=== PATIENT | male | born 1945 | race Caucasian/White ===

== ENCOUNTER 2016-10-08 13:00 | Inpatient (IN) | payer MEDICARE ==
[2016-10-08 13:01] VITALS: PULSE 68
--- NOTE | 2016-10-08 13:50 | ED PDOC ---
Arrival/HPI - General Chief Complaint: Weakness/Neurological Deficit Time Seen by Provider: 10/08/16 13:01 Historian: Patient, Spouse EM Caveat: Altered Mental Status - History of Present Illness Narrative History of Present Illness (Text): 10/08/16 13:23 A 71 year old male, whose past medical history includes stroke, diabetes, atrial fibrillation, on Coumadin and keppra was brought into the emergency department via EMS for Altered Mental Status. His reports when she came out of the bathroom this morning, her was lethargic and barely responsive though his eyes were partly open. She notes she couldn't hear his breathing. Per EMS, the patient was awake and alert upon their arrival but was hypotensive with a BP about 73/34. Per , his mental status is back to its baseline at this time. The patient denies any headache, vision changes, chest pain, fever, nausea, vomiting, abdominal pain, or any other complaints at this time. PMD: Dr. Castle Time/Duration: 4-6 hours Symptom Onset: Sudden Symptom Course: Unchanged Activities at Onset: Rest, Light Context: Home Past Medical History - Provider Review Nursing Documentation Reviewed: Yes - Infectious Disease Hx of Infectious Diseases: None - Tetanus Immunization Tetanus Immunization: Unknown - Cardiac Hx Cardiac Disorders: Yes (Afib) Hx Congestive Heart Failure: Yes Hx Hypertension: Yes - Pulmonary Hx Respiratory Disorders: Yes Hx Pneumonia: Yes Hx Respiratory Aspiration: Yes - Neurological Hx Neurological Disorder: Yes HX Cerebrovascular Accident: Yes (12/06/10, right sided weakness) - HEENT Hx HEENT Disorder: Yes (EYE INFECTION) Other/Comment: pt takes eye drops but does not know what they are for - Renal Hx Renal Disorder: Yes Other/Comment: incontinent of urine - Endocrine/Metabolic Hx Endocrine Disorders: Yes Hx Diabetes Mellitus Type 1: Yes Hx Diabetes Mellitus Type 2: No - Hematological/Oncological Hx Blood Disorders: No Hx Blood Transfusions: (not aware) Hx Blood Transfusion Reaction: (not aware) - Integumentary Hx Dermatological Disorder: No - Musculoskeletal/Rheumatological Hx Musculoskeletal Disorders: Yes Hx Falls: Yes - Gastrointestinal Hx Gastrointestinal Disorders: Yes (dysphagia, eats puree diet) HX Swallowing Problems: Yes - Genitourinary/Gynecological Hx Genitourinary Disorders: Yes Hx Incontinence: Yes Hx Prostate Problems: Yes (enlarged, bph) - Psychiatric Hx Psychophysiologic Disorder: No Hx Depression: No Hx Emotional Abuse: No Hx Physical Abuse: No Hx Substance Use: No - Surgical History Hx Amputation: Yes (rt great toe) Other/Comment: "brain surgery" - Anesthesia Hx Anesthesia: No Hx Anesthesia Reactions: No Hx Malignant Hyperthermia: No - Suicidal Assessment Feels Threatened In Home Enviroment: No Family/Social History - Physician Review Nursing Documentation Reviewed: Yes Family/Social History: No Known Family HX, Unknown Family HX Smoking Status: Former Smoker Hx Alcohol Use: No (FORMER) Hx Substance Use: No Hx Substance Use Treatment: No Allergies/Home Meds Allergies/Adverse Reactions: Allergies clopidogrel Allergy (Verified 10/08/16 13:02) RASH Home Medications: Home Meds Medication Instructions Recorded Confirmed Aspirin [Aspir 81] 81 mg PO DAILY 07/03/11 10/08/16 Tamsulosin [Flomax] 0.4 mg PO DAILY 07/03/11 10/08/16 Levetiracetam [Keppra] 500 mg PO BID 04/15/16 10/08/16 Metoprolol Tartrate [Lopressor] 12.5 mg PO BID 04/15/16 10/08/16 Pravastatin Sodium [Pravachol] 40 mg PO DAILY 04/15/16 10/08/16 QUEtiapine [Seroquel] 25 mg PO TID 10/08/16 10/08/16 Review of Systems - Physician Review All systems were reviewed & negative as marked: Yes - Review of Systems Systems not reviewed;Unavailable: Altered Mental Status (A&O x2 Place and Person , not to time (limits ROS)) Constitutional: absent: Fevers Eyes: absent: Vision Changes Cardiovascular: absent: Chest Pain Gastrointestinal: absent: Abdominal Pain Neurological: absent: Headache Physical Exam - Physical Exam Physical Exam Limitations: Altered Mental Status (A&Ox2 (Place and person, NOT time)) Vital Signs Reviewed: Yes Vital Signs Temp Pulse Resp BP Pulse Ox 10/08/16 15:39 95 H 18 166/69 H 96 10/08/16 13:21 78 16 128/65 97 10/08/16 13:19 96.7 F L Temperature: Hypothermic (96.7 rectal temp) Blood Pressure: Normal Pulse: Regular Respiratory Rate: Normal Appearance: Positive for: Non-Toxic Pain Distress: None Mental Status: Positive for: other (A&Ox2) - Systems Exam Head: Present: Other (Old scab on midparietal region of scalp that appears to be oozing out a small amount of blood.) Pupils: Present: PERRL Extroacular Muscles: Present: EOMI Mouth: Present: Moist Mucous Membranes Pharnyx: Present: Normal. No: ERYTHEMA Neck: Present: Normal Range of Motion Respiratory/Chest: Present: Other (Diminished breath at the bases). No: Respiratory Distress, Accessory Muscle Use Cardiovascular: Present: Normal S1, S2, Irregular Rhythm, Other Abdomen: Present: Normal Bowel Sounds. No: Tenderness, Distention, Peritoneal Signs Upper Extremity: Present: Normal Inspection. No: Cyanosis, Edema Lower Extremity: Present: Normal Inspection. No: Edema Neurological: Present: GCS=15, CN II-XII Intact, Other (dense right hemiparesis present at baseline ) Skin: Present: Warm, Dry, Normal Color. No: Rashes Psychiatric: Present: Alert, Other (A&O x2 ). No: Oriented x 3, Normal Concentration Medical Decision Making ED Course and Treatment: 10/08/16 14:01 Impression: A 71 year old male brought in via EMS for AMS. Differential Diagnosis included but are not limited to: seizure vs. TIA vs. neurocardiogenic syncope vs. infection Plan: -- Head CT -- EKG -- Chest X-ray -- Labs -- Urinalysis -- IV fluids, cefTRIAXone -- Reassess and disposition Prior Visits: The patient was last seen in the emergency department on 04/15/16 for pneumonia and dehydrated. The patient was admitted to the hospital. Progress Notes: EKG: Ordered, reviewed, and independently interpreted the EKG. Rate : 91 BPM Rhythm : Atrial fibrillation with RBBB, QRS is 128. Interpretation : No new ST/T changes. Comparison : No previous EKG for comparison from 04/15/16. Lactic acid 2.2, however patient meets 1/4 SIRS criteria, therefore not a code sepsis patient. Patient with noted history. Labs are showing a UTI; he will need IV antibiotics and placement on tele given the possible syncopal vs seizure episode at home. Case discussed with Dr. Castle and Dr. Fuchs, who is covering him. Chest X-Ray: Volunteer Services Manager : Boone Michaels MD Report Date : 10/08/2016 14:16:05 HISTORY:Sepsis Patient COMPARISON:04/18/2016. FINDINGS: LUNGS:Residual or recurrent consolidative changes right lower lobe. PLEURA:No significant pleural effusion identified, no pneumothorax apparent. CARDIOVASCULAR: No radiographic findings to suggest acute or significant cardiovascular disease. OSSEOUS STRUCTURES:No significant abnormalities. VISUALIZED UPPER ABDOMEN:Normal. OTHER FINDINGS:None. IMPRESSION:Right lower lobe infiltrate. 10/08/16 15:22 The patient had a 20 second seizure in the emergency department, which resolved. Patient was given 1mg of Ativan and 500 mg Keppra. 10/08/16 16:[address] negative. Patient's CXR shows a pneumonia - will add azithro to the abx coverage. - Lab Interpretations Lab Results: 10/08/16 13:41 10/08/16 14:13 Lab Results 10/08/16 14:13: Sodium 137, Chloride 103, Potassium 4.5, Carbon Dioxide 24, Anion Gap 15, BUN 19, Creatinine 0.7, Est GFR ( Amer) > 60, Est GFR (Non- Af Amer) > 60, Random Glucose 126 H, Calcium 8.8, Phosphorus 3.3, Magnesium 1.9 , Total Bilirubin 0.7, AST 19, ALT 24, Alkaline Phosphatase 74, Lactate Dehydrogenase 340, Total Creatine Kinase 75, Troponin I 0.02 D, Total Protein 6.3, Albumin 3.5, Globulin 2.9, Albumin/Globulin Ratio 1.2, Lipase 64 10/08/16 13:50: Urine Color Yellow, Urine Appearance Cloudy, Urine pH 7.0, Ur Specific [place] 1.020, Urine Protein 100 H, Urine Glucose (UA) Negative, Urine Ketones Negative, Urine Blood Moderate H, Urine Nitrate Positive H, Urine Bilirubin Negative, Urine Urobilinogen 2.0 H, Ur Leukocyte Esterase Large H, Urine RBC 0 - 2, Urine WBC Tntc, Urine Bacteria Large 10/08/16 13:41: pO2 49, VBG pH 7.28 L, VBG pCO2 56.0, VBG HCO3 26.3, VBG Total CO2 28.0, VBG O2 Sat (Calc) 85.5 H, VBG Base Excess -1.4 L, VBG Potassium 4.3, Sodium 137.0, Chloride 104.0, Glucose 134 H, Lactate 2.2 H, FiO2 21.0, Venous Blood Potassium 4.3 10/08/16 13:41: PT 25.5 H, INR 2.36 H, APTT 37.6 H 10/08/16 13:41: WBC 5.0 D, RBC 5.00, Hgb 15.2, Hct 44.3, MCV 88.6, MCH 30.4, MCHC 34.3, RDW 13.9, Plt Count 132, MPV 9.5, Gran % 57.2, Lymph % (Auto) 22.9, [place] % (Auto) 11.5 H, Eos % (Auto) 7.6 H, Baso % (Auto) 0.8, Gran # 2.88, Lymph # 1.2, [place] # 0.6, Eos # 0.4, Baso # 0.04, ESR 11 I have reviewed the lab results: Yes - RAD Interpretation Radiology Orders: 10/08/16 13:32 CHEST PORTABLE [RAD] Stat 10/08/16 13:33 Brain [HEAD W/O CONTRAST] [CT] Stat - Medication Orders Current Medication Orders: Azithromycin (Zithromax 500mg In Ns) 500 mg in 250 mls @ 167 mls/hr IVPB STAT STA PRN Reason: Protocol Stop: 10/08/16 16:32 Last Admin: 10/08/16 15:33 Dose: 167 mls/hr Discontinued Medications Ceftriaxone Sodium (Rocephin 1 Gram Ivpb) 1 gm in 100 mls @ 200 mls/hr IV ONCE STA PRN Reason: Protocol Stop: 10/08/16 14:31 Last Admin: 10/08/16 14:15 Dose: 200 mls/hr Sodium Chloride (Sodium Chloride 0.9%) 1,000 mls @ 999 mls/hr IV .Q1H1M STA Stop: 10/08/16 15:03 Last Admin: 10/08/16 14:16 Dose: 999 mls/hr Levetiracetam (Keppra 500mg Ivpb) 500 mg in 100 mls @ 400 mls/hr IVPB STAT STA Stop: 10/08/16 15:40 Last Admin: 10/08/16 15:33 Dose: 400 mls/hr Lorazepam (Ativan) 1 mg IVP ONCE STA PRN Reason: Protocol Stop: 10/08/16 15:27 Last Admin: 10/08/16 15:31 Dose: 1 mg - PA / DEPLOYMENT SPECIALIST / Resident Statement MD/DO has reviewed & agrees with the documentation as recorded. - Scribe Statement The provider has reviewed the documentation as recorded by the Scribe Provider Attestation: Mendy Mari Provider Scribe Attestation: All medical record entries made by the Scribe were at my direction and personally dictated by me. I have reviewed the chart and agree that the record accurately reflects my personal performance of the history, physical exam, medical decision making, and the department course for this patient. I have also personally directed, reviewed, and agree with the discharge instructions and disposition. Disposition/Present on Arrival - Present on Arrival Any Indicators Present on Arrival: No History of DVT/PE: No History of Uncontrolled Diabetes: No Urinary Catheter: No History of Decub. Ulcer: No History Surgical Site Infection Following: None - Disposition Have Diagnosis and Disposition been Completed?: Yes Diagnosis: Pneumonia, Altered mental status, Urinary tract infection, Seizure, Syncope Disposition: HOSPITALIZED Disposition Time: 14:35 Patient Plan: Admission, Telemetry Condition: FAIR
[2016-10-08 13:52] LABS: BASO # 0.04 K/mm3 (0.0-2.0); BASO % 0.8 % (0.0-3.0); EOS # 0.4 (0.0-0.7); EOS % 7.6 % (1.5-5.0); GRAN # 2.88 (1.4-6.5); GRAN % 57.2 % (50.0-68.0); HEMOGLOBIN 15.2 g/dL (14.0-18.0); LYMPH # 1.2 (1.2-3.4); LYMPH % 22.9 % (22.0-35.0); MEAN CELL VOLUME 88.6 fl (80.0-105.0); MEAN CORPUSCULAR HEMOGLOBIN 30.4 pg (25.0-35.0); MEAN CORPUSCULAR HGB CONC 34.3 g/dl (31.0-37.0); MEAN PLATELET VOLUME 9.5 fl (7.0-11.0); MONO # 0.6 (0.1-0.6); MONO % 11.5 % (1.0-6.0); PLATELET COUNT 132 10^3/uL (120.0-450.0); RED CELL DISTRIBUTION WIDTH 13.9 % (11.5-14.5)
[2016-10-08 13:53] LABS: VENOUS BLOOD GAS BASE EXCESS -1.4 mmol/L (0.0-2.0); VENOUS BLOOD GAS PO2 49 mm/Hg (30-55); VENOUS BLOOD PH 7.28 (7.32-7.43)
[2016-10-08 13:59] LABS: URINE BILIRUBIN NEGATIVE (NEGATIVE); URINE BLOOD MODERATE (NEGATIVE); URINE GLUCOSE (UA) NEGATIVE (NEGATIVE); URINE LEUKOCYTE ESTERASE LARGE Leu/uL (NEGATIVE); URINE NITRATE POSITIVE (NEGATIVE); URINE PROTEIN 100 mg/dL (<30 mg/dL)
[2016-10-08 13:59] LABS: INR 2.36 (0.93-1.08); PARTIAL THROMBOPLASTIN TIME 37.6 Seconds (23.7-30.8); PROTHROMBIN TIME 25.5 Seconds (9.9-11.8)
[2016-10-08 14:02] LABS: URINE APPEARANCE CLOUDY (CLEAR); URINE COLOR YELLOW (YELLOW)
[2016-10-08] MEDS ORDERED: cefTRIAXone 1 gm 1 GM/100 ML BAG IV STA (14:02)
[2016-10-08] MEDS ORDERED: Sodium Chloride 0.9% 1,000 ML IV STA (14:03)
--- NOTE | 2016-10-08 14:17 | RAD ---
HISTORY: Sepsis Patient COMPARISON: 04/18/2016. FINDINGS: LUNGS: Residual or recurrent consolidative changes right lower lobe. PLEURA: No significant pleural effusion identified, no pneumothorax apparent. CARDIOVASCULAR: No radiographic findings to suggest acute or significant cardiovascular disease. OSSEOUS STRUCTURES: No significant abnormalities. VISUALIZED UPPER ABDOMEN: Normal. OTHER FINDINGS: None. IMPRESSION: Right lower lobe infiltrate.
[2016-10-08 14:25] LABS: URINE BACTERIA LARGE (NEG); URINE RBC 0 - 2 /hpf (0-2); URINE WBC TNTC /hpf (0-6)
[2016-10-08 14:31] LABS: ALB/GLOB RATIO 1.2 (1.1-1.8); ALBUMIN 3.5 g/dL (3.0-4.8); ALT/SGPT 24 U/L (7-56); AST/SGOT 19 U/L (15-59); BLOOD UREA NITROGEN 19 mg/dL (7-21); CALCIUM 8.8 mg/dL (8.4-10.5); GFR AFRICAN-AMERICAN > 60; GFR NON-AFRICAN AMERICAN > 60; LIPASE 64 U/L (23-300); MAGNESIUM 1.9 mg/dL (1.7-2.2)
[2016-10-08 14:42] LABS: TROPONIN I 0.02 ng/mL
[2016-10-08] MEDS ORDERED: Azithromycin 500MG/NS 250ml 500 MG/250 ML BAG IVPB STA (15:03)
--- NOTE | 2016-10-08 15:21 | CT ---
PROCEDURE: CT HEAD WITHOUT CONTRAST. HISTORY: Altered mental status. COMPARISON: 03/20/2013. TECHNIQUE: Axial computed tomography images were obtained through the head/brain without intravenous contrast. Radiation dose: Total exam DLP = 726.63 mGy-cm. This CT exam was performed using one or more of the following dose reduction techniques: Automated exposure control, adjustment of the mA and/or kV according to patient size, and/or use of iterative reconstruction technique. FINDINGS: HEMORRHAGE: No intracranial hemorrhage. BRAIN: No mass effect or edema. Evidence of old infarct left parietal frontal region. Similar findings identified on the prior examination VENTRICLES: Unremarkable. No hydrocephalus. CALVARIUM: Unremarkable. PARANASAL SINUSES: Unremarkable as visualized. No significant inflammatory changes. MASTOID AIR CELLS: Unremarkable as visualized. No inflammatory changes. OTHER FINDINGS: None. IMPRESSION: No acute intracranial abnormalities. No significant findings to account for the clinical presentation. No significant interval change compared to the prior examination(s).
[2016-10-08] MEDS ORDERED: levETIRAcetam 500mg IVPB 500 MG/100 ML BAG IVPB STA (15:26)
[2016-10-08 18:04] VITALS: BMI 33.4
[2016-10-08] MEDS ORDERED: Pneumococcal 23-Valent Vaccine IM ONE (18:05)
--- NOTE | 2016-10-08 18:45 | CARD ---
APPROVED REPORT EKG Measurement Heart [id number] <Conclusion> Atrial fibrillation Right bundle branch block Abnormal ECG
[2016-10-08 18:51] LABS: VENOUS BLOOD GAS BASE EXCESS -0.5 mmol/L (0.0-2.0); VENOUS BLOOD GAS PO2 41 mm/Hg (30-55); VENOUS BLOOD PH 7.38 (7.32-7.43)
--- NOTE | 2016-10-09 09:17 | CP.PCM.CON ---
History of Present Illness - History of Present Illness History of Present Illness: consult dictated # [id number] Past Patient History - Infectious Disease Hx of Infectious Diseases: None - Tetanus Immunizations Tetanus Immunization: Unknown - Past Medical History & Family History Past Medical History?: Yes - Past Social History Smoking Status: Former Smoker - CARDIAC Hx Cardiac Disorders: Yes (Afib) Hx Cardia Arrhythmia: Yes Hx Congestive Heart Failure: Yes Hx Hypercholesterolemia: Yes Hx Hypertension: Yes Hx Peripheral Edema: Yes (ble +1) Hx Peripheral Vascular Disease: Yes Other/Comment: dvt right leg ivc filter - PULMONARY Hx Respiratory Disorders: Yes Hx Pneumonia: Yes Hx Respiratory Aspiration: Yes - NEUROLOGICAL Hx Neurological Disorder: Yes (aphasia) HX Cerebrovascular Accident: Yes (12/06/10, right sided paralysis) Hx Seizures: Yes Other/Comment: right leg flaccid and contracted and right arm flaccid, garbled speech - HEENT Hx HEENT Problems: Yes (EYE INFECTION) Other/Comment: pt takes eye drops but does not know what they are for - RENAL Hx Chronic Kidney Disease: Yes Other/Comment: incontinent of urine - ENDOCRINE/METABOLIC Hx Endocrine Disorders: Yes Hx Diabetes Mellitus Type 1: Yes Hx Diabetes Mellitus Type 2: No - HEMATOLOGICAL/ONCOLOGICAL Hx Blood Disorders: No - INTEGUMENTARY Hx Dermatological Problems: Yes Other/Comment: non healing scalp wound dry red scab top of skull, 2 small dry round brown 0.5cm round growths to left knee, multiple red abrasions to right knee, dry flakey skin ble legs and feet, dry thick long nails to toes and hands , r great toe amputated, dry skin patches to left hand some redness, multiple healed scars to buttocks from open wounds, red raised rash to r and left neck - MUSCULOSKELETAL/RHEUMATOLOGICAL Hx Musculoskeletal Disorders: Yes (bedridden, weakness) Hx Falls: Yes (past) Other/Comment: right leg flaccid and contracted, right arm flaccid, pt leans head to right - GASTROINTESTINAL Hx Gastrointestinal Disorders: Yes (dysphagia, eats puree diet) HX Swallowing Problems: Yes - GENITOURINARY/GYNECOLOGICAL Hx Genitourinary Disorders: Yes Hx Incontinence: Yes (urine and stool) Hx Prostate Problems: Yes (enlarged, bph) - PSYCHIATRIC Hx Psychophysiologic Disorder: No Hx Depression: No Hx Emotional Abuse: No Hx Physical Abuse: No - SURGICAL HISTORY Hx Amputation: Yes (rt great toe) Other/Comment: "brain surgery", hematoma evacuation to releive pressure and bleeding, subarachnoid hemorrhage - ANESTHESIA Hx Anesthesia: No Hx Anesthesia Reactions: No Hx Malignant Hyperthermia: No Meds Allergies/Adverse Reactions: Allergies Allergy/AdvReac Type Severity Reaction Status Date / Time clopidogrel Allergy RASH Verified 10/08/16 13:02 - Medications Medications: Current Medications Aspirin (Ecotrin) 81 mg PO DAILY [facility] Ceftriaxone Sodium (Rocephin 1 Gram Ivpb) 1 gm in 100 mls @ 100 mls/hr IVPB DAILY RUKHSANA PRN Reason: Protocol Levetiracetam (Keppra) 500 mg PO BID RUKHSANA Metoprolol Tartrate (Lopressor) 12.5 mg PO BID RUKHSANA Tamsulosin HCl (Flomax) 0.4 mg PO DAILY RUKHSANA Warfarin Sodium (Coumadin) 5 mg PO HS RUKHSANA PRN Reason: Protocol Last Admin: 10/08/16 21:27 Dose: 5 mg Results - Vital Signs Recent Vital Signs: Last Vital Signs Temp 98.7 F 10/09/16 05:33 Pulse 98 H 10/09/16 05:33 Resp 20 10/09/16 05:33 BP 156/75 H 10/09/16 05:33 Pulse Ox 95 10/09/16 05:33 - Labs Result Diagrams: 10/08/16 13:41 10/08/16 14:13 Labs: Laboratory Results - last 24 hr 10/08/16 18:35 pO2 41 VBG pH 7.38 VBG pCO2 42.0 VBG HCO3 24.8 VBG Total CO2 26.1 VBG O2 Sat (Calc) 82.0 H VBG Base Excess -0.5 L VBG Potassium 4.5 Sodium 136.0 Chloride 105.0 Glucose 143 H Lactate 1.6 FiO2 21.0 Venous Blood Potassium 4.5
[2016-10-09] MEDS ORDERED: Vancomycin 1gm in NS 250ml 1 GM/250 ML BAG IVPB STA (09:28)
[2016-10-09] MEDS: Cefepime 1gm in NS 100ml 1 GM/100 ML BAG IVPB SCH ×3 (09:54→21:51)
[2016-10-09] MEDS ORDERED: cefTRIAXone 1 gm 1 GM/100 ML BAG IVPB SCH (10:00)
--- NOTE | 2016-10-09 11:31 | CT ---
PROCEDURE: CT Chest without contrast HISTORY: rule out pneumonia COMPARISON: 10/08/2016 chest x-ray. TECHNIQUE: Contiguous axial images were obtained through the chest without intravenous contrast enhancement. Sagittal and coronal reconstructions were performed. Maximum intensity projection (MIP) reconstructed images in the following planes: Axial projection only Radiation dose (DLP): 919.81 mGy-cm. This CT exam was performed using one or more of the following dose reduction techniques: Automated exposure control, adjustment of the mA and/or kV according to patient size, and/or use of iterative reconstruction technique. FINDINGS: LUNGS: Compressive atelectasis right lower lobe associated with small right pleural effusion. Questionable small nodule adjacent to the fissure left upper lobe. This measures 6 x 7 mm. Please refer to axial series 4/ image 27. Sagittal series 602 image 107 MEDIASTINUM: Unremarkable thoracic aorta. No aneurysm. Cardiomegaly. No evidence of acute, significant cardiovascular disease. Main pulmonary artery unremarkable. No vascular congestion. No lymphadenopathy. PLEURA: Small right pleural effusion, trace left pleural effusion. Below BONES: No fracture. No destructive lesion. UPPER ABDOMEN: Grossly unremarkable. OTHER FINDINGS: None. IMPRESSION: 1. Small right pleural effusion, associated compressive atelectasis. Trace left pleural effusion without evidence of consolidation. 2. Small nodule/ infiltrate apex left lung. Follow-up to resolution advised.
--- NOTE | 2016-10-09 15:35 | CON ---
NEUROLOGY CONSULTATION DATE: 10/09/2016 REASON FOR CONSULTATION: Confusion. HISTORY OF PRESENT ILLNESS: The patient is a 71-year-old male who has been asked for evaluation of altered mental status. The patient yesterday, apparently at home, came out of the bathroom and was noted to be lethargic and barely responsive with eyes partly open. As per EMS, patient was awake and alert and was hypertensive, however, he was back to his baseline when EMS arrived. The patient denied having any headache or dizziness. Denies having any chest pain. REVIEW OF SYSTEMS: Denies any headache, dizziness, chest pain, shortness of breath, abdominal pain, constipation, diarrhea, dysuria, cough, sputum production, positive for right sided weakness. PAST MEDICAL HISTORY: Includes cerebrovascular accident with residual right sided weakness, diabetes mellitus, and atrial fibrillation. MEDICATIONS: His medications included Coumadin, Flomax, Seroquel, Pravachol, Lopressor, Keppra 500 mg b.i.d., aspirin, and albuterol. ALLERGIES: CLOPIDOGREL. SOCIAL HISTORY: He denies current smoking. He used to smoke in the past. Denies use of any alcohol or illicit drugs. FAMILY HISTORY: Reviewed and noncontributory to the case. PHYSICAL EXAMINATION: GENERAL: The patient is an elderly male lying on the bed in no acute distress. VITAL SIGNS: Blood pressure is 156/75, heart rate is 98 per minute, breathing at a rate of 16 per minute, temperature is 98.7 degrees Fahrenheit. HEENT: Head is normocephalic and atraumatic. NECK: Supple. There are no carotid bruits. LUNGS: Clear. CARDIOPULMONARY: S1 and S2, audible. No murmurs. ABDOMEN: Soft and nontender with bowel sounds present. NEUROLOGIC: Mental Status: The patient is awake and alert. He knows he is in the hospital. He follows simple commands. Naming is good. Cranial Nerve Examination: Pupils 3 mm bilaterally reactive to light. Visual murguia are full to threat. Extraocular movements are intact. There is mild decrease in the nasal area floor on the right side. Tongue is midline. Motor Examination: Tone is increased on the right side. Power on the left side is 4/5, power on the right side in the upper extremities is 1/5, in the lower extremities 0 -1/5. Reflexes: Hyperreflexic on the right side. Plantars upgoing on the right side. Gait is un-testable because of the right sided weakness. Sensory Examination: There is slight decreased sensation to soft touch on the right. Other then that, it is intact to soft touch and pinprick. LABORATORY DATA: Reviewed. Shows WBC of 5.0, hemoglobin 15.2, hematocrit of 44.3, and platelets of 132. His INR is 2.3. Sodium is 137, potassium 4.5, chloride of 103, carbon dioxide content 24, BUN of 19, creatinine of 0.7, and glucose of 126. He had CT scan of the head done, which shows no acute intracranial abnormalities. No significant findings. It did show old left middle cerebral artery distribution infract. IMPRESSION: 1. Status post altered mental possibly secondary to seizure with underlying pneumonia as seen on chest x-ray, which may have lowered seizure threshold. 2. History of old cerebrovascular accident with right hemiparesis. 3. Atrial fibrillation. RECOMMENDATION: 1. Patient to have an electroencephalogram. 2. Patient to be continued on current dose of Keppra that is 500 mg twice day. 3. Patient to be continued on IV antibiotics. 4. Patient to be continued on warfarin. His INR is in therapeutic range. 5. Please continue other treatment and supportive care. Thank you for the opportunity to participate in the care of this patient. Charlotte Waller MD
--- NOTE | 2016-10-09 15:48 | CP.PCM.CON ---
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 In the ED, he was noted to have a hypotensive episode which ws fluid responsive. In the ED, urinalysis was done which showed pyuria. Infectious Diseases consult is requested to further evaluate and manage. There was no note of loss of consciousness, no vomiting, no convulsions, no diarrhea. Review of Systems - Review of Systems Systems not reviewed;Unavailable: Dementia Past Patient History - Infectious Disease Hx of Infectious Diseases: None - Tetanus Immunizations Tetanus Immunization: Unknown - Past Medical History & Family History Past Medical History?: Yes - Past Social History Smoking Status: Former Smoker - CARDIAC Hx Cardiac Disorders: Yes (Afib) Hx Cardia Arrhythmia: Yes Hx Congestive Heart Failure: Yes Hx Hypercholesterolemia: Yes Hx Hypertension: Yes Hx Peripheral Edema: Yes (ble +1) Hx Peripheral Vascular Disease: Yes Other/Comment: dvt right leg ivc filter - PULMONARY Hx Respiratory Disorders: Yes Hx Pneumonia: Yes Hx Respiratory Aspiration: Yes - NEUROLOGICAL Hx Neurological Disorder: Yes (aphasia) HX Cerebrovascular Accident: Yes (12/06/10, right sided paralysis) Hx Seizures: Yes Other/Comment: right leg flaccid and contracted and right arm flaccid, garbled speech - HEENT Hx HEENT Problems: Yes (EYE INFECTION) Other/Comment: pt takes eye drops but does not know what they are for - RENAL Hx Chronic Kidney Disease: Yes Other/Comment: incontinent of urine - ENDOCRINE/METABOLIC Hx Endocrine Disorders: Yes Hx Diabetes Mellitus Type 1: Yes Hx Diabetes Mellitus Type 2: No - HEMATOLOGICAL/ONCOLOGICAL Hx Blood Disorders: No - INTEGUMENTARY Hx Dermatological Problems: Yes Other/Comment: non healing scalp wound dry red scab top of skull, 2 small dry round brown 0.5cm round growths to left knee, multiple red abrasions to right knee, dry flakey skin ble legs and feet, dry thick long nails to toes and hands , r great toe amputated, dry skin patches to left hand some redness, multiple healed scars to buttocks from open wounds, red raised rash to r and left neck - MUSCULOSKELETAL/RHEUMATOLOGICAL Hx Musculoskeletal Disorders: Yes (bedridden, weakness) Hx Falls: Yes (past) Other/Comment: right leg flaccid and contracted, right arm flaccid, pt leans head to right - GASTROINTESTINAL Hx Gastrointestinal Disorders: Yes (dysphagia, eats puree diet) HX Swallowing Problems: Yes - GENITOURINARY/GYNECOLOGICAL Hx Genitourinary Disorders: Yes Hx Incontinence: Yes (urine and stool) Hx Prostate Problems: Yes (enlarged, bph) - PSYCHIATRIC Hx Psychophysiologic Disorder: No Hx Depression: No Hx Emotional Abuse: No Hx Physical Abuse: No - SURGICAL HISTORY Hx Amputation: Yes (rt great toe) Other/Comment: "brain surgery", hematoma evacuation to releive pressure and bleeding, subarachnoid hemorrhage - ANESTHESIA Hx Anesthesia: No Hx Anesthesia Reactions: No Hx Malignant Hyperthermia: No Meds Allergies/Adverse Reactions: Allergies Allergy/AdvReac Type Severity Reaction Status Date / Time clopidogrel Allergy RASH Verified 10/08/16 13:02 - Medications Medications: Current Medications Aspirin (Ecotrin) 81 mg PO DAILY [facility] Ceftriaxone Sodium (Rocephin 1 Gram Ivpb) 1 gm in 100 mls @ 100 mls/hr IVPB DAILY [facility] PRN Reason: Protocol Levetiracetam (Keppra) 500 mg PO BID [facility] Metoprolol Tartrate (Lopressor) 12.5 mg PO BID [facility] Tamsulosin HCl (Flomax) 0.4 mg PO DAILY [facility] Warfarin Sodium (Coumadin) 5 mg PO HS [facility] PRN Reason: Protocol Physical Exam - Constitutional Appears: Non-toxic, No Acute Distress - Head Exam Head Exam: NORMAL INSPECTION - ENT Exam ENT Exam: Mucous Membranes Moist - Neck Exam Neck exam: Negative for: Meningismus - Respiratory Exam Respiratory Exam: Decreased Breath Sounds - Cardiovascular Exam Cardiovascular Exam: +S1, +S2 - GI/Abdominal Exam GI & Abdominal Exam: Soft. absent: Tenderness Results - Vital Signs Recent Vital Signs: Last Vital Signs Temp 96.7 F L 10/08/16 17:28 Pulse 102 H 10/08/16 18:00 Resp 16 10/08/16 17:28 BP 128/65 10/08/16 17:28 Pulse Ox 96 10/08/16 17:06 - Labs Result Diagrams: 10/08/16 13:41 10/08/16 14:13 Labs: Laboratory Results - last 24 hr 10/08/16 18:35 pO2 41 VBG pH 7.38 VBG pCO2 42.0 VBG HCO3 24.8 VBG Total CO2 26.1 VBG O2 Sat (Calc) 82.0 H VBG Base Excess -0.5 L VBG Potassium 4.5 Sodium 136.0 Chloride 105.0 Glucose 143 H Lactate 1.6 FiO2 21.0 Venous Blood Potassium 4.5 Assessment & Plan - Assessment and Plan (Free Text) Plan: Assessment Consider sepsis due to urinary tract infection with gram negative bacilli history of Left lower lobe healthcare-associated pneumonia history of Community-acquired pneumonia Atrial fibrillation Cerebrovascular accident with hemiparesis and aphasia history of 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
--- NOTE | 2016-10-10 00:41 | CON ---
PULMONARY CONSULTATION DATE: 10/09/2016 HISTORY OF PRESENT ILLNESS: Mr. Cerna has a longstanding history of cardiac disease and pulmonary disease. He has had multiple infections in the past. He has had cardiac arrhythmias. He has had atrial fibrillation and SVT. He has peripheral vascular disease as well with congestive heart failure. He came to the emergency room with complaints of shortness of breath and chills. The patient is unable to give full history at this point. My history is gleamed from the review of the chart. I had discussions with the patient's nurse. PAST MEDICAL HISTORY: The patient's past history includes a significant seizure disorder and CVA in the past, and TIAs. He has had multiple infectious processes including the lung, eyes, chest, legs, scalp wounds. The patient also has had musculoskeletal disorder with paralysis and contractures. He also has dysphagia and swallowing problems, incontinence, BPH. No additional history is obtained right now. I will need to consult to Dr. Fuchs who is covering for Dr. Castle in order to get further history. We will attempt to look for old charts to see which all history is missing. HOME MEDICATIONS: Not present on the chart. The patient has been given ceftriaxone for the infection for the pneumonia. ALLERGIES: HE IS ALLERGIC TO DYE, PIDOGREL WHERE HE GETS A RASH. FAMILY HISTORY: Unknown. SOCIAL HISTORY: No smoking REVIEW OF SYSTEMS: Cannot be obtained from this patient at this time. We will attempt to make all reasonable contacts with the family and obtain old charts in order to get further information. All other systems negative. PHYSICAL EXAMINATION: GENERAL: The patient is sitting in bed in no acute respiratory distress. VITAL SIGNS: Shows that he is afebrile with a heart rate of 80, respiratory rate of 18, blood pressure 150/60, and oxygen sat 96% on room air. HEENT: Normocephalic atraumatic. Eyes: PERRLA, EOMs appear to be normal. NECK: Supple. There is no jugular venous distention. No lymphadenopathy. No bruit. CHEST: Rapid ventricular response, irregular, consistent with atrial fibrillation. Soft systolic ejection murmur at the lower left sternal border. Good air movement. Rales and rhonchi are noted. There is no wheezing appreciated. ABDOMEN: Soft. Bowel sounds are normoactive without mass, guarding, rebound, or organomegaly. EXTREMITIES: Reveal no clubbing, cyanosis. There is trace edema. There is no Homans sign. NEUROLOGIC: Multiple defects noted. We did not know the appropriate baseline, so I cannot tobacco cutter this at this time. Deep tendon reflexes appear to be hyperreactive with Babinski's downgoing. LYMPH: Lymph nodes are not palpable in the supraclavicular notch nor in the cervicolingual axillary areas. No additional history obtained at this point, but we will discuss with the other physicians caring for this patient. LABORATORY DATA: Show venous blood gas with a pH of 7.38, sodium 135, chloride 105, glucose 143, white count 5000, hemoglobin 15, hematocrit 44, potassium 4.5, BUN 19, creatinine 9.7. Chest x-ray, right lower lobe pneumonia, infiltrate, hyperinflation noted. EKG, sinus tachycardiac, ST-T wave changes. No old tracings with which to compare. CLINICAL IMPRESSION: 1. Right lower lobe pneumonia. 2. Baseline emphysema. 3. Cerebrovascular accident/transient ischemic attack/contracture/old neurologic deficits. 4. Scalp infection. 5. Coronary artery disease with congestive heart failure. 6. PTH. 7. Hypertension. 8. Hypercholesterolemia. 9. Atrial fibrillation. 10. Altered mental status. 11. Urinary tract infection. 12. Seizures. 13. Syncope. PLAN: Continue to workup according to all the other specialist involved regarding the pulmonary. The patient will be continued to antibiotics. We would give a inhaled bronchodilator and corticosteroids. We will hold off an anticholinergic at this time due to the arrhythmias. We will see if in the future the patient can tolerate LAMA like Spiriva or Incruse perhaps a low dose Spiriva would be best, but it is not yet available at [facility]. We will discuss with the primary medical doctor and decide on the need for further treatment. Thank you for the opportunity. Tony Aranda MD MTDD
[2016-10-10] MEDS: Cefepime 1gm in NS 100ml 1 GM/100 ML BAG IVPB SCH ×3 (06:07→21:41)
--- NOTE | 2016-10-10 09:34 | HP ---
DATE: 10/09/2016 CHIEF COMPLAINT AND HISTORY OF PRESENT ILLNESS: This is a 71-year-old male who was coming into the hospital after the patient's called me saying that he has had altered mental status and was short of breath. The patient came into the ER for further management. He does have a history of CVA and is home bound. The patient was coming out of the bathroom and was noted by his to be lethargic and having difficulty in opening his eyes. He was brought into the emergency room for further evaluation. He has no complaints of any chest pain or shortness of breath. No headaches. He was found to be hypotensive on arrival to the emergency room. He was given IV fluids. The patient's had stated that in the emergency room, the patient's mental status is back to baseline. He has difficulty with ambulating because of his residual weakness. He denies any fevers. No chest pain. No headache or dizziness. ALLERGIES: PLAVIX. HOME MEDICATIONS: Aspirin, Flomax, Keppra, Lopressor, Pravachol and Seroquel. PAST MEDICAL HISTORY: 1. CVA with residual right-sided weakness. 2. Diabetes type 2. 3. Atrial fibrillation, on anticoagulation. 4. Hypertension. 5. History of subdural hematoma. 6. Seizures, on medications. SOCIAL HISTORY: He did drinks previously. He is not a smoker, but did smoke in the past. He denies drug use. FAMILY HISTORY: Noncontributory. PHYSICAL EXAMINATION: VITAL SIGNS: Temperature is 97.1, pulse of 98, blood pressure 145/86 and respirations 18. Height is 5 feet and 8 inches and weight is 164 pounds. BMI is 24.9. GENERAL: The patient lying in bed, uncomfortable, and in no acute distress. HEENT: Atraumatic and normocephalic. Anicteric sclerae. Moist mucosa. Clarks conjunctivae. No oral lesions. NECK: No JVD, anterior and posterior adenopathy, thyromegaly, or bruits. CARDIOVASCULAR: S1 and S2 regular. No murmur, rubs, or gallop. LUNGS: Clear to auscultation bilaterally. No wheezes, rales, or rhonchi. ABDOMEN: Bowel sounds are positive. Soft, nontender and nondistended. No hepatosplenomegaly. No rebound and no guarding EXTREMITIES: No cyanosis, clubbing, or edema. NEUROLOGIC: No facial asymmetry. Tongue is midline. Right side is 2/5 power in the right arm and right leg. Hyperreflexia in the right knees. PSYCHIATRIC: She is awake, alert and oriented x3. No anxiety or depression. She has normal affect. GENITOURINARY: No CVA tenderness. VASCULAR: 2+ pulses in the carotid pulses and pedal pulses. SKIN: No erythema or nodules. SPINE: Shows normal curvature. EXTREMITIES: No Cyanosis and clubbing, no edema. LABORATORY DATA: White count of 5.0, hemoglobin 15.2 and platelet count 132. INR is 2.36. TSH is 7.28. Anion gap is 15. Sodium is 137, potassium is 4.5, troponin is 0.02. Urine showed blood is moderate and nitrites are positive. CT of the head shows no acute intracranial findings. Chest x-ray shows right lower lobe infiltrate. CT of the chest done is small right pleural effusion associated with compressive atelectasis with small nodule/infiltrate in the apex of the left lung. ASSESSMENT: 1. Delirium possibly secondary to urinary tract infection. 2. Left upper lobe 6 x 7 mm nodule. 3. Right-sided weakness secondary to cerebrovascular accident. 4. Seizures. 5. Right lung infiltrate. 6. *------*. 7. Diabetes type 2. 8. Atrial fibrillation, on anticoagulation. PLAN: The patient was admitted to the hospital. He is currently comfortable. He is alert and awake, need to rule out seizures could be related to urinary tract infection according to UA. He is going to continue his Coumadin. He is going to continue Flomax for his BPH. He is on Keppra. I will continue his Keppra for seizure. He is on metoprolol. He is going to be placed on cefepime for antibiotics. An EEG has been ordered by Dr. Waller, the Neurologist that I consulted. He is on a dysphagia diet. We will get ID evaluation as well and I have also asked Dr. Moore to evaluate the patient because he was short of breath and he also has a left lung nodule. Tyler Fuchs MD
[2016-10-10] MEDS: levETIRAcetam 500 mg/5ml UD cups PO SCH ×2 (09:43→18:38)
--- NOTE | 2016-10-10 10:11 | PN ---
DATE: 10/10/2016 SUBJECTIVE: The patient has no complaints of any chest pain. No shortness of breath. PHYSICAL EXAMINATION: VITAL SIGNS: Temperature is 98.6, pulse of 121, blood pressure 125/70 and respiration is 19. GENERAL: The patient is lying in bed, flat, comfortable. HEENT: No oral lesion. Anicteric sclerae. Moist mucosa. NECK: No JVD, adenopathy, or thyromegaly. CARDIOVASCULAR: S1 and S2, regular. No murmurs, rubs, or gallops. LUNGS: Clear to auscultation bilaterally. No wheeze, rales, or rhonchi. ABDOMEN: Bowel sounds are positive, soft, nontender and nondistended. EXTREMITIES: No cyanosis, clubbing or edema. NEUROLOGIC: Right arm 1/5 power, right leg 1/5 power. ASSESSMENT: 1. Delirium secondary to urinary tract infection. 2. Urinary tract infection secondary to Pseudomonas. 3. Right leg weakness 4. Seizures. 5. Right lung infiltrate. 6. Right upper lobe 6 x 7 mm nodule. 7. Diabetes type 2. 8. Atrial fibrillation, on anticoagulation. 9. Benign prostatic hypertrophy. PLAN: The patient is currently comfortable. He is on Coumadin, this will be continued. The patient's Flomax was for his BPH. The patient is on Keppra for his seizures. He is on cefepime for antibiotics, being followed by Infectious Disease. The patient will have an EEG, that is pending. I will discontinue the patient's telemetry monitoring. Tyler Fuchs MD
--- NOTE | 2016-10-10 12:12 | PN ---
PULMONARY PROGRESS NOTE DATE: 10/10/2016 HISTORY: The patient remains the same. No significant changes are noted. The patient appears to be awake and alert at times, sleepy at the rest. Nurses did not reported any significant change to me. Being followed by Dr. Martin as discussed earlier. We have not been able to get in touch with his family to get additional information as of now. PHYSICAL EXAMINATION: GENERAL: The patient is no acute respiratory distress, comfortable. VITAL SIGNS: Stable, afebrile, blood pressure 130/70, respiratory rate 18, heart rate 80, oxygen sat 96% on room air. HEENT: Normocephalic. NECK: Supple. No JVD. No lymphadenopathy. CHEST: Atrial fibrillation with rapid ventricular response consistent with EF. Soft systolic ejection murmur to lower left sternal border. LUNGS: Better breath sounds today. Good air movement. No rales or wheezes. ABDOMEN: Soft. Bowel sounds are normoactive without mass, guarding, rebound or organomegaly. EXTREMITIES: Reveal no clubbing, cyanosis or edema. The edema has subsided since yesterday. NEUROLOGIC: No focal defects. Lymphadenopathy is not noted. Neurologic is unchanged. DIAGNOSTIC DATA: We are awaiting this morning his x-ray to look for the evaluation of the present pneumonia. CLINICAL IMPRESSION: 1. Right lower lobe pneumonia. 2. Baseline chronic obstructive pulmonary disease characterized by emphysema. 3. Cerebrovascular accident/transient ischemic attack/contractures. 4. Scalp infection. 5. Coronary artery disease. 6. Atrial fibrillation. PLAN: Continue vigorous supportive care. Close followup. The patient's status is essentially unchanged. LAMA added yesterday. It has not caused any further deterioration and arrhythmia, but we are still concerned about the rapid atrial fibrillation. We will discuss with cardiology and see if additional methods can be used. Close followup is necessary. Tony Aranda MD
--- NOTE | 2016-10-10 13:33 | CP.PCM.CON ---
History of Present Illness - History of Present Illness History of Present Illness: 71 year old male with PMH of Community-acquired pneumonia, MRSA, Atrial fibrillation, Coronary artery disease, Cerebrovascular accident with renae- paresis and difficulty in speech, history of Deep venous thrombosis with inferior vena cava filter placement. Pt seen by podiatry concerning elongated discolored nails. Pt is confuded on visit, and is a poor historian. Past Patient History - Infectious Disease Hx of Infectious Diseases: None - Tetanus Immunizations Tetanus Immunization: Unknown - Past Medical History & Family History Past Medical History?: Yes - Past Social History Smoking Status: Former Smoker - CARDIAC Hx Cardiac Disorders: Yes (Afib) Hx Cardia Arrhythmia: Yes Hx Congestive Heart Failure: Yes Hx Hypercholesterolemia: Yes Hx Hypertension: Yes Hx Peripheral Edema: Yes (ble +1) Hx Peripheral Vascular Disease: Yes Other/Comment: dvt right leg ivc filter - PULMONARY Hx Respiratory Disorders: Yes Hx Pneumonia: Yes Hx Respiratory Aspiration: Yes - NEUROLOGICAL Hx Neurological Disorder: Yes (aphasia) HX Cerebrovascular Accident: Yes (12/06/10, right sided paralysis) Hx Seizures: Yes Other/Comment: right leg flaccid and contracted and right arm flaccid, garbled speech - HEENT Hx HEENT Problems: Yes (EYE INFECTION) Other/Comment: pt takes eye drops but does not know what they are for - RENAL Hx Chronic Kidney Disease: Yes Other/Comment: incontinent of urine - ENDOCRINE/METABOLIC Hx Endocrine Disorders: Yes Hx Diabetes Mellitus Type 1: Yes Hx Diabetes Mellitus Type 2: No - HEMATOLOGICAL/ONCOLOGICAL Hx Blood Disorders: No - INTEGUMENTARY Hx Dermatological Problems: Yes Other/Comment: non healing scalp wound dry red scab top of skull, 2 small dry round brown 0.5cm round growths to left knee, multiple red abrasions to right knee, dry flakey skin ble legs and feet, dry thick long nails to toes and hands , r great toe amputated, dry skin patches to left hand some redness, multiple healed scars to buttocks from open wounds, red raised rash to r and left neck - MUSCULOSKELETAL/RHEUMATOLOGICAL Hx Musculoskeletal Disorders: Yes (bedridden, weakness) Hx Falls: Yes (past) Other/Comment: right leg flaccid and contracted, right arm flaccid, pt leans head to right - GASTROINTESTINAL Hx Gastrointestinal Disorders: Yes (dysphagia, eats puree diet) HX Swallowing Problems: Yes - GENITOURINARY/GYNECOLOGICAL Hx Genitourinary Disorders: Yes Hx Incontinence: Yes (urine and stool) Hx Prostate Problems: Yes (enlarged, bph) - PSYCHIATRIC Hx Psychophysiologic Disorder: No Hx Depression: No Hx Emotional Abuse: No Hx Physical Abuse: No - SURGICAL HISTORY Hx Amputation: Yes (rt great toe) Other/Comment: "brain surgery", hematoma evacuation to releive pressure and bleeding, subarachnoid hemorrhage - ANESTHESIA Hx Anesthesia: No Hx Anesthesia Reactions: No Hx Malignant Hyperthermia: No Meds Allergies/Adverse Reactions: Allergies Allergy/AdvReac Type Severity Reaction Status Date / Time clopidogrel Allergy RASH Verified 10/08/16 13:02 - Medications Medications: Current Medications Aspirin (Aspirin Chewable) 81 mg PO DAILY [facility] Betamethasone/Clotrimazole (Lotrisone) 1 gm TOP BID [facility] Cefepime HCl (Maxipime 1gm) 1 gm in 100 mls @ 100 mls/hr IVPB Q8 [facility] PRN Reason: Protocol Last Admin: 10/10/16 06:07 Dose: 100 mls/hr Levetiracetam (Keppra) 500 mg PO BID [facility] Last Admin: 10/10/16 09:43 Dose: 500 mg Metoprolol Tartrate (Lopressor) 12.5 mg PO BID [facility] Last Admin: 10/10/16 09:27 Dose: 12.5 mg Tamsulosin HCl (Flomax) 0.4 mg PO DAILY [facility] Last Admin: 10/10/16 09:27 Dose: 0.4 mg Warfarin Sodium (Coumadin) 5 mg PO HS [facility] PRN Reason: Protocol Last Admin: 10/09/16 21:52 Dose: 5 mg Physical Exam - Constitutional Appears: Non-toxic, No Acute Distress - Extremities Exam Additional comments: Lower extremity focused. VASC: PT pedal pulses graded 1/4 bilaterally. DP pulses non palpable. +1 pitting edema bilaterally. Temperature runs warm to cool proximal to distal within normal limits. NEURO: Non assessable due to pts altered mental status. Left side shows mild hyperrefleia, Absnet clonus bilaterally. DERM:Annular dyshytrotic patches of skin along dorsal pedal skin, [place] skin fissuring and non-streaking erythema noted bilaterally. No interdigital macerations noted bilaterally. Yellowed, brittle, elongated, toenails x 9 with subungual debris. MUSK: Prior right hallux amputation noted. Rigid non-reducible flexor contracture of right knee. Severe pedal and lower leg muscle atrophy and significant decrease of muscle tone bilaterally. [place] of motion to right lower extremity is 1/5, 3/5 to left lower extremity. . - Neurological Exam Neurological exam: Alert, Altered Results - Vital Signs Recent Vital Signs: Last Vital Signs Temp 97.7 F 10/10/16 12:00 Pulse 72 10/10/16 12:00 Resp 18 10/10/16 12:00 BP 109/54 L 10/10/16 12:00 Pulse Ox 97 10/10/16 06:00 - Labs Result Diagrams: 10/08/16 13:41 10/08/16 14:13 Labs: Laboratory Results - last 24 hr 10/09/16 07:42 Procalcitonin < 0.05 L Assessment & Plan - Assessment and Plan (Free Text) Assessment: 71 year old male with bilateral onychomycosis and tinea pedis. Plan: Pt seen and evaluated with Dr. Holland. Chart, labs, and vitals reviewed. Performed aseptic onychoreduction of all 9 toenail pates using nail nipper to hygienic length absent sharp edges, without incident. Prescribed lotrisone for application to bilateral feet and legs. Pt to undergo physical therapy for address deconditioned mobility. Please re-consult as needed. - Date & Time Date: 10/10/16 Time: 13:20
--- NOTE | 2016-10-10 16:00 | CP.PCM.PN ---
Subjective - Date & Time of Evaluation Date of Evaluation: 10/10/16 Time of Evaluation: 10:40 - Subjective Subjective: Comfortable in bed, not in distress, afebrile. Objective - Vital Signs/Intake and Output Vital Signs (last 24 hours): Temp Pulse Resp BP Pulse Ox 98.6 F 85 19 126/64 97 10/10/16 06:00 10/10/16 06:00 10/10/16 06:00 10/10/16 06:00 10/10/16 06:00 Intake and Output: 10/10/16 10/10/16 06:59 18:59 Intake Total 120 Balance 120 - Medications Medications: Current Medications Aspirin (Ecotrin) 81 mg PO DAILY [facility] Last Admin: 10/09/16 09:55 Dose: 81 mg Cefepime HCl (Maxipime 1gm) 1 gm in 100 mls @ 100 mls/hr IVPB Q8 [facility] PRN Reason: Protocol Last Admin: 10/10/16 06:07 Dose: 100 mls/hr Levetiracetam (Keppra) 500 mg PO BID [facility] Last Admin: 10/09/16 18:11 Dose: 500 mg Metoprolol Tartrate (Lopressor) 12.5 mg PO BID [facility] Last Admin: 10/09/16 18:11 Dose: 12.5 mg Tamsulosin HCl (Flomax) 0.4 mg PO DAILY [facility] Last Admin: 10/09/16 09:55 Dose: 0.4 mg Warfarin Sodium (Coumadin) 5 mg PO HS [facility] PRN Reason: Protocol Last Admin: 10/09/16 21:52 Dose: 5 mg - Labs Labs: PT 25.5 Seconds (9.9-11.8) H 10/08/16 13:41 INR 2.36 (0.93-1.08) H 10/08/16 13:41 APTT 37.6 Seconds (23.7-30.8) H 10/08/16 13:41 - Constitutional Appears: Non-toxic, No Acute Distress - Head Exam Head Exam: NORMAL INSPECTION - ENT Exam ENT Exam: Mucous Membranes Moist - Neck Exam Neck Exam: absent: Meningismus - Respiratory Exam Respiratory Exam: Decreased Breath Sounds - Cardiovascular Exam Cardiovascular Exam: +S1, +S2 - GI/Abdominal Exam GI & Abdominal Exam: Soft. absent: Tenderness Assessment and Plan - Assessment and Plan (Free Text) Plan: Assessment Consider sepsis due to urinary tract infection with gram negative bacilli history of Left lower lobe healthcare-associated pneumonia history of Community-acquired pneumonia Atrial fibrillation Cerebrovascular accident with hemiparesis and aphasia history of skin/soft tissue infection of the scalp with MRSA HTN Coronary artery disease S/P PEG tube placement Deep venous thrombosis S/P Inferior vena cava filter placement Plan follow up identification and sensitivities of the gram negative bacilli in the urine;follow up PSA level continue Cefepime day 2 will continue to monitor clinically
[2016-10-10] MEDS: Clotrimazole/Betamethasone Cream(15 gm) TOP SCH (18:38)
--- NOTE | 2016-10-10 19:53 | PN ---
SUBJECTIVE: The patient is still lying on the bed in acute distress. Denies having any headache or dizziness. PHYSICAL EXAMINATION VITAL SIGNS: His blood pressure is 109/54, heart rate is 72 per minute, breathing at the rate of 16 per minute, temperature is 97.7 degrees Fahrenheit. HEENT: Head is normocephalic, atraumatic. NECK: Supple. There are no carotid bruits. LUNGS: Clear. CARDIOVASCULAR: S1 and S2 audible. No murmur. ABDOMEN: Soft and nontender with bowel sounds present. NEUROLOGIC: Mental Status: The patient is awake, alert. He knows he is in the hospital. He follows simple commands. Cranial Nerve Examination: Pupils 3 mm, bilaterally reactive to light. Visual murguia are full. Extraocular movements are intact. There is mild decrease in the nasolabial fold on the right side. Tongue is midline. Motor Examination: Tone is increased on the right side. There is right-sided hemiparesis with power of 1/5 and power on the left side is 4/5. Hyperreflexia on the right side. Plantars upgoing on the right side. IMPRESSION: 1. Status post altered mental status, questionable, secondary to seizure or secondary to underlying pneumonia. 2. History of seizure disorder. 3. History of old cerebrovascular accident with residual right hemiparesis. 4. Atrial fibrillation. RECOMMENDATION: 1. The patient had an electroencephalogram done, which is normal and did not reveal any epileptogenic activity. 2. At the moment, the patient to be continued on Keppra 500 mg twice a day. If he has any recurrent seizure, the dose needs to be increased to 750 mg twice a day. 3. The patient to be continued on IV antibiotics for his underlying pneumonia. 4. The patient also to be continued on Coumadin for his underlying atrial fibrillation with INR to be kept between 2 to 3. 5. Please continue supportive care and the treatment. 6. No further neurological recommendations. Please call neurology on an as needed basis. Thank you for the opportunity to participate in the care of this patient. Charlotte Waller MD
[2016-10-11] MEDS: Cefepime 1gm in NS 100ml 1 GM/100 ML BAG IVPB SCH (05:34)
[2016-10-11 07:10] VITALS: BP 148/97; PULSE 68; RESP 18; TEMP 98.8; O2SAT 95
--- NOTE | 2016-10-11 07:27 | DS ---
HISTORY OF PRESENT ILLNESS: This is a 71-year-old male who has come into the hospital because of changes in his mental status. The patient was found to have urinary tract infection. He had been started on antibiotics. He has pseudomonas infection. The patient has no complaints of any chest pain or shortness of breath. He was seen by the neurology. The patient has no headaches or dizziness. No nausea. He is waiting for an EEG to be done. The patient had an EEG done which was normal. The neurologist has advised to take intravenous from Keppra 500 mg twice a day to 750 mg. He has cleared the patient for discharge. PHYSICAL EXAMINATION: VITAL SIGNS: Temperature is 98.7, pulse is 76, blood pressure 154/86, respirations 20, and O2 saturation 97%. GENERAL: The patient is lying in bed, flat, comfortable. HEENT: No oral lesion. Anicteric sclerae. Moist mucosa. NECK: No JVD, adenopathy, or thyromegaly. CARDIOVASCULAR: S1 and S2, regular. No murmurs, rubs, or gallops. LUNGS: Clear to auscultation bilaterally. No wheeze, rales, or rhonchi. ABDOMEN: Bowel sounds are positive, soft, nontender and nondistended. EXTREMITIES: No cyanosis, clubbing or edema. ASSESSMENT: 1. Urinary tract infection secondary to Pseudomonas. 2. Delirium secondary to urinary tract infection. 3. Seizure disorder. 4. History of cerebrovascular accident with right-sided weakness. 5. Right upper lobe lung nodule 6 x 7 mm. 6. Diabetes type 2. 7. Atrial fibrillation, on Coumadin. 8. Benign prostatic hypertrophy. PLAN: The patient is currently comfortable. He is getting IV antibiotics. He is being followed Dr. Schumacher. His urine culture show that he has a Pseudomonas aeruginosa infection which is sensitive to ciprofloxacin. The patient will be discharged home to follow up as an outpatient. He is going to continue his Flomax for BPH and Coumadin, this will be continued The patient is on a dysphagia diet. Condition is stable. Activities increased as tolerated. Tyler Fuchs MD
[2016-10-11] MEDS: Clotrimazole/Betamethasone Cream(15 gm) TOP SCH (09:23)
[2016-10-11] MEDS: levETIRAcetam 500 mg/5ml UD cups PO SCH (09:25)
--- NOTE | 2016-10-11 11:18 | CP.PCM.PN ---
Subjective - Date & Time of Evaluation Date of Evaluation: 10/11/16 Time of Evaluation: 10:35 - Subjective Subjective: Comfortable, no abdominal pain, not in distress. Objective - Vital Signs/Intake and Output Vital Signs (last 24 hours): Temp Pulse Resp BP Pulse Ox 98.8 F 68 18 148/97 H 95 10/11/16 06:00 10/11/16 06:00 10/11/16 06:00 10/11/16 06:00 10/11/16 06:00 Intake and Output: 10/11/16 10/11/16 06:59 18:59 Intake Total 300 Balance 300 - Medications Medications: Current Medications Aspirin (Aspirin Chewable) 81 mg PO DAILY [facility] Betamethasone/Clotrimazole (Lotrisone) 0 gm TOP BID [facility] Last Admin: 10/10/16 18:38 Dose: 1 applic Cefepime HCl (Maxipime 1gm) 1 gm in 100 mls @ 100 mls/hr IVPB Q8 [facility] PRN Reason: Protocol Last Admin: 10/11/16 05:34 Dose: 100 mls/hr Levetiracetam (Keppra) 500 mg PO BID [facility] Last Admin: 10/10/16 18:38 Dose: 500 mg Metoprolol Tartrate (Lopressor) 12.5 mg PO BID [facility] Last Admin: 10/10/16 18:37 Dose: 12.5 mg Tamsulosin HCl (Flomax) 0.4 mg PO DAILY [facility] Last Admin: 10/10/16 09:27 Dose: 0.4 mg Warfarin Sodium (Coumadin) 5 mg PO HS [facility] PRN Reason: Protocol Last Admin: 10/10/16 21:41 Dose: 5 mg - Labs Labs: PT 25.5 Seconds (9.9-11.8) H 10/08/16 13:41 INR 2.36 (0.93-1.08) H 10/08/16 13:41 APTT 37.6 Seconds (23.7-30.8) H 10/08/16 13:41 - Constitutional Appears: Non-toxic, No Acute Distress - Head Exam Head Exam: NORMAL INSPECTION - ENT Exam ENT Exam: Mucous Membranes Moist - Neck Exam Neck Exam: absent: Lymphadenopathy, Meningismus - Respiratory Exam Respiratory Exam: Decreased Breath Sounds - Cardiovascular Exam Cardiovascular Exam: +S1, +S2 - GI/Abdominal Exam GI & Abdominal Exam: Soft. absent: Tenderness Assessment and Plan - Assessment and Plan (Free Text) Plan: Assessment Consider sepsis due to urinary tract infection with Pseudomonas, clinically improving history of Left lower lobe healthcare-associated pneumonia history of Community-acquired pneumonia Atrial fibrillation Cerebrovascular accident with hemiparesis and aphasia history of skin/soft tissue infection of the scalp with MRSA HTN Coronary artery disease S/P PEG tube placement Deep venous thrombosis S/P Inferior vena cava filter placement Plan PSA level is only 0.9 continue Cefepime day 3 (complete 7 days of therapy) - will get EKG today to see if the QTc is prolonged will continue to monitor clinically
--- NOTE | 2016-10-11 14:31 | EEG ---
DATE: 10/10/2016 INTRODUCTION: This is a digitally recorded EEG monitoring using standard EEG montages. BACKGROUND RHYTHM: The EEG shows a background activity of 8 Hz of activity in parietooccipital region. EEG activity is bilaterally symmetrical. There is attenuation of the background activity on eye opening. Significant amount of myogenic artifact noticed in this EEG recording. ABNORMAL POTENTIALS: No spike, sharp waves or focal slowing was seen. Photic stimulation and hyperventilation. Photic stimulation did not reveal any abnormality. Hyperventilation was not performed. IMPRESSION: Normal EEG. No epileptiform activity seen in this EEG recording. Charlotte Waller MD
--- NOTE | 2016-10-11 16:05 | PN ---
DATE: 10/11/2016 LOCATION: Room 262, Bed 1. SUBJECTIVE: Mr. Cerna is being discharged today. I had a long talk with Dr. Fuchs. His general pulmonary status remains stable and he will discharge him today on his regular pulmonary medications as well as antibiotics that he will be taking until resolution of his bronchopneumonia. We have discussed the nodule seen on chest x-ray, which will need further evaluation as an outpatient. PHYSICAL EXAMINATION: GENERAL: The patient is stable, in no acute distress. VITAL SIGNS: Stable. Blood pressure 130/70, respiratory rate 16, oxygen sat 96% on room air, heart rate 82%, afebrile. HEENT: Normocephalic, atraumatic. Eyes: PERRLA, EOMs full.. Conjunctivae pink. NECK: Supple. NO JVD. No lymphadenopathy. No additional abnormalities. No bruit. No congestive heart failure. CHEST: Atrial fibrillation with a moderate ventricular response. Systolic ejection murmur to lower left sternal border. No murmur or rub. There are no gallops noted. ABDOMEN: Soft. Bowel sounds normoactive. NEUROLOGIC: No memory loss SKIN: Dry; intact I have just had nothing to do except for reevaluation of the pulmonary nodule. CLINICAL IMPRESSION: 1. Right lower lobe pneumonia. 2. Baseline chronic obstructive pulmonary disease. 3. Pulmonary nodule. 4. Cerebrovascular accident. 5. Atrial fibrillation. 6. Coronary artery disease. 7. Scalp infection. PLAN: The patient will be discharged on home medication to include inhaled corticosteroids. He will need a chest x-ray to show resolution of the pulmonary infiltrate. He will also need a CAT scan to look at the development of any changes in the solitary pulmonary nodule. It is essential that he sees me in two to three weeks. I do not wish for him get lost to follow up. I have discussed the importance of followup with the patient as well. The nurses have given the patient a piece of paper with my name and phone number on it. We will attempt to call him as well to make sure that the followup is obtained. Close followup from both pulmonary, pneumonic, and nodular abnormalities. These are all essential. We will follow closely. Tony Aranda MD [facility] # [id number] MTDD
--- NOTE | 2016-10-11 21:41 | CARD ---
APPROVED REPORT EKG Measurement Heart [id number] <Conclusion> Atrial fibrillation Right bundle branch block Abnormal ECG
--- NOTE | 2016-10-13 11:09 | PQF SEPSIS ---
10/13/16 Dr. Fuchs, ID consult and notes of 10/10 and 10/11 state "consider sepsis due to UTI." Was sepsis ruled out, ruled in, undetermined? If sepsis was ruled in, was this present on admission? Thank you. No sepsis. Clarification of your documentation is requested to better reflect the severity of illness and intensity of treatment of your patient. Indicators present [] Temp < 96.8 or > 100.4 [] WBC count > 12,000/mm3 or <000/mm3 or 10% immature neutrophils [] Heart Rate > 90 [] Respiratory Rate > 20 [] Fever or hypothermia [] Chills [] Positive blood cultures [] Hypotension [] Metabolic acidosis (Elevated lactate level, anion gap or reduced blood pH) [] Acute confusion /Altered Mental Status [] Shock [] Other: [] Location in the medical record that reflects the above clinical findings: [] Treatment Provided: [] PHYSICIAN'S RESPONSE Based on your medical judgment of the clinical indicators outlined above, are you treating this patient for a known or suspected: [] Sepsis / Septicemia Please specify organism if known [] [] SIRS (Systemic Inflammatory Response Syndrome) [] Severe Sepsis (Sepsis with Associated Organ Dysfunction) [] Fever of Unknown Origin [] Other, please indicate: [] [] If Unable to Determine, please check the box, sign and date. Present On Admission (POA) Indicator: [] Present at the time of admission [] Not present at the time of admission [] Clinically Undetermined In responding to this query, please exercise your independent professional judgment. The fact that a question is asked does not imply that any particular answer is desired or expected. Thank you for your clarification on this documentation. If you have any questions please call:[ ] * Thank you, [ ] paper testing supervisor KAITLIN
== END 2016-10-11 14:26 | disposition home or self-care (01) | DRG 689 ==
LOC: ED 13:00 → ERH 14:49 → 2RNO 16:23 → 3RNO 10-10 21:19
PROVIDERS: ADMIT Internal Medicine Nephrology; ATTEND Internal Medicine Nephrology
DX: N39.0 Urinary tract infection, site not specified (principal); J18.9 Pneumonia, unspecified organism; I13.0 Hypertensive heart and chronic kidney disease with heart failure and stage 1 through stage 4 chronic kidney disease, or unspecified chronic kidney disease; F05 Delirium due to known physiological condition; E10.22 Type 1 diabetes mellitus with diabetic chronic kidney disease; I50.9 Heart failure, unspecified; J44.0 Chronic obstructive pulmonary disease with (acute) lower respiratory infection; R13.10 Dysphagia, unspecified; I69.351 Hemiplegia and hemiparesis following cerebral infarction affecting right dominant side; R47.01 Aphasia; J98.11 Atelectasis; G40.909 Epilepsy, unspecified, not intractable, without status epilepticus; B35.1 Tinea unguium; N18.9 Chronic kidney disease, unspecified; I73.9 Peripheral vascular disease, unspecified; B96.5 Pseudomonas (aeruginosa) (mallei) (pseudomallei) as the cause of diseases classified elsewhere; E78.00 Pure hypercholesterolemia, unspecified; F01.50 Vascular dementia, unspecified severity, without behavioral disturbance, psychotic disturbance, mood disturbance, and anxiety; I25.10 Atherosclerotic heart disease of native coronary artery without angina pectoris; I48.91 Unspecified atrial fibrillation; N40.0 Benign prostatic hyperplasia without lower urinary tract symptoms; Z79.01 Long term (current) use of anticoagulants; Z79.82 Long term (current) use of aspirin; Z79.899 Other long term (current) drug therapy; Z86.718 Personal history of other venous thrombosis and embolism; Z87.01 Personal history of pneumonia (recurrent); Z87.891 Personal history of nicotine dependence; B35.3 Tinea pedis; R32 Unspecified urinary incontinence; Z88.8 Allergy status to other drugs, medicaments and biological substances; R40.2412 Glasgow coma scale score 13-15, at arrival to emergency department; E86.0 Dehydration; I45.10 Unspecified right bundle-branch block; R91.1 Solitary pulmonary nodule; D49.89 Neoplasm of unspecified behavior of other specified sites; S80.211A Abrasion, right knee, initial encounter; Z74.01 Bed confinement status; R15.9 Full incontinence of feces; Z91.048 Other nonmedicinal substance allergy status; Z86.14 Personal history of Methicillin resistant Staphylococcus aureus infection; M62.48 Contracture of muscle, other site

== ENCOUNTER 2017-08-24 18:48 | Inpatient (IN) | payer MEDICARE ==
--- NOTE | 2017-08-24 19:02 | ED PDOC ---
Arrival/HPI <Guillermo Alexandra P - Last Filed: 08/24/17 21:27> - General Historian: Patient - History of Present Illness Time/Duration: Other (see hpi) Context: Home <Aury Hurtado - Last Filed: 08/30/17 16:48> - General Chief Complaint: GI Problem Time Seen by Provider: 08/24/17 18:51 - History of Present Illness Narrative History of Present Illness (Text): 08/24/17 19:02 A 71 year old male, whose past medical history includes stroke, diabetes, atrial fibrillation, on Coumadin and Keppra was brought into the emergency department via EMS for evaluation of vomiting and fever since early today. Granddaughter is at bedside, she stated patient vomited his breakfast around 5pm today. Patient was found to have a fever at the same time. Granddaughter stated patient has sad similar symptoms after pneumonia in the past. Patient denies sob, cp, dizziness, urinary symptoms, rectal bleeding, trauma, or recent travel. (Aury Hurtado) Past Medical History - Provider Review Nursing Documentation Reviewed: Yes - Infectious Disease Hx of Infectious Diseases: None - Tetanus Immunization Tetanus Immunization: Unknown - Cardiac Hx Cardiac Disorders: Yes (Afib) Hx Cardiac Arrhythmia: Yes Hx Congestive Heart Failure: Yes Hx Hypertension: Yes Hx Peripheral Edema: Yes (ble +1) Hx Peripheral Vascular Disease: Yes Other/Comment: dvt right leg ivc filter - Pulmonary Hx Respiratory Disorders: Yes Hx Pneumonia: Yes Hx Respiratory Aspiration: Yes - Neurological Hx Neurological Disorder: Yes (aphasia) HX Cerebrovascular Accident: Yes (12/06/10, right sided paralysis) Hx Seizures: Yes Other/Comment: right leg flaccid and contracted and right arm flaccid, garbled speech - HEENT Hx HEENT Disorder: Yes (EYE INFECTION) Other/Comment: pt takes eye drops but does not know what they are for - Renal Hx Renal Disorder: Yes Other/Comment: incontinent of urine - Endocrine/Metabolic Hx Endocrine Disorders: Yes Hx Diabetes Mellitus Type 1: Yes - Hematological/Oncological Hx Blood Disorders: No - Integumentary Hx Dermatological Disorder: Yes Other/Comment: non healing scalp wound dry red scab top of skull, 2 small dry round brown 0.5cm round growths to left knee, multiple red abrasions to right knee, dry flakey skin ble legs and feet, dry thick long nails to toes and hands , r great toe amputated, dry skin patches to left hand some redness, multiple healed scars to buttocks from open wounds, red raised rash to r and left neck - Musculoskeletal/Rheumatological Hx Musculoskeletal Disorders: Yes (bedridden, weakness) Hx Falls: Yes (past) Other/Comment: right leg flaccid and contracted, right arm flaccid, pt leans head to right - Gastrointestinal Hx Gastrointestinal Disorders: Yes (dysphagia, eats puree diet) HX Swallowing Problems: Yes - Genitourinary/Gynecological Hx Genitourinary Disorders: Yes Hx Incontinence: Yes (urine and stool) Hx Prostate Problems: Yes (enlarged, bph) - Psychiatric Hx Psychophysiologic Disorder: No Hx Substance Use: No - Surgical History Hx Amputation: Yes (rt great toe) Other/Comment: "brain surgery", hematoma evacuation to releive pressure and bleeding, subarachnoid hemorrhage - Anesthesia Hx Anesthesia: No Hx Anesthesia Reactions: No Hx Malignant Hyperthermia: No - Suicidal Assessment Feels Threatened In Home Enviroment: No <Aury Hurtado P - Last Filed: 08/30/17 16:48> Family/Social History - Physician Review Nursing Documentation Reviewed: Yes Family/Social History: Other (noncontributory) Smoking Status: Former Smoker Hx Alcohol Use: No (FORMER) Hx Substance Use: No Hx Substance Use Treatment: No <Aury Hurtado P - Last Filed: 08/30/17 16:48> Allergies/Home Meds <Guillermo Alexandra P - Last Filed: 08/24/17 21:27> <Aury Hurtado P - Last Filed: 08/30/17 16:48> Allergies/Adverse Reactions: Allergies clopidogrel Allergy (Verified 08/24/17 18:55) RASH Home Medications: Home Meds Medication Instructions Recorded Confirmed Aspirin [Aspir 81] 81 mg PO DAILY 07/03/11 10/08/16 Tamsulosin [Flomax] 0.4 mg PO DAILY 07/03/11 10/08/16 Metoprolol Tartrate [Lopressor] 12.5 mg PO BID 04/15/16 10/08/16 Pravastatin Sodium [Pravachol] 40 mg PO DAILY 04/15/16 10/08/16 QUEtiapine [Seroquel] 25 mg PO TID 10/08/16 10/08/16 Review of Systems - Review of Systems Systems not reviewed;Unavailable: Other (information taken from [facility]) Constitutional: Fevers. absent: Fatigue, Weight Change Eyes: Normal ENT: Normal Respiratory: Cough. absent: SOB, Sputum, Wheezing Cardiovascular: Normal Gastrointestinal: Nausea, Vomiting. absent: Abdominal Pain, Diarrhea, Food Intolerance Genitourinary Male: Normal Musculoskeletal: Normal Skin: Normal Neurological: Normal. absent: Headache Endocrine: Normal Hemo/Lymphatic: Normal Psychiatric: Normal <Aury Hurtado P - Last Filed: 08/30/17 16:48> Physical Exam Temperature: Febrile Blood Pressure: Hypotensive Pulse: Tachycardic Respiratory Rate: Normal Appearance: Positive for: Well-Appearing, Non-Toxic, Comfortable, Ill-Appearing Pain Distress: None - Systems Exam Head: Present: Atraumatic, Normocephalic Pupils: Present: PERRL Extroacular Muscles: Present: EOMI Conjunctiva: Present: Normal Mouth: Present: Moist Mucous Membranes Neck: Present: Normal Range of Motion Respiratory/Chest: Present: Clear to Auscultation, Good Air Exchange. No: Respiratory Distress, Accessory Muscle Use, Wheezes, Retracting, Rhonchi Cardiovascular: Present: Regular Rate and Rhythm, Normal S1, S2. No: Murmurs Abdomen: No: Tenderness, Distention, Peritoneal Signs, Rebound, Guarding Back: Present: Normal Inspection Upper Extremity: Present: Normal Inspection, Normal ROM. No: Cyanosis, Edema Lower Extremity: Present: Normal Inspection, Normal ROM. No: Edema Neurological: Present: GCS=15, CN II-XII Intact Skin: Present: Warm, Dry, Normal Color. No: Rashes Psychiatric: Present: Alert <Aury Hurtado P - Last Filed: 08/30/17 16:48> Vital Signs Temp Pulse Resp BP Pulse Ox 08/24/17 22:30 115 H 18 98/58 L 96 08/24/17 20:43 105 H 18 89/54 L 98 08/24/17 20:08 119 H 20 138/48 L 97 08/24/17 19:37 100.4 F H 08/24/17 19:06 100.4 F H 137 H 18 87/40 L 95 Medical Decision Making - EKG Interpretation Interpreted by ED Physician: Yes Type: 12 lead EKG <Guillermo Alexandra Last Filed: 08/24/17 21:27> Re-evaluation Time: 21:00 Reassessment Condition: Re-examined, Improving,but remains with symptoms - Lab Interpretations I have reviewed the lab results: Yes Interpretation: Abnormal lab values <Aury Hurtado - Last Filed: 08/30/17 16:48> ED Course and Treatment: 08/24/17 21:30 EKG shows rapid afib with RVR at [address] changes in lead v4 ,v5, and v6. 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 Interpretation is rapid afib at 137bpm with intraventricular delay and possible ischemic changes. Interpreted by me. (Guillermo Alexandra) Dr. Alexandra examined patient, and he agreed with plan for admission. Dr. Alexandra spoke with Dr. Cates, and agreed with plan for admission. (Aury Hurtado) - Lab Interpretations Microbiology Results: Microbiology Results 08/24/17 20:00 Blood Blood Culture - Final NO GROWTH AFTER 5 DAYS 08/24/17 20:00 Blood Gram Stain - Final TEST NOT PERFORMED 08/24/17 19:30 Blood Blood Culture - Final NO GROWTH AFTER 5 DAYS 08/24/17 19:30 Blood Gram Stain - Final TEST NOT PERFORMED 08/24/17 20:20 Urine,Catheterized Urine Culture - Final No Growth (<1,000 CFU/ML) Lab Results: 08/24/17 19:30 08/24/17 19:30 Lab Results 08/24/17 20:20: Urine Color Yellow, Urine Appearance Clear, Urine pH 6.5, Ur Specific [place] 1.020, Urine Protein 100 H, Urine Glucose (UA) Negative, Urine Ketones Negative, Urine Blood Trace-lysed H, Urine Nitrate Negative, Urine Bilirubin Negative, Urine Urobilinogen 2.0 H, Ur Leukocyte Esterase Negative, Urine RBC 2 - 5, Urine WBC 0 - 2, Ur Epithelial Cells None, Urine Bacteria Few 08/24/17 19:30: Sodium 135, Chloride 99, Potassium 4.8, Carbon Dioxide 25, Anion Gap 17, BUN 23 H, Creatinine 0.6 L, Est GFR ( Amer) > 60, Est GFR ( Non-Af Amer) > 60, Random Glucose 99, Calcium 8.8, Phosphorus 3.0, Magnesium 1.8 , Total Bilirubin 1.0, AST 29, ALT 36, Alkaline Phosphatase 92, Lactate Dehydrogenase 481, Total Creatine Kinase 113, Troponin I 0.02, NT-Pro-B Natriuret Pep 3510 H, Total Protein 7.2, Albumin 3.9, Globulin 3.2, Albumin/ Globulin Ratio 1.2 08/24/17 19:30: pO2 64 H, VBG pH 7.33, VBG pCO2 50.0, VBG HCO3 26.4, VBG Total CO2 27.9, VBG O2 Sat (Calc) 94.8 H, VBG Base Excess -0.2 L, VBG Potassium 5.0, Sodium 132.0, Chloride 98.0, Glucose 99, Lactate 2.0, FiO2 21.0, Venous Blood Potassium 5.0 08/24/17 19:30: PT 30.2 H, INR 2.60 H, APTT 41.7 H 08/24/17 19:30: Procalcitonin < 0.05 L 08/24/17 19:30: WBC 8.1 D, RBC 5.44, Hgb 16.8, Hct 47.6, MCV 87.5, MCH 30.9, MCHC 35.3, RDW 13.8, Plt Count 142, MPV 10.1, Gran % 83.9 H, Lymph % (Auto) 6.2 L, [place] % (Auto) 8.1 H, Eos % (Auto) 1.6, Baso % (Auto) 0.2, Gran # 6.82 H, Lymph # (Auto) 0.5 L, [place] # (Auto) 0.7 H, Eos # (Auto) 0.1, Baso # (Auto) 0.02 - RAD Interpretation Radiology Orders: 08/24/17 19:02 CHEST PORTABLE [RAD] Stat 08/24/17 19:19 ABDOMEN PORTABLE 1 VIEW [RAD] Stat 08/24/17 19:46 CHEST,ABDOMEN, PELVIS W/O CONT [CT] Stat - Medication Orders Current Medication Orders: Acetaminophen (Tylenol 650mg/20.3ml Solution Ud) 650 mg PO Q6H PRN PRN Reason: temp or mod pain 4-7 Last Admin: 08/26/17 21:48 Dose: 650 mg MAR Pain/Vitals Document 08/26/17 21:48 B.P (Rec: 08/26/17 21:48 B.P [id number]) Pain Reassessment Is This A Pain ReAssessment? No Presence of Pain Presence of Pain Yes Pain Scale Used Pain Scale Used Numeric Location Intensity 6 Re-Assess: PAT Pain/Vitals Document 08/26/17 22:48 B.P (Rec: 08/27/17 00:18 B.P [id number]) Pain Reassessment Is This A Pain ReAssessment? Yes Sleep Is patient sleeping during reassessment? Yes Albuterol/Ipratropium (Duoneb 3 Mg/0.5 Mg (3 Ml) Ud) 3 ml IH [id number] [facility] Last Admin: 08/30/17 13:54 Dose: 3 ml Aspirin (Ecotrin) 81 mg PO DAILY [facility] Last Admin: 08/30/17 11:11 Dose: 81 mg Atorvastatin Calcium (Lipitor) 10 mg PO 2000 [facility] Last Admin: 08/29/17 20:54 Dose: 10 mg Digoxin (Lanoxin) 0.25 mg PO 1400 [facility] Last Admin: 08/30/17 12:58 Dose: 0.25 mg [facility] Apical Pulse Rate Document 08/30/17 12:58 VS (Rec: 08/30/17 12:59 VS [id number]) Apical Pulse Rate Apical Pulse Rate (60-90 beats/min) 66 Doxycycline Hyclate (Doryx) 100 mg PO Q12 [facility] PRN Reason: Protocol Stop: 09/03/17 10:51 Last Admin: 08/30/17 11:11 Dose: 100 mg Cefepime HCl (Maxipime 1gm) 1 gm in 100 mls @ 100 mls/hr IVPB Q8 [facility] PRN Reason: Protocol Stop: 09/03/17 10:48 Last Admin: 08/30/17 13:01 Dose: 100 mls/hr eMAR Start Stop Document 08/30/17 13:01 VS (Rec: 08/30/17 13:01 VS [id number]) Intravenous Solution Start Date 08/30/17 Start Time 13:01 End Date 08/30/17 End time 14:01 Total Infusion Time 60 Insulin Detemir (Levemir) 12 unit SC Q12H [facility] Insulin Human Lispro (Humalog Low) 0 units SC ACHS [facility] PRN Reason: Protocol Last Admin: 08/30/17 16:14 Dose: Not Given Non-Admin Reason: Blood Sugar Parameter MAR Blood Glucose Document 08/30/17 16:14 VS (Rec: 08/30/17 16:14 VS [id number]) Blood Glucose Finger Stick Blood Glucose (70-120) 232 Levetiracetam (Keppra) 750 mg PO BID [facility] Last Admin: 08/30/17 11:11 Dose: 750 mg Methylprednisolone (Solu-Medrol) 20 mg IVP Q12 [facility] Last Admin: 08/30/17 11:10 Dose: 20 mg IVP Administration Document 08/30/17 11:10 VS (Rec: 08/30/17 11:10 VS [place] [id number]) Charges for Administration # of IVP Administrations 1 Metoprolol Tartrate (Lopressor) 100 mg PO BRKDIN [facility] Last Admin: 08/30/17 11:11 Dose: 100 mg MAR Pulse and Blood Pressure Document 08/30/17 11:11 VS (Rec: 08/30/17 11:12 VS [place] [id number]) Pulse Pulse Rate (60-90) 90 Blood Pressure Blood Pressure (100/60-150/90) 136/70 Ondansetron HCl (Zofran Inj) 4 mg IVP Q6H PRN PRN Reason: Nausea/Vomiting Pantoprazole Sodium (Protonix Ec Tab) 40 mg PO DAILY [facility] Last Admin: 08/30/17 11:11 Dose: 40 mg Polyethylene Glycol (Miralax) 17 gm PO DAILY [facility] Last Admin: 08/30/17 11:14 Dose: 17 gm Quetiapine Fumarate (Seroquel) 25 mg PO TID [facility] PRN Reason: Protocol Last Admin: 08/30/17 15:12 Dose: 25 mg Behavioural Document 08/30/17 15:12 VS (Rec: 08/30/17 16:13 VS [id number]) Maintenance Maintenance Dose Yes Tamsulosin HCl (Flomax) 0.4 mg PO 2000 [facility] Last Admin: 08/29/17 20:53 Dose: 0.4 mg Warfarin Sodium (Coumadin) 5 mg PO 1800 ONE PRN Reason: Protocol Stop: 08/30/17 18:01 Discontinued Medications Acetaminophen (Tylenol 325 Mg Supp) 975 mg LA ONCE PRN PRN Reason: Fever >100.4 F Stop: 08/24/17 23:59 Last Admin: 08/24/17 19:37 Dose: 975 mg MAR Pain/Vitals Document 08/24/17 19:37 EQ (Rec: 08/24/17 19:37 EQ [facility] [place] Pain Reassessment Is This A Pain ReAssessment? No Sleep Is patient sleeping during reassessment? No Presence of Pain Presence of Pain Yes Vitals Temperature (97.6 F-99.6 F) 100.4 F Temperature Source Rectal Bisacodyl (Dulcolax) 10 mg RC ONCE ONE Stop: 08/24/17 23:37 Last Admin: 08/24/17 23:45 Dose: 10 mg Digoxin (Lanoxin) 0.5 mg IV ONCE ONE Stop: 08/26/17 09:40 Last Admin: 08/26/17 09:51 Dose: 0.5 mg eMAR Start Stop Document 08/26/17 09:51 JFG (Rec: 08/26/17 09:51 JFG [id number]) Intravenous Solution Start Date 08/26/17 Start Time 09:51 End Date 08/26/17 [facility] Apical Pulse Rate Document 08/26/17 09:51 JFG (Rec: 08/26/17 09:51 JFG [id number]) Apical Pulse Rate Apical Pulse Rate (60-90 beats/min) 125 Sodium Chloride (Sodium Chloride 0.9%) 1,000 mls @ 999 mls/hr IV .Q1H1M STA Stop: 08/24/17 20:07 Last Admin: 08/24/17 19:38 Dose: 999 mls/hr eMAR Start Stop Document 08/24/17 19:38 EQ (Rec: 08/24/17 19:38 EQ [facility] [place]) Intravenous Solution Start Date 08/24/17 Start Time 19:38 Sodium Chloride (Sodium Chloride 0.9%) 1,000 mls @ 999 mls/hr IV .Q1H1M STA Stop: 08/24/17 20:20 Last Admin: 08/24/17 19:38 Dose: 999 mls/hr eMAR Start Stop Document 08/24/17 19:38 EQ (Rec: 08/24/17 19:38 EQ [facility] [place]) Intravenous Solution Start Date 08/24/17 Start Time 19:38 Piperacillin Sod/Tazobactam Sod (Zosyn 4.5 Gm In Ns 100ml) 4.5 gm in 100 mls @ 200 mls/hr IVPB STAT STA PRN Reason: Protocol Stop: 08/24/17 20:17 Last Admin: 08/24/17 20:14 Dose: 200 mls/hr eMAR Start Stop Document 08/24/17 20:14 AD (Rec: 08/24/17 20:16 AD [id number] Intravenous Solution Start Date 08/24/17 Start Time 20:16 Sodium Chloride (Sodium Chloride 0.9%) 1,000 mls @ 999 mls/hr IV .Q1H1M STA Stop: 08/24/17 21:18 Last Admin: 08/24/17 20:41 Dose: 999 mls/hr eMAR Start Stop Document 08/24/17 20:41 EQ (Rec: 08/24/17 20:41 EQ [id number] Intravenous Solution Start Date 08/24/17 Start Time 20:41 Levofloxacin/Dextrose (Levaquin 750mg) 750 mg in 150 mls @ 100 mls/hr IVPB DAILY [facility] PRN Reason: Protocol Last Admin: 08/25/17 09:40 Dose: 100 mls/hr eMAR Start Stop Document 08/25/17 09:40 ALIPM (Rec: 08/25/17 09:41 ALIPM [id number] ) Intravenous Solution Start Date 08/25/17 Start Time 09:40 End Date 08/25/17 End time 10:40 Total Infusion Time 60 Sodium Chloride (Sodium Chloride 0.9%) 1,000 mls @ 40 mls/hr IV .Q24H [facility] Last Admin: 08/24/17 23:13 Dose: 40 mls/hr eMAR Start Stop Document 08/24/17 23:13 MHA (Rec: 08/24/17 23:13 MHA [id number]) Intravenous Solution Start Date 08/24/17 Start Time 23:13 Sodium Phosphate 15 mmole/ (Sodium Chloride) 255 mls @ 42.5 mls/hr IVPB ONCE ONE Stop: 08/28/17 21:04 Last Admin: 08/28/17 16:24 Dose: 42.5 mls/hr eMAR Start Stop Document 08/28/17 16:24 KL (Rec: 08/28/17 16:25 KL [id number]) Intravenous Solution Start Date 08/28/17 Start Time 16:25 Insulin Detemir (Levemir) 8 unit SC Q12H [facility] Last Admin: 08/30/17 11:13 Dose: 1 u MAR Blood Glucose Document 08/30/17 11:13 VS (Rec: 08/30/17 11:13 VS [id number]) Blood Glucose Finger Stick Blood Glucose (70-120) 199 Subcutaneous Administrations Document 08/30/17 11:13 VS (Rec: 08/30/17 11:13 VS [id number]) Injection Site MAR Injection Site Right Arm Charges for Administration # of Subcutaneous Administrations 1 Insulin Human Lispro (Humalog Low) 0 units SC Q6H [facility] PRN Reason: Protocol Last Admin: 08/26/17 17:38 Dose: 2 units MAR Blood Glucose Document 08/26/17 17:38 JFG (Rec: 08/26/17 17:39 [id number] Blood Glucose Finger Stick Blood Glucose (70-120) 244 Subcutaneous Administrations Document 08/26/17 17:38 JFG (Rec: 08/26/17 17:39 [id number] Injection Site MAR Injection Site Left Arm Charges for Administration # of Subcutaneous Administrations 1 Insulin Human Lispro (Humalog High) 0 units SC ACHS [facility] PRN Reason: Protocol Last Admin: 08/28/17 22:26 Dose: 4 units Metoprolol Tart[facility] ([facility]) [facility] Last Admin: 08/26/17 09:51 Dose: 12.5 mg MAR Pulse and Blood Pressure Document 08/26/17 09:51 JFG (Rec: 08/26/17 09:51 [id number] Pulse Pulse Rate (60-90) 133 Blood Pressure Blood Pressure (100/60-150/90) 123/78 Metoprolol Tartrate (Lopressor) 5 mg IVP Q6H [facility] Last Admin: 08/27/17 02:10 Dose: 5 mg IVP Administration Document 08/27/17 02:10 B.P (Rec: 08/27/17 02:11 B.P [id number]) Charges for Administration # of IVP Administrations 1 Metoprolol Tartrate (Lopressor) 50 mg PO BRKDIN [facility] Last Admin: 08/26/17 17:31 Dose: 50 mg MAR Pulse and Blood Pressure Document 08/26/17 17:31 JFG (Rec: 08/26/17 17:32 JFG [id number]) Pulse Pulse Rate (60-90) 115 Blood Pressure Blood Pressure (100/60-150/90) 143/75 Non-Formulary Medication (Pravastatin Sodium [Pravachol]) 40 mg PO DAILY [facility] Potassium Phos/Sodium Phos (Neutra-Phos) 1 pkt PO BID [facility] Last Admin: 08/27/17 17:18 Dose: 1 pkt Potassium Phos/Sodium Phos (Neutra-Phos) 1 pkt PO DAILY [facility] Last Admin: 08/29/17 18:33 Dose: 1 pkt Tamsulosin HCl (Flomax) 0.4 mg PO DAILY [facility] Warfarin Sodium (Coumadin) 5 mg PO DAILY [facility] PRN Reason: Protocol Warfarin Sodium (Coumadin) 2 mg PO 1800 STA PRN Reason: Protocol Stop: 08/26/17 19:31 Last Admin: 08/26/17 19:58 Dose: 2 mg Warfarin Sodium (Coumadin) 5 mg PO 1800 [facility] PRN Reason: Protocol Last Admin: 08/28/17 17:36 Dose: 5 mg Warfarin Sodium (Coumadin) 7.5 mg PO 1800 ONE PRN Reason: Protocol Stop: 08/29/17 18:01 Last Admin: 08/29/17 18:20 Dose: 7.5 mg Disposition/Present on Arrival <Guillermo Alexandra P - Last Filed: 08/24/17 21:27> - Present on Arrival Any Indicators Present on Arrival: No History of DVT/PE: No History of Uncontrolled Diabetes: No Urinary Catheter: No History of Decub. Ulcer: No History Surgical Site Infection Following: None - Disposition Have Diagnosis and Disposition been Completed?: Yes Disposition Time: 21:00 Patient Plan: Admission <Aury Hurtado P - Last Filed: 08/30/17 16:48> - Disposition Diagnosis: Aspiration pneumonia Disposition: HOSPITALIZED Patient Problems: Current Active Problems Problem Status Onset Pneumonia Acute Condition: STABLE
[2017-08-24] MEDS ORDERED: Sodium Chloride 0.9% 1,000 ML IV STA ×3 (19:07→20:18)
[2017-08-24] MEDS ORDERED: Piperacill/Tazo 4.5gm in NS 4.5 GM/100 ML BAG IVPB STA (19:48)
[2017-08-24 19:50] LABS: VENOUS BLOOD GAS BASE EXCESS -0.2 mmol/L (0.0-2.0); VENOUS BLOOD GAS PO2 64 mm/Hg (30-55); VENOUS BLOOD PH 7.33 (7.32-7.43)
[2017-08-24 19:51] LABS: BASO # 0.02 K/mm3 (0.0-2.0); BASO % 0.2 % (0.0-3.0); EOS # 0.1 (0.0-0.7); EOS % 1.6 % (1.5-5.0); GRAN # 6.82 (1.4-6.5); GRAN % 83.9 % (50.0-68.0); HEMOGLOBIN 16.8 g/dL (14.0-18.0); LYMPH # 0.5 (1.2-3.4); LYMPH % 6.2 % (22.0-35.0); MEAN CELL VOLUME 87.5 fl (80.0-105.0); MEAN CORPUSCULAR HEMOGLOBIN 30.9 pg (25.0-35.0); MEAN CORPUSCULAR HGB CONC 35.3 g/dl (31.0-37.0); MEAN PLATELET VOLUME 10.1 fl (7.0-11.0); MONO # 0.7 (0.1-0.6); MONO % 8.1 % (1.0-6.0); RBC 5.44 10^6/uL (3.5-6.1); RED CELL DISTRIBUTION WIDTH 13.8 % (11.5-14.5); WHITE BLOOD COUNT 8.1 10^3/ul (4.5-11.0)
[2017-08-24 19:58] LABS: ALB/GLOB RATIO 1.2 (1.1-1.8); ALBUMIN 3.9 g/dL (3.0-4.8); CALCIUM 8.8 mg/dL (8.4-10.5); GFR AFRICAN-AMERICAN > 60; GFR NON-AFRICAN AMERICAN > 60
[2017-08-24 19:59] LABS: PROTHROMBIN TIME 30.2 SECONDS (9.4-12.5)
[2017-08-24] MEDS ORDERED: Metoprolol 1 mg/ml Inj IVP STA ×2 (19:59→20:05)
[2017-08-24 20:00] LABS: INR 2.6 (0.93-1.08); PARTIAL THROMBOPLASTIN TIME 41.7 Seconds (25.1-36.5)
[2017-08-24 20:04] LABS: ALT/SGPT 36 U/L (7-56); AST/SGOT 29 U/L (17-59); BLOOD UREA NITROGEN 23 mg/dL (7-21)
[2017-08-24 20:09] LABS: B-TYPE NATRIURETIC PEPTIDE 3510 pg/mL (0-450); TROPONIN I 0.02 ng/mL
[2017-08-24] MEDS ORDERED: diltiaZEM IVPB 100mg in NS 100 ML IV PRN (20:17)
[2017-08-24 20:23] LABS: PH,URINE 6.5 (4.7-8.0); URINE BILIRUBIN NEGATIVE (NEGATIVE); URINE BLOOD TRACE-LYSED (NEGATIVE); URINE GLUCOSE (UA) NEGATIVE (NEGATIVE); URINE LEUKOCYTE ESTERASE NEGATIVE Leu/uL (NEGATIVE); URINE PROTEIN 100 mg/dL (<30 mg/dL)
[2017-08-24 20:24] LABS: URINE APPEARANCE CLEAR (CLEAR); URINE COLOR YELLOW (YELLOW)
[2017-08-24 20:29] LABS: URINE BACTERIA FEW (NEG); URINE WBC 0 - 2 /hpf (0-6)
--- NOTE | 2017-08-24 21:06 | CP.PCM.CON ---
<Layla Caro - Last Filed: 08/24/17 23:01> History of Present Illness - History of Present Illness History of Present Illness: ICU Consult note for Dr. 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 Patient's reports patient has had a chronic cough and this evening around 5pm he began to cough and had one episode of nonbloody nonbilious emesis. Patient's then took his axillary temp which was 100.1F and brought him to the ER. She reported usually patient has white mucous when he coughs and he vomited food contents from breakfast and some mucous. He has not had any changes in appetite [eats a pureed diet and Ensure three times/day] and has had no weight changes. Patient has regular BMs 3x/day which are soft and his has not noted any blood or dark stool. As per patient has not seemed tired recently and has not had any changes in mentation. Complete ROS unobtainable secondary to clinical condition. 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 Review of Systems - Review of Systems Review of Systems: patient is nonverbal Past Patient History - Infectious Disease Hx of Infectious Diseases: None - Tetanus Immunizations Tetanus Immunization: Unknown - Past Medical History & Family History Past Medical History?: Yes - Past Social History Smoking Status: Former Smoker - CARDIAC Hx Cardiac Disorders: Yes (Afib) Hx Cardia Arrhythmia: Yes Hx Congestive Heart Failure: Yes Hx Hypertension: Yes Hx Peripheral Edema: Yes (ble +1) Hx Peripheral Vascular Disease: Yes Other/Comment: dvt right leg ivc filter - PULMONARY Hx Respiratory Disorders: Yes Hx Pneumonia: Yes Hx Respiratory Aspiration: Yes - NEUROLOGICAL Hx Neurological Disorder: Yes (aphasia) HX Cerebrovascular Accident: Yes (12/06/10, right sided paralysis) Hx Seizures: Yes Other/Comment: right leg flaccid and contracted and right arm flaccid, garbled speech - HEENT Hx HEENT Problems: Yes (EYE INFECTION) Other/Comment: pt takes eye drops but does not know what they are for - RENAL Hx Chronic Kidney Disease: Yes Other/Comment: incontinent of urine - ENDOCRINE/METABOLIC Hx Endocrine Disorders: Yes Hx Diabetes Mellitus Type 1: Yes - HEMATOLOGICAL/ONCOLOGICAL Hx Blood Disorders: No - INTEGUMENTARY Hx Dermatological Problems: Yes Other/Comment: non healing scalp wound dry red scab top of skull, 2 small dry round brown 0.5cm round growths to left knee, multiple red abrasions to right knee, dry flakey skin ble legs and feet, dry thick long nails to toes and hands , r great toe amputated, dry skin patches to left hand some redness, multiple healed scars to buttocks from open wounds, red raised rash to r and left neck - MUSCULOSKELETAL/RHEUMATOLOGICAL Hx Musculoskeletal Disorders: Yes (bedridden, weakness) Hx Falls: Yes (past) Other/Comment: right leg flaccid and contracted, right arm flaccid, pt leans head to right - GASTROINTESTINAL Hx Gastrointestinal Disorders: Yes (dysphagia, eats puree diet) HX Swallowing Problems: Yes - GENITOURINARY/GYNECOLOGICAL Hx Genitourinary Disorders: Yes Hx Incontinence: Yes (urine and stool) Hx Prostate Problems: Yes (enlarged, bph) - PSYCHIATRIC Hx Psychophysiologic Disorder: No Hx Substance Use: No - SURGICAL HISTORY Hx Amputation: Yes (rt great toe) Other/Comment: "brain surgery", hematoma evacuation to releive pressure and bleeding, subarachnoid hemorrhage - ANESTHESIA Hx Anesthesia: No Hx Anesthesia Reactions: No Hx Malignant Hyperthermia: No Meds Allergies/Adverse Reactions: Allergies Allergy/AdvReac Type Severity Reaction Status Date / Time clopidogrel Allergy RASH Verified 08/24/17 18:55 - Medications Medications: Current Medications Acetaminophen (Tylenol 325 Mg Supp) 975 mg DE ONCE PRN PRN Reason: Fever >100.4 F Stop: 08/24/17 23:59 Last Admin: 08/24/17 19:37 Dose: 975 mg diltiaZEM IVPB 100mg in NS (Cardizem 100mg In Ns) 100 mls @ 2.5 mls/hr IV .Q24H PRN; Protocol; 2.5 MG/HR PRN Reason: TITRATE PER MD ORDER Sodium Chloride (Sodium Chloride 0.9%) 1,000 mls @ 999 mls/hr IV .Q1H1M STA Stop: 08/24/17 21:18 Last Admin: 08/24/17 20:41 Dose: 999 mls/hr Physical Exam - Constitutional Appears: Non-toxic, No Acute Distress, Chronically Ill - Head Exam Head Exam: ATRAUMATIC, NORMAL INSPECTION, NORMOCEPHALIC - Eye Exam Eye Exam: EOMI, Normal appearance, PERRL. absent: Conjunctival injection, Scleral icterus Pupil Exam: NORMAL ACCOMODATION - ENT Exam ENT Exam: Mucous Membranes Moist - Neck Exam Neck exam: Positive for: Normal Inspection. Negative for: Lymphadenopathy - Respiratory Exam Respiratory Exam: Clear to Auscultation Bilateral, NORMAL BREATHING PATTERN. absent: Accessory Muscle Use, Rales, Rhonchi, Wheezes, Respiratory Distress - Cardiovascular Exam Cardiovascular Exam: Tachycardia, Irregular Rhythm, +S1, +S2 - GI/Abdominal Exam GI & Abdominal Exam: Normal Bowel Sounds, Soft. absent: Firm, Guarding, Rigid, Tenderness - Rectal Exam Rectal Exam: Deferred - Extremities Exam Extremities exam: Positive for: normal inspection. Negative for: pedal edema - Neurological Exam Neurological exam: Alert - Psychiatric Exam Psychiatric exam: Normal Affect, Normal Mood - Skin Skin Exam: Dry, Intact Results - Vital Signs Recent Vital Signs: Last Vital Signs Temp 100.4 F H 08/24/17 19:37 Pulse 105 H 08/24/17 20:43 Resp 18 08/24/17 20:43 BP 89/54 L 08/24/17 20:43 Pulse Ox 98 08/24/17 20:43 - Labs Result Diagrams: 08/24/17 19:30 08/24/17 19:30 Labs: Laboratory Results - last 24 hr 08/24/17 08/24/17 08/24/17 19:30 19:30 19:30 WBC 8.1 D RBC 5.44 Hgb 16.8 Hct 47.6 MCV 87.5 MCH 30.9 MCHC 35.3 RDW 13.8 Plt Count 142 MPV 10.1 Gran % 83.9 H Lymph % (Auto) 6.2 L [place] % (Auto) 8.1 H Eos % (Auto) 1.6 Baso % (Auto) 0.2 Gran # 6.82 H Lymph # (Auto) 0.5 L [place] # (Auto) 0.7 H Eos # (Auto) 0.1 Baso # (Auto) 0.02 PT 30.2 H INR 2.60 H APTT 41.7 H pO2 64 H VBG pH 7.33 VBG pCO2 50.0 VBG HCO3 26.4 VBG Total CO2 27.9 VBG O2 Sat (Calc) 94.8 H VBG Base Excess -0.2 L VBG Potassium 5.0 Sodium 132.0 Chloride 98.0 Glucose 99 Lactate 2.0 FiO2 21.0 Potassium Carbon Dioxide Anion Gap BUN Creatinine Est GFR ( Amer) Est GFR (Non-Af Amer) Random Glucose Calcium Phosphorus Magnesium Total Bilirubin AST ALT Alkaline Phosphatase Lactate Dehydrogenase Total Creatine Kinase Troponin I NT-Pro-B Natriuret Pep Total Protein Albumin Globulin Albumin/Globulin Ratio Venous Blood Potassium 5.0 Urine Color Urine Appearance Urine pH Ur Specific [place] Urine Protein Urine Glucose (UA) Urine Ketones Urine Blood Urine Nitrate Urine Bilirubin Urine Urobilinogen Ur Leukocyte Esterase Urine RBC Urine WBC Ur Epithelial Cells Urine Bacteria 08/24/17 08/24/17 19:30 20:20 WBC RBC Hgb Hct MCV MCH MCHC RDW Plt Count MPV Gran % Lymph % (Auto) [place] % (Auto) Eos % (Auto) Baso % (Auto) Gran # Lymph # (Auto) [place] # (Auto) Eos # (Auto) Baso # (Auto) PT INR APTT pO2 VBG pH VBG pCO2 VBG HCO3 VBG Total CO2 VBG O2 Sat (Calc) VBG Base Excess VBG Potassium Sodium 135 Chloride 99 Glucose Lactate FiO2 Potassium 4.8 Carbon Dioxide 25 Anion Gap 17 BUN 23 H Creatinine 0.6 L Est GFR ( Amer) > 60 Est GFR (Non-Af Amer) > 60 Random Glucose 99 Calcium 8.8 Phosphorus 3.0 Magnesium 1.8 Total Bilirubin 1.0 AST 29 ALT 36 Alkaline Phosphatase 92 Lactate Dehydrogenase 481 Total Creatine Kinase 113 Troponin I 0.02 NT-Pro-B Natriuret Pep 3510 H Total Protein 7.2 Albumin 3.9 Globulin 3.2 Albumin/Globulin Ratio 1.2 Venous Blood Potassium Urine Color Yellow Urine Appearance Clear Urine pH 6.5 Ur Specific [place] 1.020 Urine Protein 100 H Urine Glucose (UA) Negative Urine Ketones Negative Urine Blood Trace-lysed H Urine Nitrate Negative Urine Bilirubin Negative Urine Urobilinogen 2.0 H Ur Leukocyte Esterase Negative Urine RBC 2 - 5 Urine WBC 0 - 2 Ur Epithelial Cells None Urine Bacteria Few Assessment & Plan - Assessment and Plan (Free Text) Assessment: 72yo male PMHx Afib on coumadin, HTN, DM2, CVA with R sided hemiparesis 2010, CAP, Vascular dementia, 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 ICU consulted as per request of PMD for Afib with RVR and pneumonia Neuro -patient at baseline as per family -Aspiration precautions -HoB above 30degrees -maintain normothermia Cardio -patient has hx of Afib -EKG unchanged from previous -elevated proBNP -cardizem gtt -restart home meds -f/u Echo -measure daily weight -strict Is and Os -maintain MAP > 65 -Cardio consult Resp -f/u CXR -concern of aspiration pna -Levaquin 750 ivpb qd -duoneb 3ml inh q6 -maintain spO2 > 92% -keep patient NPO until speech/swallow eval GI -Surgery and GI consulted for possible obstruction -f/u Abd x-ray -f/u CT chest/abd/pelvis -NPO excpet meds -Zofran for nausea -continue home Miralax ID -likely aspiration pna -f/u CXR read -f/u procalcitonin and lactic acid -f/u cultures -Levaquin 750mg ivpb -ID consult Renal -strict Is and Os -gentle hydration -replete electolytes as needed HemeOnc -no acute issues -patient on coumadin 5mg for Afib Endo -Accucheck -RISS low -maintain euglycemia Discussed with Dr. Henok Caro PGY2 <Micah Whiting - Last Filed: 08/25/17 06:21> Meds - Medications Medications: Current Medications Acetaminophen (Tylenol 650 Mg Supp) 650 mg RC Q4H PRN PRN Reason: Fever >100.4 F Albuterol/Ipratropium (Duoneb 3 Mg/0.5 Mg (3 Ml) Ud) 3 ml IH [id number] RUKHSANA Aspirin (Ecotrin) 81 mg PO DAILY [facility] Atorvastatin Calcium (Lipitor) 10 mg PO 2000 [facility] diltiaZEM IVPB 100mg in NS (Cardizem 100mg In Ns) 100 mls @ 2.5 mls/hr IV .Q24H PRN; Protocol; 2.5 MG/HR PRN Reason: TITRATE PER MD ORDER Levofloxacin/Dextrose (Levaquin 750mg) 750 mg in 150 mls @ 100 mls/hr IVPB DAILY RUKHSANA PRN Reason: Protocol Last Admin: 08/24/17 23:13 Dose: 100 mls/hr Sodium Chloride (Sodium Chloride 0.9%) 1,000 mls @ 40 mls/hr IV .Q24H RUKHSANA Last Admin: 08/24/17 23:13 Dose: 40 mls/hr Insulin Human Lispro (Humalog Low) 0 units SC Q6H RUKHSANA PRN Reason: Protocol Last Admin: 08/25/17 06:03 Dose: Not Given Levetiracetam (Keppra) 750 mg PO BID [facility] Metoprolol Tartrate (Lopressor) 12.5 mg PO BRKDIN [facility] Ondansetron HCl (Zofran Inj) 4 mg IVP Q6H PRN PRN Reason: Nausea/Vomiting Pantoprazole Sodium (Protonix Ec Tab) 40 mg PO DAILY [facility] Polyethylene Glycol (Miralax) 17 gm PO DAILY [facility] Quetiapine Fumarate (Seroquel) 25 mg PO TID RUKHSANA PRN Reason: Protocol Tamsulosin HCl (Flomax) 0.4 mg PO 2000 [facility] Warfarin Sodium (Coumadin) 5 mg PO 1800 RUKHSANA PRN Reason: Protocol Results - Vital Signs Recent Vital Signs: Last Vital Signs Temp 98.2 F 08/25/17 04:00 Pulse 110 H 08/25/17 06:00 Resp 25 H 08/25/17 06:00 BP 136/52 L 08/25/17 06:00 Pulse Ox 76 L 08/25/17 06:00 - Labs Result Diagrams: 08/24/17 19:30 08/24/17 19:30 Labs: Laboratory Results - last 24 hr 08/24/17 08/24/17 08/24/17 23:40 23:40 23:57 pO2 70 H VBG pH 7.39 VBG pCO2 36.0 L VBG HCO3 21.8 VBG Total CO2 22.9 VBG O2 Sat (Calc) 96.8 H VBG Base Excess -2.6 L VBG Potassium 4.3 Sodium 134.0 Chloride 105.0 Glucose 110 Lactate 1.3 FiO2 21.0 POC Glucose (mg/dL) 104 Lactic Acid 1.2 Troponin I Venous Blood Potassium 4.3 08/25/17 08/25/17 01:30 05:52 pO2 VBG pH VBG pCO2 VBG HCO3 VBG Total CO2 VBG O2 Sat (Calc) VBG Base Excess VBG Potassium Sodium Chloride Glucose Lactate FiO2 POC Glucose (mg/dL) 109 Lactic Acid Troponin I 0.03 D Venous Blood Potassium Attending/Attestation - Attestation I have personally seen and examined this patient.: Yes I have fully participated in the care of the patient.: Yes I have reviewed all pertinent clinical information: Yes Notes (Text): 08/25/17 06:20 Patient was seen when she was in bed # 20 in the ER. Agree with consultation note.
--- NOTE | 2017-08-24 21:54 | CP.PCM.CON ---
History of Present Illness - History of Present Illness History of Present Illness: General Surgery Consult Re: concern for obstruction HPI: History taken from EMR, pt is aphasic. 72M presented to ED via EMS for evaluation of one episode of non bloody, non bilious emesis and fever of 100.1 earlier today. Pt vomited his breakfast ~5pm and was found to have a fever at the time. Pt had similar symptoms due to pneumonia in the past. He has not had any changes in appetite and has regular BMs 3x/day. No blood or melenotic stool. Pt has not seemed tired and has not had changes in mentation. Last BM unknown at this time PMH: Afib, CHF, CAD, HTN, PVD, Hx CVA, seizures, Hx DVT, Aphasia, dysphagia, DM , BPH PSH: Toe amputation, evacuation of intracranial hematoma, IVC filter, PEG tube SH: HX tobacco use FH: noncontributory All: Plavix Meds: See MAR, on ASA and Warfarin Review of Systems - Review of Systems Systems not reviewed;Unavailable: Other (aphasia from prior stroke) Past Patient History - Infectious Disease Hx of Infectious Diseases: None - Tetanus Immunizations Tetanus Immunization: Unknown - Past Medical History & Family History Past Medical History?: Yes - Past Social History Smoking Status: Former Smoker - CARDIAC Hx Cardiac Disorders: Yes (Afib) Hx Cardia Arrhythmia: Yes Hx Congestive Heart Failure: Yes Hx Hypertension: Yes Hx Peripheral Edema: Yes (ble +1) Hx Peripheral Vascular Disease: Yes Other/Comment: dvt right leg ivc filter - PULMONARY Hx Respiratory Disorders: Yes Hx Pneumonia: Yes Hx Respiratory Aspiration: Yes - NEUROLOGICAL Hx Neurological Disorder: Yes (aphasia) HX Cerebrovascular Accident: Yes (12/06/10, right sided paralysis) Hx Seizures: Yes Other/Comment: right leg flaccid and contracted and right arm flaccid, garbled speech - HEENT Hx HEENT Problems: Yes (EYE INFECTION) Other/Comment: pt takes eye drops but does not know what they are for - RENAL Hx Chronic Kidney Disease: Yes Other/Comment: incontinent of urine - ENDOCRINE/METABOLIC Hx Endocrine Disorders: Yes Hx Diabetes Mellitus Type 1: Yes - HEMATOLOGICAL/ONCOLOGICAL Hx Blood Disorders: No - INTEGUMENTARY Hx Dermatological Problems: Yes Other/Comment: non healing scalp wound dry red scab top of skull, 2 small dry round brown 0.5cm round growths to left knee, multiple red abrasions to right knee, dry flakey skin ble legs and feet, dry thick long nails to toes and hands , r great toe amputated, dry skin patches to left hand some redness, multiple healed scars to buttocks from open wounds, red raised rash to r and left neck - MUSCULOSKELETAL/RHEUMATOLOGICAL Hx Musculoskeletal Disorders: Yes (bedridden, weakness) Hx Falls: Yes (past) Other/Comment: right leg flaccid and contracted, right arm flaccid, pt leans head to right - GASTROINTESTINAL Hx Gastrointestinal Disorders: Yes (dysphagia, eats puree diet) HX Swallowing Problems: Yes - GENITOURINARY/GYNECOLOGICAL Hx Genitourinary Disorders: Yes Hx Incontinence: Yes (urine and stool) Hx Prostate Problems: Yes (enlarged, bph) - PSYCHIATRIC Hx Psychophysiologic Disorder: No Hx Substance Use: No - SURGICAL HISTORY Hx Amputation: Yes (rt great toe) Other/Comment: "brain surgery", hematoma evacuation to releive pressure and bleeding, subarachnoid hemorrhage - ANESTHESIA Hx Anesthesia: No Hx Anesthesia Reactions: No Hx Malignant Hyperthermia: No Meds Allergies/Adverse Reactions: Allergies Allergy/AdvReac Type Severity Reaction Status Date / Time clopidogrel Allergy RASH Verified 08/24/17 18:55 - Medications Medications: Current Medications Acetaminophen (Tylenol 325 Mg Supp) 975 mg UT ONCE PRN PRN Reason: Fever >100.4 F Stop: 08/24/17 23:59 Last Admin: 08/24/17 19:37 Dose: 975 mg diltiaZEM IVPB 100mg in NS (Cardizem 100mg In Ns) 100 mls @ 2.5 mls/hr IV .Q24H PRN; Protocol; 2.5 MG/HR PRN Reason: TITRATE PER MD ORDER Ondansetron HCl (Zofran Inj) 4 mg IVP Q6H PRN PRN Reason: Nausea/Vomiting Pantoprazole Sodium (Protonix Ec Tab) 40 mg PO DAILY RUKHSANA Physical Exam - Constitutional Appears: Non-toxic, No Acute Distress, Chronically Ill - Head Exam Head Exam: ATRAUMATIC - Eye Exam Eye Exam: PERRL. absent: Scleral icterus - ENT Exam ENT Exam: Mucous Membranes Moist Additional comments: trachea midline - Neck Exam Neck exam: Negative for: Tenderness - Respiratory Exam Respiratory Exam: NORMAL BREATHING PATTERN. absent: Respiratory Distress Additional comments: cough - Cardiovascular Exam Cardiovascular Exam: Tachycardia, Irregular Rhythm - GI/Abdominal Exam GI & Abdominal Exam: Soft. absent: Distended, Guarding, Hernia, Mass, Rebound, Rigid, Tenderness Additional comments: old, well healed abdominal incision scars - Rectal Exam Rectal Exam: Deferred - Extremities Exam Extremities exam: Positive for: normal capillary refill. Negative for: pedal edema Additional comments: R LE contracted, RUE flacid - Back Exam Back exam: absent: CVA tenderness (L), CVA tenderness (R) - Neurological Exam Neurological exam: Alert, Motor Sensory Deficit (R sideparalysis) - Skin Skin Exam: Dry, Warm Results - Vital Signs Recent Vital Signs: Last Vital Signs Temp 100.4 F H 08/24/17 19:37 Pulse 105 H 08/24/17 20:43 Resp 18 08/24/17 20:43 BP 89/54 L 08/24/17 20:43 Pulse Ox 98 08/24/17 20:43 - Labs Result Diagrams: 08/24/17 19:30 08/24/17 19:30 - Imaging and Cardiology CT scan - abdomen Status: Image reviewed by me Abdominal x-ray Status: Image reviewed by me Assessment & Plan - Assessment and Plan (Free Text) Assessment: 72M with no signs of abdominal pain and no evidence of obstruction Plan: No surgical intervention planned at this time Dulcolax suppository Monitor for BMs Serial abd exams Sosa PGY4
[2017-08-24] MEDS ORDERED: Sodium Chloride 0.9% 1,000 ML IV SCH (23:00)
[2017-08-24] MEDS: levoFLOXacin 750 mg in D5W 750 MG/150 ML BAG IVPB SCH (23:13)
[2017-08-25 00:01] LABS: VENOUS BLOOD GAS BASE EXCESS -2.6 mmol/L (0.0-2.0); VENOUS BLOOD GAS PO2 70 mm/Hg (30-55); VENOUS BLOOD PH 7.39 (7.32-7.43)
[2017-08-25] MEDS: Insulin Lispro (humaLOG) LOW Coverage SC SCH ×4 (00:09→17:02)
[2017-08-25 00:20] VITALS: BMI 29.7
[2017-08-25] MEDS: Albuterol-Ipratrop 3 mg / 0.5 (3 ml) UD IH SCH ×4 (02:00→19:50)
[2017-08-25 06:41] LABS: BASO # 0.03 K/mm3 (0.0-2.0); BASO % 0.4 % (0.0-3.0); EOS # 0.1 (0.0-0.7); EOS % 1.5 % (1.5-5.0); GRAN # 5.92 (1.4-6.5); GRAN % 80.8 % (50.0-68.0); HEMOGLOBIN 15.1 g/dL (14.0-18.0); LYMPH # 0.7 (1.2-3.4); LYMPH % 9.4 % (22.0-35.0); MEAN CELL VOLUME 88.4 fl (80.0-105.0); MEAN CORPUSCULAR HEMOGLOBIN 30.3 pg (25.0-35.0); MEAN CORPUSCULAR HGB CONC 34.3 g/dl (31.0-37.0); MONO # 0.6 (0.1-0.6); MONO % 7.9 % (1.0-6.0); RBC 4.98 10^6/uL (3.5-6.1); WHITE BLOOD COUNT 7.3 10^3/ul (4.5-11.0)
[2017-08-25 06:58] LABS: ALT/SGPT 35 U/L (7-56); AST/SGOT 20 U/L (17-59); BLOOD UREA NITROGEN 17 mg/dL (7-21); CALCIUM 7.8 mg/dL (8.4-10.5); GFR AFRICAN-AMERICAN > 60; GFR NON-AFRICAN AMERICAN > 60
--- NOTE | 2017-08-25 07:26 | CP.PCM.CON ---
Addendum entered and electronically signed by Radha Richardson DO 08/25/17 12: 55: Spoke with speech/swallow pathologist who recommends patient to sit up when eating with puree diet with thin liquids. Ensure for supplementation which is his previous diet. Original Note: <Radha Richardson - Last Filed: 08/25/17 11:10> History of Present Illness - History of Present Illness History of Present Illness: GI Consult Note for Kelby Singh PGY2 Reason for consult: vomiting with fever This is a 72yo male with past medical history of HTN, CVA w/ residual hemiparesis, dementia, CAD, DM, DVT s/p IVC filter, a.fib on coumadin, peg tube s/p reversal who came to ED for emesis and fever. Patient is A&O x 2, but has underlying dementia. History was obtained through previous records. Patient was coughing in the evening and had one episode of emesis that was non-bloody/non- bilious. He had also white mucus at the time. His took his axillary temp and it was 100.1. Patient is on puree diet with supplemental ensure at home. His BMs are regular and soft without dark color or blood in stool. I spoke with patient this AM, ROS was limited. He denies chest pain, shortness of breath, nausea/vomiting/diarrhea, fever or chills. Past medical history: HTN, DM, CVA w/ residual hemiparesis, dementia, DVT s/p IVC filter, CAD, s/p peg tube and reversal, a.fib on coumadin Past surgical history: Peg tube w/ reversal , IVC filter, R toe amputation, crainiotomy Home meds: Reviewed as per MAR Allergies: Plavix Social history: Former smoker (quit 16yrs ago), former EtOH use (quit 20yrs ago) , no drug use. Bed bound Family history: Father- stroke Review of Systems - Review of Systems Systems not reviewed;Unavailable: Dementia All systems: reviewed and no additional remarkable complaints except Review of Systems: 12 point ROS reviewed as per HPI and is limited, but is otherwise negative Past Patient History - Infectious Disease Hx of Infectious Diseases: None - Tetanus Immunizations Tetanus Immunization: Unknown - Past Medical History & Family History Past Medical History?: Yes - Past Social History Smoking Status: Former Smoker - CARDIAC Hx Cardiac Disorders: Yes (Afib) Hx Cardia Arrhythmia: Yes Hx Congestive Heart Failure: Yes Hx Hypertension: Yes Hx Peripheral Edema: Yes (ble +1) Hx Peripheral Vascular Disease: Yes Other/Comment: dvt right leg ivc filter - PULMONARY Hx Respiratory Disorders: Yes Hx Pneumonia: Yes Hx Respiratory Aspiration: Yes - NEUROLOGICAL Hx Neurological Disorder: Yes (aphasia) HX Cerebrovascular Accident: Yes (12/06/10, right sided paralysis) Hx Seizures: Yes Other/Comment: right leg flaccid and contracted and right arm flaccid, garbled speech - HEENT Hx HEENT Problems: Yes (EYE INFECTION) Other/Comment: pt takes eye drops but does not know what they are for - RENAL Hx Chronic Kidney Disease: Yes Other/Comment: incontinent of urine - ENDOCRINE/METABOLIC Hx Endocrine Disorders: Yes Hx Diabetes Mellitus Type 1: Yes - HEMATOLOGICAL/ONCOLOGICAL Hx Blood Disorders: No - INTEGUMENTARY Hx Dermatological Problems: Yes Other/Comment: non healing scalp wound dry red scab top of skull, 2 small dry round brown 0.5cm round growths to left knee, multiple red abrasions to right knee, dry flakey skin ble legs and feet, dry thick long nails to toes and hands , r great toe amputated, dry skin patches to left hand some redness, multiple healed scars to buttocks from open wounds, red raised rash to r and left neck - MUSCULOSKELETAL/RHEUMATOLOGICAL Hx Musculoskeletal Disorders: Yes (bedridden, weakness) Hx Falls: Yes (past) Other/Comment: right leg flaccid and contracted, right arm flaccid, pt leans head to right - GASTROINTESTINAL Hx Gastrointestinal Disorders: Yes (dysphagia, eats puree diet) HX Swallowing Problems: Yes - GENITOURINARY/GYNECOLOGICAL Hx Genitourinary Disorders: Yes Hx Incontinence: Yes (urine and stool) Hx Prostate Problems: Yes (enlarged, bph) - PSYCHIATRIC Hx Psychophysiologic Disorder: No Hx Substance Use: No - SURGICAL HISTORY Hx Amputation: Yes (rt great toe) Other/Comment: "brain surgery", hematoma evacuation to releive pressure and bleeding, subarachnoid hemorrhage - ANESTHESIA Hx Anesthesia: No Hx Anesthesia Reactions: No Hx Malignant Hyperthermia: No Meds Allergies/Adverse Reactions: Allergies Allergy/AdvReac Type Severity Reaction Status Date / Time clopidogrel Allergy RASH Verified 08/24/17 18:55 - Medications Medications: Current Medications Acetaminophen (Tylenol 650 Mg Supp) 650 mg RC Q4H PRN PRN Reason: Fever >100.4 F Albuterol/Ipratropium (Duoneb 3 Mg/0.5 Mg (3 Ml) Ud) 3 ml [facility] [id number] [facility] Aspirin (Ecotrin) 81 mg PO DAILY [facility] Atorvastatin Calcium (Lipitor) 10 mg PO 2000 [facility] diltiaZEM IVPB 100mg in NS (Cardizem 100mg In Ns) 100 mls @ 2.5 mls/hr IV .Q24H PRN; Protocol; 2.5 MG/HR PRN Reason: TITRATE PER MD ORDER Levofloxacin/Dextrose (Levaquin 750mg) 750 mg in 150 mls @ 100 mls/hr IVPB DAILY [facility] PRN Reason: Protocol Last Admin: 08/24/17 23:13 Dose: 100 mls/hr Sodium Chloride (Sodium Chloride 0.9%) 1,000 mls @ 40 mls/hr IV .Q24H RUKHSANA Last Admin: 08/24/17 23:13 Dose: 40 mls/hr Insulin Human Lispro (Humalog Low) 0 units SC Q6H RUKHSANA PRN Reason: Protocol Last Admin: 08/25/17 06:03 Dose: Not Given Levetiracetam (Keppra) 750 mg PO BID [facility] Metoprolol Tartrate (Lopressor) 12.5 mg PO BRKDIN [facility] Ondansetron HCl (Zofran Inj) 4 mg IVP Q6H PRN PRN Reason: Nausea/Vomiting Pantoprazole Sodium (Protonix Ec Tab) 40 mg PO DAILY [facility] Polyethylene Glycol (Miralax) 17 gm PO DAILY [facility] Quetiapine Fumarate (Seroquel) 25 mg PO TID [facility] PRN Reason: Protocol Tamsulosin HCl (Flomax) 0.4 mg PO 2000 [facility] Warfarin Sodium (Coumadin) 5 mg PO 1800 [facility] PRN Reason: Protocol Physical Exam - Constitutional Appears: No Acute Distress - Head Exam Head Exam: ATRAUMATIC, NORMAL INSPECTION, NORMOCEPHALIC - ENT Exam ENT Exam: Mucous Membranes Dry - Respiratory Exam Respiratory Exam: Rhonchi, NORMAL BREATHING PATTERN. absent: Rales, Respiratory Distress - Cardiovascular Exam Cardiovascular Exam: Irregular Rhythm, +S1, +S2. absent: Gallop, Rubs, Systolic Murmur - GI/Abdominal Exam GI & Abdominal Exam: Normal Bowel Sounds, Soft. absent: Mass, Rebound, Rigid, Tenderness - Extremities Exam Extremities exam: Positive for: pedal edema. Negative for: calf tenderness - Neurological Exam Neurological exam: Alert - Skin Skin Exam: Dry, Warm Results - Vital Signs Recent Vital Signs: Last Vital Signs Temp 98.2 F 08/25/17 04:00 Pulse 110 H 08/25/17 06:00 Resp 25 H 08/25/17 06:00 BP 136/52 L 08/25/17 06:00 Pulse Ox 76 L 08/25/17 06:00 - Labs Result Diagrams: 08/25/17 06:10 08/25/17 06:10 Labs: Laboratory Results - last 24 hr 08/24/17 08/24/17 08/24/17 23:40 23:40 23:57 WBC RBC Hgb Hct MCV MCH MCHC RDW Plt Count MPV Gran % Lymph % (Auto) [place] % (Auto) Eos % (Auto) Baso % (Auto) Gran # Lymph # (Auto) [place] # (Auto) Eos # (Auto) Baso # (Auto) pO2 70 H VBG pH 7.39 VBG pCO2 36.0 L VBG HCO3 21.8 VBG Total CO2 22.9 VBG O2 Sat (Calc) 96.8 H VBG Base Excess -2.6 L VBG Potassium 4.3 Sodium 134.0 Chloride 105.0 Glucose 110 Lactate 1.3 FiO2 21.0 Potassium Carbon Dioxide Anion Gap BUN Creatinine Est GFR ( Amer) Est GFR (Non-Af Amer) POC Glucose (mg/dL) 104 Random Glucose Lactic Acid 1.2 Calcium Phosphorus Magnesium Total Bilirubin AST ALT Alkaline Phosphatase Troponin I Total Protein Albumin Globulin Albumin/Globulin Ratio Venous Blood Potassium 4.3 08/25/17 08/25/17 08/25/17 01:30 05:52 06:10 WBC 7.3 RBC 4.98 Hgb 15.1 Hct 44.0 MCV 88.4 MCH 30.3 MCHC 34.3 RDW 14.0 Plt Count 133 MPV 10.0 Gran % 80.8 H Lymph % (Auto) 9.4 L [place] % (Auto) 7.9 H Eos % (Auto) 1.5 Baso % (Auto) 0.4 Gran # 5.92 Lymph # (Auto) 0.7 L [place] # (Auto) 0.6 Eos # (Auto) 0.1 Baso # (Auto) 0.03 pO2 VBG pH VBG pCO2 VBG HCO3 VBG Total CO2 VBG O2 Sat (Calc) VBG Base Excess VBG Potassium Sodium Chloride Glucose Lactate FiO2 Potassium Carbon Dioxide Anion Gap BUN Creatinine Est GFR ( Amer) Est GFR (Non-Af Amer) POC Glucose (mg/dL) 109 Random Glucose Lactic Acid Calcium Phosphorus Magnesium Total Bilirubin AST ALT Alkaline Phosphatase Troponin I 0.03 D Total Protein Albumin Globulin Albumin/Globulin Ratio Venous Blood Potassium 08/25/17 06:10 WBC RBC Hgb Hct MCV MCH MCHC RDW Plt Count MPV Gran % Lymph % (Auto) [place] % (Auto) Eos % (Auto) Baso % (Auto) Gran # Lymph # (Auto) [place] # (Auto) Eos # (Auto) Baso # (Auto) pO2 VBG pH VBG pCO2 VBG HCO3 VBG Total CO2 VBG O2 Sat (Calc) VBG Base Excess VBG Potassium Sodium 138 Chloride 105 Glucose Lactate FiO2 Potassium 4.2 Carbon Dioxide 22 Anion Gap 15 BUN 17 Creatinine 0.6 L Est GFR ( Amer) > 60 Est GFR (Non-Af Amer) > 60 POC Glucose (mg/dL) Random Glucose 114 H Lactic Acid Calcium 7.8 L Phosphorus 2.6 Magnesium 1.7 Total Bilirubin 1.3 AST 20 ALT 35 Alkaline Phosphatase 72 Troponin I Total Protein 6.1 Albumin 3.0 Globulin 3.1 Albumin/Globulin Ratio 1.0 L Venous Blood Potassium Assessment & Plan - Assessment and Plan (Free Text) Assessment: This is a 72yo male with past medical history of HTN, CVA w/ residual hemiparesis, dementia, CAD, DM, DVT s/p IVC filter, a.fib on coumadin, peg tube s/p reversal who 1. Aspiration pneumonia - Hx of CVA - chronic dysphagia s/p peg and reversal 2. Afib - On Coumadin 3. HTN 4. Dementia 5. DM 6. DVT w/ IVC filter 7. CAD Plan: CT reviewed. No evidence of Ileus or esophageal abnormalities. Recommend NPO. Speech and swallow eval. Patient is on Maxipime, Doxy and Levaquin. ID and pulm are on consult. Discussed case with Dr. Castle. Case seen, discussed and reviewed with Dr. Chandler. Kelby Richardson PGY2 - Date & Time Date: 08/25/17 Time: 11:31 <Liliya Chandler V - Last Filed: 08/25/17 23:41> Meds - Medications Medications: Current Medications Acetaminophen (Tylenol 650 Mg Supp) 650 mg RC Q4H PRN PRN Reason: Fever >100.4 F Albuterol/Ipratropium (Duoneb 3 Mg/0.5 Mg (3 Ml) Ud) 3 ml [facility] [id number] [facility] Last Admin: 08/25/17 19:50 Dose: 3 ml Aspirin (Ecotrin) 81 mg PO DAILY [facility] Last Admin: 08/25/17 09:40 Dose: 81 mg Atorvastatin Calcium (Lipitor) 10 mg PO 2000 [facility] Last Admin: 08/25/17 20:21 Dose: 10 mg Doxycycline Hyclate (Doryx) 100 mg PO Q12 [facility] PRN Reason: Protocol Stop: 09/03/17 10:51 Last Admin: 08/25/17 21:48 Dose: 100 mg Levofloxacin/Dextrose (Levaquin 750mg) 750 mg in 150 mls @ 100 mls/hr IVPB DAILY [facility] PRN Reason: Protocol Last Admin: 08/25/17 09:40 Dose: 100 mls/hr Cefepime HCl (Maxipime 1gm) 1 gm in 100 mls @ 100 mls/hr IVPB Q8 [facility] PRN Reason: Protocol Stop: 09/03/17 10:48 Last Admin: 08/25/17 21:48 Dose: 100 mls/hr Insulin Human Lispro (Humalog Low) 0 units SC Q6H [facility] PRN Reason: Protocol Last Admin: 08/25/17 17:02 Dose: 1 units Levetiracetam (Keppra) 750 mg PO BID [facility] Last Admin: 08/25/17 17:03 Dose: 750 mg Methylprednisolone (Solu-Medrol) 20 mg IVP Q12 [facility] Last Admin: 08/25/17 21:48 Dose: 20 mg Metoprolol Tartrate (Lopressor) 12.5 mg PO BRKDIN [facility] Last Admin: 08/25/17 17:03 Dose: 12.5 mg Metoprolol Tartrate (Lopressor) 5 mg IVP Q6H [facility] Last Admin: 08/25/17 20:21 Dose: 5 mg Ondansetron HCl (Zofran Inj) 4 mg IVP Q6H PRN PRN Reason: Nausea/Vomiting Pantoprazole Sodium (Protonix Ec Tab) 40 mg PO DAILY [facility] Last Admin: 08/25/17 09:41 Dose: 40 mg Polyethylene Glycol (Miralax) 17 gm PO DAILY [facility] Last Admin: 08/25/17 09:41 Dose: 17 gm Quetiapine Fumarate (Seroquel) 25 mg PO TID RUKHSANA PRN Reason: Protocol Last Admin: 08/25/17 17:03 Dose: 25 mg Tamsulosin HCl (Flomax) 0.4 mg PO 1999 [facility] Last Admin: 08/25/17 20:21 Dose: 0.4 mg Warfarin Sodium (Coumadin) 5 mg PO 1800 [facility] PRN Reason: Protocol Results - Vital Signs Recent Vital Signs: Last Vital Signs Temp 98.6 F 08/25/17 12:00 Pulse 111 H 08/25/17 18:40 Resp 18 08/25/17 18:40 BP 138/85 08/25/17 17:03 Pulse Ox 97 08/25/17 18:40 - Labs Result Diagrams: 08/25/17 06:10 08/25/17 06:10 Labs: Laboratory Results - last 24 hr 08/24/17 08/24/17 08/24/17 23:40 23:40 23:57 WBC RBC Hgb Hct MCV MCH MCHC RDW Plt Count MPV Gran % Lymph % (Auto) [place] % (Auto) Eos % (Auto) Baso % (Auto) Gran # Lymph # (Auto) [place] # (Auto) Eos # (Auto) Baso # (Auto) PT INR pO2 70 H VBG pH 7.39 VBG pCO2 36.0 L VBG HCO3 21.8 VBG Total CO2 22.9 VBG O2 Sat (Calc) 96.8 H VBG Base Excess -2.6 L VBG Potassium 4.3 Sodium 134.0 Chloride 105.0 Glucose 110 Lactate 1.3 FiO2 21.0 Potassium Carbon Dioxide Anion Gap BUN Creatinine Est GFR ( Amer) Est GFR (Non-Af Amer) POC Glucose (mg/dL) 104 Random Glucose Lactic Acid 1.2 Calcium Phosphorus Magnesium Total Bilirubin AST ALT Alkaline Phosphatase Troponin I Total Protein Albumin Globulin Albumin/Globulin Ratio Venous Blood Potassium 4.3 08/25/17 08/25/17 08/25/17 01:30 05:52 06:10 WBC 7.3 RBC 4.98 Hgb 15.1 Hct 44.0 MCV 88.4 MCH 30.3 MCHC 34.3 RDW 14.0 Plt Count 133 MPV 10.0 Gran % 80.8 H Lymph % (Auto) 9.4 L [place] % (Auto) 7.9 H Eos % (Auto) 1.5 Baso % (Auto) 0.4 Gran # 5.92 Lymph # (Auto) 0.7 L [place] # (Auto) 0.6 Eos # (Auto) 0.1 Baso # (Auto) 0.03 PT INR pO2 VBG pH VBG pCO2 VBG HCO3 VBG Total CO2 VBG O2 Sat (Calc) VBG Base Excess VBG Potassium Sodium Chloride Glucose Lactate FiO2 Potassium Carbon Dioxide Anion Gap BUN Creatinine Est GFR ( Amer) Est GFR (Non-Af Amer) POC Glucose (mg/dL) 109 Random Glucose Lactic Acid Calcium Phosphorus Magnesium Total Bilirubin AST ALT Alkaline Phosphatase Troponin I 0.03 D Total Protein Albumin Globulin Albumin/Globulin Ratio Venous Blood Potassium 08/25/17 08/25/17 08/25/17 06:10 09:40 11:45 WBC RBC Hgb Hct MCV MCH MCHC RDW Plt Count MPV Gran % Lymph % (Auto) [place] % (Auto) Eos % (Auto) Baso % (Auto) Gran # Lymph # (Auto) [place] # (Auto) Eos # (Auto) Baso # (Auto) PT 32.5 H INR 2.77 H pO2 VBG pH VBG pCO2 VBG HCO3 VBG Total CO2 VBG O2 Sat (Calc) VBG Base Excess VBG Potassium Sodium 138 Chloride 105 Glucose Lactate FiO2 Potassium 4.2 Carbon Dioxide 22 Anion Gap 15 BUN 17 Creatinine 0.6 L Est GFR ( Amer) > 60 Est GFR (Non-Af Amer) > 60 POC Glucose (mg/dL) 116 H Random Glucose 114 H Lactic Acid Calcium 7.8 L Phosphorus 2.6 Magnesium 1.7 Total Bilirubin 1.3 AST 20 ALT 35 Alkaline Phosphatase 72 Troponin I Total Protein 6.1 Albumin 3.0 Globulin 3.1 Albumin/Globulin Ratio 1.0 L Venous Blood Potassium 08/25/17 16:52 WBC RBC Hgb Hct MCV MCH MCHC RDW Plt Count MPV Gran % Lymph % (Auto) [place] % (Auto) Eos % (Auto) Baso % (Auto) Gran # Lymph # (Auto) [place] # (Auto) Eos # (Auto) Baso # (Auto) PT INR pO2 VBG pH VBG pCO2 VBG HCO3 VBG Total CO2 VBG O2 Sat (Calc) VBG Base Excess VBG Potassium Sodium Chloride Glucose Lactate FiO2 Potassium Carbon Dioxide Anion Gap BUN Creatinine Est GFR ( Amer) Est GFR (Non-Af Amer) POC Glucose (mg/dL) 182 H Random Glucose Lactic Acid Calcium Phosphorus Magnesium Total Bilirubin AST ALT Alkaline Phosphatase Troponin I Total Protein Albumin Globulin Albumin/Globulin Ratio Venous Blood Potassium Attending/Attestation - Attestation Notes (Text): This is an addendum to GI consult report dictated by the Biophysics Teacher.The patient was seen and examined earlier. Medical records, lab studies, imagings were reviewed. Last 24 hours events reviewed. Agreed with the above treatment plan as outlined in Biophysics Teacher 's notes the with the addition of the following 08/25/17 23:40
[2017-08-25] MEDS: Metoprolol 1 mg/ml Inj IVP SCH ×3 (07:58→20:21)
--- NOTE | 2017-08-25 08:44 | CON ---
DATE: 08/25/2017 PULMONARY CONSULTATION REFERRING PHYSICIAN: Eva Castle MD. REASON FOR CONSULTATION: Pneumonia. HISTORY OF PRESENT ILLNESS: History is obtained via extensive discussion with the night nurse. I have also reviewed the chart at length. The patient is a chronically ill 72-year-old male, with past medical history significant for significant cerebrovascular accident with right-sided hemiparesis; atrial fibrillation(on Coumadin); hypertension; diabetes mellitus; vascular dementia; coronary artery disease; deep venous thrombosis in the past, status post inferior vena cava filter, who presents to [facility] with shortness of breath and cough following an episode of vomiting. The patient does have a history of chronic dysphagia. Apparently, after a meal at approximately 5:00 p.m., the patient started to vomit his food contents. Soon after he vomited, the patient began to experience shortness of breath and cough. He also had a low-grade fever. He was then brought to the Emergency Room for additional evaluation and treatment. As above, the patient did present with shortness of breath. He is not short of breath this morning. He does have a mild cough with no significant sputum production. There is no history of chest pain, coughing up of blood, or chest pain - made worse with deep respirations. Again, the patient did present to the hospital with fevers. No history of chills or infectious exposure. No history of night sweats, weight loss, or appetite change prior to the above events. No history of calf pains. No history of syncope or diaphoresis. No history of recent travel or trauma. REVIEW OF SYSTEMS: No acute urinary symptoms. No new neurologic or musculoskeletal complaints. Rest of the review of systems is negative. ALLERGIES: TO CLOPIDOGREL. SOCIAL HISTORY: Positive for tobacco. Negative for alcohol. FAMILY HISTORY: No inheritable diseases. HOME MEDICATIONS: Include Coumadin, Flomax, Seroquel, Pravachol, Lopressor, Keppra, aspirin, and ciprofloxacin. PHYSICAL EXAMINATION: GENERAL: The patient is not short of breath at the present time. He is not using accessory muscles for breathing. VITAL SIGNS: Temperature is 98.2, pulse on the monitor is 117, respiratory rate 18/20, blood pressure 136/52. Oxygen saturation on nasal cannula is 95%. HEENT: Normocephalic, atraumatic. No JVD. CARDIOVASCULAR: Positive S1, S2. No S3 gallop. LUNGS: Decreased breath sounds with crackles noted at the right lower lobe. Mild bilateral rhonchi (right worse than left). No wheezing. EXTREMITIES: No clubbing, cyanosis, or edema. Calves are nontender to palpation. GASTROINTESTINAL: Abdomen is soft, nontender, and nondistended. Bowel sounds are positive. SKIN: No acute rash. NEUROLOGIC: Limited at the present time. PERTINENT LABORATORY DATA: CAT scan of the chest, abdomen and pelvis was done. There is a diffuse infiltrate noted throughout the right lung. There are also small bilateral pleural effusions (right worse than left). There are also some chronic-appearing nodular opacities in the periphery of the left lung. CBC: White count 7.3K, hemoglobin 15.1, hematocrit 44, platelets of 133,000. INR 2.6. Complete metabolic profile: Glucose 114, calcium 7.8. Rest of the metabolic profile is within normal limits. EKG was done in the Emergency Room. Rapid atrial fibrillation is noted. IMPRESSION: 1. Aspiration pneumonia - right lung. 2. Status post episode of nausea and vomiting. 3. Chronic dysphagia. 4. Rapid atrial fibrillation. 5. Previous cerebrovascular accident with right hemipareses. 6. Coronary artery disease. PLAN: Again, I did discuss the case with the night nurse at length. I have also reviewed the chart at length. The patient presents to [facility] with increasing shortness of breath and cough - following an episode of emesis last night. Apparently, the patient had just finished his meal, when he started to vomit. Soon after he vomited, he did experience increasing pulmonary symptoms. As above, he also had a low grade fever. He was thus admitted for additional evaluation and treatment. I did review the CT scan of the chest. It is noted above. Acute findings include a diffuse infiltrate throughout the right lung, as well as small bilateral pleural effusions. The patient has been pancultured and started on antibiotic therapy. Infectious Disease evaluation with Dr. Lord has been ordered. On physical exam, there is mild bronchospasm noted. I will continue with the current nebulizer treatments and low-dose intravenous steroids for now. Consultations with Gastroenterology and Cardiology are also ordered. The ventricular rate is much more controlled this morning. Clinical status of the patient has certainly improved - compared to the initial presentation. However, the future status/prognosis for this chronically ill patient does remain guarded. I will discuss the above with Dr. Castle in the next few moments. Thank you very much for this pulmonary consultation. Trevor Moore MD MTDBrittney
--- NOTE | 2017-08-25 09:26 | CT ---
PROCEDURE: CT Chest, Abdomen and Pelvis without intravenous contrast HISTORY: fever, cough, nausea, vomiting COMPARISON: None. TECHNIQUE: Radiation dose: Total exam DLP = mGy-cm. This CT exam was performed using one or more of the following dose reduction techniques: Automated exposure control, adjustment of the mA and/or kV according to patient size, and/or use of iterative reconstruction technique. FINDINGS: CT CHEST WITHOUT CONTRAST: LUNGS: Patchy alveolar consolidation in the right upper lobe with minimal left upper lobe involvement moderate right pleural effusion. MEDIASTINUM: Unremarkable. Normal caliber aorta and pulmonary arterial trunk. Normal size heart. LYMPH NODES: Unremarkable. PLEURA: Unremarkable. No pneumothorax. No pleural fluid. BONES: Unremarkable. OTHER FINDINGS: None. CT ABDOMEN AND PELVIS: LIVER: Unremarkable. No gross lesion or ductal dilatation. GALLBLADDER AND BILE DUCTS: Unremarkable. PANCREAS: Unremarkable. No gross lesion or ductal dilatation. SPLEEN: Unremarkable. ADRENALS: Unremarkable. No mass. KIDNEYS AND URETERS: Unremarkable. No hydronephrosis. No solid mass. VASCULATURE: IVC filter. No aortic aneurysm. BOWEL: Unremarkable. No obstruction. No gross mural thickening. APPENDIX: Normal appendix. PERITONEUM: Unremarkable. No free fluid. No free air. LYMPH NODES: Unremarkable. No enlarged lymph nodes. BLADDER: Lewis catheter in bladder. REPRODUCTIVE: Unremarkable. BONES: No acute fracture. OTHER FINDINGS: None. IMPRESSION: Patchy alveolar consolidation in the right upper lobe with minimal left upper lobe involvement moderate right pleural effusion.
[2017-08-25] MEDS: levoFLOXacin 750 mg in D5W 750 MG/150 ML BAG IVPB SCH (09:40)
[2017-08-25] MEDS: POLYETHYLENE GLYCOL 3350 17 GM/Dose PACKET PO SCH (09:41)
[2017-08-25] MEDS: Pantoprazole 40 mg EC Tab PO SCH (09:41)
[2017-08-25] MEDS: MethylPREDNISolone 40 mg Vial IVP SCH ×2 (09:42→21:48)
--- NOTE | 2017-08-25 09:42 | CP.CCUPN ---
<Anyi Hall - Last Filed: 08/25/17 13:21> CCU Subjective - Physician Review Subjective (Free Text): 08/25/17 09:41 Pt on 2L NC. No acute complaint (+) soft BM in the morning CCU Objective - Vital Signs / Intake & Output Vital Signs (Last 4 hours): Vital Signs Temp Pulse Resp BP Pulse Ox 08/25/17 08:20 96 H 25 H 95 08/25/17 08:10 80 23 95 08/25/17 08:00 97.6 F 106 H 23 99/56 L 79 L 08/25/17 07:58 121 H 146/62 08/25/17 07:50 112 H 75 L 08/25/17 07:40 132 H 31 H 72 L 08/25/17 07:30 110 H 26 H 84 L 08/25/17 07:20 119 H 22 84 L 08/25/17 07:13 121 H 27 H 08/25/17 07:10 117 H 26 H 93 L 08/25/17 07:00 112 H 24 146/62 99 08/25/17 06:50 126 H 35 H 93 L 08/25/17 06:40 128 H 29 H 96 08/25/17 06:30 120 H 22 96 08/25/17 06:20 103 H 24 73 L 08/25/17 06:10 108 H 28 H 59 L 08/25/17 06:00 110 H 25 H 136/52 L 76 L 08/25/17 05:50 113 H 20 73 L Intake and Output (Last 8hrs): Intake & Output 08/24/17 08/25/17 08/25/17 22:59 06:59 14:59 Intake Total 470 Balance 470 Weight 184 lb 3.2 oz Intake: IV 470 Left Forearm 470 Other: Voiding Method Indwelling Catheter # Bowel Movements 1 - Physical Exam Head: Positive for: Atraumatic, Normocephalic Pupils: Positive for: PERRL Extroacular Muscles: Positive for: EOMI Conjunctiva: Positive for: Normal Mouth: Positive for: Moist Mucous Membranes Neck: Positive for: Normal Range of Motion Respiratory/Chest: Positive for: Clear to Auscultation, Good Air Exchange, Rhonchi (LLL). Negative for: Respiratory Distress, Accessory Muscle Use, Wheezes, Retracting Cardiovascular: Positive for: Regular Rate and Rhythm, Normal S1, S2. Negative for: Murmurs Abdomen: Negative for: Tenderness, Distention, Peritoneal Signs, Rebound, Guarding Back: Positive for: Normal Inspection Upper Extremity: Positive for: Normal Inspection, Normal ROM. Negative for: Cyanosis, Edema Lower Extremity: Positive for: Normal Inspection, Normal ROM. Negative for: Edema Neurological: Positive for: GCS=15, CN II-XII Intact Skin: Positive for: Warm, Dry, Normal Color. Negative for: Rashes Psychiatric: Positive for: Alert - Medications Active Medications: Active Medications Generic Name Dose Route Start Last Admin Trade Name Freq PRN Reason Stop Dose Admin Acetaminophen 650 mg 08/24/17 22:36 Tylenol 650 Mg Supp RC Q4H PRN Fever >100.4 F Albuterol/Ipratropium 3 ml 08/25/17 02:00 08/25/17 07:57 Duoneb 3 Mg/0.5 Mg (3 Ml) Ud IH 3 ml [id number] RUKHSANA Administration Aspirin 81 mg 08/25/17 10:00 Ecotrin PO DAILY [facility] Atorvastatin Calcium 10 mg 08/25/17 20:00 Lipitor PO 2000 [facility] Levofloxacin/Dextrose 750 mg in 150 mls @ 100 mls/hr 08/24/17 22:53 08/24/17 23:13 Levaquin 750mg IVPB 100 mls/hr DAILY [facility] Administration Protocol Insulin Human Lispro 0 units 08/25/17 00:00 08/25/17 06:03 Humalog Low SC Not Given Q6H [facility] Protocol Levetiracetam 750 mg 08/25/17 10:00 Keppra PO BID [facility] Methylprednisolone 20 mg 08/25/17 10:00 Solu-Medrol IVP Q12 RUKHSANA Metoprolol Tartrate 12.5 mg 08/25/17 07:30 Lopressor PO BRKDIN [facility] Metoprolol Tartrate 5 mg 08/25/17 08:00 08/25/17 07:58 Lopressor IVP 5 mg Q6H RUKHSANA Administration Ondansetron HCl 4 mg 08/24/17 21:11 Zofran Inj IVP Q6H PRN Nausea/Vomiting Pantoprazole Sodium 40 mg 08/25/17 10:00 Protonix Ec Tab PO DAILY [facility] Polyethylene Glycol 17 gm 08/25/17 10:00 Miralax PO DAILY [facility] Quetiapine Fumarate 25 mg 08/25/17 10:00 Seroquel PO TID [facility] Protocol Tamsulosin HCl 0.4 mg 08/25/17 20:00 Flomax PO 2000 [facility] Warfarin Sodium 5 mg 08/25/17 18:00 Coumadin PO 1800 [facility] Protocol - Patient Studies Lab Studies: Lab Studies 08/25/17 08/25/17 08/25/17 Range/Units 06:10 06:10 05:52 WBC 7.3 (4.5-11.0) 10^3/ul RBC 4.98 (3.5-6.1) 10^6/uL Hgb 15.1 (14.0-18.0) g/dL Hct 44.0 (42.0-52.0) % MCV 88.4 (80.0-105.0) fl MCH 30.3 (25.0-35.0) pg MCHC 34.3 (31.0-37.0) g/dl RDW 14.0 (11.5-14.5) % Plt Count 133 (120.0-450.0) 10^3/uL MPV 10.0 (7.0-11.0) fl Gran % 80.8 H (50.0-68.0) % Lymph % (Auto) 9.4 L (22.0-35.0) % [place] % (Auto) 7.9 H (1.0-6.0) % Eos % (Auto) 1.5 (1.5-5.0) % Baso % (Auto) 0.4 (0.0-3.0) % Gran # 5.92 (1.4-6.5) Lymph # (Auto) 0.7 L (1.2-3.4) [place] # (Auto) 0.6 (0.1-0.6) Eos # (Auto) 0.1 (0.0-0.7) Baso # (Auto) 0.03 (0.0-2.0) K/mm3 pO2 (30-55) mm/Hg VBG pH (7.32-7.43) VBG pCO2 (40-60) VBG HCO3 (21-28) mmol/l VBG Total CO2 (22-28) mmol.L VBG O2 Sat (Calc) (40-65) % VBG Base Excess (0.0-2.0) mmol/L VBG Potassium (3.6-5.2) mmol/L Sodium 138 (132-148) mmol/L Chloride 105 (98-107) mmol/L Glucose (75-110) mg/dl Lactate (0.7-2.1) mmol/L FiO2 % Potassium 4.2 (3.6-5.0) mmol/L Carbon Dioxide 22 (21-33) mmol/L Anion Gap 15 (10-20) BUN 17 (7-21) mg/dL Creatinine 0.6 L (0.8-1.5) mg/dl Est GFR ( Amer) > 60 Est GFR (Non-Af Amer) > 60 POC Glucose (mg/dL) 109 (65-110) mg/dL Random Glucose 114 H (70-110) mg/dL Lactic Acid (0.7-2.1) mmol/L Calcium 7.8 L (8.4-10.5) mg/dL Phosphorus 2.6 (2.5-4.5) mg/dL Magnesium 1.7 (1.7-2.2) mg/dL Total Bilirubin 1.3 (0.2-1.3) mg/dL AST 20 (17-59) U/L ALT 35 (7-56) U/L Alkaline Phosphatase 72 (38-126) U/L Troponin I ng/mL Total Protein 6.1 (5.8-8.3) g/dL Albumin 3.0 (3.0-4.8) g/dL Globulin 3.1 gm/dL Albumin/Globulin Ratio 1.0 L (1.1-1.8) Venous Blood Potassium (3.6-5.2) mmol/L 08/25/17 08/24/17 08/24/17 Range/Units 01:30 23:57 23:40 WBC (4.5-11.0) 10^3/ul RBC (3.5-6.1) 10^6/uL Hgb (14.0-18.0) g/dL Hct (42.0-52.0) % MCV (80.0-105.0) fl MCH (25.0-35.0) pg MCHC (31.0-37.0) g/dl RDW (11.5-14.5) % Plt Count (120.0-450.0) 10^3/uL MPV (7.0-11.0) fl Gran % (50.0-68.0) % Lymph % (Auto) (22.0-35.0) % [place] % (Auto) (1.0-6.0) % Eos % (Auto) (1.5-5.0) % Baso % (Auto) (0.0-3.0) % Gran # (1.4-6.5) Lymph # (Auto) (1.2-3.4) [place] # (Auto) (0.1-0.6) Eos # (Auto) (0.0-0.7) Baso # (Auto) (0.0-2.0) K/mm3 pO2 (30-55) mm/Hg VBG pH (7.32-7.43) VBG pCO2 (40-60) VBG HCO3 (21-28) mmol/l VBG Total CO2 (22-28) mmol.L VBG O2 Sat (Calc) (40-65) % VBG Base Excess (0.0-2.0) mmol/L VBG Potassium (3.6-5.2) mmol/L Sodium (132-148) mmol/L Chloride (98-107) mmol/L Glucose (75-110) mg/dl Lactate (0.7-2.1) mmol/L FiO2 % Potassium (3.6-5.0) mmol/L Carbon Dioxide (21-33) mmol/L Anion Gap (10-20) BUN (7-21) mg/dL Creatinine (0.8-1.5) mg/dl Est GFR ( Amer) Est GFR (Non-Af Amer) POC Glucose (mg/dL) 104 (65-110) mg/dL Random Glucose (70-110) mg/dL Lactic Acid 1.2 (0.7-2.1) mmol/L Calcium (8.4-10.5) mg/dL Phosphorus (2.5-4.5) mg/dL Magnesium (1.7-2.2) mg/dL Total Bilirubin (0.2-1.3) mg/dL AST (17-59) U/L ALT (7-56) U/L Alkaline Phosphatase (38-126) U/L Troponin I 0.03 D ng/mL Total Protein (5.8-8.3) g/dL Albumin (3.0-4.8) g/dL Globulin gm/dL Albumin/Globulin Ratio (1.1-1.8) Venous Blood Potassium (3.6-5.2) mmol/L 08/24/17 Range/Units 23:40 WBC (4.5-11.0) 10^3/ul RBC (3.5-6.1) 10^6/uL Hgb (14.0-18.0) g/dL Hct (42.0-52.0) % MCV (80.0-105.0) fl MCH (25.0-35.0) pg MCHC (31.0-37.0) g/dl RDW (11.5-14.5) % Plt Count (120.0-450.0) 10^3/uL MPV (7.0-11.0) fl Gran % (50.0-68.0) % Lymph % (Auto) (22.0-35.0) % [place] % (Auto) (1.0-6.0) % Eos % (Auto) (1.5-5.0) % Baso % (Auto) (0.0-3.0) % Gran # (1.4-6.5) Lymph # (Auto) (1.2-3.4) [place] # (Auto) (0.1-0.6) Eos # (Auto) (0.0-0.7) Baso # (Auto) (0.0-2.0) K/mm3 pO2 70 H (30-55) mm/Hg VBG pH 7.39 (7.32-7.43) VBG pCO2 36.0 L (40-60) VBG HCO3 21.8 (21-28) mmol/l VBG Total CO2 22.9 (22-28) mmol.L VBG O2 Sat (Calc) 96.8 H (40-65) % VBG Base Excess -2.6 L (0.0-2.0) mmol/L VBG Potassium 4.3 (3.6-5.2) mmol/L Sodium 134.0 (132-148) mmol/L Chloride 105.0 (98-107) mmol/L Glucose 110 (75-110) mg/dl Lactate 1.3 (0.7-2.1) mmol/L FiO2 21.0 % Potassium (3.6-5.0) mmol/L Carbon Dioxide (21-33) mmol/L Anion Gap (10-20) BUN (7-21) mg/dL Creatinine (0.8-1.5) mg/dl Est GFR ( Amer) Est GFR (Non-Af Amer) POC Glucose (mg/dL) (65-110) mg/dL Random Glucose (70-110) mg/dL Lactic Acid (0.7-2.1) mmol/L Calcium (8.4-10.5) mg/dL Phosphorus (2.5-4.5) mg/dL Magnesium (1.7-2.2) mg/dL Total Bilirubin (0.2-1.3) mg/dL AST (17-59) U/L ALT (7-56) U/L Alkaline Phosphatase (38-126) U/L Troponin I ng/mL Total Protein (5.8-8.3) g/dL Albumin (3.0-4.8) g/dL Globulin gm/dL Albumin/Globulin Ratio (1.1-1.8) Venous Blood Potassium 4.3 (3.6-5.2) mmol/L Laboratory Results - last 24 hr 08/24/17 08/24/17 08/24/17 23:40 23:40 23:57 WBC RBC Hgb Hct MCV MCH MCHC RDW Plt Count MPV Gran % Lymph % (Auto) [place] % (Auto) Eos % (Auto) Baso % (Auto) Gran # Lymph # (Auto) [place] # (Auto) Eos # (Auto) Baso # (Auto) pO2 70 H VBG pH 7.39 VBG pCO2 36.0 L VBG HCO3 21.8 VBG Total CO2 22.9 VBG O2 Sat (Calc) 96.8 H VBG Base Excess -2.6 L VBG Potassium 4.3 Sodium 134.0 Chloride 105.0 Glucose 110 Lactate 1.3 FiO2 21.0 Potassium Carbon Dioxide Anion Gap BUN Creatinine Est GFR ( Amer) Est GFR (Non-Af Amer) POC Glucose (mg/dL) 104 Random Glucose Lactic Acid 1.2 Calcium Phosphorus Magnesium Total Bilirubin AST ALT Alkaline Phosphatase Troponin I Total Protein Albumin Globulin Albumin/Globulin Ratio Venous Blood Potassium 4.3 08/25/17 08/25/17 08/25/17 01:30 05:52 06:10 WBC 7.3 RBC 4.98 Hgb 15.1 Hct 44.0 MCV 88.4 MCH 30.3 MCHC 34.3 RDW 14.0 Plt Count 133 MPV 10.0 Gran % 80.8 H Lymph % (Auto) 9.4 L [place] % (Auto) 7.9 H Eos % (Auto) 1.5 Baso % (Auto) 0.4 Gran # 5.92 Lymph # (Auto) 0.7 L [place] # (Auto) 0.6 Eos # (Auto) 0.1 Baso # (Auto) 0.03 pO2 VBG pH VBG pCO2 VBG HCO3 VBG Total CO2 VBG O2 Sat (Calc) VBG Base Excess VBG Potassium Sodium Chloride Glucose Lactate FiO2 Potassium Carbon Dioxide Anion Gap BUN Creatinine Est GFR ( Amer) Est GFR (Non-Af Amer) POC Glucose (mg/dL) 109 Random Glucose Lactic Acid Calcium Phosphorus Magnesium Total Bilirubin AST ALT Alkaline Phosphatase Troponin I 0.03 D Total Protein Albumin Globulin Albumin/Globulin Ratio Venous Blood Potassium 08/25/17 06:10 WBC RBC Hgb Hct MCV MCH MCHC RDW Plt Count MPV Gran % Lymph % (Auto) [place] % (Auto) Eos % (Auto) Baso % (Auto) Gran # Lymph # (Auto) [place] # (Auto) Eos # (Auto) Baso # (Auto) pO2 VBG pH VBG pCO2 VBG HCO3 VBG Total CO2 VBG O2 Sat (Calc) VBG Base Excess VBG Potassium Sodium 138 Chloride 105 Glucose Lactate FiO2 Potassium 4.2 Carbon Dioxide 22 Anion Gap 15 BUN 17 Creatinine 0.6 L Est GFR ( Amer) > 60 Est GFR (Non-Af Amer) > 60 POC Glucose (mg/dL) Random Glucose 114 H Lactic Acid Calcium 7.8 L Phosphorus 2.6 Magnesium 1.7 Total Bilirubin 1.3 AST 20 ALT 35 Alkaline Phosphatase 72 Troponin I Total Protein 6.1 Albumin 3.0 Globulin 3.1 Albumin/Globulin Ratio 1.0 L Venous Blood Potassium Fingerstick Blood Sugar Results: 109 Critical Care Progress Note - Nutrition Nutrition: Nutrition Category Date Time Status NPO Diet [DIET] Diets 08/24/17 Breakfast Ordered Assessment/Plan - Assessment and Plan (Free Text) Plan: Mr Myles Cerna, 72 M PMHx Afib on coumadin, CAD/HTN, DVT s/p IVC, DM2, CVA with R sided hemiparesis 2010, Vascular dementia, 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 Chest/Abd/Pel CT shows Patchy alveolar consolidation right upper lobe with minimal left upper lobe involvement with (+) Small right effusion. No acute abnormality evident in the abdomen or pelvis. ICU consulted as per request of PMD for Afib with RVR and pneumonia and hypotension 80s responsive to 2.5L NS. Now afebril (Tmax 100.4), HR 90s. BP 100s, on Levaquine, solumedrol 20q12, No elevated lactate. U/O 700 in past 12 hours. Severe Sepsis due to pneumonia, fluid resucitated, likely due to aspiration pneumonia R/O community acquired pneumonia Chronic dysphagia s/p N/V, Hx PEG, Hx stroke, Hx seizure A fib with RVR Hx CVA R hemiparesis Hx CAD Neuro -patient at baseline as per family -Aspiration/seizure precautions -HoB above 30degrees -maintain normothermia -Keppra 750 bid -seroquel TID Resp -Levaquin 750, Cefepime, doxycycline -solumedrol 20q12 -duoneb 3ml inh q6 -maintain spO2 > 92% on 2L now -keep patient NPO until speech/swallow eval Cardio -patient has hx of Afib, on warfarin 5 INR = 2.77 (hold warfarin tonight) -EKG unchanged from previous; trops 0.02 --> 0.03 -elevated proBNP 3510 -OFF cardizem gtt -Echo pending read -measure daily weight -strict Is and Os -maintain MAP > 65 -ASA, lipitor 10, lopressor 12.5 BID (lopressor PRN) GI Pending PEG consult -Surgery and GI consulted for possible obstruction -f/u Abd x-ray -CT chest/abd/pelvis: Has no acute findings -puree/thin liquid -Zofran for nausea -continue home Miralax ID -f/u procalcitonin -f/u cultures -ID consult Renal -strict Is and Os -No IVF -replete electolytes as needed HemeOnc -no acute issues -patient on coumadin 5mg for Afib Endo -Accucheck -RISS low -maintain euglycemia Dispo: transfer to tele. endorsed to primary s/r/d/w Dr. Stringer <Jordon Stringer - Last Filed: 08/25/17 15:33> CCU Objective - Vital Signs / Intake & Output Vital Signs (Last 4 hours): Vital Signs Temp Pulse Resp BP Pulse Ox 08/25/17 14:00 94 H 08/25/17 13:34 110 H 153/94 H 08/25/17 12:00 98.6 F 104 H 22 95 Intake and Output (Last 8hrs): Intake & Output 08/25/17 08/25/17 08/25/17 06:59 14:59 22:59 Intake Total 470 570 Output Total 200 Balance 470 370 Weight 184 lb 3.2 oz Intake: IV 470 370 Left Forearm 470 370 Oral 200 Output: Urine 200 Urethral (Lewis) 200 Other: Voiding Method Indwelling Catheter # Bowel Movements 1 1 - Medications Active Medications: Active Medications Generic Name Dose Route Start Last Admin Trade Name Freq PRN Reason Stop Dose Admin Acetaminophen 650 mg 08/24/17 22:36 Tylenol 650 Mg Supp RC Q4H PRN Fever >100.4 F Albuterol/Ipratropium 3 ml 08/25/17 02:00 08/25/17 13:38 Duoneb 3 Mg/0.5 Mg (3 Ml) Ud IH 3 ml [id number] RUKHSANA Administration Aspirin 81 mg 08/25/17 10:00 08/25/17 09:40 Ecotrin PO 81 mg DAILY RUKHSANA Administration Atorvastatin Calcium 10 mg 08/25/17 20:00 Lipitor PO 2000 RUKHSANA Doxycycline Hyclate 100 mg 08/25/17 10:50 08/25/17 11:17 Doryx PO 09/03/17 10:51 100 mg Q12 RUKHSANA Administration Protocol Levofloxacin/Dextrose 750 mg in 150 mls @ 100 mls/hr 08/24/17 22:53 08/25/17 09:40 Levaquin 750mg IVPB 100 mls/hr DAILY RUKHSANA Administration Protocol Cefepime HCl 1 gm in 100 mls @ 100 mls/hr 08/25/17 10:47 08/25/17 13:33 Maxipime 1gm IVPB 09/03/17 10:48 Not Given Q8 [facility] Protocol Insulin Human Lispro 0 units 08/25/17 00:00 08/25/17 11:59 Humalog Low SC Not Given Q6H [facility] Protocol Levetiracetam 750 mg 08/25/17 10:00 08/25/17 09:40 Keppra PO 750 mg BID RUKHSANA Administration Methylprednisolone 20 mg 08/25/17 10:00 08/25/17 09:42 Solu-Medrol IVP 20 mg Q12 RUKHSANA Administration Metoprolol Tartrate 12.5 mg 08/25/17 07:30 08/25/17 09:41 Lopressor PO 12.5 mg BRKDIN RUKHSANA Administration Metoprolol Tartrate 5 mg 08/25/17 08:00 08/25/17 13:34 Lopressor IVP 5 mg Q6H RUKHSANA Administration Ondansetron HCl 4 mg 08/24/17 21:11 Zofran Inj IVP Q6H PRN Nausea/Vomiting Pantoprazole Sodium 40 mg 08/25/17 10:00 08/25/17 09:41 Protonix Ec Tab PO 40 mg DAILY RUKHSANA Administration Polyethylene Glycol 17 gm 08/25/17 10:00 08/25/17 09:41 Miralax PO 17 gm DAILY RUKHSAAN Administration Quetiapine Fumarate 25 mg 08/25/17 10:00 08/25/17 13:33 Seroquel PO 25 mg TID [facility] Administration Protocol Tamsulosin HCl 0.4 mg 08/25/17 20:00 Flomax PO 2000 [facility] Warfarin Sodium 5 mg 08/25/17 18:00 Coumadin PO 1800 [facility] Protocol - Patient Studies Lab Studies: Lab Studies 08/25/17 08/25/17 08/25/17 Range/Units 11:45 09:40 06:10 WBC (4.5-11.0) 10^3/ul RBC (3.5-6.1) 10^6/uL Hgb (14.0-18.0) g/dL Hct (42.0-52.0) % MCV (80.0-105.0) fl MCH (25.0-35.0) pg MCHC (31.0-37.0) g/dl RDW (11.5-14.5) % Plt Count (120.0-450.0) 10^3/uL MPV (7.0-11.0) fl Gran % (50.0-68.0) % Lymph % (Auto) (22.0-35.0) % [place] % (Auto) (1.0-6.0) % Eos % (Auto) (1.5-5.0) % Baso % (Auto) (0.0-3.0) % Gran # (1.4-6.5) Lymph # (Auto) (1.2-3.4) [place] # (Auto) (0.1-0.6) Eos # (Auto) (0.0-0.7) Baso # (Auto) (0.0-2.0) K/mm3 PT 32.5 H (9.4-12.5) SECONDS INR 2.77 H (0.93-1.08) pO2 (30-55) mm/Hg VBG pH (7.32-7.43) VBG pCO2 (40-60) VBG HCO3 (21-28) mmol/l VBG Total CO2 (22-28) mmol.L VBG O2 Sat (Calc) (40-65) % VBG Base Excess (0.0-2.0) mmol/L VBG Potassium (3.6-5.2) mmol/L Sodium 138 (132-148) mmol/L Chloride 105 (98-107) mmol/L Glucose (75-110) mg/dl Lactate (0.7-2.1) mmol/L FiO2 % Potassium 4.2 (3.6-5.0) mmol/L Carbon Dioxide 22 (21-33) mmol/L Anion Gap 15 (10-20) BUN 17 (7-21) mg/dL Creatinine 0.6 L (0.8-1.5) mg/dl Est GFR ( Amer) > 60 Est GFR (Non-Af Amer) > 60 POC Glucose (mg/dL) 116 H (65-110) mg/dL Random Glucose 114 H (70-110) mg/dL Lactic Acid (0.7-2.1) mmol/L Calcium 7.8 L (8.4-10.5) mg/dL Phosphorus 2.6 (2.5-4.5) mg/dL Magnesium 1.7 (1.7-2.2) mg/dL Total Bilirubin 1.3 (0.2-1.3) mg/dL AST 20 (17-59) U/L ALT 35 (7-56) U/L Alkaline Phosphatase 72 (38-126) U/L Troponin I ng/mL Total Protein 6.1 (5.8-8.3) g/dL Albumin 3.0 (3.0-4.8) g/dL Globulin 3.1 gm/dL Albumin/Globulin Ratio 1.0 L (1.1-1.8) Venous Blood Potassium (3.6-5.2) mmol/L 08/25/17 08/25/17 08/25/17 Range/Units 06:10 05:52 01:30 WBC 7.3 (4.5-11.0) 10^3/ul RBC 4.98 (3.5-6.1) 10^6/uL Hgb 15.1 (14.0-18.0) g/dL Hct 44.0 (42.0-52.0) % MCV 88.4 (80.0-105.0) fl MCH 30.3 (25.0-35.0) pg MCHC 34.3 (31.0-37.0) g/dl RDW 14.0 (11.5-14.5) % Plt Count 133 (120.0-450.0) 10^3/uL MPV 10.0 (7.0-11.0) fl Gran % 80.8 H (50.0-68.0) % Lymph % (Auto) 9.4 L (22.0-35.0) % [place] % (Auto) 7.9 H (1.0-6.0) % Eos % (Auto) 1.5 (1.5-5.0) % Baso % (Auto) 0.4 (0.0-3.0) % Gran # 5.92 (1.4-6.5) Lymph # (Auto) 0.7 L (1.2-3.4) [place] # (Auto) 0.6 (0.1-0.6) Eos # (Auto) 0.1 (0.0-0.7) Baso # (Auto) 0.03 (0.0-2.0) K/mm3 PT (9.4-12.5) SECONDS INR (0.93-1.08) pO2 (30-55) mm/Hg VBG pH (7.32-7.43) VBG pCO2 (40-60) VBG HCO3 (21-28) mmol/l VBG Total CO2 (22-28) mmol.L VBG O2 Sat (Calc) (40-65) % VBG Base Excess (0.0-2.0) mmol/L VBG Potassium (3.6-5.2) mmol/L Sodium (132-148) mmol/L Chloride (98-107) mmol/L Glucose (75-110) mg/dl Lactate (0.7-2.1) mmol/L FiO2 % Potassium (3.6-5.0) mmol/L Carbon Dioxide (21-33) mmol/L Anion Gap (10-20) BUN (7-21) mg/dL Creatinine (0.8-1.5) mg/dl Est GFR ( Amer) Est GFR (Non-Af Amer) POC Glucose (mg/dL) 109 (65-110) mg/dL Random Glucose (70-110) mg/dL Lactic Acid (0.7-2.1) mmol/L Calcium (8.4-10.5) mg/dL Phosphorus (2.5-4.5) mg/dL Magnesium (1.7-2.2) mg/dL Total Bilirubin (0.2-1.3) mg/dL AST (17-59) U/L ALT (7-56) U/L Alkaline Phosphatase (38-126) U/L Troponin I 0.03 D ng/mL Total Protein (5.8-8.3) g/dL Albumin (3.0-4.8) g/dL Globulin gm/dL Albumin/Globulin Ratio (1.1-1.8) Venous Blood Potassium (3.6-5.2) mmol/L 08/24/17 08/24/17 08/24/17 Range/Units 23:57 23:40 23:40 WBC (4.5-11.0) 10^3/ul RBC (3.5-6.1) 10^6/uL Hgb (14.0-18.0) g/dL Hct (42.0-52.0) % MCV (80.0-105.0) fl MCH (25.0-35.0) pg MCHC (31.0-37.0) g/dl RDW (11.5-14.5) % Plt Count (120.0-450.0) 10^3/uL MPV (7.0-11.0) fl Gran % (50.0-68.0) % Lymph % (Auto) (22.0-35.0) % [place] % (Auto) (1.0-6.0) % Eos % (Auto) (1.5-5.0) % Baso % (Auto) (0.0-3.0) % Gran # (1.4-6.5) Lymph # (Auto) (1.2-3.4) [place] # (Auto) (0.1-0.6) Eos # (Auto) (0.0-0.7) Baso # (Auto) (0.0-2.0) K/mm3 PT (9.4-12.5) SECONDS INR (0.93-1.08) pO2 70 H (30-55) mm/Hg VBG pH 7.39 (7.32-7.43) VBG pCO2 36.0 L (40-60) VBG HCO3 21.8 (21-28) mmol/l VBG Total CO2 22.9 (22-28) mmol.L VBG O2 Sat (Calc) 96.8 H (40-65) % VBG Base Excess -2.6 L (0.0-2.0) mmol/L VBG Potassium 4.3 (3.6-5.2) mmol/L Sodium 134.0 (132-148) mmol/L Chloride 105.0 (98-107) mmol/L Glucose 110 (75-110) mg/dl Lactate 1.3 (0.7-2.1) mmol/L FiO2 21.0 % Potassium (3.6-5.0) mmol/L Carbon Dioxide (21-33) mmol/L Anion Gap (10-20) BUN (7-21) mg/dL Creatinine (0.8-1.5) mg/dl Est GFR ( Am) Est GFR (Non-Af Amer) POC Glucose (mg/dL) 104 (65-110) mg/dL Random Glucose (70-110) mg/dL Lactic Acid 1.2 (0.7-2.1) mmol/L Calcium (8.4-10.5) mg/dL Phosphorus (2.5-4.5) mg/dL Magnesium (1.7-2.2) mg/dL Total Bilirubin (0.2-1.3) mg/dL AST (17-59) U/L ALT (7-56) U/L Alkaline Phosphatase (38-126) U/L Troponin I ng/mL Total Protein (5.8-8.3) g/dL Albumin (3.0-4.8) g/dL Globulin gm/dL Albumin/Globulin Ratio (1.1-1.8) Venous Blood Potassium 4.3 (3.6-5.2) mmol/L Laboratory Results - last 24 hr 08/24/17 08/24/17 08/24/17 23:40 23:40 23:57 WBC RBC Hgb Hct MCV MCH MCHC RDW Plt Count MPV Gran % Lymph % (Auto) [place] % (Auto) Eos % (Auto) Baso % (Auto) Gran # Lymph # (Auto) [place] # (Auto) Eos # (Auto) Baso # (Auto) PT INR pO2 70 H VBG pH 7.39 VBG pCO2 36.0 L VBG HCO3 21.8 VBG Total CO2 22.9 VBG O2 Sat (Calc) 96.8 H VBG Base Excess -2.6 L VBG Potassium 4.3 Sodium 134.0 Chloride 105.0 Glucose 110 Lactate 1.3 FiO2 21.0 Potassium Carbon Dioxide Anion Gap BUN Creatinine Est GFR ( Amer) Est GFR (Non-Af Amer) POC Glucose (mg/dL) 104 Random Glucose Lactic Acid 1.2 Calcium Phosphorus Magnesium Total Bilirubin AST ALT Alkaline Phosphatase Troponin I Total Protein Albumin Globulin Albumin/Globulin Ratio Venous Blood Potassium 4.3 08/25/17 08/25/17 08/25/17 01:30 05:52 06:10 WBC 7.3 RBC 4.98 Hgb 15.1 Hct 44.0 MCV 88.4 MCH 30.3 MCHC 34.3 RDW 14.0 Plt Count 133 MPV 10.0 Gran % 80.8 H Lymph % (Auto) 9.4 L [place] % (Auto) 7.9 H Eos % (Auto) 1.5 Baso % (Auto) 0.4 Gran # 5.92 Lymph # (Auto) 0.7 L [place] # (Auto) 0.6 Eos # (Auto) 0.1 Baso # (Auto) 0.03 PT INR pO2 VBG pH VBG pCO2 VBG HCO3 VBG Total CO2 VBG O2 Sat (Calc) VBG Base Excess VBG Potassium Sodium Chloride Glucose Lactate FiO2 Potassium Carbon Dioxide Anion Gap BUN Creatinine Est GFR ( Amer) Est GFR (Non-Af Amer) POC Glucose (mg/dL) 109 Random Glucose Lactic Acid Calcium Phosphorus Magnesium Total Bilirubin AST ALT Alkaline Phosphatase Troponin I 0.03 D Total Protein Albumin Globulin Albumin/Globulin Ratio Venous Blood Potassium 08/25/17 08/25/17 08/25/17 06:10 09:40 11:45 WBC RBC Hgb Hct MCV MCH MCHC RDW Plt Count MPV Gran % Lymph % (Auto) [place] % (Auto) Eos % (Auto) Baso % (Auto) Gran # Lymph # (Auto) [place] # (Auto) Eos # (Auto) Baso # (Auto) PT 32.5 H INR 2.77 H pO2 VBG pH VBG pCO2 VBG HCO3 VBG Total CO2 VBG O2 Sat (Calc) VBG Base Excess VBG Potassium Sodium 138 Chloride 105 Glucose Lactate FiO2 Potassium 4.2 Carbon Dioxide 22 Anion Gap 15 BUN 17 Creatinine 0.6 L Est GFR ( Amer) > 60 Est GFR (Non-Af Amer) > 60 POC Glucose (mg/dL) 116 H Random Glucose 114 H Lactic Acid Calcium 7.8 L Phosphorus 2.6 Magnesium 1.7 Total Bilirubin 1.3 AST 20 ALT 35 Alkaline Phosphatase 72 Troponin I Total Protein 6.1 Albumin 3.0 Globulin 3.1 Albumin/Globulin Ratio 1.0 L Venous Blood Potassium Critical Care Progress Note - Nutrition Nutrition: Nutrition Category Date Time Status Dysphagia/Modified Consistency Diet [DIET] Diets 08/25/17 Lunch Ordered Attending/Attestation - Attestation I have personally seen and examined this patient.: Yes I have fully participated in the care of the patient.: Yes I have reviewed all pertinent clinical information: Yes Notes (Text): 08/25/17 15:[address] Stringer note
[2017-08-25 09:58] LABS: INR 2.77 (0.93-1.08); PROTHROMBIN TIME 32.5 SECONDS (9.4-12.5)
--- NOTE | 2017-08-25 10:11 | RAD ---
HISTORY: Sepsis Patient COMPARISON: Comparison chest 10/08/2016 FINDINGS: LUNGS: There appears to be patchy infiltrate changes throughout the right lung. Elevation right hemidiaphragm asymmetrically more prominent laterally than medially, possibly due to eventration. Tiny right-sided effusion not excluded. PLEURA: As above no pneumothorax apparent. CARDIOVASCULAR: Normal. OSSEOUS STRUCTURES: No significant abnormalities. VISUALIZED UPPER ABDOMEN: Normal. OTHER FINDINGS: None. IMPRESSION: There appears to be patchy infiltrate changes throughout the right lung. Elevation right hemidiaphragm asymmetrically more prominent laterally than medially, possibly due to eventration. Tiny right-sided effusion not excluded.
--- NOTE | 2017-08-25 10:22 | RAD ---
HISTORY: vomitting COMPARISON: No prior. FINDINGS: BOWEL: Multiple air-filled loops of small bowel present. Additionally, there also appears to be air within the large bowel. Findings most likely BONES: There is deformity of the right femoral neck possibly representing some all posttraumatic productive changes. Degenerative osteoarthritis both hip joints. OTHER FINDINGS: Represent ileus. In situ IVC filter IMPRESSION: Findings most likely represent generalized ileus. No evidence to suggest acute mechanical bowel obstruction at this time.
[2017-08-25] MEDS: Cefepime 1gm in NS 100ml 1 GM/100 ML BAG IVPB SCH ×3 (11:18→21:48)
--- NOTE | 2017-08-25 11:18 | CON ---
DATE: 08/25/2017 LOCATION: The patient is in ICU bed 2 this morning, 128. CHIEF COMPLAINT: Fever x1 day duration. HISTORY OF PRESENT ILLNESS: This is a 72-year-old male with cerebrovascular accident, right-sided hemiparesis, atrial fibrillation, aphasic, coronary artery disease, DVT, BPH, hypertension, diabetes, vascular dementia, history of Pseudomonas and Proteus urinary tract infection, who was admitted now from home and the patient has not been hospitalized since the last year with fever, shortness of breath and cough. Found to have pneumonia. REVIEWE OF SYSTEMS: Twelve-point review of systems was performed. There is no abdominal pain, diarrhea or constipation. No chest pain . No dysuria or frequency. No rash. No new joint pain. PAST MEDICAL HISTORY: Significant for cerebrovascular accident with right hemiparesis, atrial fibrillation, hypertension, diabetes and vascular dementia, history of Pseudomonas and Proteus urinary tract infection, history of coronary artery disease, DVT and BPH. PAST SURGICAL HISTORY: Significant for IVC filter placement and also right great toe amputation. MEDICATIONS AT HOME: Reviewed with Coumadin, Seroquel, Pravachol, metoprolol. PHYSICAL EXAMINATION: GENERAL: The patient is in bed, in no acute distress. VITAL SIGNS: Temperature of 98, T-max is 100.4, respiratory rate of 21, heart rate of 95, blood pressure is 130/50, saturation is down to 93% saturation and the patient's blood pressure on admission was 87/40. HEENT: Examination of HEENT is unremarkable. NECK: Supple. LUNGS: Have decreased breath sounds. HEART: Normal S1 and S2. ABDOMEN: Soft, nontender. LABORATORY DATA: Laboratory examination revealed the patient to have a white count of 8.1, hemoglobin of 16, platelets of 142, 83% polys and coagulation is noted. Chemistries reveals a BUN of 17, creatinine of 0.6. Urinalysis is noted. Review of orders reveals blood, urine and sputum cultures have been ordered and procalcitonin has been ordered. ASSESSMENT AND PLAN: A 72-year-old with cerebrovascular accident, right-sided weakness, atrial fibrillation, coronary artery disease, deep venous thrombosis, benign prostatic hypertrophy, hypertension, diabetes, vascular dementia and Pseudomonas and Proteus urinary tract infection, was admitted with fevers, tachycardia, hypoxia, hypertension, infiltrate. #1 is severe sepsis. We will treat the patient with Maxipime and doxycycline. Pending panculture results. We will follow closely with you. Joni Lord MD
--- NOTE | 2017-08-25 18:47 | CARD ---
APPROVED REPORT EXAM: Two-dimensional and M-mode echocardiogram with Doppler and color Doppler. INDICATION ELEVATED BNP 2D DIMENSIONS Left Atrium (2D)5.2 (1.6-4.0cm)IVSd1.1 (0.7-1.1cm) LVDd4.7 (3.9-5.9cm)PWd1.2 (0.7-1.1cm) LVDs3.0 (2.5-4.0cm)FS (%) 35.0 % LVEF (%)64.2 (>50%) M-Mode DIMENSIONS Aortic Root3.80 (2.2-3.7cm)Aortic Cusp Exc.1.70 (1.5-2.0cm) Aortic Valve AoV Peak Fchkqnim228.0cm/Liz Peak GR.6mmHg Mitral Valve E/A ratio0.0 TDI E/Lateral E'0.0E/Medial E'0.0 Pulmonary Valve PV Peak Ddnizhxg45.6cm/sPV Peak Grad.2mmHg Tricuspid Valve TR Peak [id number]/sRAP [id number] Peak Gr.40mmHg [id number] LEFT VENTRICLE The left ventricle is normal size. There is normal left ventricular wall thickness. The left ventricular function is normal. The left ventricular ejection fraction is within the normal range. There is normal LV segmental wall motion. RIGHT VENTRICLE The right ventricle is normal size. There is normal right ventricular wall thickness. The right ventricular systolic function is normal. ATRIA The left atrium is moderately dilated. The right atrium is mildly dilated. AORTIC VALVE The aortic valve is not well visualized. No aortic regurgitation is present. There is no aortic valvular stenosis. MITRAL VALVE The mitral valve is moderately thickened but opens well. There is no mitral valve regurgitation noted. There is no mitral valve stenosis. TRICUSPID VALVE There is moderate pulmonary hypertension. GREAT VESSELS The aortic root is mildly enlarged. PERICARDIAL EFFUSION There is a trace loculated anterior pericardial effusion. <Conclusion> The left ventricle is normal size. There is normal left ventricular wall thickness. The left ventricular function is normal. The left ventricular ejection fraction is within the normal range. There is normal LV segmental wall motion. The left atrium is moderately dilated. There is moderate pulmonary hypertension. The aortic root is mildly enlarged.
--- NOTE | 2017-08-25 19:02 | CARD ---
APPROVED REPORT EKG Measurement Heart [id number] <Conclusion> Atrial fibrillation with rapid ventricular response Right bundle branch block Left posterior fascicular block Bifascicular block Abnormal ECG
--- NOTE | 2017-08-25 19:44 | CON ---
DATE: 08/25/2017 HISTORY OF PRESENT ILLNESS: This is a 72-year-old gentleman with history of prior stroke; aphasia; hypertension; status post PEG tube, now removed; atrial fibrillation, on Coumadin; diabetes; dementia; coronary artery disease; who presented yesterday after episode of emesis, which followed up by fever, shortness of breath and cough. Of note, the patient does have a chronic cough, but that time, it was more intense and he was bringing up some sputum of whitish/yellowish color. That was also mixed with content of the breakfast he ate. No chest pain, no diarrhea, no constipation. PAST MEDICAL HISTORY: Atrial fibrillation, on Coumadin; hypertension; diabetes; CVA with right-sided hemiparesis in 2010; vascular dementia; history of MRSA in the past; coronary artery disease; DVT, status post IVC. PAST SURGICAL HISTORY: Right toe amputation, craniotomy with nonhealing wound, IVC filter placement, PEG tube placement (now removed). ALLERGIES: PLAVIX. FAMILY HISTORY: Noncontributory. SOCIAL HISTORY: No alcohol or illicit drug abuse. Ex-smoker. He quit tobacco smoking in 2000. The patient is bed-bound. REVIEW OF SYSTEM: Review of 12-organ system other than mentioned in history of present illness is negative. PHYSICAL EXAMINATION: VITAL SIGNS: Heart rate 90, oxygenation 100% on nasal cannula, blood pressure 99/56, respiratory 20. HEENT: Head and neck atraumatic. LUNGS: Few crackles, right more than left. HEARTL Irregular rate and rhythm. S1, S2 distant. ABDOMEN: Soft, nontender, nondistended. MUSCULOSKELETAL: Trace bilateral pedal and ankle edema. NEUROLOGIC: The patient has right hemiparesis. SKIN: Moist. PSYCH: Patient is poorly communicative. LABORATORY DATA WBC 7.3, hemoglobin 15.1, platelet count 133. Sodium 138, potassium 4.2, chloride 105, carbon dioxide 22, BUN 17, creatinine 0.6, glucose 114. INR 2.6. Lactic acid 1.3. MEDICATIONS: Tylenol p.r.n., DuoNeb every 6 hours, aspirin 81 mg, Lipitor 10 mg p.o., levofloxacin, Keppra, Solu-Medrol 20 mg IV every 12 hours, metoprolol 5 mg IV every 6 hours and metoprolol 12.5 mg p.o. b.i.d., Zofran p.r.n., Protonix 40 mg p.o. daily, Seroquel, Flomax, warfarin 5 mg p.o. q1800. ASSESSMENT AND PLAN: This 72-year-old gentleman who presented to [facility] with aspiration pneumonitis/pneumonia/community-acquired pneumonia, complicated by atrial fibrillation in the setting of systemic inflammatory response syndrome (SIRS). At present time, we will proceed with antibiotics, low-dose steroids, conservative fluid and oxygen management, rate control with beta blockers (may potentially be beneficial by providing cardioprotection in the setting of cathecholamine surge caused by SIRS /sepsis)). We will get swallow evaluation, chest PT, out of bed to chair, physical therapy as tolerated. Nasotracheal suction. Bronchodilators. Gastrointestinal prophylaxis. The patient is therapeutically anticoagulated. Okay to downgrade to Telemetry. ccm time 40 min Jordon Stringer MD MTDD
[2017-08-26] MEDS: Insulin Lispro (humaLOG) LOW Coverage SC SCH ×4 (00:52→17:38)
[2017-08-26] MEDS: Albuterol-Ipratrop 3 mg / 0.5 (3 ml) UD IH SCH ×4 (02:30→20:16)
[2017-08-26] MEDS: Metoprolol 1 mg/ml Inj IVP SCH ×4 (02:45→19:58)
[2017-08-26] MEDS: Cefepime 1gm in NS 100ml 1 GM/100 ML BAG IVPB SCH ×3 (05:30→21:18)
[2017-08-26 05:50] LABS: GRAN # 3.67 (1.4-6.5); GRAN % 88.9 % (50.0-68.0); HEMOGLOBIN 15.1 g/dL (14.0-18.0); LYMPH # 0.3 (1.2-3.4); LYMPH % 8.2 % (22.0-35.0); MEAN CELL VOLUME 87.3 fl (80.0-105.0); MEAN CORPUSCULAR HEMOGLOBIN 30.3 pg (25.0-35.0); MEAN CORPUSCULAR HGB CONC 34.7 g/dl (31.0-37.0); MEAN PLATELET VOLUME 9.9 fl (7.0-11.0); MONO # 0.1 (0.1-0.6); MONO % 2.9 % (1.0-6.0); RBC 4.98 10^6/uL (3.5-6.1); RED CELL DISTRIBUTION WIDTH 13.7 % (11.5-14.5); WHITE BLOOD COUNT 4.1 10^3/ul (4.5-11.0)
[2017-08-26 06:08] LABS: ALB/GLOB RATIO 1.1 (1.1-1.8); ALBUMIN 3.3 g/dL (3.0-4.8); ALT/SGPT 25 U/L (7-56); AST/SGOT 23 U/L (17-59); BLOOD UREA NITROGEN 20 mg/dL (7-21); CALCIUM 8.5 mg/dL (8.4-10.5); GFR AFRICAN-AMERICAN > 60; GFR NON-AFRICAN AMERICAN > 60
--- NOTE | 2017-08-26 07:25 | HP ---
HISTORY OF PRESENT ILLNESS: A 72-year-old male referred to [facility]. Family reported that the patient after eating had been vomiting. She states that he did have a bowel movement prior to coming to the emergency room. There is no history of fever or chills, chest pain or shortness of breath. PAST MEDICAL HISTORY: Hemorrhagic stroke, scalp wound infection, atrial fibrillation, diabetes, arteriosclerotic heart disease, remote pneumonia history, expressive aphasia. He has a history of seizure disorder in the past as well. REVIEW OF SYSTEMS: Pertinent findings, 10-systems reviewed as in the physical. HOME MEDICATIONS: Warfarin, Flomax, Seroquel, Pravachol, metoprolol, Keppra, aspirin. ALLERGY: TO PLAVIX. PHYSICAL EXAMINATION: GENERAL: The patient was alert, appeared to be oriented to person and place and time, although he has difficulty with expressing himself. VITAL SIGNS: Showed temp of 100.4 rectally, his blood pressure was 146/60. NECK: Supple. HEART: An irregular S1 and S2 rhythm. LUNGS: Show bibasilar rhonchi with rhonchi in the upper lobes as well. ABDOMEN: Soft, scaphoid. Positive bowel sounds. No rebound appreciated. EXTREMITIES: Show no evidence of edema. There is mild contraction. LABORATORY DATA: Showed a WBC of 8.1, RBC 5.44, hemoglobin 15.8, hematocrit 47.6, platelet count 142. His PT was 30 with an INR of 2.6, PTT was 41.7. Lactate was 2. Chemistry showed a sodium of 138, potassium 4.2, chloride 105, CO2 of 22, BUN of 17, creatinine of 0.6, blood sugar was 114, calcium 7.8, phosphorus 2.6, magnesium 1.7, albumin was 3. Urinalysis showed trace blood, negative leukocyte esterase. A chest x-ray showed evidence of congestion, possible infiltrate, right upper lobe. X-ray of the abdomen showed dilated loops of bowel, possible area of stool. The electrocardiogram showed AFib with a rapid ventricular response with a right bundle-branch block, left posterior fascicular block. IMPRESSION: I was asked for the patient to be evaluated by the nut sorter. We can agree to bring the patient in to the emergency room. Consults were placed for Cardiology and Gastroenterology and Infectious Disease and Pulmonary. Clinical findings were discussed with the patient's family and the emergency room staff as well as with the nut sorter. More than 35 minutes spent reviewing the data and discussing the clinical status and treatment plan. Further treatment management pending input and diagnostic studies. CAT scan of the chest, abdomen and pelvis would be requested and await input of those findings and advanced manufacturing consultant's opinion. Panculture was requested as well. The patient was initiated on antibiotics. Eva Castle MD
--- NOTE | 2017-08-26 07:36 | PN ---
DATE: 08/26/2017(610am-700am) PULMONARY NOTE SUBJECTIVE: The patient appears comfortable this morning. He is not short of breath at rest. He is awake and alert. PHYSICAL EXAMINATION: VITAL SIGNS: Temperature is 98.6, pulse is 95, respirations 18, blood pressure 132/63. Oxygen saturation on nasal cannula is 97%. HEENT: Normocephalic, atraumatic. No JVD. CARDIOVASCULAR: Positive S1, S2. No S3 gallop. LUNGS: Decreased breath sounds with crackles noted at the right lower lobe. Much less rhonchi. No wheezing. EXTREMITIES: No clubbing, cyanosis or edema. Calves are nontender to palpation. GI: Abdomen is soft, nontender and nondistended. Bowel sounds are positive. SKIN: No acute rash. NEUROLOGIC: Limited at the present time. PERTINENT LABORATORY DATA: Chest x-ray was repeated this morning and reviewed. Official results are pending. There remains a diffuse hazy infiltrate noted in the right lung. CBC: White count 4.1K, hemoglobin 15.1, hematocrit 43.5, platelets of 135,000. IMPRESSION: 1. Aspiration pneumonia - right lung. 2. Status post episode of nausea and vomiting. 3. Chronic dysphagia. 4. Rapid atrial fibrillation - now controlled. 5. Previous cerebrovascular accident with right hemipareses. 6. Coronary artery disease. PLAN: The patient appears comfortable this morning. He is not short of breath at rest. He is awake and alert. I did discuss the case with the night nurse at length. The night nurse stated that the patient had a very good night. I did review the chest x-ray as above. The chest x-ray reveals a diffuse hazy infiltrate noted in the right lung. The findings are similar to those seen on previous CAT scanning. I will order a repeat chest x-ray for tomorrow - for comparison. On physical exam, there is certainly less bronchospasm noted. In addition, the alveolar-arterial gradient is also much less. I will continue with the current nebulizer treatments and low-dose intravenous steroids for now. I will also continue with the aspiration precautions. The patient remains on antibiotic therapy - as per Infectious Disease. Input by Dr. Lord is noted. The temperatures have now fully resolved. The clinical status of the patient appears improved - compared to his initial hospital status. His overall/future status/prognosis does remain guarded. I will discuss the above with the entire ICU team in the next few moments. I will also discuss the above with the attending physician. Trevor Moore MD MTDD
[2017-08-26] MEDS ORDERED: Digoxin 500 mcg/2ml (0.5 mg/2ml) Inj IV ONE (09:39)
--- NOTE | 2017-08-26 09:39 | RAD ---
HISTORY: follow up COMPARISON: August 25, 2017. CT thorax August 24, 2017 single-view chest FINDINGS: LUNGS: Pulmonary vascular congestion is progressive compared prior studies. PLEURA: No significant pleural effusion identified, no pneumothorax apparent. CARDIOVASCULAR: Cardiomegaly. OSSEOUS STRUCTURES: No significant abnormalities. VISUALIZED UPPER ABDOMEN: Normal. OTHER FINDINGS: None. IMPRESSION: Worsening pulmonary edema/ CHF.
[2017-08-26] MEDS: MethylPREDNISolone 40 mg Vial IVP SCH ×2 (09:50→21:18)
[2017-08-26] MEDS: POLYETHYLENE GLYCOL 3350 17 GM/Dose PACKET PO SCH (09:52)
[2017-08-26] MEDS: Pantoprazole 40 mg EC Tab PO SCH (09:52)
[2017-08-26] MEDS ORDERED: Acetaminophen 650mg/20.3ml solution UD PO PRN (10:58)
--- NOTE | 2017-08-26 12:06 | PN ---
DATE: 08/26/2017 SUBJECTIVE: The patient is in bed, was seen earlier today in CCU 129, bed 3. He is awake. He is responsive. His temperature is down. PHYSICAL EXAMINATION: VITAL SIGNS: On exam, temperature is 98, blood pressure is 130/60, respiratory rate of 18, heart rate of 111. HEENT: Examination of HEENT is unremarkable. NECK: Supple. LUNGS: Have decreased breath sounds. HEART: Normal S1, S2. ABDOMEN: Soft, nontender. LABORATORY DATA: Laboratory examination reveals a white count of 4.1, hemoglobin of 15, platelets of 135. BUN of 20, creatinine of 0.6. Urinalysis is noted. Microbiology reveals the blood cultures no growth and this morning's chest x-ray is pending. The patient's procalcitonin is less than 0.05 and urinalysis is noted. Review of orders reveals the patient to be on p.o. doxycycline and the patient is also on cefepime. We will discontinue the Levaquin. ASSESSMENT AND PLAN: A 72-year-old male with history of cerebrovascular accident, right-sided hemiparesis, atrial fibrillation aphasia, coronary artery disease, deep venous thrombosis, benign prostatic hyperplasia, hypertension, diabetes, vascular dementia, history of Pseudomonas and Proteus urinary tract infection, now is admitted with severe sepsis with community-acquired pneumonia and day #2 of doxycycline and cefepime. No need for Levaquin. We will discontinue that and with a normal procalcitonin, would complete ____ 7 days. The patient is doing clinically well. We will follow with you. Joni Lord MD
[2017-08-26] MEDS: Digoxin 250 mcg (0.25 mg) Tab PO SCH (14:18)
--- NOTE | 2017-08-26 19:18 | CON ---
DATE: 08/26/2017 REQUESTING PHYSICIAN: Eva Castle MD REASON FOR CONSULTATION: Atrial fibrillation. HISTORY OF PRESENT ILLNESS: This is a 72-year-old man known to me from prior admissions with a history of chronic atrial fibrillation and prior cerebrovascular accident. He had vomiting and fever earlier in the day. He has been admitted with suspected aspiration pneumonia. He also has atrial fibrillation with rapid ventricular response. PAST MEDICAL HISTORY: Notable for prior hemorrhagic stroke which has left him with right-sided hemiplegia. His past history is notable for coronary artery disease, hypertension, peripheral vascular disease, aphasia, dysphasia, prior toe amputation, prior evacuation of a subdural hematoma, IVC filter placement. He also reported has a history of seizure disorder in the past. CURRENT MEDICATIONS: Include doxycycline, DuoNeb inhaler, Ecotrin, Flomax, insulin coverage, Keppra, Lipitor, metoprolol 12.5 mg b.i.d., Maxipime, Protonix, Seroquel, Solu-Medrol 20 mg every 12 hours, and Zofran p.r.n. ALLERGIES: HE HAS HAD A REACTION OF PLAVIX IN THE PAST. SOCIAL HISTORY: He is a former smoker. FAMILY HISTORY: Both parents from age-related illness. REVIEW OF SYSTEMS: A 10-point review of systems is otherwise unremarkable. PHYSICAL EXAMINATION GENERAL: He is an overweight middle-aged man. VITAL SIGNS: His blood pressure is 122/78 with a pulse of 130 in atrial fibrillation, respirations are 16. He is afebrile. HEENT: Normocephalic, atraumatic. NECK: Supple. No JVD noted. CHEST: Bilateral rhonchi heard with crackles on the right base. HEART: PMI displaced laterally with a systolic murmur present in the left sternal border. Rhythm is irregularly irregular. ABDOMEN: Soft, nontender with normoactive bowel sounds. EXTREMITIES: A 1+ leg edema. NEUROLOGIC: Expressive aphasia present, right hemiplegia present as well. DIAGNOSTIC DATA: White count 4.1, hemoglobin and hematocrit 15.1 and 43.5 with platelet count of 35,000. INR is 2.77, potassium of 4.7, BUN and creatinine 20 and 0.6, glucose 252, phosphorus 2.2. Troponin 0.03. BNP 3510. Echocardiogram reveals normal LV size and systolic function. Chest x-ray reveals normal cardiac silhouette with some increased pulmonary vascular congestion. IMPRESSION: 1. Presumed aspiration pneumonia, currently on antibiotics. 2. Atrial fibrillation with rapid ventricular response. 3. Mild coronary artery disease. 4. Peripheral arterial disease status post toe amputation. 5. Status post remote cerebrovascular accident with expressive aphasia and right-sided hemiplegia. 6. Rest of the problems as noted. RECOMMENDATIONS: His oral metoprolol dose will be increased to 50 mg b.i.d. Dose of digoxin has been given for heart rate control as well. Antibiotic therapy will continue. He appears stable for transfer to telemetry at this time. We will continue to follow and make further recommendations as appropriate. Reilly Valdez MD
[2017-08-26] MEDS: Potassium & Sodium Phosphate PO SCH (19:58)
[2017-08-26] MEDS: Insulin Lispro (HUMAlog) HIGH Coverage SC SCH (22:30)
[2017-08-27] MEDS: Metoprolol 1 mg/ml Inj IVP SCH (02:10)
[2017-08-27] MEDS: Albuterol-Ipratrop 3 mg / 0.5 (3 ml) UD IH SCH ×4 (02:14→19:17)
--- NOTE | 2017-08-27 04:08 | PN ---
DATE: 08/26/2017 SUBJECTIVE: This patient was seen and evaluated earlier today. The granddaughter was at the bedside, feeding. Patient was tolerating the pureed feeding. PHYSICAL EXAMINATION: VITAL SIGNS: Temperature is 98.3, pulse 73, blood pressure is 148/86. HEENT: Atraumatic and anicteric. NECK: Supple. HEART: S1 and S2 heard. LUNGS: A few scattered rhonchi present. ABDOMEN: Soft. There was no tenderness. Previous PEG site scar noticed. LABORATORY DATA: Hemoglobin 15.1, hematocrit 43.5, WBC 4.1, and platelets 135. Chemistry: BUN 20, creatinine 0.6. LFTs are normal. IMPRESSION: This is a 72-year-old patient with history of chronic atrial fibrillation. He is status post cerebrovascular accident. Has dysphagia before PEG tube, but he was at home tolerating the pureed diet. I did have a detail discussion with the patient's granddaughter. Patient was normally able to tolerate. Patient did have some change of the position of the patient vomiting. Patient probably has aspirated at that time. Patient is now admitted with pneumonia. Patient has now had speech therapy and swallowing evaluation noticed. Presently, tolerating the pureed diet. As per the patient's granddaughter, patient did not have any significant problem for a long time with this pureed diet. Would recommend the patient only with assisted feeding at the present time with small frequent feedings over 5 to 6 times a day. Other comorbidities included atrial fibrillation, coronary artery disease, peripheral arterial disease, status post cerebrovascular accident in the past. Thank you very much for allowing us to participate in the care of the patient. We will continue to closely follow up his care and suggest further management based on the clinical course. Liliya Chandler MD
[2017-08-27] MEDS: Cefepime 1gm in NS 100ml 1 GM/100 ML BAG IVPB SCH ×3 (05:10→21:37)
[2017-08-27 05:40] LABS: GRAN # 5.35 (1.4-6.5); GRAN % 89.1 % (50.0-68.0); HEMOGLOBIN 14.9 g/dL (14.0-18.0); LYMPH # 0.3 (1.2-3.4); LYMPH % 5.2 % (22.0-35.0); MEAN CELL VOLUME 87.3 fl (80.0-105.0); MEAN CORPUSCULAR HEMOGLOBIN 30.6 pg (25.0-35.0); MEAN CORPUSCULAR HGB CONC 35.1 g/dl (31.0-37.0); MEAN PLATELET VOLUME 10.8 fl (7.0-11.0); MONO # 0.3 (0.1-0.6); MONO % 5.7 % (1.0-6.0); RBC 4.87 10^6/uL (3.5-6.1); RED CELL DISTRIBUTION WIDTH 13.8 % (11.5-14.5)
[2017-08-27 06:15] LABS: BLOOD UREA NITROGEN 30 mg/dL (7-21); GFR AFRICAN-AMERICAN > 60; GFR NON-AFRICAN AMERICAN > 60
[2017-08-27 06:16] LABS: ALBUMIN 3.1 g/dL (3.0-4.8); ALT/SGPT 34 U/L (7-56); AST/SGOT 20 U/L (17-59); CALCIUM 8.2 mg/dL (8.4-10.5)
[2017-08-27] MEDS: Insulin Lispro (HUMAlog) HIGH Coverage SC SCH ×4 (07:42→21:39)
[2017-08-27] MEDS: MethylPREDNISolone 40 mg Vial IVP SCH ×2 (09:28→21:38)
[2017-08-27] MEDS: Pantoprazole 40 mg EC Tab PO SCH (09:29)
[2017-08-27] MEDS: Potassium & Sodium Phosphate PO SCH ×2 (09:29→17:18)
[2017-08-27] MEDS: POLYETHYLENE GLYCOL 3350 17 GM/Dose PACKET PO SCH (09:29)
--- NOTE | 2017-08-27 09:38 | PN ---
DATE: 08/27/2017 SUBJECTIVE: The patient is in bed in no acute distress. The patient was seen in the CCU, room 129, bed 3. No fevers. He is comfortable. OBJECTIVE: VITAL SIGNS: On exam, temperature is 98, blood pressure is 130/60, respiratory rate of 19, heart rate of 102. HEENT: Examination is unremarkable. NECK: Supple. LUNGS: Have decreased breath sounds. HEART: Normal S1, S2. ABDOMEN: Soft, nontender. No organomegaly. No rebound or guarding. No masses. DATA: Laboratory examination reveals a white count of 6, hemoglobin of 14, platelets of 157. BUN of 30, creatinine of 0.6. Urinalysis is noted and Toxicology is noted and Microbiology reveals the blood cultures are negative. Urine cultures are negative. The nares are negative. ASSESSMENT AND PLAN: This is an 72-year-old male with a history of cerebrovascular accident, right-sided hemiparesis, atrial fibrillation, aphasia, coronary artery disease, deep venous thrombosis, benign prostatic hypertrophy, hypertension, diabetes, vascular dementia, history of Pseudomonas and Proteus urinary tract infection admitted, 1. With severe sepsis with community-acquired pneumonia with day #3 of doxycycline and cefepime. The patient did have a normal procalcitonin with complete 5 days of antibiotics. Maybe able to switch to p.o. Levaquin upon discharge, currently on cefepime and doxycycline, day #3 of 5 days, can be switched to p.o. Levaquin upon discharge. Joni Lord MD
--- NOTE | 2017-08-27 10:15 | PN ---
DATE: 08/27/2017 PULMONARY PROGRESS NOTE SUBJECTIVE: The patient is sitting in bed, smiling. He claims not to be short of breath. He is a bit tachypneic. He is awake and alert, denying respiratory complaints. PHYSICAL EXAMINATION: GENERAL: As above, sitting in bed, comfortable. VITAL SIGNS: Stable, afebrile. Respiratory rate 18, blood pressure 130/60, heart rate 80, oxygen saturation 98 on nasal cannula. HEENT: Normocephalic, atraumatic. NECK: Supple. No JVD, no bruit. CARDIOVASCULAR: Regular rhythm. S1, S2. No murmur, gallop or rub. LUNGS: Global decrease in breath sounds, worse on the right than the left. No wheezing appreciated. Minimal rhonchi persists. ABDOMEN: Soft. Bowel sounds normoactive without mass, guarding, rebound, organomegaly. EXTREMITIES: Reveal no clubbing, cyanosis or edema. There is no Homans' sign. SKIN: No rash or excoriation. NEUROLOGIC: Awake and alert. Further evaluation is difficult at this time. DATA: Chest x-ray which is completed, there is some significant infiltrate in the right lung and this appears to be slightly worse when compared to previous films. IMPRESSION: 1. Aspiration pneumonia, right-sided, possibly worse on chest x-ray. We will discuss with Infectious Disease, Dr. Moore who will follow up in the morning. 2. Mental status, stable. The patient does not appear short of breath. 3. Chronic dysphagia/aspiration. 4. Rapid atrial fibrillation, controlled on medication. 5. Status post cerebrovascular accident with right hemiparesis. 6. Coronary vascular disease. PLAN: Continue vigorous antibiotic therapy and inhalation treatments. Chest physical therapy is important, discussed with Respiratory Therapy at this time. We will need to follow his x-ray as there does not appear to be improvement, questionable on the contrary. We will review closely with old films and discuss with Radiology and Infectious Disease. The patient is clearly comfortable at this time on the antibiotics and bronchodilators. PLAN: Overall prognosis remains guarded. Continue vigorous care in the Intensive Care Unit. Close followup essential. Thank you for the opportunity to follow up with Mr. Cerna. Tony Aranda MD [facility] # [id number]
--- NOTE | 2017-08-27 10:45 | RAD ---
HISTORY: Follow-up. COMPARISON: August 26, 2017. FINDINGS: LUNGS: Greater degree of cons acuity of right lower lobe and right upper lobe infiltrate. PLEURA: Stable right pleural effusion. CARDIOVASCULAR: Cardiomegaly. OSSEOUS STRUCTURES: No significant abnormalities. VISUALIZED UPPER ABDOMEN: Normal. OTHER FINDINGS: None. IMPRESSION: Persistent infiltrates involving right lower lobe and to lesser extent right upper lobe. Small right pleural effusion noted. Findings are better seen on recent CT of the thorax.
--- NOTE | 2017-08-27 12:16 | PN ---
DATE: 08/27/2017 SUBJECTIVE: The patient is seen lying in bed in the CCU. He remains comfortable. Intermittently, his heart rate accelerates into the 150-170 range. He denies any discomfort. CURRENT MEDICATIONS: His current medications include doxycycline, DuoNeb inhaler, Ecotrin, Flomax, insulin, Keppra, digoxin 0.25 mg daily, Lipitor, metoprolol 50 mg b.i.d., Maxipime, MiraLax, Protonix, Seroquel, Solu-Medrol 20 mg every 12 hours. OBJECTIVE: GENERAL: He is an overweight middle-aged man. VITAL SIGNS: His blood pressure is 140/72 with a pulse of 80-140 in atrial fibrillation, respirations 16. He is afebrile. HEENT: No JVD. CHEST: Bilateral scattered rhonchi. HEART: PMI displaced laterally with an irregularly irregular rhythm. ABDOMEN: Soft. Bowel sounds are present. EXTREMITIES: No edema. Right hemiplegia is present. DIAGNOSTIC DATA: Potassium 5.1, BUN and creatinine are 30 and 0.6, glucose is 266. White count 6, hemoglobin and hematocrit of 14.9 and 42.5 with platelet count of 157,000. Repeat chest x-ray is pending. IMPRESSION: 1. Presumed aspiration pneumonia, remains on antibiotic therapy and afebrile. 2. Atrial fibrillation with intermittent rapid ventricular response. 3. Mild coronary artery disease. 4. Peripheral arterial disease, status post prior toe amputation. 5. 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 RECOMMENDATIONS: His metoprolol dose will be increased further to 100 mg b.i.d. as tolerated. Digoxin will be continued for now as well for rate control. Dose may need to be reduced for his age. In general, continue conservative cardiac management as planned. We will follow and make further recommendations as needed. Reilly Valdez MD MTDD
[2017-08-27] MEDS: Digoxin 250 mcg (0.25 mg) Tab PO SCH (13:30)
--- NOTE | 2017-08-28 02:36 | PN ---
DATE: 08/27/2017 SUBJECTIVE: This patient was seen and evaluated earlier today. Discussed with the ICU staff. PHYSICAL EXAMINATION: GENERAL: The patient is afebrile. Heart rate 112, blood pressure is 120/56. HEENT: Atraumatic and anicteric. NECK: Supple. HEART: S1 and S2 heard. LUNGS: Bilateral air entry present. There are few scattered rhonchi present. ABDOMEN: Soft. There was no mass palpable. No tenderness. Previous gastrostomy scar was noticed. LABORATORY DATA: Hemoglobin 14.9, hematocrit 42.5, WBC is 6, platelets 157. Chemistries showed potassium is 5.1. IMPRESSION: This 72-year-old patient with past medical history of status post cerebrovascular accident, history of dysphagia, had a percutaneous endoscopic gastrostomy tube placement in the past, has been tolerating the pureed diet at home, was admitted with pneumonia, suspected aspiration pneumonia. Patient did have swallowing evaluation done, patient passed, and patient is now having the pureed diet, tolerating well. Patient has a history of pneumonia. Other comorbidities include atrial fibrillation, coronary artery disease. Would recommend follow up of the hemoglobin. RECOMMENDATIONS: 1. Continue the antibiotics now. 2. Pureed diet with assistance. 3. Would not contemplate at the present time further GI workup. We will discuss with Dr. Castle . We will continue to closely follow up care. Continue presently the antibiotics and also a pureed diet with assistance. Thank you very much for allowing me to participate in the care of the patient. Liliya Chandler MD
[2017-08-28] MEDS: Albuterol-Ipratrop 3 mg / 0.5 (3 ml) UD IH SCH ×4 (05:04→20:03)
[2017-08-28] MEDS: Cefepime 1gm in NS 100ml 1 GM/100 ML BAG IVPB SCH ×3 (06:17→22:03)
[2017-08-28 06:23] LABS: BASO # 0.01 K/mm3 (0.0-2.0); BASO % 0.2 % (0.0-3.0); GRAN # 5.18 (1.4-6.5); GRAN % 83.4 % (50.0-68.0); HEMOGLOBIN 15.8 g/dL (14.0-18.0); LYMPH # 0.6 (1.2-3.4); MEAN CELL VOLUME 87.9 fl (80.0-105.0); MEAN CORPUSCULAR HEMOGLOBIN 30.4 pg (25.0-35.0); MEAN CORPUSCULAR HGB CONC 34.6 g/dl (31.0-37.0); MEAN PLATELET VOLUME 10.3 fl (7.0-11.0); MONO # 0.4 (0.1-0.6); MONO % 6.4 % (1.0-6.0); RBC 5.2 10^6/uL (3.5-6.1); RED CELL DISTRIBUTION WIDTH 13.9 % (11.5-14.5); WHITE BLOOD COUNT 6.2 10^3/ul (4.5-11.0)
[2017-08-28 07:04] LABS: ALB/GLOB RATIO 1.1 (1.1-1.8); ALBUMIN 3.2 g/dL (3.0-4.8); ALT/SGPT 42 U/L (7-56); AST/SGOT 24 U/L (17-59); BLOOD UREA NITROGEN 38 mg/dL (7-21); CALCIUM 8.6 mg/dL (8.4-10.5); GFR AFRICAN-AMERICAN > 60; GFR NON-AFRICAN AMERICAN > 60
--- NOTE | 2017-08-28 07:44 | PN ---
DATE: 08/28/2017 PULMONARY NOTE SUBJECTIVE: The patient appears comfortable this morning. He is not short of breath at rest. OBJECTIVE: VITAL SIGNS: Temperature is 98.2, pulse 66, respirations 19, blood pressure 129/75. Oxygen saturation on nasal cannula is 98%. HEENT: Normocephalic, atraumatic. No JVD. CARDIOVASCULAR: Positive S1, S2. No S3 gallop. LUNGS: Decreased breath sounds with crackles - right lower lobe. Minimal rhonchi. No wheezing. EXTREMITIES: No clubbing, cyanosis or edema. Calves are nontender to palpation. GI: Abdomen is soft, nontender and nondistended. Bowel sounds are positive. SKIN: No acute rash. NEUROLOGIC: Limited at the present time. IMPRESSION: 1. Aspiration pneumonia - right lung. 2. Status post episode of nausea and vomiting. 3. Chronic dysphagia. 4. Rapid atrial fibrillation - now controlled. 5. Previous cerebrovascular accident with right hemipareses. 6. Coronary artery disease. PLAN: The patient appears comfortable this morning. He is not short of breath at rest. He is awake and alert. I did discuss the case with the night nurse at length. The night nurse stated that the patient had a very good night. On physical exam, his bronchospasm is significantly less. In addition, the alveolar-arterial gradient is also significantly less. I will continue the current nebulizer treatments and low-dose intravenous steroids for now. The patient remains on antibiotic therapy - as per Infectious Disease. Input by Dr. Lord is noted. There is no leukocytosis. The temperatures have now fully resolved. There is a repeat chest x-ray ordered for this morning. I will check that when feasible. Clinical status of the patient is certainly improved - compared to the initial presentation. However, his future status/prognosis for this patient does remain guarded. I will discuss the above with Dr. Castle. Trevor Moore MD MTDBrittney
[2017-08-28 07:48] LABS: INR 1.77 (0.93-1.08); PROTHROMBIN TIME 20.6 SECONDS (9.4-12.5)
--- NOTE | 2017-08-28 08:27 | PCM.URO ---
Urology Progress Note - Objective Lab Studies: Reviewed (gu plans to follow thanks for gu consult) Lab Results Last 24 Hours: Laboratory Results - last 24 hr 08/27/17 08/27/17 08/27/17 07:08 11:40 17:02 WBC RBC Hgb Hct MCV MCH MCHC RDW Plt Count MPV Gran % Lymph % (Auto) Travis % (Auto) Eos % (Auto) Baso % (Auto) Gran # Lymph # (Auto) Travis # (Auto) Eos # (Auto) Baso # (Auto) PT INR Sodium Potassium Chloride Carbon Dioxide Anion Gap BUN Creatinine Est GFR ( Amer) Est GFR (Non-Af Amer) POC Glucose (mg/dL) 231 H 260 H 348 H Random Glucose Calcium Phosphorus Magnesium Total Bilirubin AST ALT Alkaline Phosphatase Total Protein Albumin Globulin Albumin/Globulin Ratio 08/27/17 08/28/17 08/28/17 21:36 05:10 05:10 WBC 6.2 RBC 5.20 Hgb 15.8 Hct 45.7 MCV 87.9 MCH 30.4 MCHC 34.6 RDW 13.9 Plt Count 151 MPV 10.3 Gran % 83.4 H Lymph % (Auto) 10.0 L Travis % (Auto) 6.4 H Eos % (Auto) 0.0 L Baso % (Auto) 0.2 Gran # 5.18 Lymph # (Auto) 0.6 L Travis # (Auto) 0.4 Eos # (Auto) 0.0 Baso # (Auto) 0.01 PT INR Sodium 135 Potassium 5.6 H* Chloride 100 Carbon Dioxide 25 Anion Gap 16 BUN 38 H Creatinine 0.7 L Est GFR ( Amer) > 60 Est GFR (Non-Af Amer) > 60 POC Glucose (mg/dL) 273 H Random Glucose 183 H Calcium 8.6 Phosphorus 2.2 L Magnesium 2.0 Total Bilirubin 0.7 AST 24 ALT 42 Alkaline Phosphatase 65 Total Protein 6.3 Albumin 3.2 Globulin 3.1 Albumin/Globulin Ratio 1.1 08/28/17 07:15 WBC RBC Hgb Hct MCV MCH MCHC RDW Plt Count MPV Gran % Lymph % (Auto) Travis % (Auto) Eos % (Auto) Baso % (Auto) Gran # Lymph # (Auto) Travis # (Auto) Eos # (Auto) Baso # (Auto) PT 20.6 H INR 1.77 H Sodium Potassium Chloride Carbon Dioxide Anion Gap BUN Creatinine Est GFR ( Amer) Est GFR (Non-Af Amer) POC Glucose (mg/dL) Random Glucose Calcium Phosphorus Magnesium Total Bilirubin AST ALT Alkaline Phosphatase Total Protein Albumin Globulin Albumin/Globulin Ratio Intake & Output: Intake & Output 08/27/17 08/28/17 08/28/17 18:59 06:59 18:59 Intake Total 1100 200 Output Total 360 850 Balance 740 -650 Intake: IV 120 200 Left Forearm 120 200 Oral 980 0 Output: Urine 360 850 Urethral (Lewis) 360 850 Other: # Bowel Movements 1 2 Vital Signs: Vital Signs - 24 hr 08/27/17 08/27/17 08/27/17 08:30 08:40 08:50 Temperature Pulse Rate 139 H 126 H 128 H Respiratory 23 26 H 23 Rate Blood Pressure O2 Sat by Pulse 100 100 100 Oximetry 08/27/17 08/27/17 08/27/17 09:00 09:10 09:20 Temperature Pulse Rate 108 H 104 H 97 H Respiratory 20 18 19 Rate Blood Pressure O2 Sat by Pulse 100 99 98 Oximetry 08/27/17 08/27/17 08/27/17 09:30 09:40 09:50 Temperature Pulse Rate 77 86 87 Respiratory 29 H 28 H 22 Rate Blood Pressure O2 Sat by Pulse 100 98 98 Oximetry 08/27/17 08/27/17 08/27/17 10:00 10:10 10:20 Temperature Pulse Rate 83 75 78 Respiratory 17 17 17 Rate Blood Pressure 109/58 L O2 Sat by Pulse 98 99 98 Oximetry 08/27/17 08/27/17 08/27/17 10:30 10:40 10:50 Temperature Pulse Rate 74 66 73 Respiratory 17 17 17 Rate Blood Pressure O2 Sat by Pulse 99 99 98 Oximetry 08/27/17 08/27/17 08/27/17 11:00 11:10 11:20 Temperature Pulse Rate 75 75 77 Respiratory 15 17 17 Rate Blood Pressure O2 Sat by Pulse 99 99 97 Oximetry 08/27/17 08/27/17 08/27/17 11:30 11:40 11:50 Temperature Pulse Rate 68 67 74 Respiratory 16 16 Rate Blood Pressure O2 Sat by Pulse 97 97 98 Oximetry 08/27/17 08/27/17 08/27/17 12:00 12:10 12:20 Temperature 98.5 F Pulse Rate 90 84 85 Respiratory 20 21 20 Rate Blood Pressure 119/47 L O2 Sat by Pulse 99 99 98 Oximetry 08/27/17 08/27/17 08/27/17 12:30 12:40 12:50 Temperature Pulse Rate 88 92 H 96 H Respiratory 23 28 H 26 H Rate Blood Pressure O2 Sat by Pulse 98 98 98 Oximetry 08/27/17 08/27/17 08/27/17 13:00 17:21 18:00 Temperature 98.7 F Pulse Rate 99 H 92 H 121 H Respiratory 25 H 18 Rate Blood Pressure 120/56 L 120/56 L O2 Sat by Pulse 98 98 Oximetry 08/27/17 08/28/17 08/28/17 22:00 00:01 02:00 Temperature 98.2 F Pulse Rate 85 85 66 Respiratory 19 Rate Blood Pressure 129/75 O2 Sat by Pulse 98 Oximetry 08/28/17 06:00 Temperature 98 F Pulse Rate 91 H Respiratory 19 Rate Blood Pressure 152/82 H O2 Sat by Pulse 98 Oximetry
--- NOTE | 2017-08-28 08:33 | PN ---
DATE: 08/26/[address] Castle. SUBJECTIVE: Patient was brought in because of poor appetite. PAST MEDICAL HISTORY: He has past medical history significant for, 1. Chronic AFib. 2. Wuw-tzqhfkf-kpoybpeql diabetes. 3. Coronary artery disease. 4. History of stroke in the past. Patient seems to be somewhat confused and disoriented and also has a history of seizure disorder. PHYSICAL EXAMINATION: GENERAL: He is awake and alert, but cannot carry on conversation. He is confused and disoriented. VITAL SIGNS: He is afebrile, pulse 115, respirations 20, blood pressure 143/75. LUNGS: Bilateral fair airflow. No rhonchi or crackle. HEART: S1 and S2 audible. Irregular, tachycardic. ABDOMEN: Soft. Nontender. No rebound. No guarding. NEUROLOGICAL: He is awake and alert, confused, disoriented. EXTREMITIES: Bilateral leg, no edema. LABORATORY EXAM: WBC is 4.1, hemoglobin 15, hematocrit 43.5, platelet 135. PT 32.5, INR 2.77. Chemistry: Sodium 135, potassium 4.7, chloride 103, CO2 of 22, BUN 20, creatinine 0.6, blood sugar of 244, phosphorus 2.2. Blood culture, urine cultures are negative. X-ray, chest, shows pulmonary edema and CHF. CT scan of the abdomen and pelvis was done that shows patchy alveolar consolidation in the right upper lobe with minimal left upper lobe involvement. Moderate right pleural effusion. ASSESSMENT: 1. Rapid atrial fibrillation. 2. Community-acquired pneumonia. 3. History of cerebrovascular accident. 4. Electrolyte imbalance. 5. History of coronary artery disease. PLAN: Currently, patient is on doxycycline, nebulizer treatment, aspirin 81 daily. He is on Keppra for seizure disorder, . He is being maintained on cefepime and IV steroid. We will monitor his blood sugar with coverage. Follow up his dig level and also supplement for his potassium. Follow up his PT/INR in the a.m. April Shelley MD
[2017-08-28] MEDS: Insulin Lispro (HUMAlog) HIGH Coverage SC SCH ×4 (08:39→22:26)
--- NOTE | 2017-08-28 08:50 | PN ---
DATE: 08/27/2017 SUBJECTIVE: The patient is a 72 years old, seen and examined while in CCU bed 3. He is lying in bed, seems to be comfortable. No cough or congestion. Mild shortness of breath, but able to speak well. He is awake and alert, confused and disoriented. OBJECTIVE: VITAL SIGNS: The patient is afebrile, pulse 78, respirations 17, and blood pressure 109/58. LUNGS: Bilateral good airflow. Decreased breath sounds at bases. No rhonchi or crackle appreciated. HEART: S1 and S2 audible, but tachycardiac. ABDOMEN: Soft and nontender. No rebound. No guarding. NEUROLOGIC: He is awake and alert, but confused and disoriented. LABORATORY EXAM: WBC of 6, hemoglobin 14.9, hematocrit 42.5, and platelets of 157. PT 32.5, INR 2.77. Chemistry: Sodium 133, potassium 5.1, chloride 102, CO2 of 22. BUN 30, creatinine 0.6. Blood sugar of 260. Phosphorus 2.2. Dig level is 1. Blood cultures and urine cultures are negative. X-ray chest done showed persistent infiltrate involving right lower lobe and lesser extent right upper lobe, small right pleural effusion noted. ASSESSMENT: 1. Right lower lobe infiltrate. 2. Dementia. 3. . 4. Atrial fibrillation. 5. Coronary artery disease. 6. History of cerebrovascular accident with residual right hemiparesis. PLAN: Currently, the patient is on doxycycline and nebulizer treatment. We will continue that. He is on aspirin and Flomax. We will monitor his blood sugar. He is also on Keppra. level seems to be therapeutic. I will continue him on Maxipime. and Protonix. Follow up his electrolyte and CBC in the a.m. April Shelley MD
--- NOTE | 2017-08-28 09:19 | CP.PCM.PN ---
Subjective - Date & Time of Evaluation Date of Evaluation: 08/28/17 Time of Evaluation: 07:00 - Subjective Subjective: Stable on 2R. No CP or SOB. V/S noted. AF, 90s PE: Lungs: rhonchi Cor.: irrge., S1S2 Abd.: soft Ext.: no edema Neuro.: alert, aphasia, hemiplegia I/O= 1300/1210 Labs noted: K+= 5.6, 5.2, INR = 1.77 Dig. level 7/1 = 1.0 Objective - Vital Signs/Intake and Output Vital Signs (last 24 hours): Temp Pulse Resp BP Pulse Ox 98 F 101 H 19 150/93 H 98 08/28/17 06:00 08/28/17 08:40 08/28/17 06:00 08/28/17 08:40 08/28/17 06:00 Intake and Output: 08/28/17 08/28/17 06:59 18:59 Intake Total 200 Output Total 850 Balance -650 - Medications Medications: Current Medications Acetaminophen (Tylenol 650mg/20.3ml Solution Ud) 650 mg PO Q6H PRN PRN Reason: temp or mod pain 4-7 Last Admin: 08/26/17 21:48 Dose: 650 mg Albuterol/Ipratropium (Duoneb 3 Mg/0.5 Mg (3 Ml) Ud) 3 ml IH [id number] [facility] Last Admin: 08/28/17 07:22 Dose: 3 ml Aspirin (Ecotrin) 81 mg PO DAILY [facility] Last Admin: 08/27/17 09:29 Dose: 81 mg Atorvastatin Calcium (Lipitor) 10 mg PO 2000 [facility] Last Admin: 08/27/17 20:46 Dose: 10 mg Digoxin (Lanoxin) 0.25 mg PO 1400 [facility] Last Admin: 08/27/17 13:30 Dose: 0.25 mg Doxycycline Hyclate (Doryx) 100 mg PO Q12 [facility] PRN Reason: Protocol Stop: 09/03/17 10:51 Last Admin: 08/27/17 21:39 Dose: 100 mg Cefepime HCl (Maxipime 1gm) 1 gm in 100 mls @ 100 mls/hr IVPB Q8 [facility] PRN Reason: Protocol Stop: 09/03/17 10:48 Last Admin: 08/28/17 06:17 Dose: 100 mls/hr Insulin Human Lispro (Humalog High) 0 units SC ACHS [facility] PRN Reason: Protocol Last Admin: 08/28/17 08:39 Dose: 2 units Levetiracetam (Keppra) 750 mg PO BID [facility] Last Admin: 08/27/17 17:21 Dose: 750 mg Methylprednisolone (Solu-Medrol) 20 mg IVP Q12 [facility] Last Admin: 08/27/17 21:38 Dose: 20 mg Metoprolol Tartrate (Lopressor) 100 mg PO BRKDIN [facility] Last Admin: 08/28/17 08:40 Dose: 100 mg Ondansetron HCl (Zofran Inj) 4 mg IVP Q6H PRN PRN Reason: Nausea/Vomiting Pantoprazole Sodium (Protonix Ec Tab) 40 mg PO DAILY [facility] Last Admin: 08/27/17 09:29 Dose: 40 mg Polyethylene Glycol (Miralax) 17 gm PO DAILY [facility] Last Admin: 08/27/17 09:29 Dose: 17 gm Quetiapine Fumarate (Seroquel) 25 mg PO TID [facility] PRN Reason: Protocol Last Admin: 08/27/17 17:18 Dose: 25 mg Tamsulosin HCl (Flomax) 0.4 mg PO 2000 [facility] Last Admin: 08/27/17 20:46 Dose: 0.4 mg Warfarin Sodium (Coumadin) 5 mg PO 1800 [facility] PRN Reason: Protocol - Labs Labs: 08/28/17 05:10 08/28/17 08:40 PT 20.6 SECONDS (9.4-12.5) H 08/28/17 07:15 INR 1.77 (0.93-1.08) H 08/28/17 07:15 APTT 41.7 Seconds (25.1-36.5) H 08/24/17 19:30 Assessment and Plan - Assessment and Plan (Free Text) Assessment: Pneumonia, aspiration AF CVA with aphasia and right hemiplegia HBP PAD with toe amputation H/O IVC Filter H/O SDH with evacuation Sz disorder Plan: Warfarin 5 mg/daily. Monitor INRs AB As per Pulmonary, GI, Dr. Castle. Monitor: INR's, K+, I/O OOB to chair as zhane.
[2017-08-28] MEDS: POLYETHYLENE GLYCOL 3350 17 GM/Dose PACKET PO SCH (10:28)
[2017-08-28] MEDS: MethylPREDNISolone 40 mg Vial IVP SCH ×2 (10:28→21:59)
[2017-08-28] MEDS: Pantoprazole 40 mg EC Tab PO SCH (10:29)
--- NOTE | 2017-08-28 11:13 | RAD ---
HISTORY: f/u COMPARISON: No prior. FINDINGS: LUNGS: Previously noted patchy infiltrate changes in the right mid lower lobe slightly improved. Right-sided effusion remains. There appears to be some minimal left basilar atelectasis. PLEURA: No significant pleural effusion identified, no pneumothorax apparent. CARDIOVASCULAR: Heart appears enlarged unchanged despite moderate patient side bending and rotation to the right. OSSEOUS STRUCTURES: No significant abnormalities. VISUALIZED UPPER ABDOMEN: Normal. OTHER FINDINGS: None. IMPRESSION: Previously noted patchy infiltrate changes in the right mid lower lobe slightly improved. Right-sided effusion remains. There appears to be some minimal left basilar atelectasis.
--- NOTE | 2017-08-28 11:36 | CP.PCM.PN ---
<Kenn Guerra - Last Filed: 08/28/17 19:58> Subjective - Date & Time of Evaluation Date of Evaluation: 08/28/17 Time of Evaluation: 07:40 - Subjective Subjective: PGY6 GI Fellow Progress Note Patient seen and examined bedside this morning. At time of evaluation, patient being assisted by nursing staff with breakfast tray. Was able to tolerate entire tray without issue. No complaints from patient at this time. No events overnight. 12 system ROS performed and negative except where stated. Objective - Vital Signs/Intake and Output Vital Signs (last 24 hours): Temp Pulse Resp BP Pulse Ox 98 F 101 H 19 150/93 H 98 08/28/17 06:00 08/28/17 08:40 08/28/17 06:00 08/28/17 08:40 08/28/17 06:00 Intake and Output: 08/28/17 08/28/17 06:59 18:59 Intake Total 200 Output Total 850 Balance -650 - Medications Medications: Current Medications Acetaminophen (Tylenol 650mg/20.3ml Solution Ud) 650 mg PO Q6H PRN PRN Reason: temp or mod pain 4-7 Last Admin: 08/26/17 21:48 Dose: 650 mg Albuterol/Ipratropium (Duoneb 3 Mg/0.5 Mg (3 Ml) Ud) 3 ml IH [id number] [facility] Last Admin: 08/28/17 07:22 Dose: 3 ml Aspirin (Ecotrin) 81 mg PO DAILY [facility] Last Admin: 08/28/17 10:29 Dose: 81 mg Atorvastatin Calcium (Lipitor) 10 mg PO 2000 [facility] Last Admin: 08/27/17 20:46 Dose: 10 mg Digoxin (Lanoxin) 0.25 mg PO 1400 [facility] Last Admin: 08/27/17 13:30 Dose: 0.25 mg Doxycycline Hyclate (Doryx) 100 mg PO Q12 [facility] PRN Reason: Protocol Stop: 09/03/17 10:51 Last Admin: 08/28/17 10:29 Dose: 100 mg Cefepime HCl (Maxipime 1gm) 1 gm in 100 mls @ 100 mls/hr IVPB Q8 [facility] PRN Reason: Protocol Stop: 09/03/17 10:48 Last Admin: 08/28/17 06:17 Dose: 100 mls/hr Insulin Human Lispro (Humalog High) 0 units SC ACHS [facility] PRN Reason: Protocol Last Admin: 08/28/17 08:39 Dose: 2 units Levetiracetam (Keppra) 750 mg PO BID [facility] Last Admin: 08/28/17 10:29 Dose: 750 mg Methylprednisolone (Solu-Medrol) 20 mg IVP Q12 [facility] Last Admin: 08/28/17 10:28 Dose: 20 mg Metoprolol Tartrate (Lopressor) 100 mg PO BRKDIN [facility] Last Admin: 08/28/17 08:40 Dose: 100 mg Ondansetron HCl (Zofran Inj) 4 mg IVP Q6H PRN PRN Reason: Nausea/Vomiting Pantoprazole Sodium (Protonix Ec Tab) 40 mg PO DAILY [facility] Last Admin: 08/28/17 10:29 Dose: 40 mg Polyethylene Glycol (Miralax) 17 gm PO DAILY [facility] Last Admin: 08/28/17 10:28 Dose: 17 gm Quetiapine Fumarate (Seroquel) 25 mg PO TID [facility] PRN Reason: Protocol Last Admin: 08/28/17 10:29 Dose: 25 mg Tamsulosin HCl (Flomax) 0.4 mg PO 2000 [facility] Last Admin: 08/27/17 20:46 Dose: 0.4 mg Warfarin Sodium (Coumadin) 5 mg PO 1800 [facility] PRN Reason: Protocol - Labs Labs: 08/28/17 05:10 08/28/17 08:40 PT 20.6 SECONDS (9.4-12.5) H 08/28/17 07:15 INR 1.77 (0.93-1.08) H 08/28/17 07:15 APTT 41.7 Seconds (25.1-36.5) H 08/24/17 19:30 - Constitutional Appears: Non-toxic, No Acute Distress - Eye Exam Eye Exam: EOMI, PERRL - ENT Exam ENT Exam: Mucous Membranes Moist - Respiratory Exam Respiratory Exam: Clear to Ausculation Bilateral. absent: Rales, Rhonchi, Wheezes - Cardiovascular Exam Cardiovascular Exam: Irregular Rhythm, +S1, +S2 - GI/Abdominal Exam GI & Abdominal Exam: Soft, Normal Bowel Sounds. absent: Distended, Firm, Guarding, Rigid, Tenderness, Organomegaly - Extremities Exam Extremities Exam: Normal Inspection. absent: Pedal Edema - Neurological Exam Neurological Exam: Altered, Awake - Psychiatric Exam Psychiatric exam: Normal Affect, Normal Mood - Skin Skin Exam: Dry, Warm Assessment and Plan - Assessment and Plan (Free Text) Assessment: Patient is a 72yo male with PMHx significant for prior CVA, dementia, HTN, CAD, DM, DVT s/p IVC filter, atrial fibrillation on coumadin who presented to the ED with nausea/vomiting. -Nausea/vomiting - resolved -Aspiration pneumonia -Atrial fibrillation on coumadin Plan: -S/P speech/swallow evaluation with recommendations for puree diet with thin liquids -No issues with diet thus far -Cefepime and doxycycline for aspiration pneumonia -No planned endoscopic interventions presently <Liliya Chandler V - Last Filed: 08/28/17 23:48> Objective - Vital Signs/Intake and Output Vital Signs (last 24 hours): Temp Pulse Resp BP Pulse Ox 98.7 F 81 20 113/79 98 08/28/17 17:24 08/28/17 17:36 08/28/17 17:24 08/28/17 17:36 08/28/17 06:00 Intake and Output: 08/28/17 08/29/17 18:59 06:59 Output Total 425 Balance -425 - Medications Medications: Current Medications Acetaminophen (Tylenol 650mg/20.3ml Solution Ud) 650 mg PO Q6H PRN PRN Reason: temp or mod pain 4-7 Last Admin: 08/26/17 21:48 Dose: 650 mg Albuterol/Ipratropium (Duoneb 3 Mg/0.5 Mg (3 Ml) Ud) 3 ml IH [id number] [facility] Last Admin: 08/28/17 20:03 Dose: 3 ml Aspirin (Ecotrin) 81 mg PO DAILY [facility] Last Admin: 08/28/17 10:29 Dose: 81 mg Atorvastatin Calcium (Lipitor) 10 mg PO 2000 [facility] Last Admin: 08/28/17 21:57 Dose: 10 mg Digoxin (Lanoxin) 0.25 mg PO 1400 [facility] Last Admin: 08/28/17 14:05 Dose: 0.25 mg Doxycycline Hyclate (Doryx) 100 mg PO Q12 [facility] PRN Reason: Protocol Stop: 09/03/17 10:51 Last Admin: 08/28/17 21:57 Dose: 100 mg Cefepime HCl (Maxipime 1gm) 1 gm in 100 mls @ 100 mls/hr IVPB Q8 [facility] PRN Reason: Protocol Stop: 09/03/17 10:48 Last Admin: 08/28/17 22:03 Dose: 100 mls/hr Insulin Human Lispro (Humalog High) 0 units SC ACHS [facility] PRN Reason: Protocol Last Admin: 08/28/17 22:26 Dose: 4 units Levetiracetam (Keppra) 750 mg PO BID [facility] Last Admin: 08/28/17 17:36 Dose: 750 mg Methylprednisolone (Solu-Medrol) 20 mg IVP Q12 [facility] Last Admin: 08/28/17 21:59 Dose: 20 mg Metoprolol Tartrate (Lopressor) 100 mg PO BRKDIN [facility] Last Admin: 08/28/17 17:36 Dose: 100 mg Ondansetron HCl (Zofran Inj) 4 mg IVP Q6H PRN PRN Reason: Nausea/Vomiting Pantoprazole Sodium (Protonix Ec Tab) 40 mg PO DAILY [facility] Last Admin: 08/28/17 10:29 Dose: 40 mg Polyethylene Glycol (Miralax) 17 gm PO DAILY [facility] Last Admin: 08/28/17 10:28 Dose: 17 gm Quetiapine Fumarate (Seroquel) 25 mg PO TID [facility] PRN Reason: Protocol Last Admin: 08/28/17 17:36 Dose: 25 mg Tamsulosin HCl (Flomax) 0.4 mg PO 2000 [facility] Last Admin: 08/28/17 21:57 Dose: 0.4 mg Warfarin Sodium (Coumadin) 5 mg PO 1800 [facility] PRN Reason: Protocol Last Admin: 08/28/17 17:36 Dose: 5 mg - Labs Labs: 08/28/17 05:10 08/28/17 08:40 PT 20.6 SECONDS (9.4-12.5) H 08/28/17 07:15 INR 1.77 (0.93-1.08) H 08/28/17 07:15 APTT 41.7 Seconds (25.1-36.5) H 08/24/17 19:30 Attending/Attestation - Attestation I have personally seen and examined this patient.: Yes I have fully participated in the care of the patient.: Yes I have reviewed all pertinent clinical information, including history, physical exam and plan: Yes Notes (Text): This is an addendum to GI progress report dictated by the GI fellow .The patient was seen and examined earlier. Medical records, lab studies, imagings were reviewed. Last 24 hours events reviewed. Agreed with the above treatment plan as outlined in GI fellow 's notes the with the addition of the following tolerating pured diet On examination abdomen soft no tenderness Continue antibiotics as per ID 08/28/17 23:46
--- NOTE | 2017-08-28 13:26 | CON ---
DATE: 08/24/2017 NEUROLOGY CONSULT CHIEF COMPLAINT: History of seizure disorder and history of CVA. 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 Came in for nausea and vomiting, which have resolved. Found to be in AFib, is on Coumadin and had some underlying aspiration pneumonia from vomiting and is on doxycycline and cefepime. I was consulted to evaluate his seizure medications and his history of seizure. So far, he has not had any breakthrough seizures. According to his niece, he has not had any seizures while he has been in the hospital. He is on Keppra 750 mg p.o. b.i.d. PAST MEDICAL HISTORY: As above. SOCIAL HISTORY: No illicit drug use, smoking or EtOH abuse. ALLERGIES: ALLERGIC TO PLAVIX. REVIEW OF SYSTEMS: Fourteen-point review of systems is negative except as per the HPI. FAMILY HISTORY: Noncontributory. MEDICATIONS: Reviewed by nurses' reconciliation sheet. LABORATORY DATA: Today's sodium is 135, potassium 5.2, chloride 100, carbon dioxide 25, BUN of 38, creatinine 0.7, random glucose 183. PHYSICAL EXAMINATION: VITAL SIGNS: Temperature 98.9, pulse rate of 84, blood pressure 121/81, respiratory rate of 20. GENERAL: The patient is lying in bed, in no acute distress. HEENT: Atraumatic, normocephalic. PERRLA. Extraocular muscles intact. NECK: Supple. No JVD. No adenopathy noted. LUNGS: Decreased breath sounds bilaterally. HEART: Irregular rate and rhythm. S1, S2 present. ABDOMEN: Soft, nontender and nondistended. Bowel sounds are present. EXTREMITIES: No clubbing. No cyanosis. Peripheral pulses 2+ felt bilaterally. NEUROLOGIC: The patient is alert and oriented to person and place, not much to month or year. Recall after 5 minutes is 0/3. Poor attention span. Slow thought process. Cranial nerves II through XII are intact. Motor exam has spastic right-sided weakness from prior CVA. Sensory exam: Light touch and pinprick are decreased up to the calves bilaterally. DTRs are 2+ throughout and 1 at both knees and ankles. Coordination and gait are deferred for now. ASSESSMENT AND PLAN: This is a 72-year-old man with past medical history of left middle cerebral artery territory infarct with residual spastic right-sided weakness; history of vascular dementia; hypertension; history of coronary artery disease; diabetes type 2; deep venous thrombosis, status post inferior vena cava filter; atrial fibrillation, on Coumadin. Came in for nausea and vomiting, found to be in atrial fibrillation, also placed on Coumadin, had aspiration pneumonia and is on antibiotics. I was consulted for history of the cerebrovascular accident and history of seizures. He has currently no breakthrough seizures. His seizures come from the left middle cerebral artery territory encephalomalacia from prior cerebrovascular accident and he is stable on Keppra 750 mg p.o. b.i.d., which was changed by Dr. Waller, his neurologist as an outpatient. At this time, I will recommend, 1. Monitor electrolytes and correct accordingly. 2. Delirium precautions. 3. Aspirin 81 and Lipitor 10 mg for stroke prevention. 4. Continue with Coumadin in regards to his atrial fibrillation to prevent further stroke-like episodes. 5. Seroquel 25 mg p.o. t.i.d. for delirium and agitation. 6. Continue with Keppra 750 mg p.o. b.i.d. for seizure prophylaxis and continue with Physical Therapy/Occupational Therapy assessment. Thank you for this consult. Ilan Jeff MD
[2017-08-28] MEDS: Digoxin 250 mcg (0.25 mg) Tab PO SCH (14:05)
[2017-08-28] MEDS ORDERED: Sodium Phosphate 15 MMOLE in Sodium Chloride 0.9% 250 ML IVPB ONE (15:05)
--- NOTE | 2017-08-28 15:58 | PN ---
DATE: 08/28/2017 SUBJECTIVE: The patient is in bed, was seen earlier today in 260, bed 2. No fevers and no chills. PHYSICAL EXAMINATION: VITAL SIGNS: Temperature is 98, blood pressure is 150/80, respiratory rate of 19. HEENT: Examination is unremarkable. NECK: Supple. LUNGS: Have decreased breath sounds. HEART: Normal S1, S2. ABDOMEN: Soft, nontender. LABORATORY DATA: Reveals a white count of 6.2, hemoglobin of 15, platelets of 151. Coagulation is noted. Chemistries reveals a BUN of 38, creatinine of 0.7 and procalcitonin is less than 0.05 and urinalysis is noted. Microbiology reveals on the blood cultures, there are no growth and urine cultures, there are no growth. Nares smear is negative. Dr. Rico progress note from this morning is reviewed. Dr. Nahun Guillaume's note is also reviewed. Dr. Moore's note from this morning is also reviewed. The patient had a chest x-ray this morning, which shows previously noted patchy infiltrates in the right lower lobe to be slightly improved. ASSESSMENT AND PLAN: This is a 72-year-old male with a history of cerebrovascular accident, right-sided hemiparesis, atrial fibrillation, aphasia, coronary artery disease, deep venous thrombosis, benign prostatic hypertrophy, hypertension, diabetes mellitus, vascular dementia, history of Pseudomonas and Proteus urinary tract infection admitted on this admission: Severe sepsis with community-acquired pneumonia, day #4 of cefepime and doxycycline with a normal procalcitonin, may be able to switch to p.o. Levaquin upon discharge and complete five days. Review of the patient's medications reveal the patient's p.o. doxy and IV cefepime. Patient is on Solu-Medrol and patient's EKG shows a QTc interval of 422. We will follow with you. Joni Lord MD
--- NOTE | 2017-08-28 20:11 | PN ---
DATE: 08/28/2017 SUBJECTIVE: A 72-year-old male admitted to [facility] with the history of cough and fever. Patient is on the telemetry unit at this time. PHYSICAL EXAMINATION: GENERAL: Patient is alert. He has an expressive aphasia. VITAL SIGNS: His temperature is 98.9 orally, his pulse is 84, his blood pressure is 121/81, his oxygen sat is 98% on 2 liters of nasal cannula. NECK: Supple. LUNGS: Show bibasilar rhonchi. EXTREMITIES: Show no evidence of edema. There is mild contraction. ABDOMEN: Soft with positive bowel sounds. HEART: Irregular S1 and S2 rhythm. MEDICATIONS: At this time, Coumadin, albuterol, Ecotrin, Flomax, Humalog with fingerstick coverage, Keppra, digoxin, Lipitor, Lopressor, Maxipime, MiraLax, Protonix, Seroquel and he is on sodium phosphate, methylprednisolone, Tylenol and Zofran. LABORATORY DATA: Shows the WBC is 6.2, RBC 5.2, hemoglobin 15.8, hematocrit 45.5, platelet count is 151. His PT is 20 with an INR 1.77. Chemistry shows potassium of 5.2, which is a repeat, sodium is 135, chloride is 100, BUN is 38, creatinine 0.7. Random blood sugar was 179. His LFTs are normal. His albumin is 3.2. ASSESSMENT AND PLAN: The patient is being followed by Cardiology for his rapid atrial fibrillation. A Neurology consult has been requested because of his history of seizure disorder. He is also being followed by Urology. He has history of benign prostatic hypertrophy, Lewis catheter is in place at this time. Pulmonary, Infectious Disease were also following the patient for his presumptive right upper lobe aspiration pneumonia. He has [id number] diabetes, being monitored with fingerstick coverage. We will continue to monitor the patient's labs closely. Cardiology states that the patient can be taken off of telemetry. Repeat labs have been ordered. Eva Castle MD
[2017-08-29] MEDS: Albuterol-Ipratrop 3 mg / 0.5 (3 ml) UD IH SCH ×4 (01:28→19:51)
--- NOTE | 2017-08-29 02:41 | CON ---
DATE: 08/28/2017 REASON FOR CONSULTATION: Hyperkalemia,, history of CVA, atrial fibrillation, and pneumonia. HISTORY OF PRESENT ILLNESS: A 72-year-old male previously unknown to me, was initially admitted to the hospital on 08/24/2017. The patient was admitted with complaints of vomiting, loose BM. There was no history of any fever or chills. There was no history of any chest pain, shortness of breath. The patient was found to be in atrial fibrillation with rapid ventricular response. The patient was found to have right upper lobe pneumonia. He was evaluated by ICU. The patient was admitted to telemetry. He is being treated with IV antibiotics, IV fluids. Consultation is requested because of potassium of 5.6 yesterday. PAST MEDICAL AND SURGICAL HISTORY: Atrial fibrillation, on Coumadin; hypertension; NIDDM; history of CVA, right-sided hemiparesis; dementia; CAD; DVT, history of IVC filter, history of right toe amputation; craniotomy with nonhealing wound. FAMILY HISTORY: Noncontributory. SOCIAL HISTORY: No smoking, no alcohol use, no IV drug abuse. ALLERGIES: PLAVIX. MEDICATIONS: Include Coumadin 5 mg, doxycycline 100 every 12 hours, DuoNeb, aspirin, Flomax, Keppra, digoxin 0.25 daily, Lipitor 10, Lopressor 100 b.i.d., Maxipime 1 g every 8 hours, MiraLax 17 g, Protonix 40, Seroquel, Solu-Medrol, Tylenol, and Zofran. Also, the patient was on potassium phosphate 1 packet b.i.d., this has been discontinued. REVIEW OF SYSTEMS: Unavailable as the patient is really unable to cooperate with systems review. PHYSICAL EXAMINATION: GENERAL: Elderly male lying in bed. VITAL SIGNS: Blood cell 121/81, heart rate 84, respiratory rate 20, temperature 98.9. HEENT: Normocephalic, atraumatic, positive pallor. NECK: Supple, no JVD. LUNGS: Bilateral equal entry, bilateral equal expansion, no rales or rhonchi appreciated anteriorly. CARDIAC: S1 and S2, irregularly irregular, no murmur, no rub. ABDOMEN: Soft, nondistended, nontender, bowel sounds present. EXTREMITIES: No lower extremity edema. INTAKE AND OUTPUT: 1300/1210. LABORATORY DATA: WBC 6, hemoglobin 15.8, hematocrit 46, platelets 151. Sodium 135; potassium 5.6, repeat potassium is 5.2; chloride 100; CO2 of 25; BUN 38; creatinine 0.7; glucose 183; calcium 8.6; phosphorus 2.2; magnesium 2. AST 24, ALT 42, albumin 3.2, globulin 3.2. Urinalysis: Yellow, clear, pH 6, specific 1.02, protein 100, blood trace , nitrite negative, leukocyte esterase negative, digoxin 1. Blood cultures, no growth. Urine culture, no growth. Chest x-ray, previously noted patchy infiltrate changes in right mid lower lobe slightly improved, right-sided pleural effusion remains. ASSESSMENT AND PLAN: 1. Hyperkalemia, likely secondary to potassium supplementation potassium phosphate. 2. Mild hyponatremia. 3. Hypophosphatemia. 4. Right upper lobe pneumonia. 5. History of hypertension. 6. History of diabetes. 7. History of cerebrovascular accident with right hemiparesis. PLAN: 1. Repeat potassium is 5.2, hence no indication for any therapeutic intervention right now except for discontinuation of potassium phosphate. 2. Will give sodium phosphate 15 millimoles in normal saline x1 dose. 3. Increase phosphate in diet, i.e, dairy products. 4. Check hemoglobin A1c. 5. Continue antibiotics as per ID recommendations. 6. Continue current antihypertensives. Thank you for the courtesy of this consultation. We will follow this patient closely with you. Ceci Puga MD
[2017-08-29] MEDS: Cefepime 1gm in NS 100ml 1 GM/100 ML BAG IVPB SCH ×3 (05:20→21:03)
[2017-08-29 07:20] LABS: GRAN # 4.97 (1.4-6.5); GRAN % 85.8 % (50.0-68.0); HEMOGLOBIN 15.3 g/dL (14.0-18.0); LYMPH # 0.5 (1.2-3.4); LYMPH % 8.3 % (22.0-35.0); MEAN CELL VOLUME 86.6 fl (80.0-105.0); MEAN CORPUSCULAR HEMOGLOBIN 30.1 pg (25.0-35.0); MEAN CORPUSCULAR HGB CONC 34.8 g/dl (31.0-37.0); MEAN PLATELET VOLUME 9.8 fl (7.0-11.0); MONO # 0.3 (0.1-0.6); MONO % 5.9 % (1.0-6.0); RBC 5.08 10^6/uL (3.5-6.1); RED CELL DISTRIBUTION WIDTH 13.7 % (11.5-14.5); WHITE BLOOD COUNT 5.8 10^3/ul (4.5-11.0)
[2017-08-29 07:32] LABS: ALB/GLOB RATIO 1.1 (1.1-1.8); ALBUMIN 3.1 g/dL (3.0-4.8); ALT/SGPT 38 U/L (7-56); AST/SGOT 24 U/L (17-59); BLOOD UREA NITROGEN 35 mg/dL (7-21); CALCIUM 8.6 mg/dL (8.4-10.5); GFR AFRICAN-AMERICAN > 60; GFR NON-AFRICAN AMERICAN > 60
[2017-08-29 07:41] LABS: INR 1.42 (0.93-1.08); PROTHROMBIN TIME 16.5 SECONDS (9.4-12.5)
--- NOTE | 2017-08-29 08:04 | PN ---
DATE: 08/29/2017 PULMONARY NOTE DICTATION SUBJECTIVE: The patient appears comfortable this morning. He is not short of breath at rest. PHYSICAL EXAMINATION: VITAL SIGNS: ( Last noted in the computer): Temperature is 98.7, pulse 81, respirations 18, blood pressure 113/79. Oxygen saturation on nasal cannula is 98%. HEENT: Normocephalic, atraumatic. No JVD. CARDIOVASCULAR: Positive S1, S2. No S3 gallop. LUNGS: Better breath sounds with less crackles - right lower lobe. Minimal/less rhonchi. No wheezing. EXTREMITIES: No clubbing, cyanosis or edema. Calves are nontender to palpation. GI: Abdomen is soft, nontender and nondistended. Bowel sounds are positive. SKIN: No acute rash. NEUROLOGIC: Exam limited at the present time. PERTINENT LABORATORY DATA: Chest x-ray was repeated yesterday and reviewed. The chest x-ray is definitely improved - with a decrease in the right-sided pulmonary infiltrates. IMPRESSION: 1. Aspiration pneumonia - right lung. 2. Status post episode of nausea and vomiting. 3. Chronic dysphagia. 4. Rapid atrial fibrillation - now controlled. 5. Previous cerebrovascular accident with right hemipareses. 6. Coronary artery disease. PLAN: The patient appears comfortable this morning. He is not short of breath at rest. He is awake and alert. On physical exam, his bronchospasm continues to resolve. In addition, the alveolar-arterial gradient also continues to resolve. I will continue the current nebulizer treatments and low-dose intravenous steroids for now. The patient remains on antibiotic therapy - as per Infectious Disease. There is no leukocytosis. The temperatures have now fully resolved. Inputs by Renal and Neurology are also noted. Clinical status of the patient is significantly improved - compared to his initial status. However, again, the future status/prognosis for this patient does remain guarded. I will discuss the above with the attending physician. Trevor Moore MD MTDD
--- NOTE | 2017-08-29 08:55 | CON ---
DATE: ENDOCRINOLOGY CONSULTATION LOCATION: Room 371. HISTORY OF PRESENT ILLNESS: This is a 72-year-old male admitted with pneumonia and exacerbation of underlying COPD, currently placed on IV steroid therapy and is now being referred for diabetic evaluation and management. PAST MEDICAL HISTORY: As mentioned above, history of type 2 diabetes and hypertension but is currently not on any kind of oral hypoglycemic therapy as per review of his home medications. History of chronic atrial fibrillation, currently on oral anticoagulation therapy. History of a previous CVA with residual right-sided weakness and aphasia and this was in 2010 with subsequent vascular dementia, history of coronary artery disease and previous admission for congestive heart failure. He has history of right leg DVT with a previous IVC filter insertion as given and noted. History of peripheral arterial disease and vasculopathy with right toe amputation done in the past. He also has a previous craniotomy with persistent soft tissue scalp infections, and at one point, had MRSA infection. He currently has PEG tube placement for enteral tube feedings. FAMILY HISTORY: Positive for hypertension and heart disease and stroke. SOCIAL HISTORY: The patient has a supportive family. A previous smoker, but quit many years ago. He is currently bed-bound at home requiring full care. REVIEW OF SYSTEMS: Not possible as the patient is nonverbal, but the chart has been reviewed in detail and the consultants' notes and management also reviewed in detail. PHYSICAL EXAMINATION: GENERAL: This is an average-built male, in no apparent distress. VITAL SIGNS: Blood pressure of 150/90, pulse of 100 beats per minute and regular, temperature 98, respirations 20, height is 5 feet 6 inches, weight is 193 pounds. HEENT: Head normocephalic. Eyes anicteric with pink conjunctivae. Funduscopy is not possible at this time. Ears, nose, and throat otherwise normal. NECK: Supple. Thyroid gland is normal in size. No carotid bruits or any cervical adenopathy. CARDIOPULMONARY: Some adynamic precordium. S1, S2 is rapid and regular. LUNGS: Showed scattered rhonchi. ABDOMEN: Flat, soft with positive bowel sounds. EXTREMITIES: No peripheral edema. Pulses are +2 bilaterally. His right upper and lower extremities are flaccid and contracted at this time as noted. LABORATORY DATA: His chemistry showed a BUN of 35, sodium 134, potassium 5.1, chloride 100, CO2 of 25, glucose 171, and creatinine 0.6. His glucose levels have ranged from 200 to 248 and 273 and 348 mg/dL. ASSESSMENT: This is a 72-year-old male with uncontrolled and decompensated type 2 insulin-requiring diabetes, most likely precipitated also by the intercurrent IV steroid therapy with increased insulin resistance and further impaired glucose tolerance thereof. Moreover, with the intercurrent physical stressors with the pneumonia and exacerbation of chronic obstructive pulmonary disease, this will also contribute to the above hyperglycemic fluctuations as noted thereof. PLAN OF MANAGEMENT: As discussed with the staff, we will start him on a basal dose regimen with Levemir to be given at 8 units subcu every 12 hours at 10:00 a.m. and 10:00 p.m. daily to start today as ordered. We will modify the coverage scale to obviate hypoglycemia and detailed orders have been given. We will obtain a hemoglobin A1c to confirm his prior glycemic control and baseline thyroid function studies will be ordered. Moreover, we will obtain serial chemistries and supplement accordingly as needed. We will follow and advise accordingly. Dianne Dawson MD
[2017-08-29] MEDS: MethylPREDNISolone 40 mg Vial IVP SCH ×2 (09:50→21:13)
[2017-08-29] MEDS: Insulin Detemir 100 units/ml Vial (Levemir) SC SCH ×2 (09:51→21:09)
[2017-08-29] MEDS: Pantoprazole 40 mg EC Tab PO SCH (09:51)
[2017-08-29] MEDS: POLYETHYLENE GLYCOL 3350 17 GM/Dose PACKET PO SCH (09:52)
--- NOTE | 2017-08-29 10:56 | CP.PCM.PN ---
Subjective - Date & Time of Evaluation Date of Evaluation: 08/29/17 Time of Evaluation: 08:00 - Subjective Subjective: PGY6 GI Fellow Progress Note Patient seen and examined bedside this morning. The patient is eating breakfast at this time with nursing assistance. No coughing noted during feeding. No events overnight. 12 system ROS limited given mentation. Objective - Vital Signs/Intake and Output Vital Signs (last 24 hours): Temp Pulse Resp BP Pulse Ox 97.6 F 85 18 170/90 H 98 08/29/17 09:41 08/29/17 09:50 08/29/17 09:41 08/29/17 09:50 08/29/17 09:41 Intake and Output: 08/29/17 08/29/17 06:59 18:59 Intake Total 550 0 Output Total 425 800 Balance 125 -800 - Medications Medications: Current Medications Acetaminophen (Tylenol 650mg/20.3ml Solution Ud) 650 mg PO Q6H PRN PRN Reason: temp or mod pain 4-7 Last Admin: 08/26/17 21:48 Dose: 650 mg Albuterol/Ipratropium (Duoneb 3 Mg/0.5 Mg (3 Ml) Ud) 3 ml IH [id number] [facility] Last Admin: 08/29/17 07:52 Dose: 3 ml Aspirin (Ecotrin) 81 mg PO DAILY [facility] Last Admin: 08/29/17 09:50 Dose: 81 mg Atorvastatin Calcium (Lipitor) 10 mg PO 2000 [facility] Last Admin: 08/28/17 21:57 Dose: 10 mg Digoxin (Lanoxin) 0.25 mg PO 1400 [facility] Last Admin: 08/28/17 14:05 Dose: 0.25 mg Doxycycline Hyclate (Doryx) 100 mg PO Q12 RUKHSANA PRN Reason: Protocol Stop: 09/03/17 10:51 Last Admin: 08/29/17 09:50 Dose: 100 mg Cefepime HCl (Maxipime 1gm) 1 gm in 100 mls @ 100 mls/hr IVPB Q8 RUKHSANA PRN Reason: Protocol Stop: 09/03/17 10:48 Last Admin: 08/29/17 05:20 Dose: 100 mls/hr Insulin Detemir (Levemir) 8 unit SC Q12H [facility] Last Admin: 08/29/17 09:51 Dose: 8 u Insulin Human Lispro (Humalog Low) 0 units SC ACHS [facility] PRN Reason: Protocol Levetiracetam (Keppra) 750 mg PO BID [facility] Last Admin: 08/29/17 09:50 Dose: 750 mg Methylprednisolone (Solu-Medrol) 20 mg IVP Q12 [facility] Last Admin: 08/29/17 09:50 Dose: 20 mg Metoprolol Tartrate (Lopressor) 100 mg PO BRKDIN [facility] Last Admin: 08/29/17 09:50 Dose: 100 mg Ondansetron HCl (Zofran Inj) 4 mg IVP Q6H PRN PRN Reason: Nausea/Vomiting Pantoprazole Sodium (Protonix Ec Tab) 40 mg PO DAILY [facility] Last Admin: 08/29/17 09:51 Dose: 40 mg Polyethylene Glycol (Miralax) 17 gm PO DAILY [facility] Last Admin: 08/29/17 09:52 Dose: 17 gm Quetiapine Fumarate (Seroquel) 25 mg PO TID [facility] PRN Reason: Protocol Last Admin: 08/29/17 09:51 Dose: 25 mg Tamsulosin HCl (Flomax) 0.4 mg PO 2000 [facility] Last Admin: 08/28/17 21:57 Dose: 0.4 mg Warfarin Sodium (Coumadin) 5 mg PO 1800 [facility] PRN Reason: Protocol Last Admin: 08/28/17 17:36 Dose: 5 mg - Labs Labs: 08/29/17 07:00 08/29/17 07:00 PT 16.5 SECONDS (9.4-12.5) H 08/29/17 07:00 INR 1.42 (0.93-1.08) H 08/29/17 07:00 APTT 41.7 Seconds (25.1-36.5) H 08/24/17 19:30 - Constitutional Appears: Non-toxic, No Acute Distress, Confused - Eye Exam Eye Exam: EOMI, PERRL - ENT Exam ENT Exam: Mucous Membranes Moist - Respiratory Exam Respiratory Exam: Clear to Ausculation Bilateral. absent: Rales, Rhonchi, Wheezes - Cardiovascular Exam Cardiovascular Exam: Irregular Rhythm, REGULAR RHYTHM, +S1, +S2 - GI/Abdominal Exam GI & Abdominal Exam: Soft, Normal Bowel Sounds. absent: Distended, Firm, Guarding, Rigid, Tenderness, Organomegaly - Extremities Exam Additional comments: 1+ LE edema - Neurological Exam Neurological Exam: Altered, Awake - Psychiatric Exam Psychiatric exam: Normal Affect, Normal Mood - Skin Skin Exam: Dry, Warm Assessment and Plan - Assessment and Plan (Free Text) Assessment: Patient is a 72yo male with PMHx significant for prior CVA, dementia, HTN, CAD, DM, DVT s/p IVC filter, atrial fibrillation on coumadin who presented to the ED with nausea/vomiting. -Nausea/vomiting - resolved -Aspiration pneumonia -Atrial fibrillation on coumadin Plan: -S/P speech/swallow evaluation with recommendations for puree diet with thin liquids -No issues with diet thus far -Cefepime and doxycycline for aspiration pneumonia - ID following -No planned endoscopic interventions presently -Will sign off. Thank you for allowing us to participate in the care of this patient. Please re-consult if required.
[2017-08-29] MEDS: Insulin Lispro (humaLOG) LOW Coverage SC SCH ×3 (13:38→21:10)
[2017-08-29] MEDS: Digoxin 250 mcg (0.25 mg) Tab PO SCH (13:38)
[2017-08-29] MEDS ORDERED: Potassium & Sodium Phosphate PO SCH (17:15)
--- NOTE | 2017-08-29 19:19 | PN ---
DATE: 08/29/2017 SUBJECTIVE: A 72-year-old male admitted to [facility] for medical management after he vomited at home. Patient is resting in bed comfortably. Nursing staff relates that there were no particular problems at this time. PHYSICAL EXAMINATION: VITAL SIGNS: His temp orally is reported at 97.6, his pulse is 85, his blood pressure is 170/90, respiratory rate is 18, oxygen saturation is reported 98% on 2 L of nasal cannula. GENERAL: He is awake. LUNGS: Show bilateral rhonchi with more on the right than in the left. HEART: Irregular S1, S2 rhythm. ABDOMEN: Soft with positive bowel sounds. EXTREMITIES: Show no evidence of edema. He has contraction in the lower extremities. NEUROLOGIC: He has an expressive aphasia from prior stroke. LABORATORY DATA: His labs showed WBC of 5.8, RBC 5.08, hemoglobin 15, hematocrit 44, platelet count is 163. His PT is 16.5 with an INR of 1.42. His chemistry shows a sodium of 134, potassium 5.1, chloride 100, BUN of 35, creatinine of 0.6, random blood sugar is 171, LFTs are normal. ASSESSMENT AND PLAN: He is being followed by Cardiology with his rapid ventricular atrial fibrillation. Currently on Coumadin, Ecotrin, Flomax, insulin, Keppra, digoxin, albuterol treatments, Levemir that was started by Endocrinology for his diabetes, Lipitor, Lopressor, Maxipime, Doryx, MiraLax, Protonix, Seroquel, and IV Solu-Medrol. He is being followed by Infectious Disease, Pulmonary, Endocrinology, and Renal. He had an episode of hyperkalemia. He has got a history of a seizure disorder. He is being followed by Infectious Disease for his pneumonia as well as by Pulmonary. A Film Sound Coordinator consult has been requested as per the family. His repeat chest x-ray from 08/28/2017 showed slight improvement in the patchy infiltrate in the right middle lower lobe, right-sided effusion remains unchanged, some minimal left basilar atelectasis. The patient was placed on 5 mg of Coumadin by Cardiology. Repeat labs have been requested. We will follow up labs, adjust his Coumadin. Continue the current course of antibiotics and follow the recommendations of the individual consultants. Eva Castle MD
--- NOTE | 2017-08-29 19:51 | PN ---
DATE: 08/29/2017 SUBJECTIVE: The patient is currently seen sitting up in bed. He appears to be comfortable. He is non-communicative. IV antibiotics are infusing for his pneumonia. The patient's repeat potassium level is improved at 5.1. MEDICATIONS: Medication list reviewed. The patient is currently on Coumadin, doxycycline, DuoNeb, Ecotrin, Flomax, insulin, Keppra, Lanoxin, Levemir, Lipitor, Lopressor, Maxipime, MiraLax, Protonix, Seroquel, Solu-Medrol, Tylenol p.r.n. and Zofran p.r.n. PHYSICAL EXAMINATION INTAKE/OUTPUT: Intake 550, output 425. VITAL SIGNS: Blood pressure is 170/90, blood pressures yesterday of 113/79. Pulse is 85. Respiratory rate is 18 with a temperature of 97.6. HEENT: Shows him to be normocephalic, atraumatic. Conjunctivae are pink. Sclerae nonicteric. NECK: Supple. No neck vein distention. CHEST: Clear to auscultation and percussion with scattered rhonchi. No rales or wheezing. CARDIOVASCULAR: Shows a regular rate and rhythm with tricuspid regurgitation. No S3, no S4, no rub. ABDOMEN: Soft. Bowel sounds normal. No rebound, guarding or masses. EXTREMITIES: Show no lower extremity cyanosis, clubbing or edema. NEUROLOGIC: Shows right-sided weakness. The patient is non-communicative. LABORATORY DATA AND IMAGING: Admitting chest x-ray and chest CT scans were positive for a right upper lobe pneumonia with a small left upper lobe pneumonia. He had normal kidneys on CT scanning. LABORATORY DATA: White blood cell count 5.8, hemoglobin 15.2 with a platelet count of 163,000. Chemistries show a sodium of 134, potassium is improved at 5.1 down from 5.6. BUN is up from 17 to 35. The patient is on steroids. Creatinine is stable at 0.6. Glucose is 171. CO2 was 25. Liver enzymes are normal. Albumin level was 3.1. Urines for the most part unremarkable with the exception of 2+ protein. Digoxin level was normal at 1. Microbiology: All cultures are negative. Blood cultures are negative at four days. Urine cultures are negative. ASSESSMENT: 1. Status post hyperkalemia. The patient is currently off all potassium supplements and K is down to 5.1. This should continue to improve with hydration and avoidance of potassium supplements. 2. Prerenal azotemia. This is in the setting of the patient being on steroids. Creatinine remains excellent at 0.6. 3. Right upper lobe and to a lesser extent left upper lobe pneumonia. The patient will complete a course of antibiotics. 4. History of atrial fibrillation. The patient remains on Coumadin. 5. Hypertension. Blood pressure is elevated today. Blood pressure yesterday was perfectly normal. The patient is presently on beta-derrick therapy alone; if necessary, we could add a low-dose of calcium channel derrick. 6. History of insulin-dependent diabetes mellitus. Glucose control is acceptable. 7. 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 This appears to be unchanged. 8. History of deep venous thrombosis status post inferior vena cava filter. The patient is on chronic anticoagulation. 9. Hypophosphatemia. We will repeat phosphorus level tomorrow and if necessary, the patient can be started on oral phosphorus supplements, Neutra-Phos 1 pack in either once or twice a day. PLAN: 1. When able, taper steroids. This will allow the BUN to return to baseline levels. 2. Encourage p.o. fluid hydration and monitor BUN. If the patient becomes dehydrated on steroids, his BUN would likely significantly rise. 3. Complete course of antibiotic therapy. 4. Follow culture and sensitivity for final results. 5. Followup imaging studies for resolution of his pneumonia. 6. The patient is stable from a renal standpoint. Myles Alicea MD
--- NOTE | 2017-08-29 21:16 | PN ---
DATE: 08/29/2017 SUBJECTIVE: The patient is in bed, in no acute distress. The patient is seen earlier this morning in room 371, bed 1. PHYSICAL EXAMINATION: VITAL SIGNS: Temperature is 97, blood pressure is 120/50, respiratory rate of 16. HEENT: Examination of HEENT is unremarkable. NECK: Supple. LUNGS: Have decreased breath sounds. HEART: Normal S1 and S2. ABDOMEN: Soft, nontender. LABORATORY DATA: Laboratory examination reveals a white count of 5.8, hemoglobin of 16, platelets of 163. BUN of 35, creatinine of 0.6. Procalcitonin 0.05. Urinalysis is noted. Digoxin is negative. Microbiology reveals the blood cultures are negative, urine cultures are negative. Nares, throat cultures are negative. ASSESSMENT AND PLAN: A 72-year-old male with a history of cerebrovascular accident, right-sided hemiparesis, atrial fibrillation, aphasia, coronary artery disease, deep venous thrombosis, benign prostate hypertrophy, hypertension, diabetes mellitus, vascular dementia, history of Pseudomonas, Proteus urinary tract infection and severe sepsis with a community-acquired pneumonia. On day #5 of cefepime and doxycycline. Review of orders reveals the doxycycline and cefepime to be requiring renewal. We will discontinue the antibiotics in the next 24 hours. Joni Lord MD
[2017-08-30] MEDS: Albuterol-Ipratrop 3 mg / 0.5 (3 ml) UD IH SCH ×4 (02:00→19:50)
[2017-08-30] MEDS: Cefepime 1gm in NS 100ml 1 GM/100 ML BAG IVPB SCH ×3 (06:05→21:37)
[2017-08-30 06:52] LABS: GRAN # 5.41 (1.4-6.5); GRAN % 84.6 % (50.0-68.0); HEMOGLOBIN 15.3 g/dL (14.0-18.0); LYMPH # 0.4 (1.2-3.4); LYMPH % 6.9 % (22.0-35.0); MEAN CELL VOLUME 86.9 fl (80.0-105.0); MEAN CORPUSCULAR HEMOGLOBIN 29.9 pg (25.0-35.0); MEAN CORPUSCULAR HGB CONC 34.5 g/dl (31.0-37.0); MEAN PLATELET VOLUME 9.7 fl (7.0-11.0); MONO # 0.5 (0.1-0.6); MONO % 8.5 % (1.0-6.0); RBC 5.11 10^6/uL (3.5-6.1); RED CELL DISTRIBUTION WIDTH 13.7 % (11.5-14.5); WHITE BLOOD COUNT 6.4 10^3/ul (4.5-11.0)
[2017-08-30 07:11] LABS: ALB/GLOB RATIO 1.2 (1.1-1.8); ALBUMIN 3.2 g/dL (3.0-4.8); ALT/SGPT 38 U/L (7-56); AST/SGOT 22 U/L (17-59); BLOOD UREA NITROGEN 32 mg/dL (7-21); CALCIUM 8.7 mg/dL (8.4-10.5); GFR AFRICAN-AMERICAN > 60; GFR NON-AFRICAN AMERICAN > 60; HDL CHOLESTEROL 63 mg/dL (29-60)
[2017-08-30 07:13] LABS: INR 1.91 (0.93-1.08); PROTHROMBIN TIME 22.3 SECONDS (9.4-12.5)
[2017-08-30 07:19] LABS: LDL CHOLESTEROL 43 mg/dL (0-129)
--- NOTE | 2017-08-30 08:01 | PN ---
DATE: 08/30/2017 PULMONARY NOTE SUBJECTIVE: The patient appears comfortable this morning. He is not short of breath at rest. OBJECTIVE: VITAL SIGNS: Temperature is 97.8, pulse 93, respirations 18/20, blood pressure 122/56. Oxygen saturation on nasal cannula is 97%. HEENT: Normocephalic, atraumatic. No JVD. CARDIOVASCULAR: Positive S1, S2. No S3 gallop. LUNGS: Improved breath sounds with decreased crackles - right lower lobe. Minimal/less rhonchi. No wheezing. EXTREMITIES: No clubbing, cyanosis or edema. Calves are nontender to palpation. GI: Abdomen is soft, nontender and nondistended. Bowel sounds are positive. SKIN: No acute rash. NEUROLOGIC: Exam limited at the present time. IMPRESSION: 1. Aspiration pneumonia - right lung. 2. Status post episode of nausea and vomiting. 3. Chronic dysphagia. 4. Rapid atrial fibrillation - now controlled. 5. Previous cerebrovascular accident with right hemiparesis. 6. Coronary artery disease. PLAN: The patient appears comfortable this morning. He is not short of breath at rest. He is awake and alert. On physical exam, his bronchospasm continues to resolve. In addition, the alveolar arterial gradient also continues to resolve. I will continue with the current nebulizer treatments and low-dose intravenous steroids for now. The patient also remains on antibiotic therapy. There is no leukocytosis noted. The temperatures have now fully resolved. In addition, as noted in yesterday's assessment, the chest x-ray done on 08/28/2017 showed definite improvement. Clinical status of the patient is significantly improved - compared to his initial status. However, again, the future status/prognosis for this patient does remain guarded. I will discuss the above with Dr. Castle. Trevor Moore MD [facility]
--- NOTE | 2017-08-30 09:09 | PN ---
DATE: 08/30/2017 SUBJECTIVE: The patient is seen lying in bed on 3R. He is currently comfortable. He is unaware of any palpitations. He denies any cough or dyspnea. CURRENT MEDICATIONS: Remain doxycycline, DuoNeb inhaler, Ecotrin, Flomax, insulin coverage, Keppra, digoxin 0.25 mg daily, Levemir insulin, Lipitor 10 mg daily, metoprolol 100 mg b.i.d., cefepime, Neutra-Phos, Protonix, Seroquel, Solu-Medrol 20 mg every 12 hours. OBJECTIVE: GENERAL: He is a middle-aged man, who appears comfortable at rest. VITAL SIGNS: His blood pressure is 122/56 with pulse of 90, respirations are 16. He is afebrile. HEENT: No JVD. CHEST: Few scattered rhonchi heard. HEART: PMI in normal position. Rhythm is irregularly irregular. Systolic murmurs is present in the left sternal border. ABDOMEN: Soft, nontender. Normoactive bowel sounds. EXTREMITIES: No edema. DIAGNOSTIC DATA: Potassium 5.4, BUN and creatinine 32 and 0.6, glucose is 209. White count 6.4, hemoglobin and hematocrit 15.3 and 44.4 with platelet count of 155,000. INR is 1.91. IMPRESSION: 1. Recent aspiration pneumonia, clinically improved. 2. Atrial fibrillation with improved ventricular rate control. 3. Mild coronary artery disease. 4. History of peripheral vascular disease. 5. 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 RECOMMENDATIONS: Current cardiac medications should continue at this time. Whenever he is medically stable, he appears clear from a cardiac standpoint for discharge home. We will be happy to provide ongoing followup as needed. Reilly Valdez MD
[2017-08-30] MEDS: MethylPREDNISolone 40 mg Vial IVP SCH ×2 (11:10→21:37)
[2017-08-30] MEDS: Pantoprazole 40 mg EC Tab PO SCH (11:11)
[2017-08-30] MEDS: Insulin Detemir 100 units/ml Vial (Levemir) SC SCH ×2 (11:13→21:45)
[2017-08-30] MEDS: Insulin Lispro (humaLOG) LOW Coverage SC SCH ×4 (11:13→21:43)
[2017-08-30] MEDS: POLYETHYLENE GLYCOL 3350 17 GM/Dose PACKET PO SCH (11:14)
[2017-08-30] MEDS: Digoxin 250 mcg (0.25 mg) Tab PO SCH (12:58)
--- NOTE | 2017-08-30 13:20 | PN ---
DATE: 08/30/2017 SUBJECTIVE: The patient is in bed, in no acute distress, who was seen earlier this morning in room 371, bed 1. PHYSICAL EXAMINATION: VITAL SIGNS: On exam, temperature is 97, blood pressure is 120/50, respiratory rate of 20, heart rate of 93. HEENT: Examination of HEENT is unremarkable. NECK: Supple. LUNGS: Have decreased breath sounds. HEART: Normal S1, S2. ABDOMEN: Soft, nontender. LABORATORY DATA: Laboratory examination reveals a white count of 6.4, hemoglobin of 15, platelets of 153. Chemistries reveals a BUN of 32, creatinine of 0.6. Urinalysis is noted. Digoxin is 1. Microbiology reveals the cultures are negative. The patient's procalcitonin is less than 0.05. Review of orders reveals the patient to be on p.o. doxycycline and cefepime. Dr. Moore's note is reviewed from this morning. ASSESSMENT AND PLAN: A 72-year-old male with history of cerebrovascular accident, right-sided hemiparesis, atrial fibrillation, aphasia, coronary artery disease, deep venous thrombosis, benign prostate hypertrophy, hypertension, diabetes mellitus, vascular dementia, history of Pseudomonas, Proteus urinary tract infections with severe sepsis, community-acquired pneumonia. On day #6 of cefepime and doxycycline. From infectious disease point of view, may discontinue the cefepime and complete a total of 7 days of doxycycline p.o. Joni Lord MD
--- NOTE | 2017-08-30 16:04 | PN ---
DATE: 08/30/2017 SUBJECTIVE: A 72-year-old male resting in bed comfortably this morning. The nursing staff relates that there were no problems this morning or during the night. OBJECTIVE: VITAL SIGNS: His temperature is 97.8, his blood pressure is 136/69, his oxygen sat is 98% on room air, and his pulse is 89. GENERAL: The patient is alert. He has an expressive aphasia from prior stroke. LUNGS: Show bibasilar rhonchi with diminished breath sounds. HEART: Irregular S1, S2 rhythm. ABDOMEN: Soft, scaphoid, positive bowel sounds. EXTREMITIES: Show contracture with no evidence of edema. LABORATORY DATA: Shows a sodium 134, potassium 5.4, chloride 98, CO2 of 28. The BUN is 32, the creatinine is 0.6. His random blood sugar is 199. LFTs are normal. His phosphorus is 3, his magnesium is 2. His cholesterol is 125. His TSH is 1.52, his HDL is 63, and his triglycerides are 88. CBC shows a WBC of 6.4, RBC of 5.11, hemoglobin 15, hematocrit of 44, and platelet count 155. The patient's PT is 1.91. Currently, the patient is being treated for pneumonia, being followed by Infectious Disease. He had an elevation in the serum potassium, being followed by Renal. He was admitted into the hospital and was found to have constipation, being followed by GI. He had a rapid atrial fibrillation and is being followed by Cardiology. Review of the patient's medications and discussion with Renal; 1. We will discontinue his potassium phosphorus, sodium phosphorus, and make sure that the patient is on a renal 2 g potassium diet with puree because of his history of swallowing issues secondary to stroke. 2. He is continuing his antibiotics, the cefepime and Doryx for an aspiration community-acquired pneumonia. 3. He is on Protonix p.o. for GI prophylaxis and MiraLax for his constipation. 4. He is on Lopressor 100 mg b.i.d., Lipitor 10 mg daily, digoxin 0.25 mg daily for his atrial fibrillation. 5. He is on Doryx and cefepime for his pneumonia. 6. He is on Flomax for his BPH. His Lewis catheter has been discontinued. 7. Endocrinology has him on Levemir 8 units every 12 hours for his diabetes mellitus. 8. He is on Lopressor for rate control for his atrial fibrillation. 9. He is on Doryx and Maxipime, and Neutra-Phos will be discontinued. 10. We will continue his Protonix, his Seroquel 25 mg t.i.d. as per Neurology for periods of agitation. 11. He is on Tylenol p.r.n. and Solu-Medrol for his pneumonia. 12. He is on Keppra 750 b.i.d. for his seizure disorder history. His PT/INR today is 1.91. We will adjust his Coumadin as per Cardiology's recommendations and follow up the patient's labs. Eva Castle MD
--- NOTE | 2017-08-30 16:07 | PN ---
DATE: 08/30/2017 ENDOCRINOLOGY FOLLOWUP NOTE LOCATION: Room 371. SUBJECTIVE: This is a 72-year-old male admitted with acute pneumonitis and concomitant exacerbation of COPD, currently on IV steroid therapy with supervening hyperglycemic accelerations as expected thereof. His glycemic levels today are fluctuating, but improved and have ranged from 199-205 mg/dL. His chemistry showed a BUN of 32, sodium 134, potassium 5.4, chloride 98, CO2 of 28, glucose 209 and creatinine 0.6. ASSESSMENT: This is a 72-year-old male with recent admission for acute pneumonitis with supervening chronic obstructive pulmonary disease with intercurrent IV steroid therapy and transient hyperglycemic accelerations as noted thereof. He also has a previous cerebrovascular accident with residual right hemiparesis and aphasia as noted thereof. PLAN OF MANAGEMENT: We will modify his basal insulin and increase the Levemir to 12 units subcu every 12 hours at 10:00 a.m. and 10:00 p.m. daily as given. We will continue the low-dose correction scale using Humalog insulin as given. We will titrate incrementally as indicated to optimize metabolic control. We will concur with the present medical management also as given. We will obtain serial chemistries and supplement accordingly as needed. We will follow. Dianne Dawson MD
--- NOTE | 2017-08-30 23:53 | PN ---
DATE: 08/30/2017 SUBJECTIVE: The patient is seen lying in bed. He is awake. He is alert. He is not really following commands. PHYSICAL EXAMINATION: GENERAL: Obese elderly male, lying in bed. VITAL SIGNS: Blood pressure 139/78, heart rate 85, respiratory rate , temperature 98.5. HEENT: Normocephalic, atraumatic. NECK: Supple, no JVD. LUNGS: Bilateral equal air entry, bilateral equal expansion. CARDIAC: S1 and S2, regular rate and rhythm, no murmur, no rub. ABDOMEN: Obese, distended, soft, nontender, bowel sounds present. EXTREMITIES: No lower extremity edema. INTAKE AND OUTPUT: 540/800. LABORATORY DATA: WBC 6.4, hemoglobin 15, hematocrit 44, platelets 155. Sodium 134, potassium 5.4, chloride 98, CO2 of 28, BUN 32, creatinine 0.6, glucose 209, calcium 8.7, phosphorus 3, magnesium 2. Blood culture, no growth. CURRENT MEDICATIONS: Doxycycline 100 every 12, DuoNeb, Ecotrin, Flomax, insulin, Keppra, digoxin, Levemir, Lipitor, Lopressor, Maxipime, MiraLax, Protonix, Seroquel, Solu-Medrol, Tylenol, Zofran. ASSESSMENT AND PLAN: 1. Hyperkalemia, mild, ? related to potassium phosphate supplementation. 2. Mild prerenal azotemia. 3. Right upper lobe pneumonia. 4. Atrial fibrillation. 5. Hypertension. 6. [id number] diabetes mellitus. 7. History of cerebrovascular accident with right-sided weakness. 8. Deep venous thrombosis. 9. Hypophosphatemia. PLAN: 1. Agree with discontinuation of Neutra-Phos. 2. Monitor potassium. 3. No indication for Kayexalate right now. 4. Push p.o. fluids. Ceci Puga MD
[2017-08-31] MEDS: Albuterol-Ipratrop 3 mg / 0.5 (3 ml) UD IH SCH ×4 (02:50→19:37)
[2017-08-31] MEDS: Cefepime 1gm in NS 100ml 1 GM/100 ML BAG IVPB SCH ×3 (05:14→21:46)
[2017-08-31 07:06] LABS: HEMOGLOBIN 16.3 g/dL (14.0-18.0); MEAN CELL VOLUME 86.1 fl (80.0-105.0); MEAN CORPUSCULAR HEMOGLOBIN 30.7 pg (25.0-35.0); MEAN CORPUSCULAR HGB CONC 35.7 g/dl (31.0-37.0); MEAN PLATELET VOLUME 10.1 fl (7.0-11.0); RBC 5.31 10^6/uL (3.5-6.1); RED CELL DISTRIBUTION WIDTH 13.7 % (11.5-14.5); WHITE BLOOD COUNT 7.3 10^3/ul (4.5-11.0)
[2017-08-31 07:20] LABS: ALBUMIN 3.1 g/dL (3.0-4.8); ALT/SGPT 36 U/L (7-56); AST/SGOT 18 U/L (17-59); BLOOD UREA NITROGEN 28 mg/dL (7-21); CALCIUM 8.6 mg/dL (8.4-10.5); GFR AFRICAN-AMERICAN > 60; GFR NON-AFRICAN AMERICAN > 60
[2017-08-31 07:33] LABS: PROTHROMBIN TIME 34.6 SECONDS (9.4-12.5)
[2017-08-31 07:34] LABS: INR 2.94 (0.93-1.08)
--- NOTE | 2017-08-31 08:12 | PN ---
DATE: 08/31/2017 PULMONARY NOTE SUBJECTIVE: The patient appears comfortable this morning. He is not short of breath at rest. PHYSICAL EXAMINATION: VITAL SIGNS: (last noted in the computer): Temperature is 98.5, pulse 85, respirations 18/20, blood pressure 139/78. Oxygen saturation on room air - 94%. Oxygen saturation on nasal cannula - 98%. HEENT: Normocephalic, atraumatic. No JVD. CARDIOVASCULAR: Positive S1, S2. No S3 gallop. LUNGS: Improved breath sounds with decreased crackles - right lower lobe. No rhonchi or wheezing this morning. EXTREMITIES: No clubbing, cyanosis or edema. Calves are nontender to palpation. GI: Abdomen is soft, nontender and nondistended. Bowel sounds are positive. SKIN: No acute rash. NEUROLOGIC: Limited at the present time. IMPRESSION: 1. Aspiration pneumonia - right lung. 2. Status post episode of nausea and vomiting. 3. Chronic dysphagia. 4. Rapid atrial fibrillation - now controlled. 5. Previous cerebrovascular accident with right hemipareses. 6. Coronary artery disease. PLAN: The patient appears comfortable this morning. He is not short of breath at rest. He is awake and alert. On physical exam, his bronchospasm continues to resolve. In addition, the alveolar arterial gradient also continues to resolve. I will continue with the current nebulizer treatments and change to oral steroids this morning. The patient remains on antibiotic therapy - as per Infectious Disease. There is no leukocytosis noted. The temperatures have now fully resolved. Inputs by Endocrine and Cardiology are also noted. Repeat labs are pending. Clinical status of the patient is significantly improved - compared to the initial status. However, again, his future status/prognosis does remain somewhat guarded. I will discuss the above with Dr. Castle. Trevor Moore MD [facility]
[2017-08-31] MEDS: Insulin Lispro (humaLOG) LOW Coverage SC SCH ×4 (10:58→21:47)
[2017-08-31] MEDS: Insulin Detemir 100 units/ml Vial (Levemir) SC SCH ×2 (10:59→21:47)
[2017-08-31] MEDS: POLYETHYLENE GLYCOL 3350 17 GM/Dose PACKET PO SCH (11:01)
[2017-08-31] MEDS: Pantoprazole 40 mg EC Tab PO SCH (11:01)
--- NOTE | 2017-08-31 13:09 | RAD ---
HISTORY: pneumonia COMPARISON: 08/28/2017 FINDINGS: LUNGS: The lungs are well inflated. There is consolidation in the right lower lobe. PLEURA: No significant pleural effusion identified, no pneumothorax apparent. CARDIOVASCULAR: There is mild cardiomegaly. OSSEOUS STRUCTURES: No significant abnormalities. VISUALIZED UPPER ABDOMEN: Normal. OTHER FINDINGS: None. IMPRESSION: Right lower lobe pneumonia. Follow-up after medical management is recommended to ensure complete resolution.
[2017-08-31] MEDS: Digoxin 250 mcg (0.25 mg) Tab PO SCH (14:37)
--- NOTE | 2017-08-31 19:07 | PN ---
DATE: 08/31/2017 SUBJECTIVE: The patient is seen lying in bed. He is awake, he is alert. He does not appear to be in any kind of distress. PHYSICAL EXAMINATION: GENERAL: Elderly male, lying in bed. VITAL SIGNS: Blood pressure 169/80, heart rate 78, respiratory rate 20, and temperature 98.2. HEENT: Normocephalic, atraumatic, positive pallor. NECK: Supple, no JVD. LUNGS: Bilateral equal air entry, bilateral equal expansion, no rales. CARDIAC: S1 and S2, regular rate and rhythm, no murmur, no rub. ABDOMEN: Obese, distended, soft, nontender, bowel sounds present. EXTREMITIES: 2+ pitting edema of the lower extremities. INTAKE AND OUTPUT: 500/800 LABORATORY DATA: WBC 7.3, hemoglobin 16, hematocrit 45, and platelets 165. Sodium 134, potassium 5, chloride 97, CO2 of 27. BUN 28, creatinine 0.6. Glucose 185. Calcium 8.6. AST 18, ALT 36. Albumin 3.1. CURRENT MEDICATIONS: Doxycycline, DuoNeb, Ecotrin, Flomax, insulin, Keppra, Lanoxin, Levemir, Lipitor, Lopressor, Maxipime, MiraLax, prednisone, Protonix, Seroquel, Tylenol, and Zofran. ASSESSMENT AND PLAN: 1. Hyperkalemia, resolved. 2. Prerenal azotemia, mild. 3. Right upper lobe pneumonia. 4. Atrial fibrillation. 5. Hypertension, uncontrolled. 6. [id number] diabetes mellitus. 7. History of cerebrovascular accident with right-sided weakness. 8. Deep venous thrombosis. 9. Hypophosphatemia. PLAN: 1. Stay off Neutra-Phos. 2. Continue to monitor blood pressure closely. 3. Continue insulin and fingerstick monitoring. 4. Continue antibiotics as per ID recommendations. 5. Avoid nephrotoxins. Ceci Puga MD
--- NOTE | 2017-08-31 19:10 | PN ---
DATE: 08/31/2017 ENDOCRINOLOGY FOLLOWUP NOTE LOCATION: In room 372. SUBJECTIVE: This is a 72-year-old male with recent admission for progressive shortness of breath and evaluated to have acute pneumonitis with underlying acute exacerbation of COPD, initially placed on IV steroid therapy and has now been tapered off into oral steroids with prednisone given as 20 mg daily as noted. His glycemic levels have been fluctuating, but have been improved overnight and the glucose levels have ranged from 113 to 162 mg/dL. His latest chemistry shows a BUN of 28. Sodium 134, potassium 5, chloride 97, CO2 of 27. Glucose 185. Creatinine 0.6. So at this time, we will continue the same basal insulin given as Levemir 12 units subcu every 12 hours at 10 a.m. and 10 p.m. daily as given. We will consider the tapering down of the subcutaneous basal insulin as indicated. We will continue the very low dose correction scale using Humalog insulin as ordered. We will obtain serial chemistries and supplement accordingly as needed. We will follow. Dianne Dawson MD
--- NOTE | 2017-08-31 20:36 | PN ---
DATE: 08/31/2017 SUBJECTIVE: Patient is in bed, in no acute distress, nontoxic. PHYSICAL EXAMINATION: VITAL SIGNS: Temperature is 98, blood pressure is 160/80, respiratory rate of 20. HEENT: Unremarkable. NECK: Supple. LUNGS: Have decreased breath sounds. HEART: Normal S1, S2. ABDOMEN: Soft, nontender. LABORATORY EXAMINATION: Reveals a white count of 7.3, hemoglobin of 16, platelet of 165. Chemistries are noted. Urinalysis is noted. Toxicology is noted. Microbiology is reviewed. MRSA is not detected. Blood culture is negative. Urine cultures are negative. ASSESSMENT AND PLAN: A 72-year-old male with history of cerebrovascular accident, right-sided hemiparesis, atrial fibrillation, aphagia, coronary artery disease, deep venous thrombosis, benign prostate hypertrophy, hypertension, diabetes, vascular dementia, history of Pseudomonas, Proteus urinary tract infection,severe sepsis, community-acquired pneumonia. Day #7 of cefepime and doxycycline. We will discontinue the cefepime after today's last dose. Case is discussed with Dr. Castle. Joni Lord MD
--- NOTE | 2017-09-01 00:37 | PN ---
DATE: 08/31/2017 SUBJECTIVE: A 72-year-old male resting in bed comfortably at this time. Patient is alert. Nursing staff states that there were no particular problems during the day or night. PHYSICAL EXAMINATION: VITAL SIGNS: His oral temperature is 98, his pulse is 70, his blood pressure is 147/76, respiratory rate is 18, oxygen sat is 96% on room air. LUNGS: Show rhonchi with diminished breath sounds at the bases. HEART: S1 irregular, S2 rhythm. ABDOMEN: Obese, soft. Positive bowel sounds. EXTREMITIES: Show no evidence of edema, but contraction. LABORATORY DATA: Shows the WBC of 7.3, RBC 5.31, hemoglobin 16.3, hematocrit 45.7, platelet count is 165. PT is 34.6 with an INR of 2.94. Chemistry shows sodium 134, potassium 5, chloride 97, BUN of 20, creatinine is 0.6, random blood sugar is , calcium is 8.6. The LFTs are normal. Patient's albumin is 3.1. MEDICATIONS: Currently, the patient is on Doryx, albuterol, DuoNeb, Ecotrin, Flomax, fingerstick blood sugar coverage, Keppra, digoxin, Levemir, Lipitor, Lopressor, Maxipime, MiraLax, prednisone, Protonix, Seroquel, Tylenol p.r.n., and Zofran p.r.n. ASSESSMENT: 1. Aspiration pneumonia. Chest x-ray noted. Right lung infiltrate present. Currently, receiving antibiotics Maxipime and Doryx as per Infectious Disease, this is day 7. 2. Hyperkalemia, resolved. 3. Hypophosphatemia, resolved. Discontinue Neutra-Phos. Avoiding potassium supplements given his history of hyperkalemia. 4. Benign prostatic hypertrophy, on Flomax. 5. Seizure disorder history. 6. History of hemorrhagic stroke. 7. History of expressive aphasia. 8. History of lower extremity contraction. 9. History of insulin-dependent diabetes. 10. Remote history of scalp wound infection. 11. Prior histories of urinary tract infections. 12. History of atrial fibrillation. 13.The patient requires the head of the bed to be elevated more than 30 degrees most of the time due to hemmorragic stroke, PLAN: We will continue current medical management. Electric Meter Technician notes have been reviewed and appreciated. event services manager consult has been requested from the supporting care. Patient is a home bound, bed bound patient, greatly of benefit from having a hospital bed electric, so that positioning can be changed, elevation of the head needed. Social service consult has been requested. Patient has been placed on digoxin by Cardiology for his rapid atrial fibrillation. Neurology recommends continuing Keppra. Endocrinology recommends using Levemir. He is on Seroquel for periods of agitation. He is on prednisone by Pulmonary. He is also on respiratory treatments. Followup labs have been requested. Repeat INR. Thromboembolic deterrents are in place for deep vein thrombosis prophylaxis. He is on Coumadin as well. Eva Castle MD MTDD
[2017-09-01] MEDS: Albuterol-Ipratrop 3 mg / 0.5 (3 ml) UD IH SCH ×4 (01:55→19:49)
[2017-09-01] MEDS: Cefepime 1gm in NS 100ml 1 GM/100 ML BAG IVPB SCH (05:30)
[2017-09-01 07:14] LABS: HEMOGLOBIN 15.8 g/dL (14.0-18.0); MEAN CELL VOLUME 86.9 fl (80.0-105.0); MEAN CORPUSCULAR HEMOGLOBIN 30.1 pg (25.0-35.0); MEAN CORPUSCULAR HGB CONC 34.6 g/dl (31.0-37.0); MEAN PLATELET VOLUME 9.5 fl (7.0-11.0); RBC 5.25 10^6/uL (3.5-6.1); RED CELL DISTRIBUTION WIDTH 13.7 % (11.5-14.5); WHITE BLOOD COUNT 7.4 10^3/ul (4.5-11.0)
[2017-09-01 07:29] LABS: ALBUMIN 2.7 g/dL (3.0-4.8); ALT/SGPT 30 U/L (7-56); AST/SGOT 23 U/L (17-59); BLOOD UREA NITROGEN 32 mg/dL (7-21); CALCIUM 8.4 mg/dL (8.4-10.5); GFR AFRICAN-AMERICAN > 60; GFR NON-AFRICAN AMERICAN > 60
[2017-09-01 07:40] LABS: INR 3.34 (0.93-1.08); PROTHROMBIN TIME 39.4 SECONDS (9.4-12.5)
--- NOTE | 2017-09-01 08:29 | PN ---
DATE: 09/01/2017 PULMONARY NOTE SUBJECTIVE: The patient appears comfortable this morning. He is not short of breath at rest. OBJECTIVE: VITAL SIGNS (last noted in the computer): Temperature is 98, pulse 70, respirations 18, blood pressure 147/76. Oxygen saturation on room air is 96%. HEENT: Normocephalic, atraumatic. No JVD. CARDIOVASCULAR: Positive S1, S2. No S3 gallop. LUNGS: Improved breath sounds with decreased crackles - right lower lobe. No rhonchi or wheezing this morning. EXTREMITIES: No clubbing, cyanosis or edema. Calves are nontender to palpation. GI: Abdomen is soft, nontender and nondistended. Bowel sounds are positive. SKIN: No acute rash. NEUROLOGIC: Exam limited at the present time. IMPRESSION: 1. Aspiration pneumonia - right lung. 2. Status post episode of nausea and vomiting. 3. Chronic dysphagia. 4. Rapid atrial fibrillation - now controlled. 5. Previous cerebrovascular accident with right hemiparesis. 6. Coronary artery disease. PLAN: The patient appears very comfortable this morning. He is not short of breath at rest. He is awake and alert. On physical exam, his bronchospasm continues to resolve. In addition, the alveolar arterial gradient also continues to resolve. Oxygen saturation on room air is now 96%. I will continue with the current nebulizer treatments and low dose oral steroids(changed yesterday) for now. The patient remains on antibiotic therapy - as per Infectious Disease. There is no leukocytosis noted. The temperatures have now fully resolved. Inputs by Endocrine and Renal are also noted. The clinical status of the patient is significantly improved overall. However, again, the future status/prognosis for this patient does remain guarded. I will discuss the above with Dr. Castle. Trevor Moore MD MTDBrittney
[2017-09-01] MEDS: Insulin Lispro (humaLOG) LOW Coverage SC SCH ×3 (09:18→17:08)
[2017-09-01] MEDS: Pantoprazole 40 mg EC Tab PO SCH (09:33)
[2017-09-01] MEDS: Insulin Detemir 100 units/ml Vial (Levemir) SC SCH (09:33)
[2017-09-01] MEDS: POLYETHYLENE GLYCOL 3350 17 GM/Dose PACKET PO SCH (09:34)
[2017-09-01] MEDS: Digoxin 250 mcg (0.25 mg) Tab PO SCH (14:16)
--- NOTE | 2017-09-01 17:57 | PN ---
DATE: 09/01/2017 ENDOCRINOLOGY FOLLOWUP NOTE LOCATION: In room 372. SUBJECTIVE: This is a 72-year-old male presenting with acute pneumonitis and also exacerbation of COPD and has since then been switched over from IV steroids to oral steroids as given. His glycemic profile has also improved accordingly and the glucose values today have ranged from 131 to 166 mg/dL. The chemistry showed a BUN of 32. Sodium 131, potassium 4.3, chloride 100, CO2 of 24. Glucose 83. Creatinine 0.6. So at this time, he has been switched over to prednisone given as 20 mg once daily in the morning as ordered. We will modify his basal insulin and switch him over now to Levemir given only once a day at 6 units at bedtime to start tonight. We will continue the low-dose correction scale using Humalog insulin as given. We will titrate incrementally as indicated to optimize metabolic control. We will follow. Dianne Dawson MD
[2017-09-01] MEDS ORDERED: Insulin Detemir 100 units/ml Vial (Levemir) SC SCH (22:00)
--- NOTE | 2017-09-01 23:01 | PN ---
DATE: 09/01/2017 SUBJECTIVE: The patient is seen lying in bed. He is awake, he is alert. He does not appear to be in any kind of distress. He is not really verbal. Does not really follow commands. PHYSICAL EXAMINATION: GENERAL: Elderly male sitting in bed. VITAL SIGNS: Blood pressure 120/60, heart rate 72, respiratory rate 20, temperature 97.4. HEENT: Normocephalic, atraumatic, positive pallor. NECK: Supple, no JVD. LUNGS: Bilateral equal air entry, bilateral equal expansion, no rales. CARDIAC: S1, S2, regular rate and rhythm, no murmur, no rub. ABDOMEN: Obese, distended, soft, nontender, bowel sounds present. EXTREMITIES: No lower extremity edema. Intake and output not charted. LABORATORY DATA: WBC 7.4, hemoglobin 15.8, hematocrit 45.6, platelets 133. Sodium 131, potassium 4.8, chloride 100, CO2 of 24, BUN 32, creatinine 0.6, glucose 83, calcium 8.4, total bili 0.6, albumin 2.7, corrected calcium is 9.3. CURRENT MEDICATIONS: Doxycycline 100 every 12 hours, aspirin, Flomax, insulin, Lipitor 10, Lopressor 100 b.i.d., MiraLax, prednisone 20, Protonix, Tylenol, Zofran. ASSESSMENT AND PLAN 1. Hyperkalemia, resolved. 2. Mild hyponatremia. 3. Mild prerenal azotemia. 4. Right upper lobe pneumonia. 5. Atrial fibrillation. 6. Hypertension, well controlled now. 7. Non-insulin dependent diabetes mellitus. 8. Cerebrovascular accident. 9. Deep venous thrombosis. PLAN: 1. Continue current antihypertensives. 2. Continue antibiotics for pneumonia. 3. Push p.o. intake. 4. Monitor fingersticks. 5. Avoid excessive fluid intake. Ceci uPga MD
--- NOTE | 2017-09-02 01:00 | PN ---
DATE: 09/01/2017 SUBJECTIVE: Patient is resting comfortably in bed this morning. Nursing staff relates that there were no particular problems during the night. PHYSICAL EXAMINATION: VITAL SIGNS: His temp is reported at 97.4, his pulse is 72, his blood pressure is 116/57, respiratory rate is 20, oxygen saturation is 94% on room air. NECK: Supple. LUNGS: Show rhonchi, right more than left. HEART: An irregular S1 and S2 rhythm. ABDOMEN: Soft and obese. Positive bowel sounds. EXTREMITIES: Contracted and no edema. LABORATORY DATA: Labs showed WBC of 7.4, RBC 5.25, hemoglobin 15.8, hematocrit 45.6, platelet count 133. His PT is 39.4 with an INR of 3.34. Chemistry shows sodium 131, potassium 4.8, chloride 100, BUN is 32, creatinine is 0.6, random blood sugar is 72. LFTs are normal. Patient is currently receiving antibiotic therapy for aspiration pneumonia, community acquired. He is being followed by Infectious Disease and he will continue on his Doryx p.o. His cefepime has been discontinued. He is on respiratory treatments, being followed by Pulmonary with the steroid regimen as well. He is on Flomax for his BPH and he is on Keppra for his seizure disorder history. He is on aspirin as well. His Coumadin is on hold given the prolonged INR. We will continue with current level of care. The chest x-ray showed some improvement and was reviewed with Pulmonary . We will continue his current level of care at this time. Follow up his labs. He never had a low serum potassium. Renal is following the patient as he had an episode of hyperkalemia and the Endocrinology is following him for his diabetes. He is on Levemir. We will continue current level of care. Eva Castle MD
[2017-09-02] MEDS: Albuterol-Ipratrop 3 mg / 0.5 (3 ml) UD IH SCH ×4 (02:02→19:58)
[2017-09-02] MEDS: Insulin Lispro (humaLOG) LOW Coverage SC SCH ×5 (03:15→22:05)
[2017-09-02 08:49] LABS: BASO # 0.01 K/mm3 (0.0-2.0); BASO % 0.2 % (0.0-3.0); EOS # 0.2 (0.0-0.7); EOS % 3.5 % (1.5-5.0); GRAN # 3.64 (1.4-6.5); GRAN % 60.7 % (50.0-68.0); HEMOGLOBIN 15.4 g/dL (14.0-18.0); LYMPH # 1.3 (1.2-3.4); LYMPH % 22.3 % (22.0-35.0); MEAN CELL VOLUME 87.7 fl (80.0-105.0); MEAN CORPUSCULAR HEMOGLOBIN 30.1 pg (25.0-35.0); MEAN CORPUSCULAR HGB CONC 34.4 g/dl (31.0-37.0); MEAN PLATELET VOLUME 9.8 fl (7.0-11.0); MONO # 0.8 (0.1-0.6); MONO % 13.3 % (1.0-6.0); RBC 5.11 10^6/uL (3.5-6.1); RED CELL DISTRIBUTION WIDTH 13.8 % (11.5-14.5)
[2017-09-02 08:57] LABS: INR 2.68 (0.93-1.08); PROTHROMBIN TIME 31.4 SECONDS (9.4-12.5)
[2017-09-02 09:13] LABS: ALB/GLOB RATIO 1.1 (1.1-1.8); ALBUMIN 2.9 g/dL (3.0-4.8); ALT/SGPT 36 U/L (7-56); AST/SGOT 20 U/L (17-59); BLOOD UREA NITROGEN 30 mg/dL (7-21); CALCIUM 8.4 mg/dL (8.4-10.5); GFR AFRICAN-AMERICAN > 60; GFR NON-AFRICAN AMERICAN > 60
[2017-09-02] MEDS: POLYETHYLENE GLYCOL 3350 17 GM/Dose PACKET PO SCH (09:54)
[2017-09-02] MEDS: Pantoprazole 40 mg EC Tab PO SCH (09:56)
--- NOTE | 2017-09-02 10:44 | PN ---
DATE: 09/02/2017 SUBJECTIVE: The patient is in bed, in no acute distress, nontoxic. No fevers and no chills. OBJECTIVE: VITAL SIGNS: On exam, temperature is 97, blood pressure is 140/70, respiratory rate of 20, heart rate of 75. HEENT: Examination is unremarkable. NECK: Supple. LUNGS: Have decreased breath sounds. HEART: Normal S1, S2. DATA: WBC is 7.4, hemoglobin of 15, platelets of 133. BUN of 32, creatinine 0.6. Procalcitonin is less than 0.05, [address] Castle' note is reviewed. ASSESSMENT AND PLAN: This is a 72-year-old male with history of cerebrovascular accident, right-sided hemiparesis, atrial fibrillation, aphasia, coronary artery disease, deep venous thrombosis, benign prostatic hypertrophy, hypertension, diabetes, vascular dementia, history of Pseudomonas, Proteus urinary tract infection, severe sepsis, community-acquired pneumonia, has completed over seven days of antibiotics. The patient is on prednisone at this point. We will also discontinue the doxycycline. The patient is at risk for developing nosocomial infections. Joni Lord MD
--- NOTE | 2017-09-02 11:31 | PN ---
DATE: 09/02/2017 PULMONARY PROGRESS NOTE SUBJECTIVE: Patient was seen and examined at bedside. He does not appear to be in respiratory distress. PHYSICAL EXAMINATION: VITAL SIGNS: Temperature is 98.4, pulse 74, respirations 20, blood pressure is 140/76, oxygen saturation on room air is 94. HEENT: Examination of head, normocephalic and atraumatic. NECK: Supple with no jugular vein distention. CARDIOVASCULAR: S1, S2. No S3, regular. PULMONARY: Improved breath sounds bilaterally, but still residual rhonchi and a few expiratory wheezes. GI: Soft, nontender, no organomegaly. EXTREMITIES: No clubbing, cyanosis or edema. SKIN: No acute skin rash. NEUROLOGIC: Limited at the present time. ASSESSMENT: 1. Aspiration pneumonia, right sided, clinically improving. 2. Status post nausea and vomiting. 3. Chronic dysphagia. 4. Atrial fibrillation. 5. History of cerebrovascular accident. 6. Coronary artery disease. PLAN: Patient appears to be more comfortable. He is not short of breath at rest. There is less rhonchi and less wheezing on exam. His oxygen saturation is acceptable on room air. We will continue with current antibiotics as per Infectious Disease. Aerosol treatment will be administered. We will follow closely. Michael Mcnamara MD
--- NOTE | 2017-09-02 11:42 | PN ---
DATE: 09/02/2017 SUBJECTIVE: The patient is currently seen sitting up in bed. He has just completed breakfast. He appears to be in no acute distress. He apparently had completed a course of antibiotics for his pneumonia. Of note, his sodium yesterday was slightly lower at 131. The patient does attempt to drink large amounts of fluids. His BUN continues to remain mildly elevated above baseline levels. He is currently on oral steroids. MEDICATIONS: Medication list reviewed. The patient is on DuoNeb, Ecotrin, Flomax, insulin, Keppra, Lanoxin, Levemir, Lipitor, Lopressor, MiraLax, prednisone, Protonix, Seroquel, Tylenol and Zofran. OBJECTIVE: INTAKE/OUTPUT: Not charted. VITAL SIGNS: Blood pressure 140/79, temperature 97.5 with a respiratory rate of 20, pulse of 63, pulse ox is 97%. HEENT: Shows him to be normocephalic, atraumatic. Conjunctivae pink. Sclerae nonicteric. NECK: Supple. No neck vein distention. CHEST: Clear to auscultation and percussion. No rales, rhonchi or wheezing noted. CARDIOVASCULAR: Shows a regular rate and rhythm with tricuspid regurgitation. No S3, no S4. No rub. ABDOMEN: Soft. Bowel sounds normal. No rebound, guarding or masses. EXTREMITIES: Show no lower extremity cyanosis, clubbing or edema. NEURO: Shows mild right-sided weakness. The patient is noncommunicative. LABORATORY DATA AND IMAGING: CBC from 09/01/2017: White blood cell count 7.4, hemoglobin 15.8 with a platelet count of 133. Chemistries show a slightly lower sodium at 131. BUN remains mildly elevated as 32. Creatinine is stable at 0.6. Remainder of the electrolytes are normal. Potassium level was 4.8, down from a high of 5.6 last week. Calcium is 8.4. Phosphorus level is now 3 from 2.2. Magnesium level is normal at 2. Albumin is 2.7. Microbiology: All cultures were negative. ASSESSMENT: 1. Status post hyperkalemia. The patient is off potassium supplements. Potassium is now down to 4.8. It should continue to remain in the normal range. 2. Prerenal azotemia, likely secondary to the use of steroids. Creatinine is excellent at 0.6. 3. Status post right upper lobe and perhaps left upper lobe pneumonia. The patient apparently had completed a course of antibiotic therapy. 4. History of atrial fibrillation. The patient's last INR was 3.34, is currently off Coumadin. 5. History of hypertension. Blood pressure control is acceptable. The patient will continue on beta-derrick therapy and if necessary, we could add a small dose of a calcium channel derrick. In light of the hyperkalemia, I would avoid angiotensin-converting enzyme inhibitors and angiotensin receptor blockers at this point in time. 6. History of insulin-dependent diabetes mellitus. Glucose control is acceptable. Continue long-acting and sliding scale insulin. 7. History of left-sided cerebrovascular accident with right-sided weakness. This appears to be stable. 8. History of deep venous thrombosis, status post inferior vena cava filter. The patient remains on chronic anticoagulation, currently on hold because of an INR of 3.34. 9. Status post hypophosphatemia. 10. Mild hyponatremia. Perhaps iatrogenic. Perhaps secondary to increased oral fluid intake. We will continue to monitor trend and if necessary adjust his oral intake and perhaps administer IV normal saline. PLAN: 1. Taper steroids when able. This will likely allow the BUN to fall to baseline levels. 2. Encourage p.o. fluid intake, but cautioned the patient not to overdo with fluids. 3. Follow labs closely over the next several days to monitor for any further fall in serum sodium levels. 4. Case discussed with Dr. Castle. Myles Alicea MD
--- NOTE | 2017-09-02 12:35 | PN ---
DATE: 09/02/2017 ENDOCRINOLOGY FOLLOWUP LOCATION: In room 372. This is a 72-year-old male with recent admission for acute aspiration pneumonitis and currently on antibiotic management, was also started initially on IV steroids, which has been switched over now to oral prednisone as noted. His glycemic levels were initially fluctuating and was started on basal insulin, which improved accordingly. 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 His bedtime glucose was 199 to 200 mg/dL. His chemistries today showed a BUN of 30, sodium 134, potassium 4.3, chloride 99, CO2 28, glucose 77, creatinine 0.6, so at this time, we will now discontinue the basal insulin given at a low dose of Levemir at 6 units subcutaneously at bedtime daily. We will observe the glycemic situations and determine the need for initiation of a low-dose oral hypoglycemic therapy if indicated. We will obtain serial chemistry as needed. We will follow with you. Dianne Dawson MD
--- NOTE | 2017-09-02 12:42 | PN ---
DATE: 09/02/2017 SUBJECTIVE: A 72-year-old male on the medical floor [address] [facility]. Nursing staff relates that there were no particular problems during the night. The patient has been clinically stable as per the nursing staff. PHYSICAL EXAMINATION: GENERAL: The patient is alert. He has an expressive aphasia from a prior hemorrhagic stroke. VITAL SIGNS: Temp is 97.5, blood pressure is 140/79, oxygen sat is 97% on room air, respiratory rate is 20, pulse is 63. HEART: In irregular S1, S2 rhythm. LUNGS: Show scattered rhonchi with diminished breath sounds at the bases. ABDOMEN: Soft, scaphoid with positive bowel sounds. EXTREMITIES: Show no evidence of edema, but there is contraction of the lower extremities. LABORATORY DATA: WBC is 6, RBC is 5.1, hemoglobin 15, hematocrit 44, platelet count is 130. Chemistry shows normal electrolytes, the BUN is 30, the creatinine is 0.6. LFTs are normal. Sodium is now 134, his albumin is 2.9. The patient has a PT of 31.4 with an INR of 2.68. Currently, the patient is on albuterol nebulizer treatment for his aspiration pneumonia and Ecotrin and digoxin and Lipitor and metoprolol for his underlying atrial fibrillation and arteriosclerotic heart disease and hyperlipidemia. He is on Keppra for history of seizure disorder. He is being followed by Pulmonary with prednisone 20 mg daily. He is on PPI for GI prophylaxis, Seroquel for agitation, Tylenol p.r.n. for moderate pain. His antibiotics have been discontinued by Infectious Disease. Cultures of blood and urine and MRSA screen were all negative. PLAN: At the present time, the patient is stable, improved clinically and the family are awaiting for Juice Weigher and Case Management to make home care preparations as the patient requires hospital bed for elevation of his head greater than 30 degrees for his stroke history and aspiration pneumonia history. He is on a pureed diet, continuing supportive care. We will closely monitor his labs. Eva Castle MD
[2017-09-02] MEDS: Digoxin 250 mcg (0.25 mg) Tab PO SCH (13:36)
[2017-09-03 07:24] LABS: ALBUMIN 2.7 g/dL (3.0-4.8); ALT/SGPT 40 U/L (7-56); AST/SGOT 19 U/L (17-59); BLOOD UREA NITROGEN 29 mg/dL (7-21); CALCIUM 8.3 mg/dL (8.4-10.5); GFR AFRICAN-AMERICAN > 60; GFR NON-AFRICAN AMERICAN > 60
[2017-09-03 07:55] LABS: INR 1.92 (0.93-1.08); PROTHROMBIN TIME 22.4 SECONDS (9.4-12.5)
[2017-09-03 07:57] LABS: MEAN CELL VOLUME 86.3 fl (80.0-105.0); MEAN CORPUSCULAR HEMOGLOBIN 29.9 pg (25.0-35.0); MEAN CORPUSCULAR HGB CONC 34.6 g/dl (31.0-37.0); MEAN PLATELET VOLUME 9.7 fl (7.0-11.0); RBC 5.02 10^6/uL (3.5-6.1); RED CELL DISTRIBUTION WIDTH 13.7 % (11.5-14.5)
[2017-09-03] MEDS: Insulin Lispro (humaLOG) LOW Coverage SC SCH ×4 (08:00→22:05)
[2017-09-03] MEDS: Albuterol-Ipratrop 3 mg / 0.5 (3 ml) UD IH SCH ×3 (08:02→20:06)
[2017-09-03] MEDS: POLYETHYLENE GLYCOL 3350 17 GM/Dose PACKET PO SCH (09:11)
[2017-09-03] MEDS: Pantoprazole 40 mg EC Tab PO SCH (09:12)
--- NOTE | 2017-09-03 10:39 | RAD ---
HISTORY: CHF COMPARISON: 08/31/2017. FINDINGS: LUNGS: Worsening right lower lobe infiltrate approximately stable. PLEURA: No significant pleural effusion identified, no pneumothorax apparent. CARDIOVASCULAR: Cardiomegaly. No evidence of acute, significant cardiovascular disease. OSSEOUS STRUCTURES: No significant abnormalities. VISUALIZED UPPER ABDOMEN: Normal. OTHER FINDINGS: None. IMPRESSION: Worsening right lower lobe infiltrate. Findings likely represent pneumonia.
--- NOTE | 2017-09-03 13:09 | PN ---
DATE: 09/03/2017 SUBJECTIVE: The patient is in bed, in no acute distress. PHYSICAL EXAMINATION: VITAL SIGNS: On exam, temperature is 98, blood pressure is 130/50, respiratory rate of 20, heart rate of 61. HEENT: Examination of HEENT is unremarkable. NECK: Supple. LUNGS: Have decreased breath sounds. HEART: Normal S1, S2. ABDOMEN: Soft, nontender. LABORATORY DATA: Laboratory examination reveals a white count of 7, hemoglobin of 15. Chemistries reveals a BUN of 29, creatinine of 0.6. Urinalysis is noted and toxicology is noted. Microbiology reveals the blood cultures are no growth. Urine cultures are no growth. Naris is not detected. Review of orders reveals the patient to be on prednisone p.o., off of antibiotics. ASSESSMENT AND PLAN: A 72-year-old male with a history of cerebrovascular accident, right-sided hemiparesis, atrial fibrillation, aphasia, coronary artery disease, deep venous thrombosis, benign prostatic hypertrophy, hypertension, diabetes, vascular dementia, history of Pseudomonas, Proteus urinary tract infection. Admitted with severe sepsis, community-acquired pneumonia. Has completed the antibiotic therapy. Currently, off of antibiotics, afebrile. The patient is risk of developing nosocomial infections and currently on p.o. prednisone. Joni Lord MD
--- NOTE | 2017-09-03 13:12 | PN ---
DATE: 09/03/2017 ENDO FOLLOWUP NOTE LOCATION: In room 372. SUBJECTIVE: This is a 72-year-old male with recent admission and management for acute aspiration pneumonitis and underlying COPD, currently on oral steroid therapy as given. His glycemic levels are fluctuating, but much improved at this time. His glucose values have ranged from 105-180 mg/dL. His chemistry shows a BUN of 29, sodium 134, potassium 4.2, chloride 102, CO2 of 27, glucose 110 and creatinine 0.6. So at this time, we will continue the low-dose correction scale using Humalog insulin as given with no insulin requirements as noted thereof. He has been taken off basal insulin which was given twice a day initially and then once at bedtime with Levemir therapy as he has now been switched over from IV steroids to oral steroids at this time. We will obtain serial chemistries and supplement accordingly as needed. We will follow. Dianne Dawson MD
--- NOTE | 2017-09-03 13:26 | PN ---
DATE: 09/03/2017 PULMONARY PROGRESS NOTE SUBJECTIVE: The patient was seen and examined at the bedside. He is receiving inhalation treatment with DuoNeb and he is also on low-dose oral prednisone. PHYSICAL EXAMINATION: VITAL SIGNS: His temperature is 96.8, pulse 60, respirations 20, pulse oximetry is 96 on room air. Blood pressure 138/56. HEENT: Examination of head, normocephalic and atraumatic. NECK: Supple with no jugular vein distention. CARDIOVASCULAR: S1, S2. No S3, regular. PULMONARY: Diminished breath sounds bilaterally with a few scattered rhonchi, no wheezing. GI: Soft, nontender. No organomegaly. EXTREMITIES: No edema. No cyanosis. SKIN: No acute skin rash. NEUROLOGIC: Limited at the present time. LABORATORY DATA: Additional data reviewed. His WBC is today 7, hemoglobin of 15, INR is 1.92. His serum albumin is reduced to 2.7. ASSESSMENT: 1. Aspiration pneumonia, clinically improving. 2. Chronic dysphagia. 3. Atrial fibrillation. 4. Status post cerebrovascular accident. PLAN: The patient making good progress on current treatment. I will keep him on low-dose oral steroids and nebulizer treatments. We will order new chest x-ray to evaluate whether pneumonia has completely resolved; otherwise, he is stable. Michael Mcnamara MD
[2017-09-03] MEDS: Digoxin 250 mcg (0.25 mg) Tab PO SCH (14:25)
--- NOTE | 2017-09-03 16:25 | PN ---
DATE: 09/03/2017 SUBJECTIVE: A 72-year-old male, resting in bed comfortably this morning. Nursing staff relates that there are no particular problems. PHYSICAL EXAMINATION: VITAL SIGNS: Temperature is 96.8, pulse is 61, blood pressure is 138/56, oxygen sat is 96% on room air, respiratory rate is 20. LABORATORY DATA: Shows a WBC of 7, RBC 5.02, hemoglobin 15, hematocrit 43.3, platelet count 139. PT is 22.4 with an INR 1.92. Chemistry shows sodium 134, potassium 4.2, chloride 102, BUN 29, creatinine is 0.6, calcium is 8.3, LFTs are normal, blood sugar is 110. The patient had a chest x-ray this morning ordered by the expeller operator, . , interpretation by the radiologist was discussed with Infectious Disease and with Pulmonary. At this particular point in time, they recommended monitoring the patient closely and repeating the chest x-ray in the morning. ASSESSMENT: 1. The patient has a history of aspiration pneumonia is treated with IV antibiotics and p.o. antibiotics. 2. He has a history of hemorrhagic stroke with expressive aphasia. 3. He has a history of dementia with agitation. 4. He has a history of diabetes mellitus. 5. He has a history of atrial fibrillation. 6. He has a history of wound infection on his scalp in the past. We will continue current level of care. Follow up the patient's labs and repeat chest x-ray as recommended by Infectious Disease and Pulmonary. He continues to be monitored and followed by Renal for his hyperkalemia. Then, he had an episode of hyponatremia, which has improved. Endocrinology for his diabetes and Infectious Disease. Eva Castle MD
[2017-09-04] MEDS: Albuterol-Ipratrop 3 mg / 0.5 (3 ml) UD IH SCH ×4 (01:31→20:20)
[2017-09-04 06:37] LABS: HEMOGLOBIN 15.1 g/dL (14.0-18.0); MEAN CELL VOLUME 86.7 fl (80.0-105.0); MEAN CORPUSCULAR HEMOGLOBIN 29.9 pg (25.0-35.0); MEAN CORPUSCULAR HGB CONC 34.5 g/dl (31.0-37.0); MEAN PLATELET VOLUME 9.3 fl (7.0-11.0); RBC 5.05 10^6/uL (3.5-6.1); RED CELL DISTRIBUTION WIDTH 13.8 % (11.5-14.5); WHITE BLOOD COUNT 7.1 10^3/ul (4.5-11.0)
[2017-09-04 06:45] LABS: ALBUMIN 2.8 g/dL (3.0-4.8); ALT/SGPT 35 U/L (7-56); AST/SGOT 17 U/L (17-59); BLOOD UREA NITROGEN 28 mg/dL (7-21); CALCIUM 8.3 mg/dL (8.4-10.5); GFR AFRICAN-AMERICAN > 60; GFR NON-AFRICAN AMERICAN > 60
[2017-09-04 06:57] LABS: INR 1.96 (0.93-1.08); PROTHROMBIN TIME 22.8 SECONDS (9.4-12.5)
--- NOTE | 2017-09-04 08:19 | PN ---
DATE: 09/01/2017 SUBJECTIVE: The patient is in bed, in no acute distress, nontoxic. PHYSICAL EXAMINATION: VITAL SIGNS: On exam, temperature is 97, blood pressure is 116/50, respiratory rate of 20, 94% saturation. HEENT: Examination of HEENT is unremarkable. NECK: Supple. LUNGS: Have decreased breath sounds. HEART: Normal S1, S2. ABDOMEN: Soft. LABORATORY DATA: Laboratory examination reveals a white count of 7.4, hemoglobin of 15. Chemistries reveals a BUN of 32, creatinine of 0.6. Urinalysis is noted and blood cultures are negative. ASSESSMENT AND PLAN: A 72-year-old, history of cerebrovascular accident, right-sided hemiparesis, atrial fibrillation, aphasia, coronary artery disease, deep venous thrombosis, benign prostatic hyperplasia, hypertension, vascular dementia, history of Pseudomonas, Proteus urinary tract infection, admitted with severe sepsis, community-acquired pneumonia and completed 8 days of cefepime and doxycycline. Currently on prednisone and doxycycline. We will be able to discontinue doxycycline within the next 24 to 48 hours. Joni Lord MD
[2017-09-04] MEDS: Insulin Lispro (humaLOG) LOW Coverage SC SCH ×3 (08:43→18:19)
--- NOTE | 2017-09-04 09:16 | PN ---
DATE: 09/04/2017 PULMONARY PROGRESS NOTE SUBJECTIVE: The patient is resting comfortably. There is no change in his mental status. He does not appear to be in any distress and offers no complaints. PHYSICAL EXAMINATION: VITAL SIGNS: Remain stable. He is afebrile. Respiratory rate 18, pulse 60, O2 sat 96% on room air, blood pressure 140/60. HEENT: Normocephalic, atraumatic. NECK: Supple. No JVD. No lymphadenopathy. No bruit. CARDIOVASCULAR: Regular rhythm. S1, S2 without murmur, gallop or rub. LUNGS: Global decrease in breath sounds. Minimal rhonchi noted throughout. No wheezing is appreciated. ABDOMEN: Soft. Bowel sounds normoactive without mass, guarding, rebound or organomegaly. EXTREMITIES: Reveal no clubbing, cyanosis or edema. SKIN: Shows no rash or excoriation. NEUROLOGIC: No focal findings. LYMPHADENOPATHY: No lymph nodes are palpated in the supraclavicular notch in the cervical, inguinal or axillary areas. ASSESSMENT: 1. Status post aspiration pneumonia. 2. Chronic dysphagia. 3. Atrial fibrillation. 4. Status post cerebrovascular accident. 5. Altered mental status. PLAN: Continue vigorous antibiotic therapy, inhalation therapy, antibiotics. Followup x-ray is ordered for this morning. We will review as soon as it is completed and decide on the need for further intervention based on this finding. I suspect that there will be slow, continued improvement. However, outpatient followup will be essential. We will discuss with Dr. Castle once reviewed and decide on further intervention with him. Tony Aranda MD
--- NOTE | 2017-09-04 09:42 | RAD ---
HISTORY: pneumonia COMPARISON: Comparison made with chest radiograph dated 09/04/2027 FINDINGS: LUNGS: Re- demonstrated is patchy right lower lobe opacity likely representing some combination of atelectasis/ consolidation and effusion. Changes appear relatively stable allowing for differences in technique and lung expansion. Suspect minimal left basilar dependent type atelectasis PLEURA: As above. No pneumothorax apparent. CARDIOVASCULAR: Normal. OSSEOUS STRUCTURES: No significant abnormalities. VISUALIZED UPPER ABDOMEN: Normal. OTHER FINDINGS: None. IMPRESSION: Re- demonstrated is patchy right lower lobe opacity likely representing some combination of atelectasis/ consolidation and effusion. Changes appear relatively stable allowing for differences in technique and lung expansion. Suspect minimal left basilar dependent type atelectasis
[2017-09-04] MEDS: POLYETHYLENE GLYCOL 3350 17 GM/Dose PACKET PO SCH (10:50)
[2017-09-04] MEDS: Pantoprazole 40 mg EC Tab PO SCH (10:51)
--- NOTE | 2017-09-04 11:36 | PN ---
DATE: 09/04/2017 SUBJECTIVE: A 72-year-old male, sitting comfortably and lying in bed. Nursing staff relates that there are no problems during the night. PHYSICAL EXAMINATION: VITAL SIGNS: His temp is 97.5, his pulse is 62, his blood pressure is 134/76, 97% saturation on room air, respiratory rate is 22. LABORATORY DATA: Shows a PT of 22.8 with an INR of 1.96. Chemistry shows normal electrolytes. BUN is 28, creatinine is 0.7. His random blood sugar is 134. CBC shows WBC of 7.1, RBC of 5.05, hemoglobin 15, hematocrit 43, platelet count of 138. ASSESSMENT AND PLAN: 1. The patient is receiving respiratory therapy for aspiration pneumonia. He is being followed by Pulmonary. Chest x-ray review with the radiologist raises concern about changes at the right base. Also, concerns about positioning of the x-ray film at the time that it was taken. Review of Dr. Aranda's note is noted. Discussion is basically to initiate chest PT on the patient. He is at high risk for aspiration pneumonia and repeat the followup chest x-ray. Continue with respiratory treatments. 2. The patient has an atrial fibrillation history. He is currently on Ecotrin, digoxin, Lopressor, Lipitor and warfarin therapy. 3. He is being followed by Endocrinology for his insulin-dependent diabetes and he is currently getting Levemir. He is also on prednisone by Pulmonary for his underlying respiratory problems. He is on Protonix for gastrointestinal prophylaxis. He is on Keppra for seizure disorder history. Endocrine is following the patient and he is on a fingerstick coverage regimen. We will need to assess the use of the Levemir as per Endocrinology. We will follow up the patient's labs and follow up the chest x-ray as recommended. He is on a bowel regimen with MiraLax. Eva Castle MD
--- NOTE | 2017-09-04 12:07 | PN ---
DATE: 09/04/2017 ENDO FOLLOWUP NOTE LOCATION: In room 372. SUBJECTIVE: This is a 72-year-old male with recent admission for acute aspiration pneumonia and currently receiving IV antibiotic management and is now being followed closely also for metabolic management because of transient hyperglycemic fluctuations that have improved accordingly with the tapering down of the IV steroids as noted. His repeat chemistries today showed a BUN of 28, sodium 135, potassium 4.1, chloride 101, CO2 of 27, glucose 134 and creatinine 0.7. His glucose levels have ranged from 120-149 and 162 mg/dL. So at this time, we will actually lower down the fingerstick testing to twice daily before meals as there really has been no insulin coverage required at this time. The patient is currently on prednisone given as 20 mg once daily as ordered. We will obtain serial chemistries and supplement accordingly as needed. We will also hold off on any kind of diabetic management at this time as noted. His hemoglobin A1c was actually optimal as noted otherwise. We will obtain serial chemistries and supplement accordingly as needed. We will follow. Dianne Dawson MD
--- NOTE | 2017-09-04 14:03 | PN ---
DATE: 09/04/2017 SUBJECTIVE: The patient is seen lying in bed. He is awake, he is alert. He does not appear to be in any kind of distress. OBJECTIVE: VITAL SIGNS: Blood pressure 134/76, heart rate 48, respiratory rate 22, temperature 97.5. HEENT: Normocephalic, atraumatic, positive pallor. NECK: Supple, no JVD. LUNGS: Bilateral equal entry, bilateral equal expansion. CARDIAC: S1, S2. Regular rate and rhythm. No murmur, no rub. ABDOMEN: Obese, distended, soft, nontender. Bowel sounds present. EXTREMITIES: No lower extremity edema. INTAKE AND OUTPUT: . LABORATORY DATA: WBC 7, hemoglobin 15, hematocrit 44, platelets 138. Sodium 135, potassium 4.1, chloride 101, CO2 27, BUN 28, creatinine 0.7, glucose 134, calcium 8.3, AST 17, ALT 35, albumin 2.8. CURRENT MEDICATIONS: Coumadin, DuoNeb, Ecotrin, Flomax, insulin, Keppra, digoxin, Lopressor, Lipitor, MiraLax, prednisone, Zofran. ASSESSMENT AND PLAN: 1.. Hyperkalemia, resolved. 2. Mild prerenal azotemia. 3. Right upper lobe pneumonia. 4. Atrial fibrillation, on Coumadin. 5. Hypertension. 6. History of cerebrovascular accident. 7. History of deep venous thrombosis. 8. Mild hyponatremia. 9. Mild hypophosphatemia. PLAN: 1. Push p.o. fluids. 2. Continue anticoagulation. 3. Taper steroids. 4. Discharge planning (?). Ceci Puga MD
[2017-09-04] MEDS: Digoxin 250 mcg (0.25 mg) Tab PO SCH (14:54)
--- NOTE | 2017-09-04 17:11 | US ---
Date of service: 09/04/2017 PROCEDURE: Urinary bladder ultrasound HISTORY: Retention. COMPARISON: None TECHNIQUE: Standard protocol for this study/examination. FINDINGS: Urinary bladder assessment: Prevoid volume: 445.1 ml Postvoid residual: Patient could not urinate at the time of the procedure. Intrinsic, mural, perivesical abnormalities: None Ureteral jets: Documented bilaterally. Transabdominal prostate volume 6.3 mL. IMPRESSION: No focal or diffuse bladder wall abnormalities.
--- NOTE | 2017-09-04 21:14 | CP.PCM.PN ---
Subjective - Date & Time of Evaluation Date of Evaluation: 09/04/17 Time of Evaluation: 09:35 - Subjective Subjective: Comfortable, afebrile. Objective - Vital Signs/Intake and Output Vital Signs (last 24 hours): Temp Pulse Resp BP Pulse Ox 98.0 F 62 20 130/57 L 95 09/03/17 17:16 09/03/17 17:59 09/03/17 17:16 09/03/17 17:16 09/03/17 17:16 Intake and Output: 09/04/17 09/04/17 06:59 18:59 Intake Total 360 Output Total 1100 Balance -740 - Medications Medications: Current Medications Acetaminophen (Tylenol 650mg/20.3ml Solution Ud) 650 mg PO Q6H PRN PRN Reason: temp or mod pain 4-7 Last Admin: 08/26/17 21:48 Dose: 650 mg Albuterol/Ipratropium (Duoneb 3 Mg/0.5 Mg (3 Ml) Ud) 3 ml IH [id number] [facility] Last Admin: 09/04/17 08:09 Dose: 3 ml Aspirin (Ecotrin) 81 mg PO DAILY [facility] Last Admin: 09/03/17 09:09 Dose: 81 mg Atorvastatin Calcium (Lipitor) 10 mg PO 2000 [facility] Last Admin: 09/03/17 20:42 Dose: 10 mg Digoxin (Lanoxin) 0.25 mg PO 1400 [facility] Last Admin: 09/03/17 14:25 Dose: 0.25 mg Insulin Human Lispro (Humalog Low) 0 units SC ACHS [facility] PRN Reason: Protocol Last Admin: 09/03/17 22:05 Dose: Not Given Levetiracetam (Keppra) 750 mg PO BID [facility] Last Admin: 09/03/17 17:59 Dose: 750 mg Metoprolol Tartrate (Lopressor) 100 mg PO BRKDIN [facility] Last Admin: 09/03/17 17:59 Dose: 100 mg Ondansetron HCl (Zofran Inj) 4 mg IVP Q6H PRN PRN Reason: Nausea/Vomiting Pantoprazole Sodium (Protonix Ec Tab) 40 mg PO DAILY [facility] Last Admin: 09/03/17 09:12 Dose: 40 mg Polyethylene Glycol (Miralax) 17 gm PO DAILY [facility] Last Admin: 09/03/17 09:11 Dose: 17 gm Prednisone (Prednisone Tab) 20 mg PO DAILY [facility] Last Admin: 09/03/17 09:12 Dose: 20 mg Quetiapine Fumarate (Seroquel) 25 mg PO TID [facility] PRN Reason: Protocol Last Admin: 09/03/17 18:00 Dose: 25 mg Tamsulosin HCl (Flomax) 0.4 mg PO 1999 [facility] Last Admin: 09/03/17 20:42 Dose: 0.4 mg - Labs Labs: 09/04/17 06:00 09/04/17 06:00 PT 22.8 SECONDS (9.4-12.5) H 09/04/17 06:00 INR 1.96 (0.93-1.08) H 09/04/17 06:00 APTT 41.7 Seconds (25.1-36.5) H 08/24/17 19:30 - Constitutional Appears: Chronically Ill - Head Exam Head Exam: NORMAL INSPECTION - Respiratory Exam Respiratory Exam: Decreased Breath Sounds - Cardiovascular Exam Cardiovascular Exam: +S1, +S2 - GI/Abdominal Exam GI & Abdominal Exam: Soft. 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
[2017-09-05] MEDS: Albuterol-Ipratrop 3 mg / 0.5 (3 ml) UD IH SCH ×4 (01:41→20:12)
[2017-09-05 06:20] LABS: BASO # 0.01 K/mm3 (0.0-2.0); BASO % 0.1 % (0.0-3.0); EOS % 0.5 % (1.5-5.0); GRAN # 5.15 (1.4-6.5); GRAN % 70.5 % (50.0-68.0); HEMOGLOBIN 14.2 g/dL (14.0-18.0); LYMPH # 1.5 (1.2-3.4); LYMPH % 20.7 % (22.0-35.0); MEAN CORPUSCULAR HEMOGLOBIN 30.1 pg (25.0-35.0); MEAN CORPUSCULAR HGB CONC 34.6 g/dl (31.0-37.0); MEAN PLATELET VOLUME 9.8 fl (7.0-11.0); MONO # 0.6 (0.1-0.6); MONO % 8.2 % (1.0-6.0); RBC 4.71 10^6/uL (3.5-6.1); RED CELL DISTRIBUTION WIDTH 13.7 % (11.5-14.5); WHITE BLOOD COUNT 7.3 10^3/ul (4.5-11.0)
[2017-09-05 06:32] LABS: PROTHROMBIN TIME 30.3 SECONDS (9.4-12.5)
[2017-09-05 06:33] LABS: INR 2.58 (0.93-1.08)
[2017-09-05] MEDS: Insulin Lispro (humaLOG) LOW Coverage SC SCH ×2 (07:37→17:43)
--- NOTE | 2017-09-05 10:18 | RAD ---
Date of service: 09/05/2017 HISTORY: pneumonia COMPARISON: 09/04/2017 FINDINGS: LUNGS: There is an infiltrate at the right lung base which obscures the diaphragm. This is unchanged. This is consistent with pneumonia PLEURA: No significant pleural effusion identified, no pneumothorax apparent. CARDIOVASCULAR: Mild cardiomegaly OSSEOUS STRUCTURES: No significant abnormalities. VISUALIZED UPPER ABDOMEN: Normal. OTHER FINDINGS: None. IMPRESSION: There is an infiltrate at the right lung base which obscures the diaphragm. This is unchanged. This is consistent with pneumonia
--- NOTE | 2017-09-05 11:07 | CP.PCM.PN ---
Subjective - Date & Time of Evaluation Date of Evaluation: 09/05/17 Time of Evaluation: 09:20 - Subjective Subjective: Comfortable in bed, no fevers, not in distress. Objective - Vital Signs/Intake and Output Vital Signs (last 24 hours): Temp Pulse Resp BP Pulse Ox 97.4 F L 67 20 98/51 L 94 L 09/05/17 08:06 09/05/17 09:22 09/05/17 08:06 09/05/17 09:22 09/05/17 08:06 Intake and Output: 09/05/17 09/05/17 06:59 18:59 Intake Total 390 Output Total 225 Balance 165 - Medications Medications: Current Medications Acetaminophen (Tylenol 650mg/20.3ml Solution Ud) 650 mg PO Q6H PRN PRN Reason: temp or mod pain 4-7 Last Admin: 08/26/17 21:48 Dose: 650 mg Albuterol/Ipratropium (Duoneb 3 Mg/0.5 Mg (3 Ml) Ud) 3 ml IH [id number] [facility] Last Admin: 09/05/17 07:26 Dose: 3 ml Aspirin (Ecotrin) 81 mg PO DAILY [facility] Last Admin: 09/04/17 10:50 Dose: 81 mg Atorvastatin Calcium (Lipitor) 10 mg PO 2000 [facility] Last Admin: 09/04/17 21:39 Dose: 10 mg Digoxin (Lanoxin) 0.25 mg PO 1400 [facility] Last Admin: 09/04/17 14:54 Dose: Not Given Insulin Human Lispro (Humalog Low) 0 units SC BIDAC [facility] PRN Reason: Protocol Last Admin: 09/05/17 07:37 Dose: Not Given Levetiracetam (Keppra) 750 mg PO BID [facility] Last Admin: 09/04/17 18:19 Dose: 750 mg Metoprolol Tartrate (Lopressor) 100 mg PO BRKDIN [facility] Last Admin: 09/05/17 09:22 Dose: Not Given Ondansetron HCl (Zofran Inj) 4 mg IVP Q6H PRN PRN Reason: Nausea/Vomiting Pantoprazole Sodium (Protonix Ec Tab) 40 mg PO DAILY [facility] Last Admin: 09/04/17 10:51 Dose: 40 mg Polyethylene Glycol (Miralax) 17 gm PO DAILY [facility] Last Admin: 09/04/17 10:50 Dose: 17 gm Prednisone (Prednisone Tab) 20 mg PO DAILY [facility] Last Admin: 09/04/17 10:51 Dose: 20 mg Quetiapine Fumarate (Seroquel) 25 mg PO TID [facility] PRN Reason: Protocol Last Admin: 09/04/17 18:19 Dose: 25 mg Tamsulosin HCl (Flomax) 0.4 mg PO 1999 [facility] Last Admin: 09/04/17 21:39 Dose: 0.4 mg - Labs Labs: 09/05/17 05:45 09/04/17 06:00 PT 30.3 SECONDS (9.4-12.5) H 09/05/17 05:45 INR 2.58 (0.93-1.08) H 09/05/17 05:45 APTT 41.7 Seconds (25.1-36.5) H 08/24/17 19:30 - Constitutional Appears: Chronically Ill - Head Exam Head Exam: NORMAL INSPECTION - Respiratory Exam Respiratory Exam: Decreased Breath Sounds - Cardiovascular Exam Cardiovascular Exam: +S1, +S2 - GI/Abdominal Exam GI & Abdominal Exam: Soft. absent: Tenderness Assessment and Plan - Assessment and Plan (Free Text) Plan: Assessment S/P severe sepsis due to CAP, right lower lobe history of sepsis due to urinary tract infection with Pseudomonas, clinically improving history of Left lower lobe healthcare-associated pneumonia history of Community-acquired pneumonia Atrial fibrillation Cerebrovascular accident with hemiparesis and aphasia history of skin/soft tissue infection of the scalp with MRSA HTN Coronary artery disease S/P PEG tube placement Deep venous thrombosis S/P Inferior vena cava filter placement Plan continue to monitor clinically off antibiotics since she is at risk for nosocomial infections - reviewed CXR today which still shows the right lower lobe infiltrate (unchanged) - clinically not presenting with new pneumonia, so we will continue to monitor off antibiotics
[2017-09-05] MEDS: Pantoprazole 40 mg EC Tab PO SCH (11:14)
[2017-09-05] MEDS: POLYETHYLENE GLYCOL 3350 17 GM/Dose PACKET PO SCH (11:15)
[2017-09-05] MEDS: Digoxin 250 mcg (0.25 mg) Tab PO SCH (13:50)
--- NOTE | 2017-09-05 14:37 | PN ---
DATE: 09/05/2017 PULMONARY PROGRESS NOTE LOCATION: In room 372. SUBJECTIVE: The patient is resting in bed comfortably. There is no change in his status. The case has been discussed at length with Dr. Eva Castle yesterday. The chest x-ray apparently was read as showing increased infiltrates. After reviewing this film, I do not see anything significant other than changed technique. The patient has chronic infiltrates, which appeared differently on wall depending on rotation position, these are AP portable x-rays that cannot be compared equally from one to another. PHYSICAL EXAMINATION: GENERAL: The patient remains comfortable, stable, no acute distress. VITAL SIGNS: Respiratory rate 16-18, O2 sat 96% on room air, blood pressure 138/70. HEENT: Normocephalic, atraumatic. NECK: Supple. No JVD, no lymphadenopathy, no bruit, no mass. CARDIOVASCULAR: Regular rhythm. S1, S2 without murmur, gallop or rub. LUNGS: Global decrease in breath sounds. Minimal rhonchi noted throughout. There is no wheezing appreciated. ABDOMEN: Soft. Bowels sounds normoactive without mass, guarding, rebound or organomegaly. EXTREMITIES: Reveal no clubbing, cyanosis or edema. SKIN: Shows no rash or excoriation. NEUROLOGIC: Shows no focal findings. The patient lies in bed, barely communicating as is his baseline. LYMPHATICS: Lymphadenopathy is not noted. ASSESSMENT: 1. Status post pneumonias. 2. Aspiration syndrome. 3. Chronic dysphagia. 4. Atrial fibrillation. 5. Status post cerebrovascular accident. 6. Altered mental status. 7. Prolonged hospitalization. PLAN: It is my understanding that the patient will have another x-ray this morning. There has been a little change. The patient should have a followup x-ray in 2-3 weeks. He seems stable. The nurses tell me that he is slated to go home today. Hospital bed has been brought to his house. Other means of medical care are not known to me at this time. This is being followed by Dr. Castle. The patient probably is stable as he can be. Significant aspiration precautions are necessary to prevent further deterioration. Strongly suggest that the patient have suctioning at the bedside as necessary, be fed slowly and carefully with Thick-It and other means to prevent further aspiration; any changes, the patient can certainly be brought back to the hospital. This is a chronic condition, however, and mean must be made in order to care for this patient outside of the hospital before he deteriorates from hospital-acquired problems. Strongly suggest followup x-ray in 2-3 weeks to make sure that there is further resolution of infiltrates. Thank you for the opportunity to follow Mr. Cerna. We will see him again in your request. Tony Aranda MD
--- NOTE | 2017-09-05 15:39 | PN ---
DATE: 09/05/2017 SUBJECTIVE: The patient is currently seen lying comfortable supine in bed. Lengthy discussion with Dr. Castle several times today. I will make an adjustment in his beta-derrick dose because beta-derrick therapy had been held at least once over the last two days. Today was held for low blood pressure, yesterday was held for low heart rate. The patient remains in atrial fibrillation. He remains rate controlled. His BUN and creatinine are within an acceptable baseline range. He is continuing on oral steroid therapy. MEDICATIONS: Medication list reviewed. The patient is currently on DuoNeb, Ecotrin, Flomax, insulin, Keppra, Lanoxin, Lipitor, Lopressor, MiraLax, prednisone, Protonix, Seroquel, Tylenol p.r.n., and Zofran p.r.n. OBJECTIVE: INTAKE/OUTPUT: Intake 870, output 425. VITAL SIGNS: Blood pressure 98/51 earlier today. Temperature 97.4, heart rate 59 with a pulse of 67. Respiratory rate is 20. HEENT: Show him to be normocephalic, atraumatic. Conjunctivae are pink. Sclerae are nonicteric. NECK: Supple. No neck vein distention. CHEST: Clear to auscultation and percussion without rales, rhonchi, or wheezing. CARDIOVASCULAR: Shows a regular rate and rhythm with tricuspid regurgitation. No S3, no S4, no rub. ABDOMEN: Soft. Bowel sounds normal. No rebound, guarding, or masses. EXTREMITIES: Show no lower extremity cyanosis, clubbing, or edema. NEURO: Shows a mild right-sided weakness. The patient does not communicate verbally with me. LABORATORY DATA AND IMAGING: CBC today, white blood cell count 7.3 with a hemoglobin of 14.2 and a platelet count of 141,000. Chemistries from yesterday, normal electrolytes. BUN 28 with a creatinine of 0.7. BUN is down from a high of 35. It is within the upper range of his baseline. Calcium was 8.3. Last phosphorus was 2.7, normal; with a magnesium level of 1.8, also normal. Liver enzymes are normal. Albumin is 2.8. Microbiology, all cultures were negative. ASSESSMENT: 1. Status post hyperkalemia. Potassium level is now 4.1 and is well controlled. 2. Prerenal azotemia, mild elevation of BUN, normal creatinines, this is likely secondary to use of steroids. 3. Status post right upper lobe and perhaps left upper lobe pneumonia. The patient had completed a course of antibiotic therapy. 4. History of atrial fibrillation, last INR was 2.58. The patient remains on chronic anticoagulation and he is rate controlled on beta-derrick therapy. 5. History of hypertension. Blood pressure medication beta-derrick therapy, was held today because of a low heart rate and low blood pressure. Discussed with Dr. Castle. I will decrease the beta-derrick dose by 50% to 50 mg b.i.d. of metoprolol tartrate. 6. History of insulin-dependent diabetes mellitus. Glucose control is acceptable. Continue long-acting and sliding scale insulin. 7. Status post left-sided cerebrovascular accident with right-sided weakness. This appears to be stable. 8. History of deep venous thrombosis, status post inferior vena cava filter. The patient remains on chronic anticoagulation in part because of his deep venous thrombosis and in part because of his atrial fibrillation. INR was acceptable at 2.58. 9. Status post hypophosphatemia. This is corrected. 10. Mild hyponatremia. This has corrected, sodium level is up to 135. PLAN: 1. Discussed with Dr. Castle. Most reasonable decision would be to decrease his beta-derrick dose by 50% in light of the low blood pressure and bradycardia. 2. Continue to monitor the patient over the next 12 to 18 hours with potential discharge for tomorrow. 3. The patient is stable from a renal standpoint. Myles Alicea MD
--- NOTE | 2017-09-05 16:11 | PN ---
DATE: 09/05/2017 ENDO FOLLOWUP NOTE LOCATION: In room 372. SUBJECTIVE: This is a 72-year-old male, admitted with acute aspiration pneumonitis and receiving IV antibiotic management and is now also being followed closely for metabolic management because of recent transient hyperglycemic accelerations that have improved accordingly at this time. His glucose values have ranged from 101-177 mg/dL. His latest chemistry showed a BUN of 28, sodium 135, potassium 4.1, chloride 101, CO2 of 27, glucose 134 and creatinine 0.7. His thyroid studies also showed transient TSH suppression, which is expected from the previous intercurrent steroid therapy as given. The latest chemistry showed a BUN of 28, sodium 135, potassium 4.1, chloride 101, CO2 of 27, glucose 134 and creatinine 0.7. So at this time, we will continue the serial chemistries and supplement accordingly as needed. No indication for any kind of thyroid pharmacotherapy nor any kind of initiation of oral hypoglycemic therapy as needed. We will follow. Dianne Dawson MD
--- NOTE | 2017-09-05 17:47 | PN ---
DATE: 09/05/2017 CHIEF COMPLAINT: Followup for agitation, delirium. SUBJECTIVE: The patient was seen and examined at the bedside. The patient has been agitated throughout the day. He was found to have some bradycardia and transient cerebral hypoperfusion and his blood pressure medications have been adjusted. He still has some hyperglycemic accelerations, for which Endocrinology is on board. He gets agitated and restless. The patient . The patient is on Seroquel 25 p.o. t.i.d., which is significant. He was on Keppra. Sometime, he has been on the steroids which can make him more delirium at times. PAST MEDICAL HISTORY: History of left frontoparietal infarct with encephalomalacia seen on his CAT scan of the head in the left MCA territory with residual right-sided spastic weakness, hypertension, type 2 diabetes mellitus, history of community acquired pneumonia in the past, history of DVT, status post IVC filter. She has atrial fibrillation. REVIEW OF SYSTEM: Fourteen-point review of systems is negative except as per the HPI. ALLERGIES: ALLERGIC TO PLAVIX. FAMILY HISTORY: Noncontributory. MEDICATIONS: Reviewed by nurse per reconciliation sheet. LABORATORY DATA: Today's blood sugar is 178. PHYSICAL EXAMINATION: VITAL SIGNS: Temperature 97.4, pulse rate of 70, blood pressure 198/51, respiratory rate of 19, oxygen saturation 96% on room air. GENERAL: The patient is lying in bed, in no acute distress. HEENT: Atraumatic, normocephalic. PERRLA. Extraocular muscles intact. NECK: Supple. No JVD. No adenopathy noted. LUNGS: Decreased breath sounds bilaterally. HEART: Irregular rate and rhythm. No murmurs, rubs, or gallops. ABDOMEN: Soft, nontender, and nondistended. Bowel sounds are present. EXTREMITIES: No clubbing. No cyanosis. Peripheral pulses are 2+ felt bilaterally. NEUROLOGIC: The patient is alert and oriented to person, not much to place, month, or year. Recall after 5 minutes is 0/3. Poor attention span. Slow thought process. Flat affect. Cranial nerves II through XII are intact. Motor exam has right-sided spastic weakness from prior CVA. Sensory exam: Light touch and pinprick are decreased up to the calves bilaterally. DTRs are 2+ throughout and 1 at both knees and ankles. Coordination and gait are deferred for now. 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 His seizures came from left middle cerebral artery territory encephalomalacia from prior cerebrovascular accident and is stable on Keppra 750 mg p.o. b.i.d. At this time, he has vascular dementia with behavioral disturbance and gained episodes of delirium from electrolyte abnormalities as well as transient change and fluctuations of blood pressure. At this time, I recommended; 1. Monitor electrolytes and correct accordingly. 2. Delirium precautions. 3. Aspirin 81 and Lipitor 10 mg for stroke prevention. 4. Continue with Coumadin regarding his atrial fibrillation to prevent from further stroke-like episodes. 5. Seroquel 25 mg p.o. t.i.d. for delirium and agitation, and thiamine 100 mg p.o. daily. 6. Continue with Keppra 750 mg p.o. for seizure prophylaxis, Physical therapy/occupational therapy and may need subacute rehabilitation. If he further gets more agitated, we will consider psychiatric consult. Otherwise, continue with current present medical management. Thank you for this consult and followup. Ilan Jeff MD
--- NOTE | 2017-09-05 22:53 | PN ---
DATE: 09/05/2017 SUBJECTIVE: A 72-year-old male on the medical floor at [facility]. The patient is receiving treatment for recent aspiration pneumonia with community-acquired pneumonia. He is being followed by Infectious Disease, Pulmonary and Neurology. PHYSICAL EXAMINATION: VITAL SIGNS: He has a temp of 97.4, his blood pressure is 98/51, pulse is 70, respiratory rate is , oxygen sat is 96% on room air. GENERAL: He is awake, alert. Expressive aphasia secondary to stroke. LUNGS: Show rhonchi. HEART: An irregular S1 and S2 rhythm. ABDOMEN: Soft with positive bowel sounds. EXTREMITIES: Show no evidence of edema. LABORATORY DATA: Showed WBC of 7.3, RBC 4.71, hemoglobin 14, hematocrit 41, platelet count is 141. PT is 30 with INR of 2.52. Chemistry shows blood sugar of 176. ASSESSMENT AND PLAN: We will have Neurology and Renal to assess the patient given his blood pressure and mental status. Treatment plans, home care plans are in progress. Eva Castle MD
[2017-09-06] MEDS: Albuterol-Ipratrop 3 mg / 0.5 (3 ml) UD IH SCH ×4 (02:52→19:55)
[2017-09-06 08:06] VITALS: RESP 20
[2017-09-06] MEDS: Insulin Lispro (humaLOG) LOW Coverage SC SCH ×2 (08:22→17:19)
--- NOTE | 2017-09-06 09:25 | PN ---
DATE: 09/06/2017 PULMONARY PROGRESS NOTE SUBJECTIVE: The patient was seen and examined at the bedside. He is not in respiratory distress. PHYSICAL EXAMINATION: VITAL SIGNS: His respirations are 20, pulse 84, blood pressure is 111/74, pulse oximetry is 92 on room air. HEENT: Examination of head normocephalic and atraumatic. NECK: Supple with no jugular vein distentions. CARDIOVASCULAR: Regular rhythm. S1, S2. No murmurs. PULMONARY: Diminished breath sounds at both lung bases with few coarse rhonchi. No wheezing. GASTROINTESTINAL: Abdomen soft, nontender. No organomegaly. EXTREMITIES: No clubbing, cyanosis or edema. SKIN: No acute skin rash. NEUROLOGIC: Deferred at the present time. ASSESSMENT: 1. Clinically resolving pneumonia. 2. Aspiration syndrome. 3. Chronic dysphagia. 4. Atrial fibrillation. I have reviewed his latest chest x-ray, which actually reveals still a significant finding at the right lung base. This is a combination of atelectasis and infiltrate. The right diaphragm is obliterated, which shows that the infiltrate is in the right lower lobe. The patient is on appropriate treatment. He does not have fever or elevation of WBC, just the x-ray abnormality. I have discussed this with Dr. Castle extensively. We will continue with current intervention. Michael Mcnamara MD
[2017-09-06] MEDS: Pantoprazole 40 mg EC Tab PO SCH (09:44)
[2017-09-06] MEDS: POLYETHYLENE GLYCOL 3350 17 GM/Dose PACKET PO SCH (09:44)
[2017-09-06 10:54] LABS: BASO # 0.01 K/mm3 (0.0-2.0); BASO % 0.1 % (0.0-3.0); EOS # 0.1 (0.0-0.7); EOS % 1.1 % (1.5-5.0); GRAN # 8.05 (1.4-6.5); GRAN % 76.3 % (50.0-68.0); HEMOGLOBIN 14.4 g/dL (14.0-18.0); LYMPH # 1.7 (1.2-3.4); LYMPH % 15.8 % (22.0-35.0); MEAN CELL VOLUME 87.9 fl (80.0-105.0); MEAN CORPUSCULAR HEMOGLOBIN 30.4 pg (25.0-35.0); MEAN CORPUSCULAR HGB CONC 34.6 g/dl (31.0-37.0); MEAN PLATELET VOLUME 9.3 fl (7.0-11.0); MONO # 0.7 (0.1-0.6); MONO % 6.7 % (1.0-6.0); RBC 4.73 10^6/uL (3.5-6.1); RED CELL DISTRIBUTION WIDTH 13.9 % (11.5-14.5); WHITE BLOOD COUNT 10.6 10^3/ul (4.5-11.0)
--- NOTE | 2017-09-06 11:06 | CP.PCM.PN ---
Subjective - Date & Time of Evaluation Date of Evaluation: 09/06/17 Time of Evaluation: 09:20 - Subjective Subjective: Comfortable in bed, no fevers. Objective - Vital Signs/Intake and Output Vital Signs (last 24 hours): Temp Pulse Resp BP Pulse Ox 97.4 F L 80 20 121/63 95 09/06/17 08:05 09/06/17 08:35 09/06/17 08:05 09/06/17 08:35 09/06/17 08:05 Intake and Output: 09/06/17 09/06/17 06:59 18:59 Intake Total 660 Output Total 800 Balance -140 - Medications Medications: Current Medications Acetaminophen (Tylenol 650mg/20.3ml Solution Ud) 650 mg PO Q6H PRN PRN Reason: temp or mod pain 4-7 Last Admin: 08/26/17 21:48 Dose: 650 mg Albuterol/Ipratropium (Duoneb 3 Mg/0.5 Mg (3 Ml) Ud) 3 ml [id number] Last Admin: 09/06/17 07:19 Dose: 3 ml Aspirin (Ecotrin) 81 mg PO DAILY [facility] Last Admin: 09/05/17 11:15 Dose: 81 mg Atorvastatin Calcium (Lipitor) 10 mg PO 2000 [facility] Last Admin: 09/04/17 21:39 Dose: 10 mg Digoxin (Lanoxin) 0.25 mg PO 1400 [facility] Last Admin: 09/05/17 13:50 Dose: 0.25 mg Insulin Human Lispro (Humalog Low) 0 units SC BIDAC [facility] PRN Reason: Protocol Last Admin: 09/06/17 08:22 Dose: Not Given Levetiracetam (Keppra) 750 mg PO BID [facility] Last Admin: 09/05/17 17:41 Dose: 750 mg Metoprolol Tartrate (Lopressor) 50 mg PO BRKDIN [facility] Last Admin: 09/06/17 08:35 Dose: 50 mg Ondansetron HCl (Zofran Inj) 4 mg IVP Q6H PRN PRN Reason: Nausea/Vomiting Pantoprazole Sodium (Protonix Ec Tab) 40 mg PO DAILY [facility] Last Admin: 09/05/17 11:14 Dose: 40 mg Polyethylene Glycol (Miralax) 17 gm PO DAILY [facility] Last Admin: 09/05/17 11:15 Dose: 17 gm Prednisone (Prednisone Tab) 20 mg PO DAILY [facility] Last Admin: 09/05/17 11:15 Dose: 20 mg Quetiapine Fumarate (Seroquel) 25 mg PO TID [facility] PRN Reason: Protocol Last Admin: 09/05/17 17:40 Dose: 25 mg Tamsulosin HCl (Flomax) 0.4 mg PO 1999 [facility] Last Admin: 09/04/17 21:39 Dose: 0.4 mg - Labs Labs: 09/05/17 05:45 09/04/17 06:00 PT 30.3 SECONDS (9.4-12.5) H 09/05/17 05:45 INR 2.58 (0.93-1.08) H 09/05/17 05:45 APTT 41.7 Seconds (25.1-36.5) H 08/24/17 19:30 - Constitutional Appears: Chronically Ill - Head Exam Head Exam: NORMAL INSPECTION - Respiratory Exam Respiratory Exam: Decreased Breath Sounds - Cardiovascular Exam Cardiovascular Exam: +S1, +S2 - GI/Abdominal Exam GI & Abdominal Exam: Soft. 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
[2017-09-06 11:09] LABS: BLOOD UREA NITROGEN 22 mg/dL (7-21); CALCIUM 8.5 mg/dL (8.4-10.5); GFR AFRICAN-AMERICAN > 60; GFR NON-AFRICAN AMERICAN > 60
[2017-09-06 11:12] LABS: INR 3.38 (0.93-1.08); PROTHROMBIN TIME 39.9 SECONDS (9.4-12.5)
[2017-09-06] MEDS: Digoxin 250 mcg (0.25 mg) Tab PO SCH (13:33)
--- NOTE | 2017-09-06 13:42 | PN ---
DATE: 09/06/2017 ENDO FOLLOWUP NOTE LOCATION: In room 372. SUBJECTIVE: This is a 72-year-old male with recent admission for acute pneumonitis and currently receiving antibiotic management and is also being followed closely now for metabolic management. He had transient hyperglycemic accelerations with previous IV steroid therapy as given, which has since then been discontinued and has been switched over to oral steroid therapy with prednisone given once daily as noted. His glycemic values are fluctuating, but much improved at this time and the glucose levels have ranged from 92-178 and 233 mg/dL. His latest chemistry showed a BUN of 22, sodium 137, potassium 4, chloride 102, CO2 of 27, glucose 105 and creatinine 0.6. So at this time, we will continue the very low-dose correction scale using Humalog insulin with glucose monitoring done only twice a day before meals as ordered. We will obtain serial chemistries and supplement accordingly as needed. There is no indication at this time for initiation of any kind of low-dose oral hypoglycemic therapy as needed. We will follow. Dianne Dawson MD
--- NOTE | 2017-09-06 15:50 | PN ---
DATE: 09/06/2017 SUBJECTIVE: The patient is seen lying in bed. He is awake. He is alert. is at bedside. PHYSICAL EXAMINATION: GENERAL: Elderly male, lying in bed. VITAL SIGNS: Blood pressure 121/63, heart rate 80, respiratory rate 20, temperature 97.4. HEENT: Normocephalic, atraumatic. NECK: Supple, no JVD. LUNGS: Bilateral equal air entry, bilateral equal expansion. CARDIAC: S1 and S2, regular rate and rhythm, no murmur, no rub. EXTREMITIES: No lower extremity edema. INTAKE AND OUTPUT: 1200/1200. LABORATORY DATA: WBC 10.6, hemoglobin 14, hematocrit 42, platelets 143. Sodium 137, potassium 4, chloride 102, CO2 of 27, BUN 22, creatinine 0.6, glucose 105, calcium 8.5. CURRENT MEDICATIONS: DuoNeb, Ecotrin, Flomax, insulin, Keppra, digoxin, Lipitor, Lopressor 50 b.i.d., MiraLax, prednisone, Protonix, Seroquel, Tylenol, Zofran. ASSESSMENT: 1. Resolved hyperkalemia. 2. Mild prerenal azotemia. 3. Right upper lobe pneumonia. 4. Hypertension. 5. Atrial fibrillation. 6. [id number] diabetes mellitus. 7. History of left-sided cerebrovascular accident. 8. Deep venous thrombosis. PLAN 1. Stable from the renal standpoint. 2. Continue current antihypertensives. 3. Discharge planning. Ceci Puga MD
--- NOTE | 2017-09-06 22:24 | PN ---
DATE: 09/06/2017 SUBJECTIVE: A 72-year-old male on 3R. Nursing staff relates that there were no problems during the night. The patient is status post treatment for aspiration pneumonia, community acquired pneumonia with a history of hemorrhagic stroke, expressive aphasia, atrial fibrillation, [id number] diabetes and seizure disorder. At the present time, he is on albuterol, aspirin, Flomax for BPH, sliding insulin scale, digoxin, Lipitor, Lopressor, MiraLax, prednisone, Protonix, Seroquel, Tylenol. PHYSICAL EXAMINATION: VITAL SIGNS: Show a temp of 98.6, blood pressure is 103/57, respiratory rate is 20, oxygen saturation is 96% on room air, pulse is 84. LUNGS: Show rhonchi. HEART: An irregular S1 and S2 rhythm. ABDOMEN: Soft with positive bowel sounds. EXTREMITIES: Show no evidence of edema. LABORATORY DATA: WBC is 10.6, RBC 4.73, hemoglobin 14.4, hematocrit 41.6, platelet count 143. His PT is 39.9 with an INR of 3.38. The chemistry is sodium 137, potassium 4, chloride 102, the BUN is 23, creatinine is 0.6, random blood sugar is 105 and his calcium is 8.5. ASSESSMENT AND PLAN: The family is awaiting proper medical equipment in the home to care for the patient who is at risk for recurrent aspiration pneumonia and is a bed bound patient. Before discharge, can be complete is safely. Also, respiratory treatment equipment is pending for his home care. We will continue current level of care at this time. Follow up the patient's PT/INR in the morning and hold his Coumadin at this time. Eva Castle MD
[2017-09-07] MEDS: Albuterol-Ipratrop 3 mg / 0.5 (3 ml) UD IH SCH ×3 (01:41→13:35)
[2017-09-07 06:44] LABS: INR 2.63 (0.93-1.08); PROTHROMBIN TIME 30.8 SECONDS (9.4-12.5)
[2017-09-07] MEDS: Insulin Lispro (humaLOG) LOW Coverage SC SCH (07:54)
[2017-09-07 08:30] VITALS: BP 130/61; PULSE 69; TEMP 98.1; O2SAT 95
[2017-09-07] MEDS: POLYETHYLENE GLYCOL 3350 17 GM/Dose PACKET PO SCH (09:24)
[2017-09-07] MEDS: Pantoprazole 40 mg EC Tab PO SCH (09:25)
--- NOTE | 2017-09-07 12:52 | CP.PCM.PN ---
Subjective - Date & Time of Evaluation Date of Evaluation: 09/07/17 Time of Evaluation: 09:00 - Subjective Subjective: Afebrile, comfortable. Objective - Vital Signs/Intake and Output Vital Signs (last 24 hours): Temp Pulse Resp BP Pulse Ox 98.1 F 69 20 130/61 95 09/07/17 08:29 09/07/17 08:29 09/07/17 08:29 09/07/17 08:29 09/07/17 08:29 Intake and Output: 09/07/17 09/07/17 06:59 18:59 Intake Total 0 Output Total 625 Balance -625 - Medications Medications: Current Medications Acetaminophen (Tylenol 650mg/20.3ml Solution Ud) 650 mg PO Q6H PRN PRN Reason: temp or mod pain 4-7 Last Admin: 08/26/17 21:48 Dose: 650 mg Albuterol/Ipratropium (Duoneb 3 Mg/0.5 Mg (3 Ml) Ud) 3 ml IH [id number] [facility] Last Admin: 09/07/17 07:41 Dose: 3 ml Aspirin (Ecotrin) 81 mg PO DAILY [facility] Last Admin: 09/06/17 09:45 Dose: 81 mg Atorvastatin Calcium (Lipitor) 10 mg PO 2000 [facility] Last Admin: 09/06/17 21:42 Dose: 10 mg Digoxin (Lanoxin) 0.25 mg PO 1400 [facility] Last Admin: 09/06/17 13:33 Dose: 0.25 mg Insulin Human Lispro (Humalog Low) 0 units SC BIDAC [facility] PRN Reason: Protocol Last Admin: 09/06/17 17:19 Dose: 2 unit Levetiracetam (Keppra) 750 mg PO BID [facility] Last Admin: 09/06/17 17:20 Dose: 750 mg Metoprolol Tartrate (Lopressor) 50 mg PO BRKDIN [facility] Last Admin: 09/06/17 17:19 Dose: Not Given Ondansetron HCl (Zofran Inj) 4 mg IVP Q6H PRN PRN Reason: Nausea/Vomiting Pantoprazole Sodium (Protonix Ec Tab) 40 mg PO DAILY [facility] Last Admin: 09/06/17 09:44 Dose: 40 mg Polyethylene Glycol (Miralax) 17 gm PO DAILY [facility] Last Admin: 09/06/17 09:44 Dose: 17 gm Prednisone (Prednisone Tab) 20 mg PO DAILY [facility] Last Admin: 09/06/17 09:44 Dose: 20 mg Quetiapine Fumarate (Seroquel) 25 mg PO TID [facility] PRN Reason: Protocol Last Admin: 09/06/17 17:20 Dose: 25 mg Tamsulosin HCl (Flomax) 0.4 mg PO 1999 [facility] Last Admin: 09/06/17 21:42 Dose: 0.4 mg - Labs Labs: 09/06/17 10:30 09/06/17 10:30 PT 30.8 SECONDS (9.4-12.5) H 09/07/17 05:45 INR 2.63 (0.93-1.08) H 09/07/17 05:45 APTT 41.7 Seconds (25.1-36.5) H 08/24/17 19:30 - Constitutional Appears: Chronically Ill - Head Exam Head Exam: NORMAL INSPECTION - Respiratory Exam Respiratory Exam: Decreased Breath Sounds - Cardiovascular Exam Cardiovascular Exam: +S1, +S2 - GI/Abdominal Exam GI & Abdominal Exam: Soft. absent: Tenderness Assessment and Plan - Assessment and Plan (Free Text) Plan: Assessment S/P severe sepsis due to CAP, right lower lobe history of sepsis due to urinary tract infection with Pseudomonas, clinically improving history of Left lower lobe healthcare-associated pneumonia history of Community-acquired pneumonia Atrial fibrillation Cerebrovascular accident with hemiparesis and aphasia history of skin/soft tissue infection of the scalp with MRSA HTN Coronary artery disease S/P PEG tube placement Deep venous thrombosis S/P Inferior vena cava filter placement Plan continue to monitor clinically off antibiotics since she is at risk for healthcare-associated infections - reviewed repeat CXR which still shows the right lower lobe infiltrate (unchanged) - clinically not presenting with new pneumonia, so we will continue to follow off antibiotics reviewed Pulmonary recommendations
[2017-09-07] MEDS: Digoxin 250 mcg (0.25 mg) Tab PO SCH (13:40)
[2017-09-07 13:44] VITALS: PULSE 76
--- NOTE | 2017-09-07 19:39 | PN ---
DATE: 09/07/2017 ENDOCRINOLOGY FOLLOWUP NOTE LOCATION: In room 372. This is a 72-year-old male with recent management for acute aspiration pneumonitis and is now also being followed closely for metabolic management because of recent hyperglycemic accelerations IV steroid therapy as given. He has been switched over now to oral steroids with prednisone taken as 20 mg once daily as ordered. His glycemic levels are fluctuating, but improved and the latest glucose levels have ranged from 106 to 202 and 207 mg/dL. His latest chemistry showed a BUN of 22. Sodium 137, potassium 4, chloride 102, CO2 of 27. Glucose 105 with creatinine of 0.6. So at this time, we will continue the low dose correction scale using Humalog insulin as given and hold off the initiation of any oral hypoglycemic therapy because of the variability of his oral intake. Should expect metabolic improvement of his glycemic fluctuations as the steroids are tapered down accordingly. We will follow. Dianne Dawson MD
--- NOTE | 2017-09-08 08:12 | DS ---
HISTORY OF PRESENT ILLNESS: This 72-year-old male admitted to [facility] with a history of fever, abdominal pain. The patient was found to have aspiration pneumonia, community-acquired pneumonia. He has underlying expressive aphasia secondary to a hemorrhagic stroke. He has underlying atrial fibrillation, [id number] diabetes. He is being followed by Endocrinology, Infectious Disease, Renal, Pulmonary, and Neurology. He was also followed by Cardiology for his rapid atrial fibrillation when he was in the Hospital. The recommendation by Endocrinology as the patient will be on a tapering regimen of steroids as per Pulmonary, we will monitor his fingerstick blood sugars. Pulmonary cleared the patient, he had some residual changes on the base of his lung. Risk of recurrent aspiration was discussed with the family. He would be on respiratory treatments at home. He has a past medical history of sepsis from urinary tract infection with pseudomonas, left lower lobe community-acquired pneumonia, atrial fibrillation, CVA, hemiparesis, expressive aphasia, MRSA infection of his scalp, hypertension, coronary artery disease. He at one time had a PEG placement for feeding, he will be on a pureed diet as recommended by speech and swallowing. He has a vena cava filter from a DVT history. His labs showed a PT of 30.8 with an INR of 2.63. CBC showed a white count of 10.6, RBC 4.73, hemoglobin 14, hematocrit 41.6, platelet count was 143. Chemistry showed normal electrolytes, random blood sugar was 106. The digoxin level was 1. He will be returning home on DuoNeb, Ecotrin, Flomax, fingerstick monitoring, Keppra, Lanoxin, Lipitor, Lopressor, MiraLax, tapering schedule of steroids as per Pulmonary, Seroquel, and Tylenol. Family was fully aware of the potential risks of this patient follow up on any pulmonary nodule history. Eva Castle MD
== END 2017-09-07 17:00 | disposition home or self-care (01) | DRG 871 ==
LOC: ED 18:48 → ERH 20:56 → ICU 22:55 → CCU 08-25 18:19 → 2RNO 08-27 14:33 → 3RSO 08-28 18:52
PROVIDERS: ADMIT Internal Medicine; ATTEND Internal Medicine
DX: A41.9 Sepsis, unspecified organism (principal); J69.0 Pneumonitis due to inhalation of food and vomit; J44.1 Chronic obstructive pulmonary disease with (acute) exacerbation; I13.0 Hypertensive heart and chronic kidney disease with heart failure and stage 1 through stage 4 chronic kidney disease, or unspecified chronic kidney disease; I45.2 Bifascicular block; F01.51 Vascular dementia, unspecified severity, with behavioral disturbance; E87.1 Hypo-osmolality and hyponatremia; I69.253 Hemiplegia and hemiparesis following other nontraumatic intracranial hemorrhage affecting right non-dominant side; R65.20 Severe sepsis without septic shock; I50.9 Heart failure, unspecified; I48.2 Chronic atrial fibrillation; N40.0 Benign prostatic hyperplasia without lower urinary tract symptoms; I25.10 Atherosclerotic heart disease of native coronary artery without angina pectoris; N18.9 Chronic kidney disease, unspecified; E11.22 Type 2 diabetes mellitus with diabetic chronic kidney disease; G40.909 Epilepsy, unspecified, not intractable, without status epilepticus; E11.65 Type 2 diabetes mellitus with hyperglycemia; E87.5 Hyperkalemia; E83.39 Other disorders of phosphorus metabolism; E11.51 Type 2 diabetes mellitus with diabetic peripheral angiopathy without gangrene; R91.1 Solitary pulmonary nodule; I69.291 Dysphagia following other nontraumatic intracranial hemorrhage; Z86.718 Personal history of other venous thrombosis and embolism; Z74.01 Bed confinement status; I69.220 Aphasia following other nontraumatic intracranial hemorrhage; Z87.891 Personal history of nicotine dependence; Z79.82 Long term (current) use of aspirin; Z79.01 Long term (current) use of anticoagulants; Z93.1 Gastrostomy status; Z89.411 Acquired absence of right great toe; Z79.4 Long term (current) use of insulin; Z82.3 Family history of stroke; Z86.14 Personal history of Methicillin resistant Staphylococcus aureus infection; Z89.421 Acquired absence of other right toe(s); Z87.440 Personal history of urinary (tract) infections

== ENCOUNTER 2017-10-11 20:40 | Emergency (ER) | payer MEDICARE ==
[2017-10-11 20:40] VITALS: PULSE 76
[2017-10-11 20:44] VITALS: BMI 29.2
[2017-10-11 20:56] VITALS: RESP 18; TEMP 98.7
--- NOTE | 2017-10-11 21:13 | ED PDOC ---
Arrival/HPI - General Chief Complaint: Medical Clearance Time Seen by Provider: 10/11/17 20:52 Historian: Patient - History of Present Illness Narrative History of Present Illness (Text): 10/11/17 21:04 Myles Cerna is a 72 year old male, whose past medical history includes hemorraghic stroke with right sided hemiparesis, atrial fibrillation, diabetes, expressive aphasia, seizure disorder, CAD, DVT s/p IVC filter, and hypertension , who presents to the emergency department brought in EMS accompanied by family complaining of right eye bruising. states patient may have choked on something while eating a began coughing earlier tonight, notes patient subsequently developed swelling/bruising to his right upper eyelid. Patient denies any chest pain, abdominal pain, shortness of breath, nausea, vomiting, or any other complaints. PMD: Dr. Deandre Castle Symptom Onset: Gradual Symptom Course: Unchanged Activities at Onset: Light Context: Home Past Medical History - Provider Review Nursing Documentation Reviewed: Yes - Infectious Disease Hx of Infectious Diseases: None - Tetanus Immunization Tetanus Immunization: Unknown - Cardiac Hx Cardiac Disorders: Yes (Afib) Hx Cardiac Arrhythmia: Yes Hx Congestive Heart Failure: Yes Hx Hypertension: Yes Hx Peripheral Edema: Yes (ble +1) Hx Peripheral Vascular Disease: Yes Other/Comment: dvt right leg ivc filter - Pulmonary Hx Respiratory Disorders: Yes Hx Pneumonia: Yes Hx Respiratory Aspiration: Yes - Neurological Hx Neurological Disorder: Yes (aphasia) HX Cerebrovascular Accident: Yes (12/06/10, right sided paralysis) Hx Seizures: Yes Other/Comment: right leg flaccid and contracted and right arm flaccid, garbled speech - HEENT Hx HEENT Disorder: Yes (EYE INFECTION) Other/Comment: pt takes eye drops but does not know what they are for - Renal Hx Renal Disorder: Yes Other/Comment: incontinent of urine - Endocrine/Metabolic Hx Endocrine Disorders: Yes Hx Diabetes Mellitus Type 1: Yes - Hematological/Oncological Hx Blood Disorders: No - Integumentary Hx Dermatological Disorder: Yes Other/Comment: non healing scalp wound dry red scab top of skull, 2 small dry round brown 0.5cm round growths to left knee, multiple red abrasions to right knee, dry flakey skin ble legs and feet, dry thick long nails to toes and hands , r great toe amputated, dry skin patches to left hand some redness, multiple healed scars to buttocks from open wounds, red raised rash to r and left neck - Musculoskeletal/Rheumatological Hx Musculoskeletal Disorders: Yes (bedridden, weakness) Hx Falls: Yes (past) Other/Comment: right leg flaccid and contracted, right arm flaccid, pt leans head to right - Gastrointestinal Hx Gastrointestinal Disorders: Yes (dysphagia, eats puree diet) HX Swallowing Problems: Yes - Genitourinary/Gynecological Hx Genitourinary Disorders: Yes Hx Incontinence: Yes (urine and stool) Hx Prostate Problems: Yes (enlarged, bph) - Psychiatric Hx Psychophysiologic Disorder: No Hx Substance Use: No - Surgical History Hx Amputation: Yes (rt great toe) Other/Comment: "brain surgery", hematoma evacuation to releive pressure and bleeding, subarachnoid hemorrhage - Anesthesia Hx Anesthesia: No Hx Anesthesia Reactions: No Hx Malignant Hyperthermia: No - Suicidal Assessment Feels Threatened In Home Enviroment: No Family/Social History - Physician Review Nursing Documentation Reviewed: Yes Family/Social History: Unknown Family HX Smoking Status: Former Smoker Hx Alcohol Use: No (FORMER) Hx Substance Use: No Hx Substance Use Treatment: No Allergies/Home Meds Allergies/Adverse Reactions: Allergies clopidogrel Allergy (Verified 10/11/17 20:44) RASH Home Medications: Home Meds Medication Instructions Recorded Confirmed Aspirin [Aspir 81] 81 mg PO DAILY 07/03/11 10/11/17 Tamsulosin [Flomax] 0.4 mg PO DAILY 07/03/11 10/11/17 Pravastatin Sodium [Pravachol] 40 mg PO DAILY 04/15/16 10/11/17 QUEtiapine [Seroquel] 25 mg PO TID 10/08/16 10/11/17 Digoxin [Lanoxin] 0.125 mg PO 1400 10/11/17 10/11/17 Review of Systems - Physician Review All systems were reviewed & negative as marked: Yes - Review of Systems Constitutional: Normal Eyes: Other (+swelling to right eye) ENT: Normal Respiratory: Cough Cardiovascular: Normal Gastrointestinal: Normal. absent: Abdominal Pain, Diarrhea, Nausea, Vomiting Genitourinary Male: Normal. absent: Dysuria, Frequency, Hematuria, Urinary Output Changes Musculoskeletal: Normal. absent: Back Pain, Neck Pain Skin: Normal. absent: Rash Neurological: Normal. absent: Headache, Dizziness Endocrine: Normal Hemo/Lymphatic: Normal Psychiatric: Normal Physical Exam Vital Signs Reviewed: Yes Vital Signs Temp Pulse Resp BP Pulse Ox 10/11/17 23:21 99 10/11/17 22:40 72 18 120/78 98 10/11/17 20:50 98.7 F 70 18 123/50 L 97 Temperature: Afebrile Blood Pressure: Normal Pulse: Regular Respiratory Rate: Normal Appearance: Positive for: Well-Appearing, Non-Toxic, Comfortable Pain Distress: None Mental Status: Positive for: Alert and Oriented X 3 - Systems Exam Head: Present: Normocephalic, Ecchymosis (Ecchymosis to right upper eyelid) Pupils: Present: PERRL Extroacular Muscles: Present: EOMI Conjunctiva: Present: Normal Mouth: Present: Moist Mucous Membranes Neck: Present: Normal Range of Motion Respiratory/Chest: Present: Clear to Auscultation, Good Air Exchange. No: Respiratory Distress, Accessory Muscle Use Cardiovascular: Present: Regular Rate and Rhythm, Normal S1, S2. No: Murmurs Abdomen: No: Tenderness, Distention, Peritoneal Signs Back: Present: Normal Inspection Upper Extremity: Present: Normal Inspection. No: Cyanosis, Edema Lower Extremity: Present: Normal Inspection. No: Edema Neurological: Present: CN II-XII Intact Skin: Present: Warm, Dry, Normal Color. No: Rashes Psychiatric: Present: Alert, Oriented x 3, Normal Insight, Normal Concentration Medical Decision Making ED Course and Treatment: 10/11/17 21:04 Impression: 72 year old male complaining of swelling/bruising to right upper eyelid. Plan: -- CT Head w/o contrast -- Labs -- Reassess and disposition Prior Visits: Notes and results from previous visits were reviewed. Progress Notes: 10/11/17 22:59 CT Head shows: Brain: Encephalomalacia is noted in the left frontoparietal and temporal lobes, similar to the prior. There is mild diffuse cerebral atrophy present, consistent with this patient's age. Areas of decreased attenuation noted within the periventricular and subcortical white matter likely related to chronic microangiopathic ischemic changes given the patient's stated age. No hemorrhage. Ventricles: Unremarkable. No ventriculomegaly. Bones/joints: Unremarkable. No acute fracture. Soft tissues: Unremarkable. Sinuses: Unremarkable as visualized. No acute sinusitis. Mastoid air cells: Unremarkable as visualized. No mastoid effusion. IMPRESSION: No evidence of acute intracranial hemorrhage.The remainder of the findings are as described above. 10/11/17 23:[address] Castle, who is aware and agrees with plan. States he will follow up outpt Pt in no acute distress, I have discussed the plan with the patient and family, who express understanding. Family in agreement with the plan to be discharged home. Patient is stable for discharge. Family was instructed to follow up with physician or return if symptoms persist/worsen or new concerning symptoms arise. - Lab Interpretations Lab Results: 10/11/17 21:36 10/11/17 21:36 Lab Results 10/11/17 21:36: PT 53.9 H, INR 4.58 H*, APTT 48.3 H 10/11/17 21:36: Sodium 133, Potassium 5.1 H, Chloride 98, Carbon Dioxide 26, Anion Gap 14, BUN 19, Creatinine 0.6 L, Est GFR ( Amer) > 60, Est GFR ( Non-Af Amer) > 60, Random Glucose 160 H, Calcium 8.2 L, Total Bilirubin 0.6, AST 20, ALT 34, Alkaline Phosphatase 70, Total Protein 6.2, Albumin 3.2, Globulin 3.0, Albumin/Globulin Ratio 1.1 10/11/17 21:36: WBC 4.9 D, RBC 4.52, Hgb 13.7 L, Hct 39.8 L, MCV 88.1, MCH 30.3 , MCHC 34.4, RDW 13.8, Plt Count 162, MPV 9.2, Gran % 61.8, Lymph % (Auto) 19.6 L, Henderson % (Auto) 13.3 H, Eos % (Auto) 4.3, Baso % (Auto) 1.0, Gran # 3.02, Lymph # (Auto) 1.0 L, Henderson # (Auto) 0.7 H, Eos # (Auto) 0.2, Baso # (Auto) 0.05 - RAD Interpretation Radiology Orders: 10/11/17 21:19 HEAD W/O CONTRAST [CT] Stat Radioactivity Technician: Radiologist - Scribe Statement The provider has reviewed the documentation as recorded by the Scribpaola Feng All medical record entries made by the Scribe were at my direction and personally dictated by me. I have reviewed the chart and agree that the record accurately reflects my personal performance of the history, physical exam, medical decision making, and the department course for this patient. I have also personally directed, reviewed, and agree with the discharge instructions and disposition. Disposition/Present on Arrival - Present on Arrival Any Indicators Present on Arrival: No History of DVT/PE: No History of Uncontrolled Diabetes: No Urinary Catheter: No History of Decub. Ulcer: No History Surgical Site Infection Following: None - Disposition Have Diagnosis and Disposition been Completed?: Yes Diagnosis: Acquired coagulation disorder Disposition: HOME/ ROUTINE Disposition Time: 23:00 Condition: GOOD Discharge Instructions (ExitCare): What to Do When Your INR Is Too High Additional Instructions: hold coumadin for [address] castle Forms: [employer] (Yi)
[2017-10-11 21:54] LABS: BASO # 0.05 K/mm3 (0.0-2.0); EOS # 0.2 (0.0-0.7); EOS % 4.3 % (1.5-5.0); GRAN # 3.02 (1.4-6.5); GRAN % 61.8 % (50.0-68.0); HEMOGLOBIN 13.7 g/dL (14.0-18.0); LYMPH % 19.6 % (22.0-35.0); MEAN CELL VOLUME 88.1 fl (80.0-105.0); MEAN CORPUSCULAR HEMOGLOBIN 30.3 pg (25.0-35.0); MEAN CORPUSCULAR HGB CONC 34.4 g/dl (31.0-37.0); MEAN PLATELET VOLUME 9.2 fl (7.0-11.0); MONO # 0.7 (0.1-0.6); MONO % 13.3 % (1.0-6.0); RBC 4.52 10^6/uL (3.5-6.1); RED CELL DISTRIBUTION WIDTH 13.8 % (11.5-14.5); WHITE BLOOD COUNT 4.9 10^3/ul (4.5-11.0)
[2017-10-11 22:07] LABS: ALB/GLOB RATIO 1.1 (1.1-1.8); ALBUMIN 3.2 g/dL (3.0-4.8); ALT/SGPT 34 U/L (7-56); AST/SGOT 20 U/L (17-59); BLOOD UREA NITROGEN 19 mg/dL (7-21); CALCIUM 8.2 mg/dL (8.4-10.5); GFR AFRICAN-AMERICAN > 60; GFR NON-AFRICAN AMERICAN > 60; PARTIAL THROMBOPLASTIN TIME 48.3 Seconds (25.1-36.5)
[2017-10-11 22:19] LABS: PROTHROMBIN TIME 53.9 SECONDS (9.4-12.5)
[2017-10-11 22:20] LABS: INR 4.58
[2017-10-12 02:54] VITALS: BP 120/78; PULSE 72
[2017-10-12 03:48] VITALS: O2SAT 99
--- NOTE | 2017-10-12 08:07 | CT ---
Date of service: 10/11/2017 PROCEDURE: CT HEAD WITHOUT CONTRAST. HISTORY: bleeding COMPARISON: 10/08/2016 TECHNIQUE: Axial computed tomography images were obtained through the head/brain without intravenous contrast. Radiation dose: Total exam DLP = 1601 mGy-cm. This CT exam was performed using one or more of the following dose reduction techniques: Automated exposure control, adjustment of the mA and/or kV according to patient size, and/or use of iterative reconstruction technique. FINDINGS: HEMORRHAGE: No intracranial hemorrhage. BRAIN: No mass effect or edema. Chronic encephalomalacia is seen in the left hemisphere. There are no acute findings. VENTRICLES: Unremarkable. No hydrocephalus. CALVARIUM: Prior craniotomy left frontal region PARANASAL SINUSES: Unremarkable as visualized. No significant inflammatory changes. MASTOID AIR CELLS: Unremarkable as visualized. No inflammatory changes. OTHER FINDINGS: The report concurs with the preliminary [facility] report IMPRESSION: No acute findings
== END 2017-10-11 23:21 | disposition home or self-care (01) ==
LOC: ED 20:40
DX: D68.4 Acquired coagulation factor deficiency (principal); I25.10 Atherosclerotic heart disease of native coronary artery without angina pectoris; I11.0 Hypertensive heart disease with heart failure; I50.9 Heart failure, unspecified; I48.91 Unspecified atrial fibrillation; I69.351 Hemiplegia and hemiparesis following cerebral infarction affecting right dominant side; E11.9 Type 2 diabetes mellitus without complications; Z86.718 Personal history of other venous thrombosis and embolism; Z87.891 Personal history of nicotine dependence

== ENCOUNTER 2017-12-26 14:37 | Inpatient (IN) | payer MEDICARE ==
[2017-12-26 14:37] VITALS: BMI 29.2
--- NOTE | 2017-12-26 15:13 | ED PDOC ---
Arrival/HPI - General Chief Complaint: Cough, Cold, Congestion Time Seen by Provider: 12/26/17 14:53 Historian: Spouse - History of Present Illness Narrative History of Present Illness (Text): 12/26/17 15:07 72 year old male, whose past medical history includes hemorraghic stroke with right sided hemiparesis, atrial fibrillation, diabetes, expressive aphasia, seizure disorder, CAD, DVT s/p IVC filter, and hypertension, who presents to the emergency department accompanied by family for evaluation of wheezing since this morning. As per , patient was found in bed with intermittent wheezing and contacted Dr. Castle. Dr. Castle subsequently referred patient to the ED to rule out pneumonia. states patient is able to express pain sometimes. denies any other complaints. denies any fever, chills, nausea, vomiting or any chest pain. HPI and ROS limited secondary to patient's aphasia. PMD: Dr. Rasmussen Time/Duration: 1-3 hours Symptom Onset: Gradual Symptom Course: Unchanged Activities at Onset: Light Context: Home Past Medical History - Provider Review Nursing Documentation Reviewed: Yes - Infectious Disease Hx of Infectious Diseases: None - Tetanus Immunization Tetanus Immunization: Unknown - Cardiac Hx Cardiac Disorders: Yes (Afib) Hx Cardiac Arrhythmia: Yes Hx Congestive Heart Failure: Yes Hx Hypertension: Yes Hx Peripheral Edema: Yes (ble +1) Hx Peripheral Vascular Disease: Yes Other/Comment: dvt right leg ivc filter - Pulmonary Hx Respiratory Disorders: Yes Hx Pneumonia: Yes Hx Respiratory Aspiration: Yes - Neurological Hx Neurological Disorder: Yes (aphasia) HX Cerebrovascular Accident: Yes (12/06/10, right sided paralysis) Hx Seizures: Yes Other/Comment: right leg flaccid and contracted and right arm flaccid, garbled speech - HEENT Hx HEENT Disorder: Yes (EYE INFECTION) Other/Comment: pt takes eye drops but does not know what they are for - Renal Hx Renal Disorder: Yes Other/Comment: incontinent of urine - Endocrine/Metabolic Hx Endocrine Disorders: Yes Hx Diabetes Mellitus Type 1: Yes - Hematological/Oncological Hx Blood Disorders: No - Integumentary Hx Dermatological Disorder: Yes Other/Comment: non healing scalp wound dry red scab top of skull, 2 small dry round brown 0.5cm round growths to left knee, multiple red abrasions to right knee, dry flakey skin ble legs and feet, dry thick long nails to toes and hands, r great toe amputated, dry skin patches to left hand some redness, multiple healed scars to buttocks from open wounds, red raised rash to r and left neck - Musculoskeletal/Rheumatological Hx Musculoskeletal Disorders: Yes (bedridden, weakness) Hx Falls: Yes (past) Other/Comment: right leg flaccid and contracted, right arm flaccid, pt leans head to right - Gastrointestinal Hx Gastrointestinal Disorders: Yes (dysphagia, eats puree diet) HX Swallowing Problems: Yes - Genitourinary/Gynecological Hx Genitourinary Disorders: Yes Hx Incontinence: Yes (urine and stool) Hx Prostate Problems: Yes (enlarged, bph) - Psychiatric Hx Psychophysiologic Disorder: No Hx Substance Use: No - Surgical History Hx Amputation: Yes (rt great toe) Other/Comment: "brain surgery", hematoma evacuation to releive pressure and bleeding, subarachnoid hemorrhage - Anesthesia Hx Anesthesia: No Hx Anesthesia Reactions: No Hx Malignant Hyperthermia: No - Suicidal Assessment Feels Threatened In Home Enviroment: No Family/Social History - Physician Review Nursing Documentation Reviewed: Yes Family/Social History: Unknown Family HX Smoking Status: Former Smoker Hx Alcohol Use: No (FORMER) Hx Substance Use: No Hx Substance Use Treatment: No Allergies/Home Meds Allergies/Adverse Reactions: Allergies clopidogrel Allergy (Verified 10/11/17 20:44) RASH Home Medications: Home Meds Medication Instructions Recorded Confirmed RX: Aspirin [Aspir 81] 81 mg PO DAILY 07/03/11 12/26/17 RX: Tamsulosin [Flomax] 0.4 mg PO DAILY 07/03/11 12/26/17 RX: Pravastatin Sodium [Pravachol] 40 mg PO DAILY 04/15/16 12/26/17 RX: QUEtiapine [Seroquel] 50 mg PO BID 10/08/16 12/26/17 RX: Digoxin [Lanoxin] 0.125 mg PO 1400 10/11/17 12/26/17 Insulin Lispro [Humalog Kwikpen 0 unit SQ 12/26/17 U-100] Review of Systems - Review of Systems Systems not reviewed;Unavailable: Other (Expressive aphasia) Constitutional: absent: Fevers Respiratory: SOB, Wheezing Cardiovascular: absent: Chest Pain Gastrointestinal: absent: Diarrhea, Nausea, Vomiting Physical Exam Vital Signs Reviewed: Yes Temperature: Afebrile Blood Pressure: Normal Pulse: Regular Respiratory Rate: Normal Appearance: Positive for: Well-Appearing, Non-Toxic, Comfortable Pain Distress: None Mental Status: Positive for: other (At baseline as per family) - Systems Exam Head: Present: Atraumatic, Normocephalic Pupils: Present: PERRL Extroacular Muscles: Present: EOMI Conjunctiva: Present: Normal Neck: Present: Normal Range of Motion Respiratory/Chest: Present: Good Air Exchange, Wheezes (Scattered wheeze). No: Respiratory Distress, Accessory Muscle Use Cardiovascular: Present: Regular Rate and Rhythm, Normal S1, S2. No: Murmurs Abdomen: No: Tenderness, Distention, Peritoneal Signs Back: Present: Normal Inspection Upper Extremity: Present: Normal Inspection. No: Cyanosis, Edema Lower Extremity: Present: Normal Inspection. No: Edema Neurological: Present: GCS=15, CN II-XII Intact Skin: Present: Warm, Dry, Normal Color. No: Rashes Psychiatric: Present: Alert Medical Decision Making ED Course and Treatment: 12/26/17 15:06 Impression: 72 year old male presents to the Emergency Department for evaluation of wheezing. Plan: -- EKG -- Labs -- Chest X-ray -- Urinalysis -- Reassess and disposition Prior Visits: Notes and results from previous visits were reviewed. Progress Notes: 12/26/17 17:09 cxr confimred infiltare. lasix dosed. dr alvin tan. covered for community acquired and aspiration. - RAD Interpretation Radiology Orders: 12/26/17 15:06 CHEST PORTABLE [RAD] Stat - Scribe Statement The provider has reviewed the documentation as recorded by the Scribe Taryn Myrick. All medical record entries made by the Scribe were at my direction and personally dictated by me. I have reviewed the chart and agree that the record accurately reflects my personal performance of the history, physical exam, medi fernanda decision making, and the department course for this patient. I have also personally directed, reviewed, and agree with the discharge instructions and disposition. Disposition/Present on Arrival - Present on Arrival Any Indicators Present on Arrival: No History of DVT/PE: No History of Uncontrolled Diabetes: No Urinary Catheter: No History of Decub. Ulcer: No History Surgical Site Infection Following: None - Disposition Have Diagnosis and Disposition been Completed?: Yes Diagnosis: CHF (congestive heart failure), Pneumonia Disposition: HOSPITALIZED Disposition Time: 16:00 Condition: FAIR Discharge Instructions (ExitCare): Heart Failure (ED) Referrals: Eva Castle MD [Primary Care Provider] - Follow up with primary Forms: [employer] ([place])
[2017-12-26] MEDS ORDERED: Albuterol-Ipratrop 3 mg / 0.5 (3 ml) UD IH STA ×2 (15:27)
[2017-12-26] MEDS ORDERED: Azithromycin 500MG/NS 250ml 500 MG/250 ML BAG IVPB STA (15:29)
[2017-12-26] MEDS ORDERED: metroNIDAZOLE IV 500 mg/100 ml 500 MG/100 ML BAG IVPB STA (15:29)
[2017-12-26] MEDS ORDERED: cefTRIAXone 1 gm 1 GM/100 ML BAG IVPB SCH (15:30)
--- NOTE | 2017-12-26 15:38 | RAD ---
Date of service: 12/26/2017 HISTORY: sob COMPARISON: 09/05/2017 FINDINGS: LUNGS: There is an infiltrate in the right lower lobe. PLEURA: No significant pleural effusion identified, no pneumothorax apparent. CARDIOVASCULAR: No aortic atherosclerotic calcification present. Moderate cardiomegaly no pulmonary vascular congestion. OSSEOUS STRUCTURES: No significant abnormalities. VISUALIZED UPPER ABDOMEN: Normal. OTHER FINDINGS: None. IMPRESSION: Right lower lobe infiltrate
[2017-12-26 15:59] LABS: BASO # 0.03 K/mm3 (0.0-2.0); BASO % 0.6 % (0.0-3.0); EOS # 0.9 (0.0-0.7); EOS % 19.2 % (1.5-5.0); GRAN # 2.33 (1.4-6.5); GRAN % 49.7 % (50.0-68.0); HEMOGLOBIN 13.7 g/dL (14.0-18.0); LYMPH % 21.3 % (22.0-35.0); MEAN CELL VOLUME 88.4 fl (80.0-105.0); MEAN CORPUSCULAR HGB CONC 33.9 g/dl (31.0-37.0); MEAN PLATELET VOLUME 9.6 fl (7.0-11.0); MONO # 0.4 (0.1-0.6); MONO % 9.2 % (1.0-6.0); RBC 4.57 10^6/uL (3.5-6.1); RED CELL DISTRIBUTION WIDTH 13.2 % (11.5-14.5); WHITE BLOOD COUNT 4.7 10^3/uL (4.5-11.0)
[2017-12-26 16:09] LABS: INR 1.45; PARTIAL THROMBOPLASTIN TIME 33.5 Seconds (25.1-36.5); PROTHROMBIN TIME 16.6 SECONDS (9.4-12.5)
[2017-12-26 16:11] LABS: ALB/GLOB RATIO 1.1 (1.1-1.8); ALBUMIN 3.4 g/dL (3.0-4.8); ALT/SGPT 21 U/L (7-56); AST/SGOT 22 U/L (17-59); BLOOD UREA NITROGEN 18 mg/dL (7-21); CALCIUM 8.9 mg/dL (8.4-10.5); GFR NON-AFRICAN AMERICAN > 60
[2017-12-26 16:22] LABS: B-TYPE NATRIURETIC PEPTIDE 3130 pg/mL (0-450); TROPONIN I 0.01 ng/mL
--- NOTE | 2017-12-26 18:29 | CARD ---
APPROVED REPORT Date of service: 12/26/2017 EKG Measurement Heart [id number] <Conclusion> Atrial fibrillation Right bundle branch block Abnormal ECG
[2017-12-26 19:54] LABS: URINE APPEARANCE CLEAR (CLEAR); URINE BILIRUBIN NEGATIVE (NEGATIVE); URINE BLOOD NEGATIVE (NEGATIVE); URINE COLOR COLORLESS (YELLOW); URINE GLUCOSE (UA) NEGATIVE (NEGATIVE); URINE LEUKOCYTE ESTERASE NEGATIVE Leu/uL (NEGATIVE); URINE PROTEIN NEGATIVE mg/dL (<30 mg/dL); URINE UROBILINOGEN 0.2 E.U./dL (<1 E.U./dL)
[2017-12-26] MEDS: Insulin Reg-LOW-Coverage SC SCH (22:17)
[2017-12-27] MEDS: Albuterol-Ipratrop 3 mg / 0.5 (3 ml) UD IH SCH ×4 (02:18→20:29)
[2017-12-27 06:26] LABS: BLOOD UREA NITROGEN 21 mg/dL (7-21); CALCIUM 8.8 mg/dL (8.4-10.5); GFR NON-AFRICAN AMERICAN > 60
[2017-12-27 06:27] LABS: BASO # 0.06 K/mm3 (0.0-2.0); BASO % 1.1 % (0.0-3.0); EOS # 0.9 (0.0-0.7); EOS % 16.2 % (1.5-5.0); GRAN # 2.78 (1.4-6.5); GRAN % 49.3 % (50.0-68.0); HEMOGLOBIN 13.9 g/dL (14.0-18.0); LYMPH # 1.4 (1.2-3.4); LYMPH % 24.2 % (22.0-35.0); MEAN CELL VOLUME 87.5 fl (80.0-105.0); MEAN CORPUSCULAR HEMOGLOBIN 29.9 pg (25.0-35.0); MEAN CORPUSCULAR HGB CONC 34.2 g/dl (31.0-37.0); MEAN PLATELET VOLUME 9.6 fl (7.0-11.0); MONO # 0.5 (0.1-0.6); MONO % 9.2 % (1.0-6.0); RBC 4.65 10^6/uL (3.5-6.1); RED CELL DISTRIBUTION WIDTH 13.3 % (11.5-14.5); WHITE BLOOD COUNT 5.6 10^3/uL (4.5-11.0)
[2017-12-27 06:28] LABS: INR 1.47
[2017-12-27] MEDS ORDERED: Albuterol-Ipratrop 3 mg / 0.5 (3 ml) UD IH PRN (07:10)
[2017-12-27] MEDS: Insulin Reg-LOW-Coverage SC SCH ×4 (08:00→22:15)
[2017-12-27] MEDS: Budesonide 0.5 mg/2 ml Inhal Susp UD IH SCH ×2 (08:09→20:29)
[2017-12-27] MEDS: MethylPREDNISolone 40 mg Vial IVP SCH ×2 (09:19→22:57)
[2017-12-27] MEDS: Pantoprazole 40 mg EC Tab PO SCH (09:20)
[2017-12-27] MEDS: cefTRIAXone 1 gm 1 GM/100 ML BAG IVPB SCH (09:20)
[2017-12-27] MEDS: POLYETHYLENE GLYCOL 3350 17 GM/Dose PACKET PO SCH (09:42)
[2017-12-27] MEDS: Azithromycin 500MG/NS 250ml 500 MG/250 ML BAG IVPB SCH (10:31)
[2017-12-27] MEDS ORDERED: guaiFENesin DM 200 mg-20 mg/10 ml UD PO PRN (13:38)
[2017-12-27] MEDS: Digoxin 125 mcg (0.125 mg) Tab PO SCH (13:43)
[2017-12-27] MEDS: guaiFENesin DM 200 mg-20 mg/10 ml UD PO PRN ×2 (16:59→22:57)
--- NOTE | 2017-12-27 17:35 | HP ---
HISTORY OF PRESENT ILLNESS: A 72-year-old male, homebound, brought to [facility]. reports that the patient was having some difficulty breathing at home with a cough. The patient has a past medical history of hemorrhagic stroke, expressive aphasia, peripheral vascular disease, diabetes, atrial fibrillation, pneumonia, pulmonary nodule, congestive heart failure and constipation. SOCIAL HISTORY: He is a nonsmoker, nondrinker and non-drug user. ALLERGIES: TO PLAVIX. HOME MEDICATIONS: Warfarin, digoxin, albuterol, aspirin, Flomax, Keppra, Lopressor, MiraLAX and Protonix. PHYSICAL EXAMINATION: VITAL SIGNS: The patient's temperature is 98.7, pulse is 76 and blood pressure is 128/64. GENERAL: He is resting in bed at the moment, and granddaughter at the bedside. NECK: Supple. LUNGS: Show diminished breath sounds at the bases with rhonchi. HEART: An irregular S1, S2 rhythm. ABDOMEN: Obese, soft with positive bowel sounds. EXTREMITIES: Show no evidence of edema. LABORATORY DATA: Shows a WBC of 4.7, RBC 4.57, hemoglobin 13.7, hematocrit 40.4 and platelet count 159. PT is 16.6 with an INR of 1.45 and PTT is 33.5. Chemistry shows a sodium of 133, potassium 4.9, chloride 97, CO2 32, BUN 18, creatinine 0.5 and blood sugar was 112. LFTs are normal. His BNP is 3130. Albumin is 3.4. Urinalysis is reported as clear. Digoxin level is 0.4. The chest x-ray read by the radiologist is reported as showing a right lower lobe infiltrate. EKG shows atrial fibrillation with a right bundle-branch block. Troponin is 0.01. IMPRESSION: 1. A 72-year-old homebound male with history of stroke and seizure disorder history with pneumonia of the right lung. 2. Atrial fibrillation. 3. Diabetes mellitus. 4. Seizure disorder. 5. We will request telemetry monitored bed and consults with Infectious Disease, Pulmonary and Cardiology. Eva Castle MD
--- NOTE | 2017-12-27 19:02 | CON ---
DATE OF CONSULTATION: 12/27/2017 CHIEF COMPLAINT: Cough and congestion and cold for several days. HISTORY OF PRESENT ILLNESS: This is a 72-year-old male, known to me from multiple admissions in the past with cerebrovascular accident with right-sided hemiparesis, atrial fibrillation, diabetes, expressive aphasia, seizures, coronary artery disease, DVT, and hypertension, who has had Pseudomonas urinary tract infection, was admitted on this admission with a diagnosis of congestive heart failure and pneumonia. Infectious consultation was requested for antibiotics. PAST MEDICAL HISTORY: Significant for hypertension, diabetes, atrial fibrillation, cerebrovascular accident, which was hemorrhagic, right-sided hemiparesis, atrial fibrillation, Pseudomonas urinary tract infection, expressive aphasia, seizures, DVT. PAST SURGICAL HISTORY: Significant for IVC filter placement. The patient had a PEG tube at one time, which is out at this time, and had a right great toe amputation. MEDICATIONS AT HOME: Lopressor, Protonix, digoxin, and Coumadin. ALLERGIES: THE PATIENT IS ALLERGIC TO CLOPIDOGREL. REVIEW OF SYSTEMS: A 14-point review of systems is performed. There has been low-grade fevers and cough, mild shortness of breath. No abdominal pain, diarrhea or constipation. No bright red blood per rectum. No melena. No dysuria or frequency. No new headaches or blurred vision. PHYSICAL EXAMINATION: The patient is in bed with a temperature of 98, blood pressure is 140/90, respiratory rate of 20, and heart rate is 99. Examination of HEENT is unremarkable. Neck is supple. Lungs have decreased breath sounds. Heart exam is normal S1 and S2. Abdominal examination is soft, nontender. No organomegaly or rebound or guarding. No masses. LABORATORY EXAMINATION: The patient's white count is 4.7, hemoglobin of 13, platelets of 159. Coagulation is reviewed. Chemistries reveal a BUN of 18, creatinine of 0.5. The BNP is over 3000. Urinalysis is negative. Digoxin level was noted. Microbiology is pending. The patient had a chest x-ray, which showed a right lower lobe pneumonia, and EKG which, showed the QTc of 404. ASSESSMENT AND PLAN: This is a 72-year-old male, who is admitted now with acute diastolic congestive heart failure on top of chronic congestive heart failure with right lower lobe community-acquired pneumonia. The patient has not been hospitalized for over 3 months. We will check on the blood cultures, urine cultures, sputum cultures, nasal MRSA screen. We will check on the urine for Legionella antigen, procalcitonin. We will start the patient on ceftriaxone and Zithromax and we will make further recommendations upon availability of initial workup results and we will follow closely with you. Joni Lord MD
--- NOTE | 2017-12-27 19:15 | CON ---
DATE: 12/27/2017 PULMONARY CONSULTATION REASON FOR PULMONARY CONSULTATION: Rule out pneumonia. REFERRING PHYSICIAN: Eva Castle MD SOURCE OF HISTORY: History is obtained via extensive discussion with the night nurse. I have also reviewed the chart at length. The patient is aphasic. HISTORY OF PRESENT ILLNESS: The patient is a chronically ill 72-year-old male, with past medical history significant for previous cerebrovascular accident with right hemipareses, chronic dysphagia, repeated aspiration pneumonias, atrial fibrillation, hypertension, diabetes mellitus, vascular dementia, coronary artery disease, deep venous thrombosis in the past, status post inferior vena cava filter placement, who presents to [facility] with a 1 day history of increasing shortness of breath and cough. There is no history of significant sputum production. There is no history of chest pain, coughing up of blood, or chest pain - made worse with deep respirations. There is no history of temperatures, chills or infectious exposure. There is no history of night sweats, weight loss or appetite change prior to the above events. No history of leg or calf pains. No history of syncope or diaphoresis. No history of recent travel or trauma. REVIEW OF SYSTEMS: No history of nausea, vomiting or diarrhea. No acute urinary symptoms. Rest of the review of systems is negative. ALLERGIES: TO CLOPIDOGREL. SOCIAL HISTORY: Positive tobacco and negative for alcohol. FAMILY HISTORY: No inheritable diseases. HOME MEDICATIONS: Include DuoNebs, Seroquel, Flomax, Pravachol, Coumadin, Lanoxin, Protonix, Lopressor, Keppra, MiraLax, and insulin. PHYSICAL EXAMINATION: GENERAL: The patient appears comfortable this morning. He is not short of breath at rest. VITAL SIGNS: Temperature is 98.3, pulse 88, respirations 18/20, blood pressure 142/90. Oxygen saturation on room air is 95-99%. HEENT: Normocephalic, atraumatic. No JVD. CARDIOVASCULAR: Positive S1, S2. No S3 gallop. LUNGS: Decreased breath sounds at the bases. Mild bilateral rhonchi. No wheezing. EXTREMITIES: No clubbing, cyanosis or edema. Calves are nontender to palpation. GI: Abdomen is soft, nontender and nondistended. Bowel sounds are positive. SKIN: No acute rash. NEUROLOGIC: Exam limited at the present time. PERTINENT LABORATORY DATA: Chest x-ray was done and reviewed. There is a patchy right lower lobe infiltrate seen. However, the same infiltrate was seen on 09/05/2017. In fact, the infiltrate looks improved/decreased from the previous film. CBC: White count 5.6K, hemoglobin 13.9, hematocrit 40.7 and platelets of 174,000. Complete metabolic profile: Chloride 97, glucose 112. B-type natriuretic peptide 3130. Rest of the metabolic profile is within normal limits. IMPRESSION: 1. Acute bronchitis. 2. Rule out aspiration pneumonia - right lower lobe. 3. Chronic dysphagia. 4. Atrial fibrillation. 5. Coronary artery disease. PLAN: Again, I did discuss the case with the night nurse at length. I have also reviewed the chart at length. The patient presents to [facility] with a 1 day history of worsening pulmonary symptoms. I did review the chest x-ray as above. Findings are noted. The chest x-ray done yesterday actually appears somewhat improved from the previous admission. In addition, there is no history of temperatures. There is no leukocytosis. Procalcitonin has been ordered for additional evaluation. The patient has been started on antibiotic therapy - as per Infectious Disease. On physical exam, there is mild bronchospasm noted. I will continue the current nebulizer treatments and add inhaled Pulmicort. I will also add a small dose of intravenous steroids. Cardiology evaluation has also been ordered. The patient does appear clinically improved this morning. Additional pulmonary intervention will be based on the above results, as well as the clinical status of the patient. I will discuss the above with Dr. Castle. Thank you very much for this pulmonary consultation. Trevor Moore MD [facility]
--- NOTE | 2017-12-27 20:26 | PN ---
DATE: 12/27/2017 SUBJECTIVE: A 72-year-old male resting comfortably in bed this morning. PHYSICAL EXAMINATION VITAL SIGNS: Temp is 98.5, pulse is 80, blood pressure is 112/60, oxygen sat is reported 95% on room air, his respiratory rate is 20. GENERAL: Patient is alert. NECK: Supple. LUNGS: Show rhonchi at the bases with diminished breath sounds. ABDOMEN: Obese, soft, with positive bowel sounds. HEART: Irregular S1 and S2 rhythm. EXTREMITIES: Show no evidence of edema. LABORATORY DATA: WBC is 5.6, RBC 4.65, hemoglobin 13.9 and hematocrit 40.7, and platelet count is 174. PT is 17 with INR of 1.47. Chemistry shows normal electrolytes with BUN of 21 and creatinine of 0.6. Chloride is 97. Blood sugar is 101. calcium is 8.8. PLAN: Currently, the patient is on Coumadin for his underlying atrial fibrillation, digoxin as well. Cardiology consult has been requested. Patient has been having AFib with some pauses, we will await their input. We will continue on his Ecotrin, his Flomax, his insulin, Keppra, Lopressor, MiraLax, Protonix, Pulmicort, Robitussin, Rocephin. Solu-Medrol, and Zithromax, being followed by Pulmonary and Infectious Disease for his right lower lobe pneumonia. Follow up the patient's labs and monitor his PT/INR. Eva Castle MD
--- NOTE | 2017-12-27 22:07 | CON ---
DATE: 12/27/2017 REQUESTING PHYSICIAN: Eva Castle MD REASON FOR CONSULTATION: Cough and dyspnea. HISTORY OF PRESENT ILLNESS: This is a 72-year-old man well known to me with a history of coronary artery disease, chronic atrial fibrillation, and prior cerebrovascular accident, who was brought to the emergency room with worsening cough and wheezing. Chest x-ray was a suboptimal film, but suggested evidence of a right lower lobe infiltrate. He has been treated with antibiotics and bronchodilator therapy. He is seen lying in bed on telemetry, he currently appears comfortable. Inhalation therapy is ongoing. He denies any chest pain. His history is somewhat limited due to residual expressive aphasia following his prior stroke. PAST MEDICAL HISTORY: His past history is notable for the problems mentioned above. He suffered a cerebrovascular accident with right hemiparesis and expressive aphasia in the past. He has chronic atrial fibrillation and known coronary artery disease. He has had a prior DVT with IVC filter placement. He has a history of hypertension and seizures following his stroke. His past history is also noted for prior toe amputation and evacuation of a subdural hematoma. MEDICATIONS: Medications at home included aspirin, Flomax, Pravachol, Seroquel, digoxin, and insulin coverage. His medications in the hospital include DuoNeb inhalers, Keppra, metoprolol 50 mg b.i.d., Protonix, Pulmicort inhaler, Rocephin, Solu-Medrol 20 mg every 12 hours, and Zithromax. ALLERGIES: HE HAS HAD A REACTION TO PLAVIX IN THE PAST. SOCIAL HISTORY: He is a former smoker. He lives at home with his . FAMILY HISTORY: Both parents from age-related illness. A 10-point review of systems is limited, but otherwise unremarkable. PHYSICAL EXAMINATION: GENERAL: He is an overweight middle-aged man. VITAL SIGNS: His blood pressure is 142/90 with a pulse of 90 and in atrial fibrillation, respirations are 14, and he is afebrile. Brief pauses noted on telemetry. HEENT: Normocephalic and atraumatic. NECK: No JVD. CHEST: Bilateral scattered rhonchi with diminished breath sounds at the right base. HEART: PMI is displaced laterally with an irregular regular rhythm. Increased split in the second sound is noted, a systolic murmur is present left sternal border. ABDOMEN: Soft and nontender, normoactive bowel sounds. EXTREMITIES: No edema. SKIN: Warm and dry. PSYCHIATRIC: Somewhat flat affect. NEUROLOGIC: Awake and alert, expressive aphasia and right-sided paresis noted. DIAGNOSTIC DATA: Potassium 4.5, BUN and creatinine 21 and 0.6. White count 5.6, hemoglobin and hematocrit 13.9 and 40.7, platelet count 174,000. INR is 1.47. BNP is 3130. CK is 114 with troponin 0.01. Digoxin level 0.5. Chest x-ray is somewhat limited film and rotated to the right, a right basilar infiltrate appears present. Electrocardiogram reveals atrial fibrillation with a right bundle-branch block and secondary ST-T changes. IMPRESSION: 1. Apparent community-acquired right lower lobe pneumonia, currently on antibiotics. 2. Chronic atrial fibrillation, rate controlled at present. 3. History of diabetes and hypertension. 4. History of coronary artery disease, clinically stable. 5. Status post prior cerebrovascular accident with resultant right hemiparesis and expressive aphasia stable. 6. Rest of problems as noted. RECOMMENDATIONS: Continued rate control therapy for his fibrillation is advised. Maintenance of an INR between 2 and 2.5 would be advisable. He does not appear volume overload at the present time, however with the addition of steroid therapy, intermittent diuretic therapy may be necessary. His last echocardiogram in July had revealed normal LV size and systolic function with mild to moderate tricuspid regurgitation. Thank you for this consultation and I will be happy to follow along through his hospital course and make further recommendations as appropriate. Reilly Valdez MD MTDD
[2017-12-28] MEDS: Albuterol-Ipratrop 3 mg / 0.5 (3 ml) UD IH SCH ×5 (02:13→20:22)
[2017-12-28 06:16] LABS: GRAN # 3.71 (1.4-6.5); GRAN % 89.7 % (50.0-68.0); HEMOGLOBIN 14.7 g/dL (14.0-18.0); LYMPH # 0.4 (1.2-3.4); LYMPH % 8.9 % (22.0-35.0); MEAN CELL VOLUME 87.8 fl (80.0-105.0); MEAN CORPUSCULAR HEMOGLOBIN 29.3 pg (25.0-35.0); MEAN CORPUSCULAR HGB CONC 33.4 g/dl (31.0-37.0); MEAN PLATELET VOLUME 9.9 fl (7.0-11.0); MONO # 0.1 (0.1-0.6); MONO % 1.4 % (1.0-6.0); RBC 5.01 10^6/uL (3.5-6.1); RED CELL DISTRIBUTION WIDTH 13.4 % (11.5-14.5); WHITE BLOOD COUNT 4.1 10^3/uL (4.5-11.0)
[2017-12-28 06:23] LABS: INR 1.55
[2017-12-28 06:24] LABS: BLOOD UREA NITROGEN 25 mg/dL (7-21); CALCIUM 9.1 mg/dL (8.4-10.5); GFR NON-AFRICAN AMERICAN > 60
--- NOTE | 2017-12-28 07:47 | PN ---
DATE: 12/28/2017 PULMONARY NOTE DICTATION SUBJECTIVE: The patient appears comfortable this morning. He is not short of breath at rest. PHYSICAL EXAMINATION: VITAL SIGNS: Temperature is 98.7, pulse 91, respirations 18, blood pressure 144/82. Oxygen saturation on room air is 98%. HEENT: Normocephalic, atraumatic. No JVD. CARDIOVASCULAR: Positive S1, S2. No S3 gallop. LUNGS: Decreased breath sounds at the bases. Much less/minimal rhonchi. No wheezing. EXTREMITIES: No clubbing, cyanosis or edema. Calves are nontender to palpation. GI: Abdomen is soft, nontender and nondistended. Bowel sounds are positive. SKIN: No acute rash. NEUROLOGIC: Exam limited at the present time. IMPRESSION: 1. Acute bronchitis. 2. Rule out aspiration pneumonia - right lower lobe - less likely. 3. Chronic dysphagia. 4. Atrial fibrillation. 5. Coronary artery disease. PLAN: The patient appears very comfortable this morning. He is not short of breath at rest. I did discuss the case with the night nurse at length. The night nurse stated that the patient had a very good night. On physical exam, there is certainly much less bronchospasm noted. In addition, the alveolar-arterial gradient has now resolved. Oxygen saturation on room air is now 98%. I will continue the current nebulizer treatments and change to oral steroids this morning. The patient remains on antibiotic therapy - as per Infectious Disease. There is no history of fevers. There is no leukocytosis. In addition, the procalcitonin done yesterday is negative. At this point in time, acute pneumonia appears less likely. Clinical status of the patient is certainly improved - compared to the initial presentation. His future status/prognosis does remain guarded. I will discuss the above with Dr. Castle. Trevor Moore MD [facility]
[2017-12-28] MEDS: Budesonide 0.5 mg/2 ml Inhal Susp UD IH SCH ×2 (08:21→20:22)
[2017-12-28] MEDS: Insulin Reg-LOW-Coverage SC SCH ×4 (09:35→22:30)
[2017-12-28] MEDS: Pantoprazole 40 mg EC Tab PO SCH (09:36)
[2017-12-28] MEDS: cefTRIAXone 1 gm 1 GM/100 ML BAG IVPB SCH (09:41)
[2017-12-28] MEDS: POLYETHYLENE GLYCOL 3350 17 GM/Dose PACKET PO SCH (10:44)
[2017-12-28] MEDS: Azithromycin 500MG/NS 250ml 500 MG/250 ML BAG IVPB SCH (10:49)
--- NOTE | 2017-12-28 13:48 | PN ---
DATE: 12/28/2017 SUBJECTIVE: A 72-year-old male resting comfortably in bed. This morning, nursing staff relates that there were no particular problems. PHYSICAL EXAMINATION: VITAL SIGNS: His temperature is 98.7, his pulse is 70, his blood pressure is 144/82, respiratory rate is 18, and his oxygen sat is reported at 98% on room air. GENERAL: The patient is alert. He has an expressive aphasia. LUNGS: Show chronic rhonchi with diminished breath sounds at the bases. HEART: Irregular S1 and S2 rhythm. ABDOMEN: Obese, soft with positive bowel sounds. EXTREMITIES: Show no evidence of edema. LABORATORY DATA: Shows a WBC of 4.1, RBC 5.01, hemoglobin 14.7, hematocrit 44, and platelet count is 184. His PT is 18 with an INR of 1.55. His chemistry shows a sodium of 135, potassium 5.1, chloride 99, BUN is 25 with a creatinine of 0.6. His random blood sugar is 261. Calcium is 9.1. ASSESSMENT AND PLAN: At the present time, the patient is on Coumadin therapy for his underlying atrial fibrillation. He is on digoxin therapy for his underlying atrial fibrillation. He is receiving DuoNeb therapies for his underlying chronic obstructive pulmonary disease. He is on Ecotrin as well because of his coronary artery disease. He is on Flomax for benign prostatic hyperplasia. He is on insulin therapy for his diabetes. He is on Keppra for his seizure disorder history. Lopressor for his atrial fibrillation. MiraLax for bowel regimen, had been placed on prednisone by Pulmonary for his underlying pulmonary infiltrate and chronic obstructive pulmonary disease, and he is on gastrointestinal prophylaxis with Protonix. He is also continuing Pulmicort Respules at this time. He is on Rocephin and Zithromax for community-acquired pneumonia by Infectious Disease. We will repeat serum potassium to adjust his Coumadin and followup his labs, PT/INR and CBC. Continue with the current medical regimen at this time as per the consultants. Eva Castle MD
[2017-12-28] MEDS: Digoxin 125 mcg (0.125 mg) Tab PO SCH (14:18)
--- NOTE | 2017-12-28 15:19 | PN ---
DATE: 12/28/2017 SUBJECTIVE: The patient is in bed, in no acute distress, comfortable. No fevers and chills. PHYSICAL EXAMINATION: VITAL SIGNS: On exam, temperature is 99, blood pressure is 140/80, respiratory rate of 18, heart rate of 91. HEENT: Examination of HEENT is unremarkable. NECK: Supple. LUNGS: Have decreased breath sounds. HEART: Normal S1, S2. ABDOMEN: Soft and nontender. No rebound or guarding. LABORATORY DATA: Laboratory examination reveals a white count of 4.1, hemoglobin of 14, platelets of 184. Chemistries reveals a BUN of 25, creatinine of 0.6. Urinalysis is noted. Serology: Urine for Legionella antigen is negative. Blood cultures are negative. Urine cultures are negative. Dr. Moore's note from this morning reveals that the patient less likely has an aspiration pneumonia. It is consistent more of an acute bronchitis and he also discussed the case with me earlier this morning in person. ASSESSMENT AND PLAN: A 72-year-old male, admitted with acute diastolic congestive heart failure on top of chronic congestive heart failure, questionable right lower lobe pneumonia in a patient who has not been hospitalized in past 3 months, who is currently on ceftriaxone and Zithromax. Dr. Moore does not believe there is a pneumonia. The patient's urine for Legionella antigen is negative. The patient's procalcitonin is negative. His blood cultures are negative. The urine cultures are negative. Methicillin-resistant Staphylococcus aureus screen is pending. We will discontinue the ceftriaxone and change the Zithromax to p.o. to complete 5 days total of Zithromax. We will speak to Dr. Castle. Joni Lord MD
[2017-12-29] MEDS: Albuterol-Ipratrop 3 mg / 0.5 (3 ml) UD IH SCH ×4 (03:39→19:32)
[2017-12-29 06:31] LABS: BASO # 0.03 K/mm3 (0.0-2.0); BASO % 0.5 % (0.0-3.0); EOS % 0.7 % (1.5-5.0); GRAN # 3.96 (1.4-6.5); GRAN % 66.6 % (50.0-68.0); HEMOGLOBIN 13.5 g/dL (14.0-18.0); LYMPH # 1.2 (1.2-3.4); LYMPH % 19.3 % (22.0-35.0); MEAN CELL VOLUME 87.9 fl (80.0-105.0); MEAN CORPUSCULAR HEMOGLOBIN 29.2 pg (25.0-35.0); MEAN CORPUSCULAR HGB CONC 33.2 g/dl (31.0-37.0); MEAN PLATELET VOLUME 9.7 fl (7.0-11.0); MONO # 0.8 (0.1-0.6); MONO % 12.9 % (1.0-6.0); RBC 4.63 10^6/uL (3.5-6.1); RED CELL DISTRIBUTION WIDTH 13.4 % (11.5-14.5)
[2017-12-29 06:33] LABS: INR 1.96; PROTHROMBIN TIME 22.8 SECONDS (9.4-12.5)
[2017-12-29 07:01] LABS: BLOOD UREA NITROGEN 30 mg/dL (7-21); CALCIUM 8.9 mg/dL (8.4-10.5); GFR NON-AFRICAN AMERICAN > 60
--- NOTE | 2017-12-29 07:12 | PN ---
DATE: 12/29/2017 PULMONARY NOTE SUBJECTIVE: The patient appears quite comfortable at rest. He is not short of breath. PHYSICAL EXAMINATION: VITAL SIGNS: Temperature is 98.8, pulse 70, respirations 18, blood pressure 135/79. Oxygen saturation on room air is 95%. HEENT: Normocephalic, atraumatic. No JVD. CARDIOVASCULAR: Positive S1, S2. No S3 gallop. LUNGS: Decreased breath sounds at the bases. Very minimal/less rhonchi. No wheezing. EXTREMITIES: No clubbing, cyanosis or edema. Calves are nontender to palpation. GI: Abdomen is soft, nontender and nondistended. Bowel sounds are positive. SKIN: No acute rash. NEUROLOGIC: Limited at the present time. IMPRESSION: 1. Acute bronchitis. 2. Chronic dysphagia. 3. Atrial fibrillation. 4. Coronary artery disease. PLAN: The patient appears quite comfortable this morning. He is not short of breath at rest. He is awake and alert. I did discuss the case with the night nurse at length. The night nurse stated that the patient had a good night. On physical exam, the patient's bronchospasm continues to resolve. In addition, the oxygen saturation on room air is 95%. I will continue with the current nebulizer treatments and oral steroids (changed yesterday) for now. The patient has also been transitioned to oral antibiotic therapy. There are no temperatures noted. There is no leukocytosis. Clinical status of the patient is significantly improved overall. I will discuss the above with Dr. Castle. Trevor Moore MD [facility]
[2017-12-29] MEDS: Budesonide 0.5 mg/2 ml Inhal Susp UD IH SCH ×2 (08:03→19:32)
[2017-12-29] MEDS: Insulin Reg-LOW-Coverage SC SCH ×4 (08:30→21:33)
[2017-12-29] MEDS: Pantoprazole 40 mg EC Tab PO SCH (09:14)
[2017-12-29] MEDS: POLYETHYLENE GLYCOL 3350 17 GM/Dose PACKET PO SCH (09:16)
--- NOTE | 2017-12-29 11:53 | PN ---
DATE: 12/29/2017 SUBJECTIVE: A 72-year-old male, resting comfortably in bed this morning. Nursing staff relates that there were no problems during the night. His temperature is rated 98.8. His pulse is 70. His blood pressure is 135/79. His oxygen sat is 95%. Currently, the patient is on prednisone 30 mg daily, Protonix 40 mg daily, Pulmicort 0.5 mg every 12, Robitussin cough medicine p.r.n. every 6, Zithromax 250 daily, MiraLax 17 g daily, Lopressor 50 mg b.i.d., Keppra 750 b.i.d., Humulin sliding scale, Flomax 0.4 mg daily, Ecotrin 81 mg daily and albuterol treatments every 6 hours, digoxin 0.125 mg daily. PHYSICAL EXAMINATION: GENERAL: He is alert. NECK: Supple. LUNGS: Show bibasilar rhonchi. HEART: An irregular S1, S2 rhythm. ABDOMEN: Obese, soft with positive bowel sounds. EXTREMITIES: Show no evidence of edema. LABORATORY DATA: Shows WBC of 6, RBC 4.63, hemoglobin 13.5, hematocrit 40.7, platelet count is 193. PT is 22.8 with an INR of 1.96. Chemistry shows a sodium of 136, potassium 4.1, chloride 102, the BUN is 30, the creatinine is 0.6. His random blood sugar is 132. To date, urine and blood cultures are negative. His MRSA screen is negative. ASSESSMENT AND PLAN: 1. The patient has underlying atrial fibrillation, was seen by Cardiology with recommendations to continue current medical management. 2. The patient was admitted with a history of cough, was found to have a suggested infiltrate on the chest x-ray. Being followed by Pulmonary and Infectious Disease, was initiated on IV antibiotics. The notes of both pulmonary and infectious disease are noted. 3. The patient has a history of diabetes mellitus, controlled with diet and sliding finger scale with insulin. 4. 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 5. He has a history of peripheral vascular disease. 6. History of arteriosclerotic heart disease. 7. History of pneumonia. 8. History of congestive heart failure. We will follow up the patient's labs at this time. Continue the recommendations of the consultants and discuss his care with the family. Eva Castle MD [facility] # [id number]
--- NOTE | 2017-12-29 12:40 | PN ---
DATE: 12/29/2017 SUBJECTIVE: The patient is in bed in no acute distress, nontoxic. PHYSICAL EXAMINATION: VITAL SIGNS: On exam, temperature is 98, blood pressure is 160/80, respiratory rate 20, heart rate of 107. HEENT: Examination of HEENT is unremarkable. NECK: Supple. LUNGS: Have decreased breath sounds. HEART: Normal S1, S2. ABDOMEN: Soft, nontender. LABORATORY EXAMINATION: Reveals a white count of 6000, hemoglobin of 13, platelets of 193. Chemistries reveals a BUN of 30, creatinine of 0.6 and urinalysis is noted and serology is noted. Microbiology reveals the blood cultures are negative. Urine cultures are negative. Naris MRSA is negative. Review of orders, n.p.o. and prednisone. Dr. Moore's note is reviewed. ASSESSMENT AND PLAN: A 72-year-old who was admitted with acute diastolic congestive heart failure on top of chronic congestive heart failure and questionable right lower lobe pneumonia. The patient has now been hospitalized and now currently on p.o. Zithromax with negative urine for Legionella antigen, negative cultures, negative methicillin-resistant Staphylococcus aureus screen naris and a total of 5 days of Zithromax. Joni Lord MD
[2017-12-29] MEDS: Digoxin 125 mcg (0.125 mg) Tab PO SCH (16:31)
[2017-12-30] MEDS: Albuterol-Ipratrop 3 mg / 0.5 (3 ml) UD IH SCH ×3 (02:26→13:34)
[2017-12-30] MEDS: Budesonide 0.5 mg/2 ml Inhal Susp UD IH SCH (07:16)
[2017-12-30 07:22] LABS: INR 2.23; PROTHROMBIN TIME 26.1 SECONDS (9.4-12.5)
[2017-12-30 07:23] LABS: BASO # 0.04 K/mm3 (0.0-2.0); BASO % 0.6 % (0.0-3.0); EOS # 0.1 (0.0-0.7); EOS % 1.4 % (1.5-5.0); GRAN # 3.8 (1.4-6.5); GRAN % 59.3 % (50.0-68.0); HEMOGLOBIN 14.2 g/dL (14.0-18.0); LYMPH # 1.6 (1.2-3.4); LYMPH % 25.6 % (22.0-35.0); MEAN CELL VOLUME 87.8 fl (80.0-105.0); MEAN CORPUSCULAR HEMOGLOBIN 29.4 pg (25.0-35.0); MEAN CORPUSCULAR HGB CONC 33.5 g/dl (31.0-37.0); MEAN PLATELET VOLUME 9.4 fl (7.0-11.0); MONO # 0.8 (0.1-0.6); MONO % 13.1 % (1.0-6.0); RBC 4.83 10^6/uL (3.5-6.1); RED CELL DISTRIBUTION WIDTH 13.2 % (11.5-14.5); WHITE BLOOD COUNT 6.4 10^3/uL (4.5-11.0)
[2017-12-30 07:36] LABS: BLOOD UREA NITROGEN 26 mg/dL (7-21); CALCIUM 8.9 mg/dL (8.4-10.5); GFR NON-AFRICAN AMERICAN > 60
[2017-12-30 07:58] VITALS: TEMP 98.5
[2017-12-30] MEDS: Insulin Reg-LOW-Coverage SC SCH ×2 (08:09→12:09)
[2017-12-30] MEDS: POLYETHYLENE GLYCOL 3350 17 GM/Dose PACKET PO SCH (09:03)
[2017-12-30] MEDS: Pantoprazole 40 mg EC Tab PO SCH (09:04)
--- NOTE | 2017-12-30 10:30 | PN ---
DATE: 12/30/2017 PULMONARY PROGRESS NOTE SUBJECTIVE: The patient was seen and examined at bedside. He is coughing excessively, but he does not appear to be short of breath. He is receiving inhalation treatment with DuoNeb and I added budesonide. He is also on azithromycin, Robitussin, and prednisone. PHYSICAL EXAMINATION: VITAL SIGNS: His temperature is 98.4, pulse 84, respirations 22, blood pressure is 133/75. HEENT: Head normocephalic and atraumatic. CARDIOVASCULAR: Positive S1, S2. No S3. PULMONARY: Diminished breath sounds bilaterally with scattered rhonchi, no wheezing. GASTROINTESTINAL: Soft, nontender, no organomegaly. EXTREMITIES: No clubbing, cyanosis, or edema. SKIN: No acute skin rash. NEUROLOGIC: Limited at present time. ASSESSMENT: 1. Exacerbation of chronic obstructive pulmonary disease. 2. Acute bronchitis. 3. Chronic dysphagia. 4. Atrial fibrillation. PLAN: The patient is still coughing excessively, however, appears not to be short of breath at rest. We will continue with current administration of antibiotics, low-dose steroids, nebulizer treatment, and cough suppressants. Michael Mcnamara MD
[2017-12-30] MEDS: Digoxin 125 mcg (0.125 mg) Tab PO SCH (13:57)
[2017-12-30 14:00] VITALS: PULSE 68
--- NOTE | 2017-12-30 14:32 | PN ---
DATE: 12/30/2017 The patient is in bed in no acute distress. PHYSICAL EXAMINATION: Temperature is 98, blood pressure is 150/80, respiratory rate 16. Examination of HEENT is unremarkable. Neck is supple. Lungs show decreased breath sounds. Heart exam is normal S1 and S2. Abdominal examination is soft. LABORATORY EXAMINATION: Reveals a white count of 6.4, hemoglobin of 14. Chemistries are noted. Urinalysis is noted. Microbiology reveals the urine cultures negative, blood cultures are negative, nares MRSA is negative. Dr. Michael Mcnamara's progress note from today is reviewed. He states the patient has an exacerbation of chronic obstructive lung disease and acute bronchitis. ASSESSMENT/PLAN: This is a 72-year-old who was admitted with acute diastolic congestive heart failure and chronic congestive heart failure and questionable right lower lobe pneumonia. He is on p.o. Zithromax, would complete 5 days of p.o. Zithromax, and cultures are negative. Case discussed with Dr. Castle this morning. The patient for possible discharge on p.o. Zithromax, also on prednisone. Joni Lord MD
[2017-12-30 14:46] VITALS: BP 104/73; PULSE 95; RESP 20; O2SAT 93
== END 2017-12-30 17:31 | disposition home or self-care (01) | DRG 193 ==
LOC: ED 14:37 → ERH 16:15 → 2RNO 20:22 → 5RNO 12-29 12:59
PROVIDERS: ADMIT Internal Medicine; ATTEND Internal Medicine
DX: J18.1 Lobar pneumonia, unspecified organism (principal); I50.33 Acute on chronic diastolic (congestive) heart failure; J44.1 Chronic obstructive pulmonary disease with (acute) exacerbation; J44.0 Chronic obstructive pulmonary disease with (acute) lower respiratory infection; I69.351 Hemiplegia and hemiparesis following cerebral infarction affecting right dominant side; I11.0 Hypertensive heart disease with heart failure; F01.50 Vascular dementia, unspecified severity, without behavioral disturbance, psychotic disturbance, mood disturbance, and anxiety; G40.909 Epilepsy, unspecified, not intractable, without status epilepticus; I48.2 Chronic atrial fibrillation; I25.10 Atherosclerotic heart disease of native coronary artery without angina pectoris; N40.0 Benign prostatic hyperplasia without lower urinary tract symptoms; J20.9 Acute bronchitis, unspecified; K59.00 Constipation, unspecified; I45.10 Unspecified right bundle-branch block; R13.10 Dysphagia, unspecified; E11.51 Type 2 diabetes mellitus with diabetic peripheral angiopathy without gangrene; I69.391 Dysphagia following cerebral infarction; Z79.4 Long term (current) use of insulin; Z79.01 Long term (current) use of anticoagulants; Z86.718 Personal history of other venous thrombosis and embolism; I69.320 Aphasia following cerebral infarction; Z87.891 Personal history of nicotine dependence; Z89.411 Acquired absence of right great toe; Z74.01 Bed confinement status

== ENCOUNTER 2018-01-23 11:36 | Emergency (ER) | payer MEDICARE ==
[2018-01-23 11:36] VITALS: PULSE 68
[2018-01-23 12:02] VITALS: BMI 31.9
--- NOTE | 2018-01-23 12:37 | ED PDOC ---
Arrival/HPI - General Chief Complaint: Abnormal Skin Integrity Time Seen by Provider: 01/23/18 11:46 Historian: Patient - History of Present Illness Narrative History of Present Illness (Text): 01/23/18 12:31 72 year old male, whose past medical history includes hemorraghic stroke with right sided hemiparesis, atrial fibrillation, diabetes, expressive aphasia, seizure disorder, CAD, DVT s/p IVC filter, and hypertension, presents to the emergency department accompanied by and daughter, complaining of an ulcer on his left foot and secondary cough and runny nose, for the past couple of days. states that his cough and runny nose have been persistent, she is unsure if his cough is productive. denies fevers, chills, headache, dizziness, chest pain, shortness of breath, abdominal pain, nausea, vomiting, diarrhea, back pain, neck pain, or any other complaint. PMD: Dr. Castle Time/Duration: < week Symptom Onset: Gradual Symptom Course: Unchanged Activities at Onset: Light Context: Home Past Medical History - Provider Review Nursing Documentation Reviewed: Yes - Infectious Disease Hx of Infectious Diseases: None - Tetanus Immunization Tetanus Immunization: Unknown - Cardiac Hx Cardiac Disorders: Yes Hx Congestive Heart Failure: Yes Hx Hypertension: Yes - Pulmonary Hx Respiratory Disorders: Yes Hx Pneumonia: Yes - Neurological Hx Neurological Disorder: Yes HX Cerebrovascular Accident: Yes (expressive aphasia; R sided weakness) - HEENT Hx HEENT Disorder: No - Renal Hx Renal Disorder: No - Endocrine/Metabolic Hx Endocrine Disorders: Yes Hx Diabetes Mellitus Type 1: Yes - Hematological/Oncological Hx Blood Disorders: No - Integumentary Hx Dermatological Disorder: No - Musculoskeletal/Rheumatological Hx Musculoskeletal Disorders: Yes Hx Arthritis: Yes Hx Unsteady Gait: Yes Other/Comment: (R) toe amputation, (R) sided flaccid upper and lower extremities, bedridden - Gastrointestinal Hx Gastrointestinal Disorders: No - Genitourinary/Gynecological Hx Genitourinary Disorders: Yes Hx Incontinence: Yes - Psychiatric Hx Psychophysiologic Disorder: No Hx Substance Use: No - Surgical History Hx Amputation: Yes ((R) big toe) - Anesthesia Hx Anesthesia: No - Suicidal Assessment Feels Threatened In Home Enviroment: No Family/Social History - Physician Review Nursing Documentation Reviewed: Yes Family/Social History: No Known Family HX Smoking Status: Former Smoker Hx Alcohol Use: No Hx Substance Use: No Hx Substance Use Treatment: No Allergies/Home Meds Allergies/Adverse Reactions: Allergies clopidogrel Allergy (Verified 01/23/18 12:07) RASH Home Medications: Home Meds Medication Instructions Recorded Confirmed Aspirin [Aspir 81] 81 mg PO DAILY 07/03/11 12/26/17 Tamsulosin [Flomax] 0.4 mg PO DAILY 07/03/11 12/26/17 Pravastatin Sodium [Pravachol] 40 mg PO DAILY 04/15/16 12/26/17 QUEtiapine [Seroquel] 50 mg PO BID 10/08/16 12/26/17 Digoxin [Lanoxin] 0.125 mg PO 1400 10/11/17 12/26/17 Insulin Lispro [Humalog Kwikpen 0 unit SQ 12/26/17 U-100] Review of Systems - Physician Review All systems were reviewed & negative as marked: Yes - Review of Systems Constitutional: absent: Fevers ENT: Rhinorrhea Respiratory: Cough Cardiovascular: absent: Chest Pain Gastrointestinal: absent: Abdominal Pain, Diarrhea, Nausea, Vomiting Musculoskeletal: Other (ulcer on foot). absent: Back Pain, Neck Pain Neurological: absent: Headache, Dizziness Physical Exam - Physical Exam Narrative Physical Exam (Text): 01/23/18 12:32 Gen: VS reviewed, alert, nonverbal, well developed, well nourished, nontoxic, mild distress. ENT: dry mucous membrane. Eye: EOMI, PERRL. Neck: no JVD, supple, no adenopathy. CV: regular rate, regular rhythm, no rubs, no murmur, no gallops, S1, S2, pulses equal and strong. Pulm: no distress, clear to auscultation, no wheeze, no rhonchi, breath sounds equal, no rales. Abd: soft, nontender, no guarding, no rebound, no rigidity, normal bowel sounds. Ext: pressure boots noted to bilateral lower extremities. Skin: good color, no rash, no cyanosis. Psych: limited secondary to nonverbal condition. Neuro:flaccid paralysis in right arm and leg. limited secondary to nonverbal condition. Physical Exam Limitations: Other (nonverbal ) Vital Signs Reviewed: Yes Vital Signs Temp Pulse Resp BP Pulse Ox 01/23/18 12:02 98.0 F 70 19 86/43 L 99 Temperature: Afebrile Blood Pressure: Hypotensive Pulse: Regular Respiratory Rate: Normal Appearance: Positive for: Well-Appearing, Non-Toxic, Comfortable Pain Distress: None Mental Status: Positive for: other (nonverbal) Medical Decision Making ED Course and Treatment: 01/23/18 12:32 Impression: 72 year old male who presents to the emergency department complaining of ulcer on foot, cough, and rhinorrhea. Plan: -- Chest X-ray -- Reassess and disposition Prior Visits: Notes and results from previous visits were reviewed. Progress Notes: - RAD Interpretation Narrative RAD Interpretations (Text): 01/23/18 13:27 Chest X-ray reviewed, shows: IMPRESSION: No active disease. Roller Skater: Radiologist - Scribe Statement The provider has reviewed the documentation as recorded by the Scribpaola Enrique Provider Scribe Attestation: All medical record entries made by the Scribe were at my direction and personally dictated by me. I have reviewed the chart and agree that the record accurately reflects my personal performance of the history, physical exam, medical decision making, and the department course for this patient. I have also personally directed, reviewed, and agree with the discharge instructions and disposition. Disposition/Present on Arrival - Present on Arrival Any Indicators Present on Arrival: No History of DVT/PE: No History of Uncontrolled Diabetes: No Urinary Catheter: No History of Decub. Ulcer: No History Surgical Site Infection Following: None - Disposition Have Diagnosis and Disposition been Completed?: Yes Diagnosis: Rhinitis Disposition: HOME/ ROUTINE Disposition Time: 13:34 Patient Plan: Discharge Patient Problems: Current Active Problems Problem Status Onset Rhinitis Acute Condition: STABLE Discharge Instructions (ExitCare): Cough, Runny Nose, and the Common Cold (DC) Additional Instructions: Follow up with your primary care doctor as soon as possible. JOHN FLANAGAN, thank you for letting us take care of you today. Your provider was Dr.Lamont Mei and you were treated for ulcer on foot. The emergency medical care you received today was directed at your acute symptoms. If you were prescribed any medication, please fill it and take as directed. It may take several days for your symptoms to resolve. Return to the Emergency Department if your symptoms worsen, do not improve, or if you have any other problems. Please contact your doctor or call one of the physicians/clinics you have been referred to that are listed on the Patient Visit Information form that is included in your discharge packet. Bring any paperwork you were given at discharge with you along with any medications you are taking to your follow up visit. Our treatment cannot replace ongoing medical care by a primary care provider outside of the emergency department. Thank you for allowing the [facility] team to be part of your care today. If you had an X-Ray or CT scan: A Radiologist will review the ED reading if any change in treatment is needed we will contact you. If you had a blood, urine, or wound culture: It will take several days for the results, if any change in treatment is needed we will contact you. If you had an STI test: It will take 48 hours for the results. Please call after 1 week if you have not heard back. Forms: [employer] (Barbadian)
--- NOTE | 2018-01-23 13:17 | RAD ---
Date of service: 01/23/2018 HISTORY: cough, pneumonia COMPARISON: 12/26/2017 TECHNIQUE: Chest PA and lateral FINDINGS: LUNGS: Resolved right lower lobe infiltrate PLEURA: No significant pleural effusion identified. No pneumothorax apparent. CARDIOVASCULAR: No aortic atherosclerotic calcification present. Moderate cardiomegaly no pulmonary vascular congestion. OSSEOUS STRUCTURES: No significant abnormalities. VISUALIZED UPPER ABDOMEN: Normal. OTHER FINDINGS: None. IMPRESSION: No active disease.
[2018-01-23 16:00] VITALS: BP 131/67; PULSE 61; RESP 18; TEMP 98; O2SAT 99
--- NOTE | 2018-01-23 20:56 | CON ---
DATE OF CONSULTATION: 01/23/2018 HISTORY OF PRESENT ILLNESS: A 72-year-old diabetic male seen in the emergency room at the request of Dr. Eva Castle for consultation, evaluation and management of recent skin breakdown on his left foot and great toe. The patient's is stating that he has also been coughing heavily and constantly over the course of the last 3 days with a continuously running notice. She states that the cough is relatively nonproductive at this point and he denies any fever, chills, nausea or vomiting as well as no shortness of breath. He did not know how long the wound has been on the heel, but the visiting nurse has been applying Santyl ointment over the course of the last 2 weeks. PAST MEDICAL HISTORY: Significant for hemorrhagic stroke on the right side with right-sided hemiparesis in 2010, insulin-dependent diabetes with peripheral neuropathy, atrial fibrillation, aphasia, seizure disorder, CAD, essential hypertension and DVT status post ICD filter. PAST SURGICAL HISTORY: Right great toe amputation. FAMILY HISTORY: Noncontributory. SOCIAL HISTORY: The patient was a former heavy smoker. No longer smoking. Denies illicit drug use. Denies alcohol abuse. HOME MEDICATIONS: Insulin, aspirin, Flomax, Pravachol, Seroquel, Lanoxin. ALLERGIC: THE PATIENT IS ALLERGIC TO CLOPIDOGREL. OBJECTIVE: Nonpalpable pedal pulses noted bilaterally. Absent pedal hair growth noted bilaterally. +1 nonpitting lower extremity edema noted bilaterally. Lower extremity skin presents thin shining discolor bilaterally. The patient is unable to detect 5.07 g monofilament wire testing bilaterally. There is noted to be non-stageable superficial ulcerations on the left heel as well as on the distal aspect of the left hallux. The wounds are granular and superficial with no drainage, no purulence. The do not probe to tendon or bone. There are no signs of purulence or underlying abscess formation. The area is void of edema or erythema to suggest cellulitis. ASSESSMENT: This is a 72-year-old male presents with non-stageable diabetic left heel and distal hallux ulcerations, which resemble more of a deep tissue injury at this point. PLAN: The patient's wounds were cleansed with normal sterile saline. We will apply Xeroform with a small amount of Bactroban ointment and a dry sterile dressing. The patient's and daughter were educated on the fact that the wounds were caused by pressure, which must be relieved in order to prevent further skin breakdown and ulceration. Two Multi-Podus foam boots were dispensed. They were told to be used at all times when the patient is in bed. He can take breaks from the boots, but only periodically and the breaks should not last hours. The patient's family members state that he has been very reluctant to use the foam boots in the past. They were told to continue applying the Bactroban dressings once daily x1 week. The patient's will call the office if she has any concerns. Kp Brown DPM
== END 2018-01-23 16:20 | disposition home or self-care (01) ==
LOC: ED 11:36
DX: J31.0 Chronic rhinitis (principal); I11.0 Hypertensive heart disease with heart failure; I50.9 Heart failure, unspecified; Z87.891 Personal history of nicotine dependence

== ENCOUNTER 2018-04-16 19:45 | Inpatient (IN) | payer MEDICARE ==
--- NOTE | 2018-04-16 20:04 | ED PDOC ---
Arrival/HPI - General Chief Complaint: Respiratory Distress Time Seen by Provider: 04/16/18 19:53 Historian: Patient, Family, EMS - History of Present Illness Narrative History of Present Illness (Text): 04/16/18 20:01 73 year old male, whose past medical history includes hemorraghic stroke with right sided hemiparesis, atrial fibrillation, diabetes, expressive aphasia, seizure disorder, CAD, DVT s/p IVC filter, and hypertension, presents to the emergency department accompanied by and daughter, for evaluation of shortness of breath since 6:30 this evening. Patient is nonverbal at bedside but nods to chest pain and abdominal pain. HPI and ROS limited secondary to patient's clinical presentation. Time/Duration: Prior to Arrival Symptom Onset: Gradual Symptom Course: Unchanged Activities at Onset: Light Context: Home Past Medical History - Provider Review Nursing Documentation Reviewed: Yes - Infectious Disease Hx of Infectious Diseases: None - Tetanus Immunization Tetanus Immunization: Unknown - Cardiac Hx Cardiac Disorders: Yes Hx Congestive Heart Failure: Yes Hx Hypertension: Yes - Pulmonary Hx Respiratory Disorders: Yes Hx Pneumonia: Yes - Neurological Hx Neurological Disorder: Yes HX Cerebrovascular Accident: Yes (expressive aphasia; R sided weakness) - HEENT Hx HEENT Disorder: No - Renal Hx Renal Disorder: No - Endocrine/Metabolic Hx Endocrine Disorders: Yes Hx Diabetes Mellitus Type 1: Yes - Hematological/Oncological Hx Blood Disorders: No - Integumentary Hx Dermatological Disorder: No - Musculoskeletal/Rheumatological Hx Musculoskeletal Disorders: Yes Hx Arthritis: Yes Hx Unsteady Gait: Yes Other/Comment: (R) toe amputation, (R) sided flaccid upper and lower extremities, bedridden - Gastrointestinal Hx Gastrointestinal Disorders: No - Genitourinary/Gynecological Hx Genitourinary Disorders: Yes Hx Incontinence: Yes - Psychiatric Hx Psychophysiologic Disorder: No Hx Substance Use: No - Surgical History Hx Amputation: Yes ((R) big toe) - Anesthesia Hx Anesthesia: No - Suicidal Assessment Feels Threatened In Home Enviroment: No Family/Social History - Physician Review Nursing Documentation Reviewed: Yes Family/Social History: No Known Family HX Smoking Status: Former Smoker Hx Alcohol Use: No Hx Substance Use: No Hx Substance Use Treatment: No Allergies/Home Meds Allergies/Adverse Reactions: Allergies clopidogrel Allergy (Verified 04/16/18 19:54) RASH Home Medications: Home Meds Medication Instructions Recorded Confirmed Aspirin [Aspir 81] 81 mg PO DAILY 07/03/11 04/16/18 Tamsulosin [Flomax] 0.4 mg PO DAILY 07/03/11 04/16/18 Pravastatin Sodium [Pravachol] 40 mg PO DAILY 04/15/16 04/16/18 QUEtiapine [Seroquel] 50 mg PO BID 10/08/16 04/16/18 Digoxin [Lanoxin] 0.125 mg PO DAILY 10/11/17 04/16/18 Insulin Lispro [Humalog Kwikpen 0 unit SQ 12/26/17 U-100] Metoprolol Tartrate [Lopressor] 50 mg PO BID 04/16/18 04/16/18 Warfarin [Coumadin] 5 mg PO DAILY 04/16/18 04/16/18 Review of Systems - Review of Systems Systems not reviewed;Unavailable: Other (Expressive aphasia) Respiratory: SOB Cardiovascular: Chest Pain Gastrointestinal: Abdominal Pain Physical Exam - Physical Exam Narrative Physical Exam (Text): 04/16/18 20:03 Gen: VS reviewed, alert, well developed, well nourished, nontoxic, mild distress Eye: EOMI, PERRL Neck: difficult to assess second to patient body habitus, no overt JVD CV: rapid rate, irregularly irregular rhythm Pulm: crackles in the bilateral lung bases, no wheezing Abd: soft, nondistended Ext: there is pitting edema in the bilateral lower extremities Skin: good color, no rash, no cyanosis Psych: unable to assess second to nonverbal state Neuro: unable to fully assess second to nonverbal state 04/16/18 20:52 Vital Signs Reviewed: Yes Vital Signs Pulse Resp BP Pulse Ox 04/16/18 19:54 116 H 21 165/65 H 96 Temperature: Afebrile Blood Pressure: Hypertensive Pulse: Tachycardic Respiratory Rate: Normal Appearance: Positive for: Well-Appearing, Non-Toxic, Comfortable Pain Distress: Mild Mental Status: Positive for: other (Alert) Medical Decision Making ED Course and Treatment: 04/16/18 20:03 Impression: 73 year old male presents to the ED for evaluation of shortness of breath. Plan: -- VBG -- EKG -- CMP, Labs -- CBC, Platelets -- Chest X-ray -- Blood and Urine Cultures -- Urinalysis -- Reassess and disposition Prior Visits: Notes and results from previous visits were reviewed. Progress Notes: 04/16/18 20:[address] castle, states that the called him stating that the patient was short of breath and diaphoretic at home. 04/16/18 20:26 04/16/18 21:[address] murrell, covering ICU, will see patient in consultation to assess for admission/disposition. at this time am awaiting call back from dr. castle to conclude case and admission. 04/16/18 21:38 heart rate responded well and is now in the 70's, blood pressure dropped significantly after cardizem dose to 100. the intent was to give dose of lasix but will hold for now and defer to ICU after consult. admit accepted by dr. castle - Critical Care Critical Care Minutes: 30 minutes (critical care for critical illness. potential life threatening illness,complex medical decision making) - RAD Interpretation Narrative RAD Interpretations (Text): 04/16/18 21:32 cxr my read: no focal infiltrate, suboptimal film due to body position, +pulm vascular congestion Seam Stayer: ED Physician - EKG Interpretation EKG Interpretation (Text): 04/16/18 20:17 1954: atrial fibrillation at 133 bpm, rbbb, rapid vent rate 04/16/18 20:54 classroom monitor: rapid atrial fibrillation at 133 bpm Interpreted by ED Physician: Yes - Scribe Statement The provider has reviewed the documentation as recorded by the Scribe Taryn Myrick. All medical record entries made by the Scribe were at my direction and personally dictated by me. I have reviewed the chart and agree that the record accurately reflects my personal performance of the history, physical exam, medical decision making, and the department course for this patient. I have also personally directed, reviewed, and agree with the discharge instructions and disposition. Disposition/Present on Arrival - Present on Arrival Any Indicators Present on Arrival: No History of DVT/PE: No History of Uncontrolled Diabetes: No Urinary Catheter: No History of Decub. Ulcer: No History Surgical Site Infection Following: None - Disposition Have Diagnosis and Disposition been Completed?: Yes Diagnosis: CHF (congestive heart failure), Atrial fibrillation Disposition: HOSPITALIZED Disposition Time: 21:43 Patient Plan: Admission Condition: GUARDED Discharge Instructions (ExitCare): Heart Failure (ED) Referrals: Eva Castle MD [Primary Care Provider] - Follow up with primary Forms: [employer] (Frisian)
[2018-04-16] MEDS ORDERED: diltiaZEM IVPB 100mg in NS 100 ML IV PRN (20:38)
[2018-04-16 20:41] LABS: VENOUS BLOOD GAS BASE EXCESS 1.9 mmol/L (0.0-2.0); VENOUS BLOOD GAS PO2 61 mm/Hg (30-55); VENOUS BLOOD PH 7.33 (7.32-7.43)
[2018-04-16 20:43] LABS: BASO # 0.03 K/mm3 (0.0-2.0); BASO % 0.4 % (0.0-3.0); EOS # 0.4 (0.0-0.7); EOS % 4.9 % (1.5-5.0); HEMOGLOBIN 15.6 g/dL (14.0-18.0); LYMPH # 1.1 (1.2-3.4); LYMPH % 14.4 % (22.0-35.0); MEAN CELL VOLUME 86.1 fl (80.0-105.0); MEAN CORPUSCULAR HEMOGLOBIN 29.4 pg (25.0-35.0); MEAN CORPUSCULAR HGB CONC 34.1 g/dl (31.0-37.0); MEAN PLATELET VOLUME 9.8 fl (7.0-11.0); MONO # 0.7 (0.1-0.6); MONO % 8.7 % (1.0-6.0); RBC 5.31 10^6/uL (3.5-6.1); RED CELL DISTRIBUTION WIDTH 13.6 % (11.5-14.5); WHITE BLOOD COUNT 7.6 10^3/uL (4.5-11.0)
[2018-04-16 20:54] LABS: BLOOD UREA NITROGEN 23 mg/dL (7-21); CALCIUM 9.1 mg/dL (8.4-10.5); GFR NON-AFRICAN AMERICAN > 60
[2018-04-16 20:56] LABS: INR 1.56; PARTIAL THROMBOPLASTIN TIME 38.6 Seconds (26.9-38.3); PROTHROMBIN TIME 17.3 SECONDS (9.4-12.5)
[2018-04-16 20:57] LABS: ALB/GLOB RATIO 1.1 (1.1-1.8); ALBUMIN 3.8 g/dL (3.0-4.8); ALT/SGPT 12 U/L (7-56); AST/SGOT 36 U/L (17-59)
[2018-04-16 21:05] LABS: B-TYPE NATRIURETIC PEPTIDE 3720 pg/mL (0-450)
[2018-04-16 21:06] LABS: TROPONIN I 0.02 ng/mL
[2018-04-16 21:44] LABS: URINE BILIRUBIN NEGATIVE (NEGATIVE); URINE BLOOD SMALL (NEGATIVE); URINE GLUCOSE (UA) NEGATIVE (NEGATIVE); URINE LEUKOCYTE ESTERASE SMALL Leu/uL (NEGATIVE); URINE PROTEIN 100 mg/dL (<30 mg/dL); URINE UROBILINOGEN 0.2 E.U./dL (<1 E.U./dL)
[2018-04-16 21:46] LABS: URINE APPEARANCE SL CLOUDY (CLEAR); URINE COLOR YELLOW (YELLOW)
[2018-04-16 22:19] LABS: URINE BACTERIA MOD /hpf; URINE EPITHELIAL CELLS 0 - 2 /hpf (0-5); URINE WBC 25 - 30 /hpf (0-6)
--- NOTE | 2018-04-16 22:58 | CP.PCM.CON ---
<Jacky Rodriguez - Last Filed: 04/17/18 01:03> History of Present Illness - History of Present Illness History of Present Illness: Jacky Rodriguez PGY2 ICU Consult Note Reason for consult: hypotension on cardizem Mr. 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 and granddaughter are present at bedside and provide HPI as patient's aphasia makes ROS limited. EKG was noted to be AFib w/ RVR. Patient was started on Cardizem drip, but patient became hypotensive. ICU consult was requested at this time. Cardizem drip was stopped and BP improved. At the time of evaluation, the patient is still in Afib but is no longer in RVR. BP is stable off the cardizem drip. 12-pt ROS was attempted but limited due to patient's medical condition. PMD: Dr. 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 Review of Systems - Review of Systems All systems: reviewed and no additional remarkable complaints except (as per HPI) Past Patient History - Infectious Disease Hx of Infectious Diseases: None - Tetanus Immunizations Tetanus Immunization: Unknown - Past Medical History & Family History Past Medical History?: Yes - Past Social History Smoking Status: Former Smoker Alcohol: None Drugs: Denies Home Situation {Lives}: Alone - CARDIAC Hx Cardiac Disorders: Yes Hx Congestive Heart Failure: Yes Hx Hypertension: Yes - PULMONARY Hx Respiratory Disorders: Yes Hx Pneumonia: Yes - NEUROLOGICAL Hx Neurological Disorder: Yes HX Cerebrovascular Accident: Yes (expressive aphasia; R sided weakness) - HEENT Hx HEENT Problems: No - RENAL Hx Chronic Kidney Disease: No - ENDOCRINE/METABOLIC Hx Endocrine Disorders: Yes Hx Diabetes Mellitus Type 1: Yes - HEMATOLOGICAL/ONCOLOGICAL Hx Blood Disorders: No - INTEGUMENTARY Hx Dermatological Problems: No - MUSCULOSKELETAL/RHEUMATOLOGICAL Hx Musculoskeletal Disorders: Yes Hx Arthritis: Yes Hx Unsteady Gait: Yes Other/Comment: (R) toe amputation, (R) sided flaccid upper and lower extremities, bedridden - GASTROINTESTINAL Hx Gastrointestinal Disorders: No - GENITOURINARY/GYNECOLOGICAL Hx Genitourinary Disorders: Yes Hx Incontinence: Yes - PSYCHIATRIC Hx Psychophysiologic Disorder: No Hx Substance Use: No - SURGICAL HISTORY Hx Amputation: Yes ((R) big toe) - ANESTHESIA Hx Anesthesia: No Meds Allergies/Adverse Reactions: Allergies Allergy/AdvReac Type Severity Reaction Status Date / Time clopidogrel Allergy RASH Verified 04/16/18 19:54 - Medications Medications: Current Medications diltiaZEM IVPB 100mg in NS (Cardizem 100mg In Ns) 100 mls @ 5 mls/hr IV .Q20H PRN; Protocol PRN Reason: TITRATE PER MD ORDER Physical Exam - Constitutional Appears: No Acute Distress, Unkempt - Head Exam Head Exam: ATRAUMATIC, NORMAL INSPECTION - Eye Exam Eye Exam: EOMI, Normal appearance - ENT Exam ENT Exam: Mucous Membranes Dry, Normal Exam - Neck Exam Neck exam: Positive for: Normal Inspection - Respiratory Exam Respiratory Exam: NORMAL BREATHING PATTERN. absent: Rales, Rhonchi, Wheezes, Respiratory Distress - Cardiovascular Exam Cardiovascular Exam: Irregular Rhythm, +S1, +S2. absent: Tachycardia - GI/Abdominal Exam GI & Abdominal Exam: Normal Bowel Sounds, Soft. absent: Distended, Tenderness - Extremities Exam Extremities exam: Positive for: pedal pulses present - Back Exam Back exam: NORMAL INSPECTION - Neurological Exam Neurological exam: Alert - Psychiatric Exam Psychiatric exam: Normal Mood - Skin Skin Exam: Warm Results - Vital Signs Recent Vital Signs: Last Vital Signs Temp 98.7 F 04/16/18 20:01 Pulse 68 04/16/18 22:23 Resp 18 04/16/18 22:23 BP 110/47 L 04/16/18 22:23 Pulse Ox 95 04/16/18 22:23 - Labs Result Diagrams: 04/16/18 20:10 04/16/18 20:10 Labs: Laboratory Results - last 24 hr 04/16/18 04/16/18 04/16/18 20:10 20:10 20:10 WBC 7.6 RBC 5.31 Hgb 15.6 Hct 45.7 MCV 86.1 MCH 29.4 MCHC 34.1 RDW 13.6 Plt Count 178 MPV 9.8 Neut % (Auto) 71.6 H Lymph % (Auto) 14.4 L Fisher % (Auto) 8.7 H Eos % (Auto) 4.9 Baso % (Auto) 0.4 Lymph # (Auto) 1.1 L Fisher # (Auto) 0.7 H Eos # (Auto) 0.4 Baso # (Auto) 0.03 Absolute Neuts (auto) 5.40 PT 17.3 H INR 1.56 APTT 38.6 H pO2 VBG pH VBG pCO2 VBG HCO3 VBG Total CO2 VBG O2 Sat (Calc) VBG Base Excess VBG Potassium Glucose Lactate FiO2 Sodium 132 Potassium 5.3 H Chloride 98 Carbon Dioxide 28 Anion Gap 12 BUN 23 H Creatinine 0.6 L Est GFR ( Amer) > 60 Est GFR (Non-Af Amer) > 60 Random Glucose 145 H Calcium 9.1 Magnesium 1.8 Total Bilirubin 0.8 AST 36 ALT 12 Alkaline Phosphatase 87 Troponin I 0.02 D NT-Pro-B Natriuret Pep 3720 H Total Protein 7.2 Albumin 3.8 Globulin 3.5 Albumin/Globulin Ratio 1.1 Venous Blood Potassium Urine Color Urine Appearance Urine pH Ur Specific Allen Urine Protein Urine Glucose (UA) Urine Ketones Urine Blood Urine Nitrate Urine Bilirubin Urine Urobilinogen Ur Leukocyte Esterase Urine RBC Urine WBC Ur Epithelial Cells Urine Bacteria Digoxin 04/16/18 04/16/18 04/16/18 20:10 20:30 20:36 WBC RBC Hgb Hct MCV MCH MCHC RDW Plt Count MPV Neut % (Auto) Lymph % (Auto) Fisher % (Auto) Eos % (Auto) Baso % (Auto) Lymph # (Auto) Fisher # (Auto) Eos # (Auto) Baso # (Auto) Absolute Neuts (auto) PT INR APTT pO2 61 H VBG pH 7.33 VBG pCO2 55.0 VBG HCO3 29.0 H VBG Total CO2 30.7 H VBG O2 Sat (Calc) 92.8 H VBG Base Excess 1.9 VBG Potassium 5.4 H Glucose 154 H Lactate 1.2 FiO2 21.0 Sodium 130.0 L Potassium Chloride 97.0 L Carbon Dioxide Anion Gap BUN Creatinine Est GFR ( Amer) Est GFR (Non-Af Amer) Random Glucose Calcium Magnesium Total Bilirubin AST ALT Alkaline Phosphatase Troponin I NT-Pro-B Natriuret Pep Total Protein Albumin Globulin Albumin/Globulin Ratio Venous Blood Potassium 5.4 H Urine Color Yellow Urine Appearance Sl cloudy Urine pH 6.0 Ur Specific Allen >= 1.030 Urine Protein 100 H Urine Glucose (UA) Negative Urine Ketones Negative Urine Blood Small H Urine Nitrate Negative Urine Bilirubin Negative Urine Urobilinogen 0.2 Ur Leukocyte Esterase Small H Urine RBC 5 - 10 H Urine WBC 25 - 30 H Ur Epithelial Cells 0 - 2 Urine Bacteria Mod Digoxin < 0.4 L Assessment & Plan - Assessment and Plan (Free Text) Assessment: 73yo male with a PMH of Afib on coumadin, HTN, DM2, 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 Patient became hypotensive after starting Cardizem, and recovered after stopping. INR is subtherapeutic at this time, as he's on Coumadin for Afib. Hyperkalemia is also noted. Plan: - patient can be monitored on telemetry unit at this time - no need for ICU level monitoring at this time - hold Cardizem at this time, will also hold Lasix and BB as they may drop BP - cont home meds including Digoxin - Cardio should be consulted for mgmt - ?UTI, Rocephin will be given - pending Urine and blood cxs - Ca gluconate and kayexalate given for hyperK - therapeutic lovenox w/ coumadin started to bridge due to subtherapeutic INR Case was reviewed and discussed with Dr. Bustamante <Delores Bustamante - Last Filed: 04/17/18 19:36> Meds - Medications Medications: Current Medications Albuterol/Ipratropium (Duoneb 3 Mg/0.5 Mg (3 Ml) Ud) 3 ml IH [id number] [facility] Last Admin: 04/17/18 13:34 Dose: 3 ml Aspirin (Ecotrin) 81 mg PO DAILY [facility] Last Admin: 04/17/18 11:03 Dose: 81 mg Atorvastatin Calcium (Lipitor) 10 mg PO DIN [facility] Last Admin: 04/17/18 17:54 Dose: 10 mg Betamethasone/Clotrimazole (Lotrisone) 0 gm TOP BID [facility] Last Admin: 04/17/18 17:57 Dose: 1 applic Digoxin (Digoxin) 0.125 mg PO 1400 [facility] Last Admin: 04/17/18 13:31 Dose: 0.125 mg Enoxaparin Sodium (Lovenox) 80 mg SC Q12H [facility]; Protocol Last Admin: 04/17/18 13:34 Dose: 80 mg Furosemide (Lasix) 40 mg IV BID [facility] Last Admin: 04/17/18 17:54 Dose: 40 mg Cefepime HCl (Maxipime 1gm) 1 gm in 100 mls @ 100 mls/hr IVPB Q12 [facility]; Protocol Last Admin: 04/17/18 11:05 Dose: 100 mls/hr Insulin Human Regular (Humulin R Low) 0 units SC ACHS [facility]; Protocol Last Admin: 04/17/18 13:32 Dose: Not Given Lactic Acid (Lac-Hydrin 12% Lotion (225 G)) 0 gm EXT BID [facility] Last Admin: 04/17/18 17:56 Dose: 1 applic Levetiracetam (Keppra) 750 mg PO BID [facility] Last Admin: 04/17/18 17:55 Dose: 750 mg Metoprolol Tartrate (Lopressor) 50 mg PO BRKDIN [facility] Last Admin: 04/17/18 17:52 Dose: 50 mg Pantoprazole Sodium (Protonix Ec Tab) 40 mg PO DAILY [facility] Last Admin: 04/17/18 11:03 Dose: 40 mg Tamsulosin HCl (Flomax) 0.4 mg PO DAILY [facility] Last Admin: 04/17/18 11:03 Dose: 0.4 mg Warfarin Sodium (Coumadin) 5 mg PO 1800 [facility]; Protocol Last Admin: 04/17/18 17:54 Dose: 5 mg Results - Vital Signs Recent Vital Signs: Last Vital Signs Temp 98.3 F 04/17/18 14:00 Pulse 103 H 04/17/18 17:52 Resp 20 04/17/18 14:00 BP 142/52 L 04/17/18 17:54 Pulse Ox 95 04/16/18 22:58 - Labs Result Diagrams: 04/17/18 08:30 04/17/18 08:30 Labs: Laboratory Results - last 24 hr 04/16/18 04/16/18 04/16/18 20:10 20:10 20:10 WBC 7.6 RBC 5.31 Hgb 15.6 Hct 45.7 MCV 86.1 MCH 29.4 MCHC 34.1 RDW 13.6 Plt Count 178 MPV 9.8 Neut % (Auto) 71.6 H Lymph % (Auto) 14.4 L Fisher % (Auto) 8.7 H Eos % (Auto) 4.9 Baso % (Auto) 0.4 Lymph # (Auto) 1.1 L Fisher # (Auto) 0.7 H Eos # (Auto) 0.4 Baso # (Auto) 0.03 Absolute Neuts (auto) 5.40 PT 17.3 H INR 1.56 APTT 38.6 H pO2 VBG pH VBG pCO2 VBG HCO3 VBG Total CO2 VBG O2 Sat (Calc) VBG Base Excess VBG Potassium Glucose Lactate FiO2 Sodium 132 Potassium 5.3 H Chloride 98 Carbon Dioxide 28 Anion Gap 12 BUN 23 H Creatinine 0.6 L Est GFR ( Amer) > 60 Est GFR (Non-Af Amer) > 60 POC Glucose (mg/dL) Random Glucose 145 H Calcium 9.1 Magnesium 1.8 Total Bilirubin 0.8 AST 36 ALT 12 Alkaline Phosphatase 87 Troponin I 0.02 D NT-Pro-B Natriuret Pep 3720 H Total Protein 7.2 Albumin 3.8 Globulin 3.5 Albumin/Globulin Ratio 1.1 Venous Blood Potassium Urine Color Urine Appearance Urine pH Ur Specific Allen Urine Protein Urine Glucose (UA) Urine Ketones Urine Blood Urine Nitrate Urine Bilirubin Urine Urobilinogen Ur Leukocyte Esterase Urine RBC Urine WBC Ur Epithelial Cells Urine Bacteria Digoxin 04/16/18 04/16/18 04/16/18 20:10 20:30 20:36 WBC RBC Hgb Hct MCV MCH MCHC RDW Plt Count MPV Neut % (Auto) Lymph % (Auto) Fisher % (Auto) Eos % (Auto) Baso % (Auto) Lymph # (Auto) Fisher # (Auto) Eos # (Auto) Baso # (Auto) Absolute Neuts (auto) PT INR APTT pO2 61 H VBG pH 7.33 VBG pCO2 55.0 VBG HCO3 29.0 H VBG Total CO2 30.7 H VBG O2 Sat (Calc) 92.8 H VBG Base Excess 1.9 VBG Potassium 5.4 H Glucose 154 H Lactate 1.2 FiO2 21.0 Sodium 130.0 L Potassium Chloride 97.0 L Carbon Dioxide Anion Gap BUN Creatinine Est GFR ( Amer) Est GFR (Non-Af Amer) POC Glucose (mg/dL) Random Glucose Calcium Magnesium Total Bilirubin AST ALT Alkaline Phosphatase Troponin I NT-Pro-B Natriuret Pep Total Protein Albumin Globulin Albumin/Globulin Ratio Venous Blood Potassium 5.4 H Urine Color Yellow Urine Appearance Sl cloudy Urine pH 6.0 Ur Specific Allen >= 1.030 Urine Protein 100 H Urine Glucose (UA) Negative Urine Ketones Negative Urine Blood Small H Urine Nitrate Negative Urine Bilirubin Negative Urine Urobilinogen 0.2 Ur Leukocyte Esterase Small H Urine RBC 5 - 10 H Urine WBC 25 - 30 H Ur Epithelial Cells 0 - 2 Urine Bacteria Mod Digoxin < 0.4 L 04/17/18 04/17/18 04/17/18 08:30 08:30 08:30 WBC 6.0 D RBC 5.11 Hgb 14.8 Hct 43.9 MCV 85.9 MCH 29.0 MCHC 33.7 RDW 13.6 Plt Count 175 MPV 9.0 Neut % (Auto) 64.9 Lymph % (Auto) 17.5 L Fisher % (Auto) 10.1 H Eos % (Auto) 6.7 H Baso % (Auto) 0.8 Lymph # (Auto) 1.0 L Fisher # (Auto) 0.6 Eos # (Auto) 0.4 Baso # (Auto) 0.05 Absolute Neuts (auto) 3.86 PT 16.4 H INR 1.45 APTT pO2 VBG pH VBG pCO2 VBG HCO3 VBG Total CO2 VBG O2 Sat (Calc) VBG Base Excess VBG Potassium Glucose Lactate FiO2 Sodium 133 Potassium 4.6 Chloride 98 Carbon Dioxide 30 Anion Gap 10 BUN 19 Creatinine 0.5 L Est GFR ( Amer) > 60 Est GFR (Non-Af Amer) > 60 POC Glucose (mg/dL) Random Glucose 108 Calcium 9.2 Magnesium Total Bilirubin 0.8 AST 22 ALT 19 Alkaline Phosphatase 90 Troponin I NT-Pro-B Natriuret Pep Total Protein 6.9 Albumin 3.6 Globulin 3.3 Albumin/Globulin Ratio 1.1 Venous Blood Potassium Urine Color Urine Appearance Urine pH Ur Specific Allen Urine Protein Urine Glucose (UA) Urine Ketones Urine Blood Urine Nitrate Urine Bilirubin Urine Urobilinogen Ur Leukocyte Esterase Urine RBC Urine WBC Ur Epithelial Cells Urine Bacteria Digoxin 04/17/18 04/17/18 08:51 11:45 WBC RBC Hgb Hct MCV MCH MCHC RDW Plt Count MPV Neut % (Auto) Lymph % (Auto) Fisher % (Auto) Eos % (Auto) Baso % (Auto) Lymph # (Auto) Fisher # (Auto) Eos # (Auto) Baso # (Auto) Absolute Neuts (auto) PT INR APTT pO2 VBG pH VBG pCO2 VBG HCO3 VBG Total CO2 VBG O2 Sat (Calc) VBG Base Excess VBG Potassium Glucose Lactate FiO2 Sodium Potassium Chloride Carbon Dioxide Anion Gap BUN Creatinine Est GFR ( Amer) Est GFR (Non-Af Amer) POC Glucose (mg/dL) 104 138 H Random Glucose Calcium Magnesium Total Bilirubin AST ALT Alkaline Phosphatase Troponin I NT-Pro-B Natriuret Pep Total Protein Albumin Globulin Albumin/Globulin Ratio Venous Blood Potassium Urine Color Urine Appearance Urine pH Ur Specific Allen Urine Protein Urine Glucose (UA) Urine Ketones Urine Blood Urine Nitrate Urine Bilirubin Urine Urobilinogen Ur Leukocyte Esterase Urine RBC Urine WBC Ur Epithelial Cells Urine Bacteria Digoxin Attending/Attestation - Attestation I have personally seen and examined this patient.: Yes I have fully participated in the care of the patient.: Yes I have reviewed all pertinent clinical information: Yes Notes (Text): 04/17/18 19:33 seen and examined with resident. A&P formulated with resident. Hypotension 2/2 cardizem hold BPO meds at this time A fib C RVR RVR resolved Hold BP meds at this time ok to give digoxin Acute on chronic CHF lasix in am Hyperkalemia treated Subtherapeutic INR lovenox to be bridged with Coumadin mgmt per cardiology BP improved, can be monitored in Tele
[2018-04-16] MEDS ORDERED: cefTRIAXone 1 gm 1 GM/100 ML BAG IVPB STA (23:25)
[2018-04-16] MEDS: Enoxaparin 80 mg Syringe SC SCH (23:40)
[2018-04-17 08:39] LABS: BASO # 0.05 K/mm3 (0.0-2.0); BASO % 0.8 % (0.0-3.0); EOS # 0.4 (0.0-0.7); EOS % 6.7 % (1.5-5.0); HEMOGLOBIN 14.8 g/dL (14.0-18.0); LYMPH % 17.5 % (22.0-35.0); MEAN CELL VOLUME 85.9 fl (80.0-105.0); MEAN CORPUSCULAR HGB CONC 33.7 g/dl (31.0-37.0); MONO # 0.6 (0.1-0.6); MONO % 10.1 % (1.0-6.0); RBC 5.11 10^6/uL (3.5-6.1); RED CELL DISTRIBUTION WIDTH 13.6 % (11.5-14.5)
[2018-04-17 08:44] LABS: INR 1.45; PROTHROMBIN TIME 16.4 SECONDS (9.4-12.5)
[2018-04-17 09:02] LABS: ALB/GLOB RATIO 1.1 (1.1-1.8); ALBUMIN 3.6 g/dL (3.0-4.8); ALT/SGPT 19 U/L (7-56); AST/SGOT 22 U/L (17-59); BLOOD UREA NITROGEN 19 mg/dL (7-21); CALCIUM 9.2 mg/dL (8.4-10.5); GFR NON-AFRICAN AMERICAN > 60
--- NOTE | 2018-04-17 09:22 | RAD ---
Date of service: 04/16/2018 HISTORY: dyspnea COMPARISON: 01/23/2018 FINDINGS: LUNGS: No active pulmonary disease. PLEURA: Small right pleural effusion. No left pleural effusion. No pneumothorax. CARDIOVASCULAR: No aortic atherosclerotic calcification present. Limited evaluation due to oblique positioning. Mild congestive change. No pulmonary vascular congestion. OSSEOUS STRUCTURES: No significant abnormalities. VISUALIZED UPPER ABDOMEN: Normal. OTHER FINDINGS: None. IMPRESSION: Small right pleural effusion. Mild congestive change. Possible congestive heart failure. No evidence of pulmonary edema. Otherwise unremarkable.
[2018-04-17] MEDS: Pantoprazole 40 mg EC Tab PO SCH (11:03)
[2018-04-17] MEDS: Cefepime 1gm in NS 100ml 1 GM/100 ML BAG IVPB SCH ×2 (11:05→21:21)
--- NOTE | 2018-04-17 11:38 | CP.PCM.CON ---
<Robb Dos Santos - Last Filed: 04/17/18 11:29> History of Present Illness - History of Present Illness History of Present Illness: Podiatry consult note for Dr. 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 Patient is confused on visit, and is a poor historian. Patient history obtained through his chart. 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 home Review of Systems - Review of Systems Review of Systems: As per HPI - Constitutional Constitutional: As Per HPI Past Patient History - Infectious Disease Hx of Infectious Diseases: None - Tetanus Immunizations Tetanus Immunization: Unknown - Past Medical History & Family History Past Medical History?: Yes - Past Social History Smoking Status: Former Smoker Alcohol: None Drugs: Denies Home Situation {Lives}: Alone - CARDIAC Hx Cardiac Disorders: Yes Hx Congestive Heart Failure: Yes Hx Hypertension: Yes - PULMONARY Hx Respiratory Disorders: Yes Hx Pneumonia: Yes - NEUROLOGICAL Hx Neurological Disorder: Yes HX Cerebrovascular Accident: Yes (expressive aphasia; R sided weakness) - HEENT Hx HEENT Problems: No - RENAL Hx Chronic Kidney Disease: No - ENDOCRINE/METABOLIC Hx Endocrine Disorders: Yes Hx Diabetes Mellitus Type 1: Yes - HEMATOLOGICAL/ONCOLOGICAL Hx Blood Disorders: No - INTEGUMENTARY Hx Dermatological Problems: No - MUSCULOSKELETAL/RHEUMATOLOGICAL Hx Musculoskeletal Disorders: Yes Hx Arthritis: Yes Hx Unsteady Gait: Yes Other/Comment: (R) toe amputation, (R) sided flaccid upper and lower extremities, bedridden - GASTROINTESTINAL Hx Gastrointestinal Disorders: No - GENITOURINARY/GYNECOLOGICAL Hx Genitourinary Disorders: Yes Hx Incontinence: Yes - PSYCHIATRIC Hx Psychophysiologic Disorder: No Hx Substance Use: No - SURGICAL HISTORY Hx Amputation: Yes ((R) big toe) - ANESTHESIA Hx Anesthesia: No Meds Allergies/Adverse Reactions: Allergies Allergy/AdvReac Type Severity Reaction Status Date / Time clopidogrel Allergy RASH Verified 04/16/18 19:54 - Medications Medications: Current Medications Albuterol/Ipratropium (Duoneb 3 Mg/0.5 Mg (3 Ml) Ud) 3 ml IH [id number] [facility] Aspirin (Ecotrin) 81 mg PO DAILY [facility] Last Admin: 04/17/18 11:03 Dose: 81 mg Atorvastatin Calcium (Lipitor) 10 mg PO DIN [facility] Digoxin (Digoxin) 0.125 mg PO 1400 [facility] Enoxaparin Sodium (Lovenox) 80 mg SC Q12H [facility]; Protocol Last Admin: 04/16/18 23:40 Dose: 80 mg Furosemide (Lasix) 40 mg IV BID [facility] Last Admin: 04/17/18 11:01 Dose: 40 mg Cefepime HCl (Maxipime 1gm) 1 gm in 100 mls @ 100 mls/hr IVPB Q12 [facility]; Protocol Last Admin: 04/17/18 11:05 Dose: 100 mls/hr Insulin Human Regular (Humulin R Low) 0 units SC ACHS [facility]; Protocol Levetiracetam (Keppra) 750 mg PO BID [facility] Last Admin: 04/17/18 11:03 Dose: 750 mg Metoprolol Tartrate (Lopressor) 50 mg PO BRKDIN [facility] Pantoprazole Sodium (Protonix Ec Tab) 40 mg PO DAILY [facility] Last Admin: 04/17/18 11:03 Dose: 40 mg Tamsulosin HCl (Flomax) 0.4 mg PO DAILY [facility] Last Admin: 04/17/18 11:03 Dose: 0.4 mg Warfarin Sodium (Coumadin) 5 mg PO 1800 [facility]; Protocol Physical Exam - Constitutional Appears: Non-toxic - Head Exam Head Exam: ATRAUMATIC - Extremities Exam Additional comments: B/L Lower extremity focused. VASC: PT/DP pulses non palpable B/L. +1 pitting edema bilaterally. Temperature gradient warm to cool proximal to distal. Cap refill almost 4 seconds to al remaining digits. NEURO: Non assessable due to pts altered mental status. DERM:Annular, dyshytrotic patches of skin along dorsal pedal skin, [place] skin fissuring and non-streaking erythema noted bilaterally. No interdigital macerations noted bilaterally. Yellowed, brittle, elongated, Distrophic and discolored toenails x 9 with subungual debris. MUSK: Rigid non-reducible flexor contracture of right knee. Severe pedal and lower leg muscle atrophy and significant decrease of muscle tone bilaterally. Muscle power couldn't be assessed, Patient is not cooperative. - Neurological Exam Neurological exam: Alert Results - Vital Signs Recent Vital Signs: Last Vital Signs Temp 98.3 F 04/17/18 01:55 Pulse 77 04/17/18 01:55 Resp 18 04/17/18 01:55 BP 173/73 H 04/17/18 11:01 Pulse Ox 95 04/16/18 22:58 - Labs Result Diagrams: 04/17/18 08:30 04/17/18 08:30 Labs: Laboratory Results - last 24 hr 04/16/18 04/16/18 04/16/18 20:10 20:10 20:10 WBC 7.6 RBC 5.31 Hgb 15.6 Hct 45.7 MCV 86.1 MCH 29.4 MCHC 34.1 RDW 13.6 Plt Count 178 MPV 9.8 Neut % (Auto) 71.6 H Lymph % (Auto) 14.4 L [place] % (Auto) 8.7 H Eos % (Auto) 4.9 Baso % (Auto) 0.4 Lymph # (Auto) 1.1 L [place] # (Auto) 0.7 H Eos # (Auto) 0.4 Baso # (Auto) 0.03 Absolute Neuts (auto) 5.40 PT 17.3 H INR 1.56 APTT 38.6 H pO2 VBG pH VBG pCO2 VBG HCO3 VBG Total CO2 VBG O2 Sat (Calc) VBG Base Excess VBG Potassium Glucose Lactate FiO2 Sodium 132 Potassium 5.3 H Chloride 98 Carbon Dioxide 28 Anion Gap 12 BUN 23 H Creatinine 0.6 L Est GFR ( Amer) > 60 Est GFR (Non-Af Amer) > 60 POC Glucose (mg/dL) Random Glucose 145 H Calcium 9.1 Magnesium 1.8 Total Bilirubin 0.8 AST 36 ALT 12 Alkaline Phosphatase 87 Troponin I 0.02 D NT-Pro-B Natriuret Pep 3720 H Total Protein 7.2 Albumin 3.8 Globulin 3.5 Albumin/Globulin Ratio 1.1 Venous Blood Potassium Urine Color Urine Appearance Urine pH Ur Specific [place] Urine Protein Urine Glucose (UA) Urine Ketones Urine Blood Urine Nitrate Urine Bilirubin Urine Urobilinogen Ur Leukocyte Esterase Urine RBC Urine WBC Ur Epithelial Cells Urine Bacteria Digoxin 04/16/18 04/16/18 04/16/18 20:10 20:30 20:36 WBC RBC Hgb Hct MCV MCH MCHC RDW Plt Count MPV Neut % (Auto) Lymph % (Auto) [place] % (Auto) Eos % (Auto) Baso % (Auto) Lymph # (Auto) [place] # (Auto) Eos # (Auto) Baso # (Auto) Absolute Neuts (auto) PT INR APTT pO2 61 H VBG pH 7.33 VBG pCO2 55.0 VBG HCO3 29.0 H VBG Total CO2 30.7 H VBG O2 Sat (Calc) 92.8 H VBG Base Excess 1.9 VBG Potassium 5.4 H Glucose 154 H Lactate 1.2 FiO2 21.0 Sodium 130.0 L Potassium Chloride 97.0 L Carbon Dioxide Anion Gap BUN Creatinine Est GFR ( Amer) Est GFR (Non-Af Amer) POC Glucose (mg/dL) Random Glucose Calcium Magnesium Total Bilirubin AST ALT Alkaline Phosphatase Troponin I NT-Pro-B Natriuret Pep Total Protein Albumin Globulin Albumin/Globulin Ratio Venous Blood Potassium 5.4 H Urine Color Yellow Urine Appearance Sl cloudy Urine pH 6.0 Ur Specific [place] >= 1.030 Urine Protein 100 H Urine Glucose (UA) Negative Urine Ketones Negative Urine Blood Small H Urine Nitrate Negative Urine Bilirubin Negative Urine Urobilinogen 0.2 Ur Leukocyte Esterase Small H Urine RBC 5 - 10 H Urine WBC 25 - 30 H Ur Epithelial Cells 0 - 2 Urine Bacteria Mod Digoxin < 0.4 L 04/17/18 04/17/18 04/17/18 08:30 08:30 08:30 WBC 6.0 D RBC 5.11 Hgb 14.8 Hct 43.9 MCV 85.9 MCH 29.0 MCHC 33.7 RDW 13.6 Plt Count 175 MPV 9.0 Neut % (Auto) 64.9 Lymph % (Auto) 17.5 L [place] % (Auto) 10.1 H Eos % (Auto) 6.7 H Baso % (Auto) 0.8 Lymph # (Auto) 1.0 L [place] # (Auto) 0.6 Eos # (Auto) 0.4 Baso # (Auto) 0.05 Absolute Neuts (auto) 3.86 PT 16.4 H INR 1.45 APTT pO2 VBG pH VBG pCO2 VBG HCO3 VBG Total CO2 VBG O2 Sat (Calc) VBG Base Excess VBG Potassium Glucose Lactate FiO2 Sodium 133 Potassium 4.6 Chloride 98 Carbon Dioxide 30 Anion Gap 10 BUN 19 Creatinine 0.5 L Est GFR ( Amer) > 60 Est GFR (Non-Af Amer) > 60 POC Glucose (mg/dL) Random Glucose 108 Calcium 9.2 Magnesium Total Bilirubin 0.8 AST 22 ALT 19 Alkaline Phosphatase 90 Troponin I NT-Pro-B Natriuret Pep Total Protein 6.9 Albumin 3.6 Globulin 3.3 Albumin/Globulin Ratio 1.1 Venous Blood Potassium Urine Color Urine Appearance Urine pH Ur Specific [place] Urine Protein Urine Glucose (UA) Urine Ketones Urine Blood Urine Nitrate Urine Bilirubin Urine Urobilinogen Ur Leukocyte Esterase Urine RBC Urine WBC Ur Epithelial Cells Urine Bacteria Digoxin 04/17/18 08:51 WBC RBC Hgb Hct MCV MCH MCHC RDW Plt Count MPV Neut % (Auto) Lymph % (Auto) [place] % (Auto) Eos % (Auto) Baso % (Auto) Lymph # (Auto) [place] # (Auto) Eos # (Auto) Baso # (Auto) Absolute Neuts (auto) PT INR APTT pO2 VBG pH VBG pCO2 VBG HCO3 VBG Total CO2 VBG O2 Sat (Calc) VBG Base Excess VBG Potassium Glucose Lactate FiO2 Sodium Potassium Chloride Carbon Dioxide Anion Gap BUN Creatinine Est GFR ( Amer) Est GFR (Non-Af Amer) POC Glucose (mg/dL) 104 Random Glucose Calcium Magnesium Total Bilirubin AST ALT Alkaline Phosphatase Troponin I NT-Pro-B Natriuret Pep Total Protein Albumin Globulin Albumin/Globulin Ratio Venous Blood Potassium Urine Color Urine Appearance Urine pH Ur Specific [place] Urine Protein Urine Glucose (UA) Urine Ketones Urine Blood Urine Nitrate Urine Bilirubin Urine Urobilinogen Ur Leukocyte Esterase Urine RBC Urine WBC Ur Epithelial Cells Urine Bacteria Digoxin Assessment & Plan - Assessment and Plan (Free Text) Assessment: 73 year old male with PMH of Afib on coumadin, HTN, DM2, 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 Plan discussed with Dr. Brown. Chart, labs, and vitals reviewed. Afebrile, No leukocytosis Performed aseptic onychoreduction of all 9 toenail using nail nipper to hygienic length Patient tolerated the nail debridement well without incident. R; Ammonium lactate 12% topical BID to b/l LE. Prescribed lotrisone for application to bilateral feet and legs. Podiatry to follow up the patient while in house. Thank you for the consult. - Date & Time Date: 04/17/18 Time: 11:40 <Kp Brown - Last Filed: 04/18/18 07:13> Meds - Medications Medications: Current Medications Albuterol/Ipratropium (Duoneb 3 Mg/0.5 Mg (3 Ml) Ud) 3 ml IH [id number] [facility] Last Admin: 04/18/18 02:22 Dose: 3 ml Aspirin (Ecotrin) 81 mg PO DAILY [facility] Last Admin: 04/17/18 11:03 Dose: 81 mg Atorvastatin Calcium (Lipitor) 10 mg PO DIN [facility] Last Admin: 04/17/18 17:54 Dose: 10 mg Betamethasone/Clotrimazole (Lotrisone) 0 gm TOP BID [facility] Last Admin: 04/17/18 17:57 Dose: 1 applic Digoxin (Digoxin) 0.125 mg PO 1400 [facility] Last Admin: 04/17/18 13:31 Dose: 0.125 mg Enoxaparin Sodium (Lovenox) 80 mg SC Q12H [facility]; Protocol Last Admin: 04/17/18 22:29 Dose: 80 mg Furosemide (Lasix) 40 mg IV BID [facility] Last Admin: 04/17/18 17:54 Dose: 40 mg Cefepime HCl (Maxipime 1gm) 1 gm in 100 mls @ 100 mls/hr IVPB Q12 [facility]; Protocol Last Admin: 04/17/18 21:21 Dose: 100 mls/hr Insulin Human Regular (Humulin R Low) 0 units SC ACHS [facility]; Protocol Last Admin: 04/17/18 21:30 Dose: Not Given Lactic Acid (Lac-Hydrin 12% Lotion (225 G)) 0 gm EXT BID [facility] Last Admin: 04/17/18 17:56 Dose: 1 applic Levetiracetam (Keppra) 750 mg PO BID [facility] Last Admin: 04/17/18 17:55 Dose: 750 mg Metoprolol Tartrate (Lopressor) 50 mg PO BRKDIN [facility] Last Admin: 04/17/18 17:52 Dose: 50 mg Pantoprazole Sodium (Protonix Ec Tab) 40 mg PO DAILY [facility] Last Admin: 04/17/18 11:03 Dose: 40 mg Tamsulosin HCl (Flomax) 0.4 mg PO DAILY [facility] Last Admin: 04/17/18 11:03 Dose: 0.4 mg Warfarin Sodium (Coumadin) 5 mg PO 1800 [facility]; Protocol Last Admin: 04/17/18 17:54 Dose: 5 mg Results - Vital Signs Recent Vital Signs: Last Vital Signs Temp 98.0 F 04/18/18 06:00 Pulse 95 H 04/18/18 06:00 Resp 20 04/18/18 06:00 BP 112/74 04/18/18 06:00 Pulse Ox 96 04/18/18 06:00 - Labs Result Diagrams: 04/17/18 08:30 04/17/18 08:30 Labs: Laboratory Results - last 24 hr 04/17/18 04/17/18 04/17/18 08:30 08:30 08:30 WBC 6.0 D RBC 5.11 Hgb 14.8 Hct 43.9 MCV 85.9 MCH 29.0 MCHC 33.7 RDW 13.6 Plt Count 175 MPV 9.0 Neut % (Auto) 64.9 Lymph % (Auto) 17.5 L [place] % (Auto) 10.1 H Eos % (Auto) 6.7 H Baso % (Auto) 0.8 Lymph # (Auto) 1.0 L [place] # (Auto) 0.6 Eos # (Auto) 0.4 Baso # (Auto) 0.05 Absolute Neuts (auto) 3.86 PT 16.4 H INR 1.45 Sodium 133 Potassium 4.6 Chloride 98 Carbon Dioxide 30 Anion Gap 10 BUN 19 Creatinine 0.5 L Est GFR ( Amer) > 60 Est GFR (Non-Af Amer) > 60 POC Glucose (mg/dL) Random Glucose 108 Calcium 9.2 Total Bilirubin 0.8 AST 22 ALT 19 Alkaline Phosphatase 90 Total Protein 6.9 Albumin 3.6 Globulin 3.3 Albumin/Globulin Ratio 1.1 04/17/18 04/17/18 04/17/18 08:51 11:45 16:41 WBC RBC Hgb Hct MCV MCH MCHC RDW Plt Count MPV Neut % (Auto) Lymph % (Auto) [place] % (Auto) Eos % (Auto) Baso % (Auto) Lymph # (Auto) [place] # (Auto) Eos # (Auto) Baso # (Auto) Absolute Neuts (auto) PT INR Sodium Potassium Chloride Carbon Dioxide Anion Gap BUN Creatinine Est GFR ( Amer) Est GFR (Non-Af Amer) POC Glucose (mg/dL) 104 138 H 128 H Random Glucose Calcium Total Bilirubin AST ALT Alkaline Phosphatase Total Protein Albumin Globulin Albumin/Globulin Ratio 04/17/18 04/18/18 21:27 06:00 WBC RBC Hgb Hct MCV MCH MCHC RDW Plt Count MPV Neut % (Auto) Lymph % (Auto) [place] % (Auto) Eos % (Auto) Baso % (Auto) Lymph # (Auto) [place] # (Auto) Eos # (Auto) Baso # (Auto) Absolute Neuts (auto) PT 17.7 H INR 1.57 Sodium Potassium Chloride Carbon Dioxide Anion Gap BUN Creatinine Est GFR ( Amer) Est GFR (Non-Af Amer) POC Glucose (mg/dL) 120 H Random Glucose Calcium Total Bilirubin AST ALT Alkaline Phosphatase Total Protein Albumin Globulin Albumin/Globulin Ratio Attending/Attestation - Attestation I have personally seen and examined this patient.: Yes I have fully participated in the care of the patient.: Yes I have reviewed all pertinent clinical information: Yes
[2018-04-17] MEDS: Digoxin 125 mcg (0.125 mg) Tab PO SCH (13:31)
[2018-04-17] MEDS: Insulin Reg-LOW-Coverage SC SCH ×2 (13:32→21:30)
[2018-04-17] MEDS: Albuterol-Ipratrop 3 mg / 0.5 (3 ml) UD IH SCH (13:34)
[2018-04-17] MEDS: Enoxaparin 80 mg Syringe SC SCH ×2 (13:34→22:29)
--- NOTE | 2018-04-17 15:15 | CON ---
DATE OF CONSULTATION: 04/17/2018 REQUESTING PHYSICIAN: Dr. Castle. REASON FOR CONSULTATION: Dyspnea, atrial fibrillation. HISTORY OF PRESENT ILLNESS: This is a 73-year-old man, well known to me with a history of chronic atrial fibrillation, prior cerebrovascular accident and coronary artery disease, who was brought to the emergency room with complaints of worsened dyspnea and cough. He has a longstanding history of diabetes, chronic atrial fibrillation, prior cerebrovascular accident with right-sided hemiparesis and expressive aphasia as well as prior DVT and hypertension. He lives at home with his family. He was brought in with his and daughter. He was seen in the emergency room, initially his atrial fibrillation was relatively rapid, but his heart rate is now in the 90s. He denies any chest pain. He is awake and alert. He remains nonverbal. PAST MEDICAL HISTORY: His past history is notable for the problems mentioned above. He has a history of prior seizure disorder. He has had a prior DVT and IVC filter placed. He has undergone amputation of a toe on his right foot. MEDICATIONS: Medications at home include aspirin, Flomax, pravastatin, Seroquel, digoxin 0.125 mg daily, insulin coverage, metoprolol 50 mg b.i.d., and warfarin. ALLERGIES: HE HAS HAD A REACTION TO CLOPIDOGREL IN THE PAST WITH A RASH. SOCIAL HISTORY: He is , lives with his . He is a former smoker. There is no history of alcohol abuse. FAMILY HISTORY: Unobtainable. REVIEW OF SYSTEMS: Review of systems is also relatively unobtainable. PHYSICAL EXAMINATION: GENERAL: He is a middle-aged man, who appears comfortable at rest. VITAL SIGNS: His blood pressure is 136/62 with a pulse of 90 and irregularly irregular, respirations are 16. He is afebrile. HEENT: Normocephalic, atraumatic. NECK: Supple. No JVD noted. CHEST: Bilateral scattered rhonchi heard. HEART: PMI displaced laterally with an irregularly irregular rhythm and systolic murmur present at the left sternal border. ABDOMEN: Soft, nontender with normoactive bowel sounds. EXTREMITIES: No edema. SKIN: Warm and dry. PSYCHIATRIC: Flat affect. NEUROLOGIC: Awake, alert, expressive aphasia and right-sided hemiparesis noted. DIAGNOSTIC DATA: Potassium is 4.6, BUN and creatinine are 19 and 0.5. Troponin is negative. White count 6, hemoglobin and hematocrit are 14 and 43 with a platelet count of 175,000. Venous blood gas showed pH 7.33, pCO2 of 55, pO2 of 61. BNP 3720. Electrocardiogram reveals atrial fibrillation with rapid ventricular response and secondary ST-T changes. Chest x-ray reveals limited quality film due to rotation. Cardiac silhouette appears relatively normal with mild congestive changes. Small right pleural effusion. No definite infiltrate is seen. IMPRESSION: 1. Respiratory insufficiency, likely a combination of bronchitis and decompensated congestive heart failure, acute on chronic diastolic. 2. Chronic atrial fibrillation with rapid rate and response to respiratory distress, somewhat improved. 3. History of hypertension and diabetes. 4. Known coronary artery disease, clinically stable. RECOMMENDATIONS: Respiratory therapy and IV antibiotics have been initiated. Oral metoprolol will be resumed. Warfarin will be continued. Followup cardiac enzymes will be obtained. Repeat chest x-ray in 2-3 days would be reasonable. IV Lasix will be ordered for the next 2 to 3 days as well. Fluid restriction will be instituted and intake and output monitored. We will continue to follow and make further recommendations as appropriate. Thank you for this consultation. Reilly Valdez MD
--- NOTE | 2018-04-17 16:12 | CP.PCM.CON ---
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 He is being treated for this in the ED and is why he is admitted. On initial work up, the patient is noted to have pyuria on urinalysis. He has no fevers, no abdominal pain, but full ROS is difficult to obtain because of the patient's aphasia. Infectious Diseases consult is requested to further evaluate and manage. Review of Systems - Review of Systems All systems: reviewed and no additional remarkable complaints except (as per HPI) Past Patient History - Infectious Disease Hx of Infectious Diseases: None - Tetanus Immunizations Tetanus Immunization: Unknown - Past Medical History & Family History Past Medical History?: Yes - Past Social History Smoking Status: Former Smoker Alcohol: None Drugs: Denies Home Situation {Lives}: Alone - CARDIAC Hx Cardiac Disorders: Yes Hx Congestive Heart Failure: Yes Hx Hypertension: Yes - PULMONARY Hx Respiratory Disorders: Yes Hx Pneumonia: Yes - NEUROLOGICAL Hx Neurological Disorder: Yes HX Cerebrovascular Accident: Yes (expressive aphasia; R sided weakness) - HEENT Hx HEENT Problems: No - RENAL Hx Chronic Kidney Disease: No - ENDOCRINE/METABOLIC Hx Endocrine Disorders: Yes Hx Diabetes Mellitus Type 1: Yes - HEMATOLOGICAL/ONCOLOGICAL Hx Blood Disorders: No - INTEGUMENTARY Hx Dermatological Problems: No - MUSCULOSKELETAL/RHEUMATOLOGICAL Hx Musculoskeletal Disorders: Yes Hx Arthritis: Yes Hx Unsteady Gait: Yes Other/Comment: (R) toe amputation, (R) sided flaccid upper and lower extremities, bedridden - GASTROINTESTINAL Hx Gastrointestinal Disorders: No - GENITOURINARY/GYNECOLOGICAL Hx Genitourinary Disorders: Yes Hx Incontinence: Yes - PSYCHIATRIC Hx Psychophysiologic Disorder: No Hx Substance Use: No - SURGICAL HISTORY Hx Amputation: Yes ((R) big toe) - ANESTHESIA Hx Anesthesia: No Meds Allergies/Adverse Reactions: Allergies Allergy/AdvReac Type Severity Reaction Status Date / Time clopidogrel Allergy RASH Verified 04/16/18 19:54 - Medications Medications: Current Medications Albuterol/Ipratropium (Duoneb 3 Mg/0.5 Mg (3 Ml) Ud) 3 ml IH [id number] [facility] Aspirin (Ecotrin) 81 mg PO DAILY [facility] Atorvastatin Calcium (Lipitor) 10 mg PO DIN [facility] Digoxin (Digoxin) 0.125 mg PO 1400 [facility] Enoxaparin Sodium (Lovenox) 80 mg SC Q12H [facility]; Protocol Last Admin: 04/16/18 23:40 Dose: 80 mg Furosemide (Lasix) 40 mg IV BID [facility] Insulin Human Regular (Humulin R Low) 0 units SC ACHS [facility]; Protocol Levetiracetam (Keppra) 750 mg PO BID [facility] Metoprolol Tartrate (Lopressor) 50 mg PO BRKDIN [facility] Pantoprazole Sodium (Protonix Ec Tab) 40 mg PO DAILY [facility] Tamsulosin HCl (Flomax) 0.4 mg PO DAILY [facility] Warfarin Sodium (Coumadin) 5 mg PO 1800 [facility]; Protocol Physical Exam - Constitutional Appears: Chronically Ill - Head Exam Head Exam: NORMAL INSPECTION - Respiratory Exam Respiratory Exam: Decreased Breath Sounds - Cardiovascular Exam Cardiovascular Exam: +S1, +S2 - GI/Abdominal Exam GI & Abdominal Exam: Soft. absent: Tenderness Results - Vital Signs Recent Vital Signs: Last Vital Signs Temp 98.3 F 04/17/18 01:55 Pulse 77 04/17/18 01:55 Resp 18 04/17/18 01:55 BP 136/62 04/17/18 01:55 Pulse Ox 95 04/16/18 22:58 - Labs Result Diagrams: 04/17/18 08:30 04/17/18 08:30 Labs: Laboratory Results - last 24 hr 04/16/18 04/16/18 04/16/18 20:10 20:10 20:10 WBC 7.6 RBC 5.31 Hgb 15.6 Hct 45.7 MCV 86.1 MCH 29.4 MCHC 34.1 RDW 13.6 Plt Count 178 MPV 9.8 Neut % (Auto) 71.6 H Lymph % (Auto) 14.4 L Hooker % (Auto) 8.7 H Eos % (Auto) 4.9 Baso % (Auto) 0.4 Lymph # (Auto) 1.1 L Hooker # (Auto) 0.7 H Eos # (Auto) 0.4 Baso # (Auto) 0.03 Absolute Neuts (auto) 5.40 PT 17.3 H INR 1.56 APTT 38.6 H pO2 VBG pH VBG pCO2 VBG HCO3 VBG Total CO2 VBG O2 Sat (Calc) VBG Base Excess VBG Potassium Glucose Lactate FiO2 Sodium 132 Potassium 5.3 H Chloride 98 Carbon Dioxide 28 Anion Gap 12 BUN 23 H Creatinine 0.6 L Est GFR ( Amer) > 60 Est GFR (Non-Af Amer) > 60 POC Glucose (mg/dL) Random Glucose 145 H Calcium 9.1 Magnesium 1.8 Total Bilirubin 0.8 AST 36 ALT 12 Alkaline Phosphatase 87 Troponin I 0.02 D NT-Pro-B Natriuret Pep 3720 H Total Protein 7.2 Albumin 3.8 Globulin 3.5 Albumin/Globulin Ratio 1.1 Venous Blood Potassium Urine Color Urine Appearance Urine pH Ur Specific Exchange Urine Protein Urine Glucose (UA) Urine Ketones Urine Blood Urine Nitrate Urine Bilirubin Urine Urobilinogen Ur Leukocyte Esterase Urine RBC Urine WBC Ur Epithelial Cells Urine Bacteria Digoxin 04/16/18 04/16/18 04/16/18 20:10 20:30 20:36 WBC RBC Hgb Hct MCV MCH MCHC RDW Plt Count MPV Neut % (Auto) Lymph % (Auto) Hooker % (Auto) Eos % (Auto) Baso % (Auto) Lymph # (Auto) Hooker # (Auto) Eos # (Auto) Baso # (Auto) Absolute Neuts (auto) PT INR APTT pO2 61 H VBG pH 7.33 VBG pCO2 55.0 VBG HCO3 29.0 H VBG Total CO2 30.7 H VBG O2 Sat (Calc) 92.8 H VBG Base Excess 1.9 VBG Potassium 5.4 H Glucose 154 H Lactate 1.2 FiO2 21.0 Sodium 130.0 L Potassium Chloride 97.0 L Carbon Dioxide Anion Gap BUN Creatinine Est GFR ( Amer) Est GFR (Non-Af Amer) POC Glucose (mg/dL) Random Glucose Calcium Magnesium Total Bilirubin AST ALT Alkaline Phosphatase Troponin I NT-Pro-B Natriuret Pep Total Protein Albumin Globulin Albumin/Globulin Ratio Venous Blood Potassium 5.4 H Urine Color Yellow Urine Appearance Sl cloudy Urine pH 6.0 Ur Specific Exchange >= 1.030 Urine Protein 100 H Urine Glucose (UA) Negative Urine Ketones Negative Urine Blood Small H Urine Nitrate Negative Urine Bilirubin Negative Urine Urobilinogen 0.2 Ur Leukocyte Esterase Small H Urine RBC 5 - 10 H Urine WBC 25 - 30 H Ur Epithelial Cells 0 - 2 Urine Bacteria Mod Digoxin < 0.4 L 04/17/18 04/17/18 04/17/18 08:30 08:30 08:30 WBC 6.0 D RBC 5.11 Hgb 14.8 Hct 43.9 MCV 85.9 MCH 29.0 MCHC 33.7 RDW 13.6 Plt Count 175 MPV 9.0 Neut % (Auto) 64.9 Lymph % (Auto) 17.5 L Hooker % (Auto) 10.1 H Eos % (Auto) 6.7 H Baso % (Auto) 0.8 Lymph # (Auto) 1.0 L Hooker # (Auto) 0.6 Eos # (Auto) 0.4 Baso # (Auto) 0.05 Absolute Neuts (auto) 3.86 PT 16.4 H INR 1.45 APTT pO2 VBG pH VBG pCO2 VBG HCO3 VBG Total CO2 VBG O2 Sat (Calc) VBG Base Excess VBG Potassium Glucose Lactate FiO2 Sodium 133 Potassium 4.6 Chloride 98 Carbon Dioxide 30 Anion Gap 10 BUN 19 Creatinine 0.5 L Est GFR ( Amer) > 60 Est GFR (Non-Af Amer) > 60 POC Glucose (mg/dL) Random Glucose 108 Calcium 9.2 Magnesium Total Bilirubin 0.8 AST 22 ALT 19 Alkaline Phosphatase 90 Troponin I NT-Pro-B Natriuret Pep Total Protein 6.9 Albumin 3.6 Globulin 3.3 Albumin/Globulin Ratio 1.1 Venous Blood Potassium Urine Color Urine Appearance Urine pH Ur Specific Exchange Urine Protein Urine Glucose (UA) Urine Ketones Urine Blood Urine Nitrate Urine Bilirubin Urine Urobilinogen Ur Leukocyte Esterase Urine RBC Urine WBC Ur Epithelial Cells Urine Bacteria Digoxin 04/17/18 08:51 WBC RBC Hgb Hct MCV MCH MCHC RDW Plt Count MPV Neut % (Auto) Lymph % (Auto) Hooker % (Auto) Eos % (Auto) Baso % (Auto) Lymph # (Auto) Hooker # (Auto) Eos # (Auto) Baso # (Auto) Absolute Neuts (auto) PT INR APTT pO2 VBG pH VBG pCO2 VBG HCO3 VBG Total CO2 VBG O2 Sat (Calc) VBG Base Excess VBG Potassium Glucose Lactate FiO2 Sodium Potassium Chloride Carbon Dioxide Anion Gap BUN Creatinine Est GFR ( Amer) Est GFR (Non-Af Amer) POC Glucose (mg/dL) 104 Random Glucose Calcium Magnesium Total Bilirubin AST ALT Alkaline Phosphatase Troponin I NT-Pro-B Natriuret Pep Total Protein Albumin Globulin Albumin/Globulin Ratio Venous Blood Potassium Urine Color Urine Appearance Urine pH Ur Specific Exchange Urine Protein Urine Glucose (UA) Urine Ketones Urine Blood Urine Nitrate Urine Bilirubin Urine Urobilinogen Ur Leukocyte Esterase Urine RBC Urine WBC Ur Epithelial Cells Urine Bacteria Digoxin Assessment & Plan - Assessment and Plan (Free Text) Plan: Assessment consider UTI probable CHF exacerbation with atrial fibrillation in RVR S/P severe sepsis due to CAP, right lower lobe history of sepsis due to urinary tract infection with Pseudomonas, clinically improving history of Left lower lobe healthcare-associated pneumonia history of Community-acquired pneumonia Atrial fibrillation Cerebrovascular accident with hemiparesis and aphasia 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
[2018-04-17] MEDS: Ammonium Lactate 12% Lotion (225 g) EXT SCH (17:56)
[2018-04-17] MEDS: Clotrimazole/Betamethasone Cream(15 gm) TOP SCH (17:57)
--- NOTE | 2018-04-17 19:58 | HP ---
DATE OF EXAM: 04/17/2018 HISTORY OF PRESENT ILLNESS: A 73-year-old homebound patient who was referred to [place] emergency room when his noted that he was having some difficulty breathing and diaphoresis. PAST MEDICAL HISTORY: The patient has a past medical history of hemorrhagic stroke with cerebral surgery, noninsulin diabetes mellitus, seizure disorder, BPH, COPD, atrial fibrillation, history of aspiration pneumonia, congestive heart failure, and cellulitis of the foot. SOCIAL HISTORY: He is a nonsmoker, nondrinker, and nondrug user. ALLERGIES: REPORTED TO [facility]. HOME MEDICATIONS: Consist of Keppra, Pravachol, Flomax, Coumadin, Lopressor, Protonix, MiraLax, Ecotrin, digoxin, Seroquel, and DuoNebs. REVIEW OF SYSTEMS: A 12 systems are reviewed. Pertinent findings as stated in the physical exam. PHYSICAL EXAMINATION: GENERAL: The patient is alert. He expressive aphasia. NECK: Supple. LUNGS: Show bibasilar rhonchi with diminished breath sounds at the bases. HEART: Irregular S1 and S2 rhythm. Grade 2/6 systolic murmur. ABDOMEN: Soft with positive bowel sounds. EXTREMITIES: He has contractures of the right leg. No edema. Left leg has no evidence of edema. LABORATORY DATA: Shows WBC of 7.6, RBC 5.31, hemoglobin 15.6, hematocrit 45.7, and platelet count 178. His PT is 17.3 with an INR 1.56. His PTT is 38.6. His lactate is 1.2. Chemistry showed a sodium of 132, potassium 5.3, chloride 98, CO2 of 28, BUN is 23, and creatinine is 0.6. Random blood sugar was 145. His LFTs are normal. His troponin is 0.02. His BNP was 3720. Urinalysis shows small blood, small leukocyte esterase, 25-30 WBCs, and moderate urine bacteria. His digoxin level was reported at 0.4. He had an EKG, which is reported as showing a rapid atrial fibrillation with right bundle-branch block. Chest x-ray is reported as showing a small right pleural effusion, mild congestive changes. The patient was seen by the intensive care unit. He received Cardizem in the emergency room for his rapid AFib, reportedly his blood pressure dropped. He was seen by intensive care unit. Subsequently, it was felt to be able to go to telemetry unit. ASSESSMENT: 1. Homebound patient with hemorrhagic stroke history, in rapid atrial fibrillation with congestive changes on his chest x-ray and right pleural effusion. 2. Abnormal urinalysis. 3. Hyperkalemia. PLAN: We will follow up the patient's labs. Get Cardiology to see the patient as well as Infectious Disease. He received a dose of Rocephin in the emergency room as well as Kayexalate. Eva Castle MD
[2018-04-17 22:29] VITALS: BMI 29.7
[2018-04-17] MEDS ORDERED: Influenza Vaccine 60 mcg/0.5 mL SYR (4YR UP) IM ONE (22:30)
[2018-04-17] MEDS ORDERED: Pneumococcal 23-Valent Vaccine IM ONE (22:30)
--- NOTE | 2018-04-17 22:55 | CARD ---
APPROVED REPORT Date of service: 04/16/2018 EKG Measurement Heart [id number] <Conclusion> Atrial fibrillation with rapid ventricular response Right bundle branch block Left posterior fascicular block Bifascicular block Abnormal ECG
[2018-04-18] MEDS: Albuterol-Ipratrop 3 mg / 0.5 (3 ml) UD IH SCH ×5 (02:22→20:17)
[2018-04-18 06:28] LABS: INR 1.57; PROTHROMBIN TIME 17.7 SECONDS (9.4-12.5)
[2018-04-18 07:17] LABS: BLOOD UREA NITROGEN 23 mg/dL (7-21); CALCIUM 9.1 mg/dL (8.4-10.5); GFR NON-AFRICAN AMERICAN > 60
[2018-04-18] MEDS: Insulin Reg-LOW-Coverage SC SCH ×4 (08:47→23:19)
[2018-04-18] MEDS: Pantoprazole 40 mg EC Tab PO SCH (09:01)
[2018-04-18] MEDS: Cefepime 1gm in NS 100ml 1 GM/100 ML BAG IVPB SCH ×2 (09:02→23:18)
[2018-04-18] MEDS: Enoxaparin 80 mg Syringe SC SCH ×3 (09:13→23:20)
--- NOTE | 2018-04-18 09:59 | CP.PCM.PN ---
Subjective - Date & Time of Evaluation Date of Evaluation: 04/18/18 Time of Evaluation: 09:48 - Subjective Subjective: Podiatry consult note for Dr. Brown: 73 year old male patient seen and evaluated in the bedside for diabetic foot evaluation and mycotic toe nails. Patient is a poor historian. Patient data obtained through his chart. As per patient chart there was no overnight F/N/V/C. Objective - Vital Signs/Intake and Output Vital Signs (last 24 hours): Temp Pulse Resp BP Pulse Ox 98.0 F 85 20 147/64 96 04/18/18 06:00 04/18/18 08:56 04/18/18 06:00 04/18/18 09:02 04/18/18 06:00 - Medications Medications: Current Medications Albuterol/Ipratropium (Duoneb 3 Mg/0.5 Mg (3 Ml) Ud) 3 ml IH [id number] [facility] Last Admin: 04/18/18 07:58 Dose: 3 ml Aspirin (Ecotrin) 81 mg PO DAILY [facility] Last Admin: 04/18/18 09:01 Dose: 81 mg Atorvastatin Calcium (Lipitor) 10 mg PO DIN [facility] Last Admin: 04/17/18 17:54 Dose: 10 mg Betamethasone/Clotrimazole (Lotrisone) 0 gm TOP BID [facility] Last Admin: 04/17/18 17:57 Dose: 1 applic Digoxin (Digoxin) 0.125 mg PO 1400 [facility] Last Admin: 04/17/18 13:31 Dose: 0.125 mg Enoxaparin Sodium (Lovenox) 80 mg SC Q12H [facility]; Protocol Last Admin: 04/18/18 09:13 Dose: 80 mg Furosemide (Lasix) 40 mg IV BID [facility] Last Admin: 04/18/18 09:02 Dose: 40 mg Cefepime HCl (Maxipime 1gm) 1 gm in 100 mls @ 100 mls/hr IVPB Q12 [facility]; Protocol Last Admin: 04/18/18 09:02 Dose: 100 mls/hr Insulin Human Regular (Humulin R Low) 0 units SC ACHS [facility]; Protocol Last Admin: 04/18/18 08:47 Dose: Not Given Lactic Acid (Lac-Hydrin 12% Lotion (225 G)) 0 gm EXT BID [facility] Last Admin: 04/17/18 17:56 Dose: 1 applic Levetiracetam (Keppra) 750 mg PO BID [facility] Last Admin: 04/18/18 09:02 Dose: 750 mg Metoprolol Tartrate (Lopressor) 50 mg PO BRKDIN [facility] Last Admin: 04/18/18 08:56 Dose: 50 mg Pantoprazole Sodium (Protonix Ec Tab) 40 mg PO DAILY [facility] Last Admin: 04/18/18 09:01 Dose: 40 mg Tamsulosin HCl (Flomax) 0.4 mg PO DAILY [facility] Last Admin: 04/18/18 09:01 Dose: 0.4 mg Warfarin Sodium (Coumadin) 5 mg PO 1800 [facility]; Protocol Last Admin: 04/17/18 17:54 Dose: 5 mg - Labs Labs: 04/17/18 08:30 04/18/18 06:00 PT 17.7 SECONDS (9.4-12.5) H 04/18/18 06:00 INR 1.57 04/18/18 06:00 APTT 38.6 Seconds (26.9-38.3) H 04/16/18 20:10 - Constitutional Appears: Non-toxic - Head Exam Head Exam: ATRAUMATIC - Extremities Exam Additional comments: B/L Lower extremity focused. VASC: PT/DP pulses non palpable B/L. +1 pitting edema bilaterally. Temperature gradient warm to cool proximal to distal. Cap refill almost 4 seconds to al remaining digits. NEURO: Non assessable due to pts altered mental status. DERM:Annular, dyshytrotic patches of skin along dorsal pedal skin, Acral skin fissuring and non-streaking erythema noted bilaterally. No interdigital macerations noted bilaterally. Yellowed, brittle, Distrophic and discolored toenails x 9 with subungual debris. MUSK: Rigid non-reducible flexor contracture of right knee. Severe pedal and lower leg muscle atrophy and significant decrease of muscle tone bilaterally. Muscle power couldn't be assessed, Patient is not cooperative. - Neurological Exam Neurological Exam: Awake Assessment and Plan - Assessment and Plan (Free Text) Assessment: 73 year old male Patient seen and evaluated in the bedside for diabetic foot evaluation, Tenia pedis and Onychomycosis Plan: Patient seen and evaluated at the bedside. Plan discussed with Dr. Brown. Chart, labs, and vitals reviewed. Afebrile, No leukocytosis continue with Ammonium lactate 12% topical BID to b/l LE. Prescribed lotrisone for application to bilateral feet and legs. Podiatry sign off the patient. Please reconsult if needed
[2018-04-18] MEDS: Ammonium Lactate 12% Lotion (225 g) EXT SCH ×2 (10:30→17:53)
[2018-04-18] MEDS: Clotrimazole/Betamethasone Cream(15 gm) TOP SCH ×2 (10:30→17:54)
--- NOTE | 2018-04-18 13:23 | PN ---
DATE: 04/18/2018 SUBJECTIVE: A 73-year-old male resting comfortably in bed this morning. Nursing staff relates that he was noted on the monitor to have 27 beats of nonsustained V-tach. Vital signs were stable sustained. This has been reported to the private security guard. PHYSICAL EXAMINATION VITAL SIGNS: His temperature is 98, his pulse is 95, his blood pressure is 112/74, oxygen saturation is 96% on 2 liters nasal cannula and respiratory rate is 20. GENERAL: The patient is alert. He has an expressive aphasia secondary to hemorrhagic stroke in the past. LUNGS: Show diminished breath sounds at the bases with rhonchi. HEART: Irregular S1 and S2 rhythm. ABDOMEN: Soft with positive bowel sounds. EXTREMITIES: Show no evidence of edema. MEDICATIONS: Currently, the patient is on Coumadin, digoxin, Xopenex, albuterol DuoNebs, Ecotrin, Flomax, sliding insulin scale, Keppra. Wound care by Podiatry, Lasix IV, Lipitor, Lopressor, Lovenox, cefepime and Protonix. LABORATORY DATA: The patient has a PT of 17.7 with INR of 1.57. Chemistry shows a sodium of 135, potassium 3.9, chloride 97, BUN is 23 and creatinine is 0.7. Urine culture results are pending. Will continue his current antibiotic therapy. He is being followed by Podiatry for Podiatry care. Cardiology is following the patient, await their input regarding the recent arrhythmia. Clinically stable at this time. We will follow up the patient's labs. Eva Castle MD
--- NOTE | 2018-04-18 13:24 | CP.PCM.PN ---
Subjective - Date & Time of Evaluation Date of Evaluation: 04/18/18 Time of Evaluation: 08:55 - Subjective Subjective: Not in distress, afebrile, no vomiting. Objective - Vital Signs/Intake and Output Vital Signs (last 24 hours): Temp Pulse Resp BP Pulse Ox 98.3 F 77 18 173/73 H 95 04/17/18 01:55 04/17/18 01:55 04/17/18 01:55 04/17/18 11:01 04/16/18 22:58 - Medications Medications: Current Medications Albuterol/Ipratropium (Duoneb 3 Mg/0.5 Mg (3 Ml) Ud) 3 ml IH [id number] [facility] Last Admin: 04/17/18 13:34 Dose: 3 ml Aspirin (Ecotrin) 81 mg PO DAILY [facility] Last Admin: 04/17/18 11:03 Dose: 81 mg Atorvastatin Calcium (Lipitor) 10 mg PO DIN [facility] Betamethasone/Clotrimazole (Lotrisone) 0 gm TOP BID [facility] Digoxin (Digoxin) 0.125 mg PO 1400 [facility] Last Admin: 04/17/18 13:31 Dose: 0.125 mg Enoxaparin Sodium (Lovenox) 80 mg SC Q12H [facility]; Protocol Last Admin: 04/17/18 13:34 Dose: 80 mg Furosemide (Lasix) 40 mg IV BID [facility] Last Admin: 04/17/18 11:01 Dose: 40 mg Cefepime HCl (Maxipime 1gm) 1 gm in 100 mls @ 100 mls/hr IVPB Q12 [facility]; Protocol Last Admin: 04/17/18 11:05 Dose: 100 mls/hr Insulin Human Regular (Humulin R Low) 0 units SC ACHS [facility]; Protocol Last Admin: 04/17/18 13:32 Dose: Not Given Lactic Acid (Lac-Hydrin 12% Lotion (225 G)) 0 gm EXT BID [facility] Levetiracetam (Keppra) 750 mg PO BID [facility] Last Admin: 04/17/18 11:03 Dose: 750 mg Metoprolol Tartrate (Lopressor) 50 mg PO BRKDIN [facility] Pantoprazole Sodium (Protonix Ec Tab) 40 mg PO DAILY [facility] Last Admin: 04/17/18 11:03 Dose: 40 mg Tamsulosin HCl (Flomax) 0.4 mg PO DAILY [facility] Last Admin: 04/17/18 11:03 Dose: 0.4 mg Warfarin Sodium (Coumadin) 5 mg PO 1800 [facility]; Protocol - Labs Labs: 04/17/18 08:30 04/17/18 08:30 PT 16.4 SECONDS (9.4-12.5) H 04/17/18 08:30 INR 1.45 04/17/18 08:30 APTT 38.6 Seconds (26.9-38.3) H 04/16/18 20:10 - Constitutional Appears: Non-toxic, Chronically Ill - Head Exam Head Exam: NORMAL INSPECTION - Respiratory Exam Respiratory Exam: Decreased Breath Sounds - Cardiovascular Exam Cardiovascular Exam: +S1, +S2 - GI/Abdominal Exam GI & Abdominal Exam: Soft. 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
[2018-04-18] MEDS: Digoxin 125 mcg (0.125 mg) Tab PO SCH (13:44)
--- NOTE | 2018-04-18 15:00 | PN ---
DATE: 04/18/2018 SUBJECTIVE: The patient was seen lying in bed on telemetry. He is currently comfortable. He is in no distress. He denies any chest pain or dyspnea. CURRENT MEDICATIONS: Include Warfarin, digoxin 0.125 mg daily, albuterol inhaler, Ecotrin, Flomax, insulin, Keppra, Lasix 40 mg IV twice a day, Lipitor 10 mg daily, Lopressor 15 mg twice a day, Lovenox, Maxipime and Protonix. OBJECTIVE: GENERAL: He is a middle age male appears comfortable at rest. VITAL SIGNS: Blood pressure is 146/64, pulse 80 in atrial fibrillation and respirations are 14. He is afebrile. HEENT: No JVD. CHEST: Few scattered rhonchi heard. HEART: PMI displaced laterally with an irregularly irregular rhythm. ABDOMEN: Soft and nontender with normoactive bowel sounds. EXTREMITIES: Trace edema. DIAGNOSTIC DATA: Potassium 3.9. BUN and creatinine 23 and 0.7. PT was 17.7 and INR 1.57. IMPRESSION: 1. Respiratory insufficiency, combination bronchitis. 2. Decompensated congestive heart failure, [id number] diastolic. 3. Chronic atrial fibrillation with controlled rate at this time. 4. History of hypertension and diabetes. 5. Known coronary artery disease. 6. Prior cerebrovascular accident. RECOMMENDATIONS: His current treatment should continue for now. We will repeat chest x-ray in 1-2 days will be planned. Lasix will be switched to oral administration with the next 24-48 hours. Conservative care is advised at this time. I will continue to follow and make further recommendations as appropriate. Reilly Valdez MD
[2018-04-19] MEDS: Albuterol-Ipratrop 3 mg / 0.5 (3 ml) UD IH SCH ×4 (01:49→20:03)
[2018-04-19 06:47] LABS: INR 2.24; PROTHROMBIN TIME 25.3 SECONDS (9.4-12.5)
[2018-04-19 07:00] LABS: BASO # 0.04 K/mm3 (0.0-2.0); BASO % 0.8 % (0.0-3.0); EOS # 0.1 (0.0-0.7); EOS % 1.4 % (1.5-5.0); HEMOGLOBIN 14.1 g/dL (14.0-18.0); LYMPH # 0.9 (1.2-3.4); LYMPH % 18.5 % (22.0-35.0); MEAN CELL VOLUME 87.9 fl (80.0-105.0); MEAN CORPUSCULAR HGB CONC 32.9 g/dl (31.0-37.0); MEAN PLATELET VOLUME 9.8 fl (7.0-11.0); MONO # 0.7 (0.1-0.6); MONO % 13.8 % (1.0-6.0); RBC 4.87 10^6/uL (3.5-6.1); WHITE BLOOD COUNT 4.9 10^3/uL (4.5-11.0)
[2018-04-19 07:19] LABS: BLOOD UREA NITROGEN 31 mg/dL (7-21); CALCIUM 9.1 mg/dL (8.4-10.5); GFR NON-AFRICAN AMERICAN > 60
[2018-04-19] MEDS: Insulin Reg-LOW-Coverage SC SCH ×4 (08:12→22:09)
[2018-04-19] MEDS: Cefepime 1gm in NS 100ml 1 GM/100 ML BAG IVPB SCH (09:40)
[2018-04-19] MEDS: Pantoprazole 40 mg EC Tab PO SCH (09:40)
[2018-04-19] MEDS: Ammonium Lactate 12% Lotion (225 g) EXT SCH ×2 (09:46→17:23)
[2018-04-19] MEDS: Clotrimazole/Betamethasone Cream(15 gm) TOP SCH ×2 (10:49→17:23)
[2018-04-19] MEDS: Meropenem IV 1 gm in NS 1 GM/50 ML BAG IVPB SCH ×2 (10:50→21:28)
--- NOTE | 2018-04-19 11:43 | PN ---
DATE: 04/19/2018 SUBJECTIVE: The patient is seen lying in bed on telemetry. He is currently comfortable. He denies any chest pain or distress. He remains afebrile. CURRENT MEDICATIONS: Include warfarin, digoxin 0.125 mg daily, DuoNeb inhaler, Ecotrin, Flomax, insulin, Keppra, Lasix 40 mg IV b.i.d., Lipitor 10 mg daily, metoprolol 50 mg b.i.d., Lotrisone, Maxipime and Protonix. PHYSICAL EXAMINATION GENERAL: He is middle-aged man, appears comfortable at rest. VITAL SIGNS: Blood pressure 140/70; pulse 78, in atrial fibrillation; respiratory rate 14; he is afebrile. HEENT: No JVD. CHEST: Few scattered rhonchi heard. HEART: PMI displaced laterally with systolic murmur at the left sternal border. ABDOMEN: Soft, obese, nontender with normoactive bowel sounds. EXTREMITIES: No edema. LABORATORY DATA: Potassium is 3.9, BUN and creatinine of 31 and 0.9. White count is 4.9 with hemoglobin and hematocrit 14.1 and 42 and platelet count 190,000. INR is 2.24. IMPRESSION: 1. Respiratory insufficiency secondary to acute bronchitis. 2. Decompensated congestive heart failure, acute on chronic, diastolic. 3. Chronic atrial fibrillation, now with controlled rate. 4. History of hypertension and diabetes. 5. Coronary artery disease, clinically stable. 6. Prior cerebrovascular accident with hemiparesis and expressive aphasia. RECOMMENDATIONS: His current medications should continue for now. His Lasix will be switched to oral administration at this time. Maintenance of INR between 2 and 3 is advised. We will continue to follow and make further recommendation as appropriate. The conservative care is the most appropriate at this time. Reilly Valdez MD
[2018-04-19] MEDS: Digoxin 125 mcg (0.125 mg) Tab PO SCH (15:31)
--- NOTE | 2018-04-19 17:12 | CP.PCM.PN ---
Subjective - Date & Time of Evaluation Date of Evaluation: 04/19/18 Time of Evaluation: 10:10 - Subjective Subjective: Afebrile, comfortable. Objective - Vital Signs/Intake and Output Vital Signs (last 24 hours): Temp Pulse Resp BP Pulse Ox 99.3 F 94 H 20 150/81 96 04/18/18 12:00 04/18/18 12:00 04/18/18 12:00 04/18/18 12:00 04/18/18 06:00 - Medications Medications: Current Medications Albuterol/Ipratropium (Duoneb 3 Mg/0.5 Mg (3 Ml) Ud) 3 ml IH [id number] [facility] Last Admin: 04/18/18 13:15 Dose: 3 ml Aspirin (Ecotrin) 81 mg PO DAILY [facility] Last Admin: 04/18/18 09:01 Dose: 81 mg Atorvastatin Calcium (Lipitor) 10 mg PO DIN [facility] Last Admin: 04/17/18 17:54 Dose: 10 mg Betamethasone/Clotrimazole (Lotrisone) 0 gm TOP BID [facility] Last Admin: 04/18/18 10:30 Dose: 2 applic Digoxin (Digoxin) 0.125 mg PO 1400 [facility] Last Admin: 04/17/18 13:31 Dose: 0.125 mg Enoxaparin Sodium (Lovenox) 80 mg SC Q12H [facility]; Protocol Last Admin: 04/18/18 10:35 Dose: Not Given Furosemide (Lasix) 40 mg IV BID [facility] Last Admin: 04/18/18 09:02 Dose: 40 mg Cefepime HCl (Maxipime 1gm) 1 gm in 100 mls @ 100 mls/hr IVPB Q12 [facility]; Protocol Last Admin: 04/18/18 09:02 Dose: 100 mls/hr Insulin Human Regular (Humulin R Low) 0 units SC ACHS [facility]; Protocol Last Admin: 04/18/18 11:40 Dose: Not Given Lactic Acid (Lac-Hydrin 12% Lotion (225 G)) 0 gm EXT BID [facility] Last Admin: 04/18/18 10:30 Dose: 2 applic Levetiracetam (Keppra) 750 mg PO BID [facility] Last Admin: 04/18/18 09:02 Dose: 750 mg Metoprolol Tartrate (Lopressor) 50 mg PO BRKDIN [facility] Last Admin: 04/18/18 08:56 Dose: 50 mg Pantoprazole Sodium (Protonix Ec Tab) 40 mg PO DAILY [facility] Last Admin: 04/18/18 09:01 Dose: 40 mg Tamsulosin HCl (Flomax) 0.4 mg PO DAILY [facility] Last Admin: 04/18/18 09:01 Dose: 0.4 mg Warfarin Sodium (Coumadin) 5 mg PO 1800 [facility]; Protocol Last Admin: 04/17/18 17:54 Dose: 5 mg - Labs Labs: 04/17/18 08:30 04/18/18 06:00 PT 17.7 SECONDS (9.4-12.5) H 04/18/18 06:00 INR 1.57 04/18/18 06:00 APTT 38.6 Seconds (26.9-38.3) H 04/16/18 20:10 - Constitutional Appears: Chronically Ill - Head Exam Head Exam: NORMAL INSPECTION - Respiratory Exam Respiratory Exam: Decreased Breath Sounds - Cardiovascular Exam Cardiovascular Exam: +S1, +S2 - GI/Abdominal Exam GI & Abdominal Exam: Soft. 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
[2018-04-19] MEDS ORDERED: guaiFENesin 200 mg/10 ml Syrup UD PO STA (23:33)
[2018-04-20] MEDS: Albuterol-Ipratrop 3 mg / 0.5 (3 ml) UD IH SCH ×4 (01:45→19:46)
[2018-04-20 06:04] VITALS: RESP 18; O2SAT 97
[2018-04-20 06:28] LABS: INR 2.13; PROTHROMBIN TIME 24.1 SECONDS (9.4-12.5)
[2018-04-20 07:19] LABS: BLOOD UREA NITROGEN 39 mg/dL (7-21); CALCIUM 8.9 mg/dL (8.4-10.5); GFR NON-AFRICAN AMERICAN > 60
--- NOTE | 2018-04-20 08:15 | PN ---
JOHN ESCOBARATE: 04/19/2018 SUBJECTIVE: A 73-year-old male, resting comfortably on telemetry. Nursing staff relates that there were no problems during the night. PHYSICAL EXAMINATION: GENERAL: The patient is alert. VITAL SIGNS: Temperature is 98.7, pulse is 75, blood pressure is 136/48, respiratory rate is 20. NECK: Supple. LUNGS: Show diminished breath sounds at the bases. HEART: Irregular, S1, S2 rhythm. ABDOMEN: Soft with positive bowel sounds. EXTREMITIES: Show no evidence of edema. LABORATORY DATA: Shows a WBC of 4.9, RBC 4.87, hemoglobin 14.1, hematocrit 42.8, platelet count is 190. The patient's PT is 25.3 with an INR 2.24. Chemistry shows sodium 139, potassium 3.9, chloride 99, CO2 of 32, BUN is 31, creatinine is 0.9, blood sugar is 121. PLAN: The patient is currently receiving IV Lasix for decompensated CHF, and he is on IV antibiotics, meropenem for Proteus urinary tract infection. He will continue his respiratory treatments for his underlying COPD. He can use Flomax for his BPH. He is on sliding insulin scale for his diabetes. He is on Keppra for seizure disorder history and he is also receiving wound care, being followed by Podiatry. We will continue current level of care and follow up the patient's labs. Eva Castle MD
[2018-04-20] MEDS: Meropenem IV 1 gm in NS 1 GM/50 ML BAG IVPB SCH (10:14)
[2018-04-20] MEDS: Ammonium Lactate 12% Lotion (225 g) EXT SCH ×2 (10:15→18:45)
[2018-04-20] MEDS: Pantoprazole 40 mg EC Tab PO SCH (10:16)
[2018-04-20] MEDS: Clotrimazole/Betamethasone Cream(15 gm) TOP SCH ×2 (10:18→18:44)
--- NOTE | 2018-04-20 11:29 | PN ---
DATE: 04/20/2018 SUBJECTIVE: The patient is seen lying in bed on telemetry. He is comfortable at the present time. His heart rate is well controlled. He remains afebrile. MEDICATIONS: His current medications include warfarin, digoxin 0.125 mg daily, albuterol inhaler, Ecotrin, Flomax, insulin coverage, Keppra, Lasix 40 mg daily, Lipitor and Lopressor as well as meropenem and Protonix. OBJECTIVE: GENERAL: He is a middle aged male, appears comfortable at rest. VITAL SIGNS: Blood pressure is 130/50 with pulse of 90 in atrial fibrillation, respirations are 16. He is afebrile. HEENT: No JVD. CHEST: Few scattered rhonchi. HEART: PMI displaced laterally with an irregularly irregular rhythm. ABDOMEN: Soft, nontender with normoactive bowel sounds. EXTREMITIES: No edema. DIAGNOSTIC DATA: Potassium is 4.2, BUN and creatinine are 39 and 0.8. INR is 2.13. IMPRESSION: 1. Atrial fibrillation, chronic now with controlled rate. 2. Decompensated congestive heart failure, [id number] diastolic, clinically improved. 3. Community acquired pneumonia, on antibiotic therapy. 4. Status post previous cerebrovascular accident. 5. Coronary artery disease, clinically stable. RECOMMENDATIONS: His current medications can continue at this time. Continue the antibiotic therapy as advised. Telemetry monitoring can be discontinued. I will be happy to follow along as needed. Reilly Valdez MD
[2018-04-20] MEDS: Insulin Reg-LOW-Coverage SC SCH ×4 (13:20→18:43)
--- NOTE | 2018-04-20 14:15 | CP.PCM.PN ---
Subjective - Date & Time of Evaluation Date of Evaluation: 04/20/18 Time of Evaluation: 10:55 - Subjective Subjective: No fevers, not in distress. Objective - Vital Signs/Intake and Output Vital Signs (last 24 hours): Temp Pulse Resp BP Pulse Ox 98.7 F 77 20 105/57 L 97 04/19/18 12:00 04/19/18 14:00 04/19/18 12:00 04/19/18 12:00 04/19/18 06:00 Intake and Output: 04/19/18 04/19/18 06:59 18:59 Intake Total 940 Output Total 400 Balance 540 - Medications Medications: Current Medications Albuterol/Ipratropium (Duoneb 3 Mg/0.5 Mg (3 Ml) Ud) 3 ml IH [id number] [facility] Last Admin: 04/19/18 13:15 Dose: 3 ml Aspirin (Ecotrin) 81 mg PO DAILY [facility] Last Admin: 04/19/18 09:39 Dose: 81 mg Atorvastatin Calcium (Lipitor) 10 mg PO DIN [facility] Last Admin: 04/18/18 17:52 Dose: 10 mg Betamethasone/Clotrimazole (Lotrisone) 0 gm TOP BID [facility] Last Admin: 04/19/18 10:49 Dose: 1 applic Digoxin (Digoxin) 0.125 mg PO 1400 [facility] Last Admin: 04/19/18 15:31 Dose: 0.125 mg Furosemide (Lasix) 40 mg PO DAILY [facility] Last Admin: 04/19/18 09:40 Dose: 40 mg Meropenem (Merrem Iv 1 Gm Premix) 1 gm in 50 mls @ 100 mls/hr IVPB Q12 [facility]; Protocol Stop: 04/26/18 10:01 Last Admin: 04/19/18 10:50 Dose: 100 mls/hr Insulin Human Regular (Humulin R Low) 0 units SC ACHS [facility]; Protocol Last Admin: 04/19/18 12:45 Dose: 2 units Lactic Acid (Lac-Hydrin 12% Lotion (225 G)) 0 gm EXT BID [facility] Last Admin: 04/19/18 09:46 Dose: 1 applic Levetiracetam (Keppra) 750 mg PO BID [facility] Last Admin: 04/19/18 09:40 Dose: 750 mg Metoprolol Tartrate (Lopressor) 50 mg PO BRKDIN [facility] Last Admin: 04/19/18 09:39 Dose: 50 mg Pantoprazole Sodium (Protonix Ec Tab) 40 mg PO DAILY [facility] Last Admin: 04/19/18 09:40 Dose: 40 mg Tamsulosin HCl (Flomax) 0.4 mg PO DAILY [facility] Last Admin: 04/19/18 09:38 Dose: 0.4 mg Warfarin Sodium (Coumadin) 5 mg PO 1800 [facility]; Protocol Last Admin: 04/18/18 17:52 Dose: 5 mg - Labs Labs: 04/19/18 06:15 04/19/18 06:15 PT 25.3 SECONDS (9.4-12.5) H 04/19/18 06:15 INR 2.24 04/19/18 06:15 APTT 38.6 Seconds (26.9-38.3) H 04/16/18 20:10 - Constitutional Appears: Chronically Ill - Head Exam Head Exam: NORMAL INSPECTION - Respiratory Exam Respiratory Exam: Decreased Breath Sounds - Cardiovascular Exam Cardiovascular Exam: +S1, +S2 - GI/Abdominal Exam GI & Abdominal Exam: Soft. 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 Castle
[2018-04-20] MEDS: Digoxin 125 mcg (0.125 mg) Tab PO SCH (15:01)
[2018-04-20 15:03] VITALS: PULSE 75
[2018-04-20 18:37] VITALS: BP 121/64; PULSE 75; TEMP 97.5
== END 2018-04-20 20:09 | disposition home health service (06) | DRG 292 ==
LOC: ED 19:45 → ERH 21:43 → 2RNO 04-17 23:00
PROVIDERS: ADMIT Internal Medicine; ATTEND Internal Medicine
DX: I11.0 Hypertensive heart disease with heart failure (principal); I50.33 Acute on chronic diastolic (congestive) heart failure; I69.351 Hemiplegia and hemiparesis following cerebral infarction affecting right dominant side; N39.0 Urinary tract infection, site not specified; I47.2 Ventricular tachycardia; J44.0 Chronic obstructive pulmonary disease with (acute) lower respiratory infection; I69.320 Aphasia following cerebral infarction; I25.10 Atherosclerotic heart disease of native coronary artery without angina pectoris; G40.909 Epilepsy, unspecified, not intractable, without status epilepticus; J20.9 Acute bronchitis, unspecified; F01.50 Vascular dementia, unspecified severity, without behavioral disturbance, psychotic disturbance, mood disturbance, and anxiety; E11.9 Type 2 diabetes mellitus without complications; E87.5 Hyperkalemia; I48.2 Chronic atrial fibrillation; B35.1 Tinea unguium; I95.2 Hypotension due to drugs; T46.1X5A Adverse effect of calcium-channel blockers, initial encounter; B96.4 Proteus (mirabilis) (morganii) as the cause of diseases classified elsewhere; N40.0 Benign prostatic hyperplasia without lower urinary tract symptoms; Z93.1 Gastrostomy status; Z89.421 Acquired absence of other right toe(s); Z86.718 Personal history of other venous thrombosis and embolism; Z79.01 Long term (current) use of anticoagulants; Z79.82 Long term (current) use of aspirin; Z87.01 Personal history of pneumonia (recurrent); Z87.891 Personal history of nicotine dependence

== ENCOUNTER 2018-04-22 16:39 | Inpatient (IN) | payer MEDICARE | END 2018-05-12 16:55 | disposition home or self-care (01) | LOC: ERH 04-23 01:36 → 2RNO 04-24 17:50 → 5RNO 05-09 12:06 → ED 16:39 → CCU 04-23 02:57 → 2RNO 04-23 12:18 → ERH 19:24 ==